=== PATIENT | male | born 1945 | race Caucasian/White ===

== ENCOUNTER → 2022-03-23 | Outpatient (CLI) | payer MEDICARE, BC ==
--- NOTE | 2022-03-23 11:09 | US ---
EXAMINATION TYPE: US abdomen complete DATE OF EXAM: 03/23/2022 COMPARISON: NONE CLINICAL HISTORY: R14.2 BELCHING. TECHNIQUE: Multiple sonographic images of the abdomen are obtained. FINDINGS: EXAM MEASUREMENTS: Liver Length: 15.7 cm Gallbladder Wall: 0.2 cm CBD: 0.4 cm Spleen: 11.2 cm Right Kidney: 11.4 x 6.5 x 5.5 cm Left Kidney: 11.4 x 5.6 x 5.9 cm Pancreas: visualized portions wnl, limited by overlying midline bowel gas Liver: scanned intercostally, attenuating, mildly heterogeneous Gallbladder: cholelithiasis Evidence for sonographic Scanlon's sign: no CBD: visualized portions wnl, limited by overlying bowel gas Spleen: wnl Right Kidney: 2.0cm cystic area superior pole Left Kidney: 0.6cm echogenic focus inferior pole Upper IVC: wnl Abd Aorta: visualized portions wnl, limited by overlying midline bowel gas IMPRESSION: 1. Hepatic steatosis. 2. Right renal cyst. 3. Cholelithiasis. 4. Nonobstructing left renal calculus.
== END | disposition home or self-care (01) ==
LOC: RADUSWWP 10:00
PROVIDERS: ATTEND Internal Medicine Gastroenterology
DX: R14.2 Eructation (principal)
CPT/HCPCS: 76700

== ENCOUNTER → 2022-07-03 | Outpatient (CLI) | payer MEDICARE, BC ==
--- NOTE | 2022-07-03 15:19 | NM ---
EXAMINATION TYPE: NM hepatobiliary w EF DATE OF EXAM: 07/03/2022 COMPARISON: Ultrasound abdomen March 23, 2022 HISTORY: Abdominal pain. TECHNIQUE: After the intravenous administration of 4.3 mCi Tc 99m Mebrofenin hepatobiliary scintigrap hy is performed. Immediate images post injection. FINDINGS: There is satisfactory initial accumulation of tracer by the liver. The gallbladder is visualized wit hin 45 minutes. The small bowel activity is noted within 15 minutes. At one hour 8 ounces of oral e nsure plus is given to mimic CCK and gallbladder ejection fraction is calculated at 3 %, diminished f rom the normal range. Therefore there is no scintigraphic evidence of cystic or common bile duct obs truction to suggest acute cholecystitis . IMPRESSION: Ejection fraction is 3%, findings consistent with underlying gallbladder hypokinesia.
== END | disposition home or self-care (01) ==
LOC: RADNMMAIN 12:43
PROVIDERS: ATTEND Internal Medicine
DX: R10.84 Generalized abdominal pain (principal)
CPT/HCPCS: 78226; A9537

== ENCOUNTER 2022-08-05 06:20 | Day surgery (SDC) | payer MEDICARE, BC ==
[~2022-08-05 06:20] MED LIST: ACETAMINOPHEN TAB 500 MG TAB PO PRN; DEXAMETHASONE SOD PHOSPHATE 4 MG/ML 1 ML VIAL IV ONE; HEPARIN SODIUM,PORCINE/PF 5,000 UNIT/0.5 ML SYRINGE SQ PRN; HYDROmorphone 0.5 MG/0.5 ML SYRINGE IVP PRN; LACTATED RINGERS 1,000 ML IV SCH; LIDOCAINE 1% (10MG/ML) FOR IV START INTRADERMA PRN; ONDANSETRON 4 MG/2 ML VIAL IVP ONE
[2022-08-05] MEDS ORDERED: LIDOCAINE 2% INJ 20 MG/ML (2 ML VIAL) ONE (07:41)
[2022-08-05] MEDS ORDERED: MIDAZOLAM 2 MG/2 ML VIAL ONE (07:41)
[2022-08-05] MEDS ORDERED: PROPOFOL 10 MG/ML 20 ML VIAL IV ONE (07:41)
[2022-08-05] MEDS ORDERED: ESMOLOL 100 MG/10 ML VIAL ONE (07:41)
[2022-08-05] MEDS ORDERED: fentaNYL (PF) 50 MCG/ML 2 ML AMP ONE (07:41)
[2022-08-05] MEDS ORDERED: ePHEDrine 50 MG/ML 1 ML VIAL ONE (07:41)
[2022-08-05] MEDS ORDERED: GLYCOPYRROLATE 0.2 MG/ML 2 ML VIAL ONE (07:41)
[2022-08-05] MEDS ORDERED: NEOSTIGMINE 1 MG/ML 10 ML VIAL ONE (07:41)
[2022-08-05] MEDS ORDERED: ROCURONIUM 10 MG/ML (5 ML VIAL) IV ONE (07:41)
[2022-08-05] MEDS ORDERED: SUCCINYLCHOLINE CHLORIDE 200 MG/10 ML VIAL IV ONE (07:41)
[2022-08-05] MEDS ORDERED: BUPIVACAIN-EPI 0.25%-1:200,000 30 ML VIAL SQ ONE (08:05)
--- NOTE | 2022-08-05 08:34 | P.OP ---
Date of Procedure: 08/05/22 Preoperative Diagnosis: Cholelithiasis Postoperative Diagnosis: cholelithiasis Procedure(s) Performed: Laparoscopic cholecystectomy Anesthesia: KETURAH Surgeon: Jw Mason Estimated Blood Loss (ml): 5 Pathology: other (Gallbladder) Condition: stable Disposition: PACU Description of Procedure: The patient was placed on the operating table. The patient received a general endotracheal tube anesthesia. The patients abdomen was prepped and draped in the usual sterile fashion. Through an infraumbilical stab incision, the fascia of the anterior abdominal wall was grasped with a pair of Kochers and then the Veress needle was placed in the peritoneal cavity. Position of the Veress needle was confirmed with positive drop test. The abdomen was then insufflated. After adequate insufflation, the 10 mm trocar was placed in the peritoneal cavity. Following this the laparoscope was placed in the peritoneal cavity. The patient was placed in the head-up, right side up position and then a 5 mm trocar was placed in the right lateral and right subcostal position under direct visualization. A 8 mm trocar was placed in the epigastric position. The gallbladder was grasped in the fundus and infundibulum. Traction on the gallbladder was placed in the lateral and the cephalad positions. The triangle of Calot was visualized.. The cystic duct was bluntly dissected until the union of the cystic duct and common bile duct was seen. A critical view of safety was achieved. The cystic duct was then divided and sealed with the Harmonic scissors. A PDS Endoloop was then placed throughout the cystic duct stump. The cystic artery divided and sealed with the Harmonic scissors. The gallbladder was then removed from the liver bed using Harmonic scissors. The gallbladder was then extracted through the epigastric port site. Operative field was checked for any bleeding spots and Harmonic scissors was used to coagulate the liver bed. The abdomen was irrigated. The trocars were removed. The skin was closed using interrupted 3-0 Vicryl suture. Dermabond dressing were applied. The patient tolerated the procedure well.
[2022-08-05 08:43] VITALS: TEMP 97
[2022-08-05 10:02] VITALS: BP 146/76; PULSE 70; RESP 16
== END 2022-08-05 12:38 | disposition home or self-care (01) ==
LOC: OR 06:20
PROVIDERS: ATTEND Surgery
DX: K80.10 Calculus of gallbladder with chronic cholecystitis without obstruction (principal); Z98.890 Other specified postprocedural states; Z79.899 Other long term (current) drug therapy
CPT/HCPCS: 47562; 88304; J2250; J0330; J1100; J2710; J0690; J2405; J3010; J2704; J1644; J2001

== ENCOUNTER → 2023-06-22 | Outpatient (CLI) | payer MEDICARE, BC ==
--- NOTE | 2023-06-22 21:37 | FL ---
EXAMINATION TYPE: FL barium swallow DATE OF EXAM: 06/22/2023 COMPARISON: None HISTORY: Diaphragmatic hernia TECHNIQUE: A double air contrast UGI study is performed. FINDINGS: Esophagus stylish normal caliber has a normal contour to the gastroesophageal junction. Gastroesophag eal junction opens to normal caliber. No intraluminal or extramural defects are evident. Some mild pr esbyesophagus with tertiary contractions is evident. Mild reflux in the distal esophagus was evident during the exam. IMPRESSION: 1. Mild presbyesophagus. 2. Mild gastroesophageal reflux
== END | disposition home or self-care (01) ==
LOC: RADFLMAIN 08:46
PROVIDERS: ATTEND Surgery Plastic and Reconstructive Surgery
DX: K44.9 Diaphragmatic hernia without obstruction or gangrene (principal); K22.89 Other specified disease of esophagus; K21.9 Gastro-esophageal reflux disease without esophagitis
CPT/HCPCS: 74220

== ENCOUNTER → 2023-07-07 | Day surgery (SDC) | payer MEDICARE, BC ==
[2023-07-05 17:51] VITALS: BMI 27.1
[~2023-07-07] MED LIST changes: -ACETAMINOPHEN TAB 500 MG TAB PO PRN; -DEXAMETHASONE SOD PHOSPHATE 4 MG/ML 1 ML VIAL IV ONE; -HEPARIN SODIUM,PORCINE/PF 5,000 UNIT/0.5 ML SYRINGE SQ PRN; -HYDROmorphone 0.5 MG/0.5 ML SYRINGE IVP PRN; -LIDOCAINE 1% (10MG/ML) FOR IV START INTRADERMA PRN; +LIDOCAINE 1% INJ 10MG/ML (20 ML MDV) ONE; -ONDANSETRON 4 MG/2 ML VIAL IVP ONE; +PROPOFOL 10 MG/ML 20 ML VIAL IV ONE
--- NOTE | 2023-07-07 07:37 | P.GSHP ---
History of Present Illness H&P Date: 07/07/23 CHIEF COMPLAINT: GERD HISTORY OF PRESENT ILLNESS: The patient is a 78-year-old male who presents reports gastroesophageal reflux disease. Upper endoscopy was offered for further evaluation and management. PAST MEDICAL HISTORY: Please see list. PAST SURGICAL HISTORY: Please see list. MEDICATIONS: Please see list. ALLERGIES: Please see list. SOCIAL HISTORY: No illicit drug use FAMILY HISTORY: No reports of Crohn disease or ulcerative colitis. REVIEW OF ORGAN SYSTEMS: CONSTITUTIONAL: No reports of fevers or chills. GI: Denies any blood in stools or constipation. PHYSICAL EXAM: VITAL SIGNS: Stable GENERAL: Well-developed and pleasant in no acute distress. HEENT: No scleral icterus. Extraocular movements grossly intact. Moist buccal mucosa. NECK: Supple without lymphadenopathy. CHEST: Unlabored respirations. Equal bilateral excursions. CARDIOVASCULAR: Regular rate and rhythm. Distal 2+ pulses. ABDOMEN: Soft, nondistended. MUSCULOSKELETAL: No clubbing, cyanosis, or edema. ASSESSMENT: 1. Gastroesophageal reflux disease PLAN: 1. Recommend proceeding with an upper endoscopy Past Medical History Past Medical History: GERD/Reflux, Hypertension Additional Past Medical History / Comment(s): hiatal hernia found on egd History of Any Multi-Drug Resistant Organisms: None Reported Past Surgical History: Cholecystectomy Additional Past Surgical History / Comment(s): rt foot surgery, egd x2 Past Anesthesia/Blood Transfusion Reactions: No Reported Reaction Smoking Status: Never smoker - Past Family History Mother Family Medical History: No Reported History Medications and Allergies Home Medications Medication Instructions Recorded Confirmed Type Multivitamins, Thera [Multivitamin 1 tab PO DAILY 07/31/22 07/05/23 History (formulary)] allopurinoL 300 mg PO DAILY 07/31/22 07/05/23 History lisinopriL [Prinivil] 20 mg PO BID 07/31/22 07/05/23 History Indomethacin [Indocin] 1 tab PO BID PRN 08/05/22 07/05/23 History Allergies Allergy/AdvReac Type Severity Reaction Status Date / Time No Known Allergies Allergy Verified 07/05/23 17:23
[2023-07-07 08:04] VITALS: TEMP 97
[2023-07-07 09:21] VITALS: BP 112/71; PULSE 54
--- NOTE | 2023-07-07 09:21 | P.PCN ---
Date of Procedure: 07/07/23 Description of Procedure: PREOPERATIVE DIAGNOSIS: Gastroesophageal reflux disease. POSTOPERATIVE DIAGNOSIS: Gastroesophageal reflux disease. Gastritis. Diaphragmatic hiatal hernia Presbyesophagus OPERATION: Esophagogastroduodenoscopy with biopsies along the esophagus, antrum and duodenum SURGEON: Saniya Cho MD ANESTHESIA: MAC. INDICATIONS: The patient is a 78-year-old female who presents with reflux disease. Benefits and risks of the procedure were described. Informed consent was obtained. DESCRIPTION: The patient was brought into the endoscopy suite and laid in the left lateral decubitus position. An Olympus gastroscope was passed along the posterior oropharynx down to the distal esophagus where the squamocolumnar junction was encountered at 40 cm from the incisors. The stomach was entered and no bile reflux was found. Additional findings are listed below. Biopsies with cold for ceps were obtained of the antrum. The first through third portion of the duodenum was examined. Retroflexion of the scope confirmed Hill grade 2 lower esophageal valve. The squamocolumnar junction demonstrated LA grade B erosive esophagitis. The stomach was desufflated. The patient tolerated the procedure well. FINDINGS: Squamocolumnar junction 40 cm from the incisors. Diaphragmatic hiatus at 41 cm. Hiatal hernia, 1 cm, sliding type Hill grade 2 lower esophageal valve. LA grade B erosive esophagitis with biopsies obtained Biopsies obtained of the duodenum. Chronic gastritis with biopsies obtained. Presbyesophagus RECOMMENDATIONS: Upper endoscopy as needed. Plan - Discharge Summary Discharge Rx Participant: No New Discharge Prescriptions: Continue Indomethacin [Indocin] 1 tab PO BID PRN PRN Reason: SWELLING allopurinoL 300 mg PO DAILY lisinopriL [Prinivil] 20 mg PO BID Multivitamins, Thera [Multivitamin (formulary)] 1 tab PO DAILY Discharge Medication List Multivitamins, Thera [Multivitamin (formulary)] 1 tab PO DAILY 07/31/22 [History] allopurinoL 300 mg PO DAILY 07/31/22 [History] lisinopriL [Prinivil] 20 mg PO BID 07/31/22 [History] Indomethacin [Indocin] 1 tab PO BID PRN 08/05/22 [History] Follow up Appointment(s)/Referral(s): Saniya Cho MD [STAFF PHYSICIAN] - 07/20/23 1:30 pm Patient Instructions/Handouts: *Surgery [facility] - (Anesthesia) Discharge Instructions Outpatient Surgery, Hiatal Hernia (DC), GERD (Gastroesophageal Reflux Disease) (ED) Discharge Disposition: HOME SELF-CARE
[2023-07-07 09:22] VITALS: RESP 20
== END | disposition home or self-care (01) ==
LOC: ORWHC2ENDO 07:26
PROVIDERS: ATTEND Surgery Plastic and Reconstructive Surgery
DX: K29.50 Unspecified chronic gastritis without bleeding (principal); K44.9 Diaphragmatic hernia without obstruction or gangrene; K22.89 Other specified disease of esophagus; K21.00 Gastro-esophageal reflux disease with esophagitis, without bleeding; I10 Essential (primary) hypertension; Z90.49 Acquired absence of other specified parts of digestive tract; Z98.890 Other specified postprocedural states; Z79.899 Other long term (current) drug therapy
CPT/HCPCS: 88305; 43239; J2001; J2704

== ENCOUNTER 2023-07-13 07:28 | Inpatient (IN) | payer MEDICARE, BC ==
[~2023-07-13 07:28] MED LIST changes: +ALPRAZolam 0.25 MG TAB PO PRN; +ALPRAZolam 0.5 MG TAB PO PRN; +ASPIRIN 325 MG TAB PO ONE; -LACTATED RINGERS 1,000 ML IV SCH; -LIDOCAINE 1% INJ 10MG/ML (20 ML MDV) ONE; +NITROGLYCERIN SL TABS 0.4 MG TAB SUBLINGUAL PRN; -PROPOFOL 10 MG/ML 20 ML VIAL IV ONE
[2023-07-13] MEDS: SODIUM CHLORIDE 0.9% 1,000 ML in EMPTY BAG 1 BAG IV SCH ×2 (08:00→14:54)
[2023-07-13] MEDS ORDERED: fentaNYL (PF) 50 MCG/ML 2 ML AMP ONE (09:17)
[2023-07-13] MEDS ORDERED: HEPARIN SODIUM 1,000 UN/ML (10ML VL) ONE (09:17)
[2023-07-13] MEDS ORDERED: fentaNYL (PF) 50 MCG/ML 2 ML AMP IVP ONE ×2 (09:45)
[2023-07-13] MEDS ORDERED: LIDOCAINE 1% INJ 10MG/ML (30 ML VIAL-PF) SQ ONE (09:49)
[2023-07-13] MEDS ORDERED: VERAPAMIL SYRINGE (5 MG/10 ML) INTRAARTER ONE (09:50)
[2023-07-13] MEDS ORDERED: MIDAZOLAM 2 MG/2 ML VIAL IVP ONE (09:52)
[2023-07-13] MEDS ORDERED: HEPARIN SODIUM 1,000 UN/ML (10ML VL) IVP ONE (09:54)
[2023-07-13] MEDS ORDERED: IOPAMIDOL-370 100ML BTL INJ ONE (10:04)
[2023-07-13] MEDS ORDERED: RX INFO: IV CONTRAST WAS GIVEN 1 EACH MISC MISCELLANE PRN (10:26)
[2023-07-13] MEDS ORDERED: HEPARIN SODIUM 1,000 UN/ML (10ML VL) IV PRN (10:28)
[2023-07-13] MEDS ORDERED: SODIUM CHLORIDE 0.9% 1,000 ML IV SCH (10:30)
--- NOTE | 2023-07-13 10:36 | P.CARDCATH ---
Date of Procedure: 07/13/23 Description of Procedure: Cardiac Catheterization: The patient is a 78 old male with known history of hypertension who has been complaining of progressive symptoms of chest discomfort consistent with angina pectoris. Recommendations were made regarding cardiac catheterization, the risks and the complications were discussed with the patient who is in full understanding and agreement. Procedure Description: Patient was brought to laborer shaft sinking in fasting semi-sedated state after receiving Fentanyl and Benadryl achieiving moderate conscious sedated state. Using Xylocaine Anesthesia and modified Seldinger technique, a 6-Sudanese sheath was introduced in the right radial artery . Subsequently, selective coronary angiography was performed using a 5-Sudanese 3.5 bend Randal catheter. Multiple views of the coronary artery including hemiaxial views were obtained. The 6-Sudanese pigtail catheter was used to cross the aortic valve and LVEDP was calculated. Following that, catheter and sheath were removed. Hemostasis was obtained with deployment of vascular band . There was no immediate complication. Patient was returned to room in stable condition. Of note, the patient received a total of 5000 units of intravenous heparin as well as intra-arterial verapamil. Findings: Fluoroscopy: There is severe calcifications of all the coronary arteries Left main: This vessel is heavily calcified has severe stenosis in the midsegment of about 95%, bifurcating into LAD and left circumflex LAD: This vessel gives rise to a diagonal branch that has an 80% stenosis the proximal LAD has 30-40% the mid LAD has an 80% stenosis the rest of the vessel has no high-grade stenosis Left circumflex: This is a nondominant vessel giving rise to one obtuse marginal branch has intimal disease and gives rise to 2 obtuse marginal branch with no high-grade stenosis RCA: This is a large dominant vessel bifurcating PDA and PLV. The proximal right coronary artery has an eccentric 80% stenosis, the mid RCA has another area of 70%, the distal vessel is diffusely disease and there is a 90-95% stenosis in the distal RCA prior to the bifurcation. Left Ventriculogram: Not performed Hemodynamics: There was no gradient across the aortic valve , LVEDP was 20-25 mmHg Conclusion: 1. Severely calcified coronary arteries 2. Severe left main disease 3. And severe LAD disease 4. Severe RCA disease Recommendations: I have recommended to proceed with urgent CABG in view of his anatomy and presentation, the findings were discussed with the surgeon. The findings and the recommendations were discussed with the patient and the family and they were in full understanding and agreement. Duration of sedation is 15 minutes.
[2023-07-13 11:12] LABS: Basophils % (A) 1 %; Eosinophils # (A) 0.2 k/uL (0-0.7); Eosinophils % (A) 3 %; HCT 40.8 % (39.0-53.0); HGB 13.4 gm/dL (13.0-17.5); Lymphocytes # (A) 2.6 k/uL (1.0-4.8); Lymphocytes % (A) 35 %; MCH 31.8 pg (25.0-35.0); MCHC 32.9 g/dL (31.0-37.0); MCV 96.8 fL (80.0-100.0); Mean Platelet Volume 8.4; Monocytes # (A) 0.3 k/uL (0-1.0); Monocytes % (A) 4 %; Neutrophils # (A) 4.1 k/uL (1.3-7.7); Neutrophils % (A) 56 %; Platelet Count 213 k/uL (150-450); RBC 4.21 m/uL (4.30-5.90); RDW 13.5 % (11.5-15.5); WBC 7.3 k/uL (3.8-10.6)
[2023-07-13 11:22] LABS: Partial Thromboplastin Time 63.9 sec (22.0-30.0); Prothrombin Time 10.6 sec (10.0-12.5)
[2023-07-13 11:35] LABS: ALT 22 U/L (4-49); AST 25 U/L (17-59); African American GFR (CKD) >90 (>60 ml/min/1.73 sqM); Albumin 3.8 g/dL (3.5-5.0); Alkaline Phosphatase 81 U/L (38-126); Anion Gap 13 mmol/L; Blood Urea Nitrogen 23 mg/dL (9-20); Calcium 9.6 mg/dL (8.4-10.2); Carbon Dioxide 18 mmol/L (22-30); Chloride 110 mmol/L (98-107); Glucose 107 mg/dL (74-99); Magnesium 1.9 mg/dL (1.6-2.3); Non-African American GFR(CKD) 82 (>60 ml/min/1.73 sqM); Potassium 4.3 mmol/L (3.5-5.1); Sodium 141 mmol/L (137-145); Total Bilirubin 0.5 mg/dL (0.2-1.3); Total Protein 6.7 g/dL (6.3-8.2)
--- NOTE | 2023-07-13 11:58 | US ---
EXAMINATION TYPE: US carotid duplex BILAT DATE OF EXAM: 07/13/2023 COMPARISON: NONE CLINICAL INDICATION: Male, 78 years old with history of preop cardiac surgery; pending bypass surgery . no stroke history TECHNIQUE: Carotid duplex ultrasound examination. Indirect Doppler criteria was utilized. FINDINGS: EXAM MEASUREMENTS: RIGHT: Peak Systolic Velocity (PSV) cm/sec ----- Right CCA: 85.1 ----- Right ICA: 99.3 ----- Right ECA: 102 ICA/CCA ratio: 1.2 RIGHT: End Diastole cm/sec ----- Right CCA: 14.9 ----- Right ICA: 22.4 ----- Right ECA: 0.0 LEFT: Peak Systolic Velocity (PSV) cm/sec ----- Left CCA: 125.0 ----- Left ICA: 116.0 ----- Left ECA: 98.1 ICA/CCA ratio: 0.9 LEFT: End Diastole cm/sec ----- Left CCA: 15.6 ----- Left ICA: 23.0 ----- Left ECA: 0.0 VERTEBRALS (direction of flow): Right Vertebral: Antegrade Left Vertebral: Antegrade Rhythm: Normal INSPECTOR HEATING AND REFRIGERATION NOTES: Mild atherosclerotic plaque, left greater than right, with no significant stenosis seen IMPRESSION: No hemodynamically significant internal carotid artery stenosis seen on either side. Criteria for Assigning % of Stenosis / Diameter reduction (Estimation based on the indirect measurements of the internal carotid artery velocities (ICA PSV). 1. Normal (no stenosis)=ICA PSV < 125 cm/s: ratio < 2.0: ICA EDV<40 cm/s. 2. Less than 50% stenosis=ICA PSV < 125 cm/s: ratio < 2.0: ICA EDV<40 cm/s. 3. 50 to 69% stenosis=ICA PSV of 125 to 230 cm/s: ration 2.0 ? 4.0: ICA EDV 40-100 cm/s. 4. Greater than 70% stenosis to near occlusion= ICA PSV > 230 cm/s: ratio > 4.0: ICA EDV > 100 cm/s. 5. Near occlusion= ICA PSV velocities may be low or undetectable: variable ratio and ICA EDV. 6. Total occlusion=unable to detect flow.
--- NOTE | 2023-07-13 12:34 | US ---
EXAMINATION TYPE: Pre-Operative Non-Invasive Evaluation of the hand for Potential Radial Artery Dahiana clark, Measurements only DATE OF EXAM: 07/13/2023 11:39 AM CLINICAL INDICATION: Male, 78 years old with history of measurements only; Right heart cath, bypass s urgery SIDE PERFORMED: Left TECHNIQUE: Radial artery is measured utilizing real time linear array sonography. Dominant hand: Right Duplex Findings: Radial Artery: Color flow seen Measurements in mm, transverse view: Left Radial: Proximal: 3.2 x 2.8mm Mid: 2.5 x 3.1 mm Distal: 2.9 x 3.9 mm IMPRESSION: 1. Left radial artery measurements listed above. 2. Performing surgeon to determine viability as conduit.
[2023-07-13] MEDS: HEPARIN SOD,PORK IN 0.45% NACL 25,000 UNIT in 0.45% NACL 1 250ML.BAG IV SCH (12:35)
--- NOTE | 2023-07-13 12:35 | US ---
EXAMINATION TYPE: US vein mapping BILAT DATE OF EXAM: 07/13/2023 11:39 AM COMPARISON: NONE CLINICAL INDICATION: Male, 78 years old with history of preop cardiac surgery; pending bypass surgery SIDE PERFORMED: Bilateral TECHNIQUE: Lower extremity saphenous vein is examined and measured utilizing real time linear array sonography. DUPLEX FINDINGS: Greater Saphenous: Color flow seen Measurements in mm: Right Greater Saphenous: Groin: 8.3 x 7.5 mm High Thigh: 1.9 x 2.1 mm Mid Thigh: 2.2 x 3.0 mm Above Knee: 2.3 x 3.2 mm Knee: 2.7 x 2.1 mm Below Knee: 1.6 x 1.4 mm Mid Calf: 2.7 x 3.0 mm At Ankle: 2.3 x 2.3 mm Left Greater Saphenous: Groin: 5.6 x 5.7 mm High Thigh: 3.9 x 3.5 mm Mid Thigh: 3.0 x 3.0 mm Above Knee: 2.6 x 2.8 mm Knee: 1.8 x 2.8 mm Below Knee: 2.2 x 2.2 mm Mid Calf: 1.1 x 1.6 mm At Ankle: 2.5 x 3.5 mm IMPRESSION: 1. Bilateral GSV measurements listed above. 2. Performing surgeon to determine viability as conduit.
--- NOTE | 2023-07-13 13:42 | CT ---
EXAMINATION TYPE: CT chest wo con CT DLP: 446.4 mGycm, Automated exposure control for dose reduction was used. DATE OF EXAM: 07/13/2023 10:41 AM COMPARISON: None. . CLINICAL INDICATION:Male, 78 years old with history of cardiac surgery; [facility], post op cardiac sx chest pain TECHNIQUE: Multiple axial images were obtained through the chest. Sagittal and coronal reformats were created for review. Contrast used: mL of (None if empty) Oral contrast used: (None if empty) FINDINGS: Exam is limited without IV contrast. LOWER NECK: No significant findings. HEART: The heart is mildly to moderately enlarged. Moderate to severe coronary artery calcifications and/or stents. Partially calcified aortic valve. Partially calcified mitral valve. No significant per icardial effusion. VASCULATURE: Mild/moderate atherosclerotic calcifications throughout the aorta. No evidence of aneur ysm. Grossly unremarkable appearance of the pulmonary arteries without contrast. Pelvic trunk is not grossly enlarged. MEDIASTINUM: No gross evidence of adenopathy. LUNGS/ PLEURA: Mild scattered scarring and senescent changes. Mild dependent atelectasis in the lung bases. No acute consolidation, pleural effusion, or pneumothorax. AIRWAY: Central airways patent and unremarkable. MUSCULOSKELETAL: No acute osseous abnormalities. Moderate disc degeneration changes are present thro ughout the visualized spine. SOFT TISSUES: Unremarkable. No axillary adenopathy. UPPER ABDOMEN: Grossly unremarkable liver. Gallbladder not seen, likely surgically absent. Mildly thi ckened adrenals without evidence of mass. Atherosclerotic calcifications of the aorta with suspected mild stenoses of the proximal celiac, superior mesenteric, left renal arteries. The kidneys seem to d emonstrate some early contrast excretion, limiting evaluation for calculi. Likely parapelvic cyst on the right measures 2.4 cm. IMPRESSION: 1. No acute abnormality of the chest detected, in the limits of noncontrast technique. 2. Other chronic and likely incidental findings, as described above.
--- NOTE | 2023-07-13 15:15 | US ---
EXAMINATION TYPE: US arterial LE multi level DATE OF EXAM: 07/13/2023 1:39 PM CLINICAL INDICATION: Male, 78 years old with history of Ankle Brachial Index (ANDRY); Pre-OP CABG ANDRY Doppler Waveforms: Right: Multiphasic Left: Multiphasic Right Brachial Pressure: Not obtained due to heart cath site Left Brachial Pressure: 146 Ankle-Brachial Indices: Right: 1.2 Left: 1.2 IMPRESSION: Normal bilateral ANDRY
--- NOTE | 2023-07-13 15:19 | P.GSCN ---
History of Present Illness Consult date: 07/13/23 Reason for Consult: Coronary artery disease with left main disease Requesting physician: Dariana Hernandez History of present illness: This is a 78-year-old gentleman who follows outpatient with Dr. Cabrera for primary care and who recently established with Dr. Hernandez for cardiology. He has a previous medical history of hypertension, lifelong nonsmoker, and cholecystitis status post cholecystectomy. This gentleman had been complaining of chest discomfort and dyspnea on exertion. Initially he thought it was his gallbladder but his symptoms have not improved since he had his gallbladder removed. He states his chest pain and shortness of breath are only with exertion and do resolve with rest. Consequently he has reduced his activity level to avoid having such symptoms. He was seen by Dr. Hernandez who recommended heart catheterization and echocardiogram. Echo was completed and the cardiology office which demonstrated normal left ventricular systolic function with EF 55- 60%, moderate eccentric mitral regurgitation, mild aortic and tricuspid regurgitation. He underwent elective heart catheterization this morning and was found to have severely calcified coronary artery disease with mid left main stenosis 95%, mid LAD stenosis 80% with a diagonal branch which also has 80% stenosis and RCA with 80% proximal disease, 70% mid disease and diffuse 90-95% distal disease. Due to these findings consultation was placed to Dr. Spain for surgical revascularization recommendations. Review of Systems Review of systems was completed and was negative except as noted - Cardiovascular Reports as per HPI, Reports chest pain, Reports dyspnea on exertion Past Medical History Past Medical History: GERD/Reflux, Hypertension Additional Past Medical History / Comment(s): hiatal hernia found on egd History of Any Multi-Drug Resistant Organisms: None Reported Past Surgical History: Cholecystectomy, Orthopedic Surgery Additional Past Surgical History / Comment(s): rt foot surgery, egds Past Anesthesia/Blood Transfusion Reactions: No Reported Reaction Past Psychological History: No Psychological Hx Reported Smoking Status: Never smoker Past Alcohol Use History: Occasional Past Drug Use History: None Reported - Past Family History Mother Family Medical History: No Reported History Additional Family Medical History / Comment(s): from old age Father Additional Family Medical History / Comment(s): from peritonitis Medications and Allergies Home Medications Medication Instructions Recorded Confirmed Type Multivitamins, Thera [Multivitamin 1 tab PO DAILY 07/31/22 07/13/23 History (formulary)] allopurinoL 300 mg PO DAILY 07/31/22 07/13/23 History lisinopriL [Prinivil] 20 mg PO BID 07/31/22 07/13/23 History Indomethacin [Indocin] 1 tab PO BID PRN 08/05/22 07/13/23 History Aspirin 81 mg PO DAILY 07/09/23 07/13/23 History Isosorbide Mononitrate ER [Imdur] 30 mg PO DAILY 07/13/23 07/13/23 History Allergies Allergy/AdvReac Type Severity Reaction Status Date / Time No Known Allergies Allergy Verified 07/15/23 06:04 Surgical - Exam Vital Signs Temp Pulse Resp BP Pulse Ox 97.8 F 55 L 18 154/67 95 07/13/23 07:58 07/13/23 07:58 07/13/23 07:58 07/13/23 07:58 07/13/23 07:58 CONSTITUTIONAL: Awake and alert, appears comfortable, cooperative, well- developed, well-nourished, no pain, no acute distress EYES: Pupils equal, round, reactive to light, normal ocular movement ENT: Moist mucous membranes without oral lesions present NECK: No masses, no bruits, trachea midline RESPIRATORY: Lungs sounds clear to auscultation bilaterally. Respirations even, nonlabored. Currently on room air with oxygen saturation 97%. Strong cough. No chest wall deformities. No clubbing or cyanosis present CARDIOVASCULAR: S1, S2 present. Regular rate and rhythm, sinus rhythm on telemetry. Palpable peripheral pulses bilaterally. No edema present. No calf pain or tenderness noted. No significant lower extremity varicosities noted GASTROINTESTINAL: Abdomen soft, nontender, nondistended without masses or organomegaly noted. There is no rebound or guarding present. Active bowel sounds present 4 quadrants. GENITOURINARY: Deferred INTEGUMENTARY: Skin is warm and dry with evidence of good perfusion. NEUROLOGIC: Cranial nerves II through XII intact, normal coordination, no obvious motor or sensory deficits, speech is normal MUSKULOSKELETAL: Able to move all extremities, strength equal bilaterally, normal posture PSYCHIATRIC: Alert and oriented to person place and time, appropriate affect, intact judgment and insight Results - Labs 07/14/23 01:16 07/13/23 10:47 Abnormal Lab Results - Last 24 Hours (Table) 07/13/23 07/13/23 07/13/23 Range/Units 10:47 10:47 10:47 RBC 4.21 L (4.30-5.90) m/uL APTT 63.9 H (22.0-30.0) sec Chloride 110 H (98-107) mmol/L Carbon Dioxide 18 L (22-30) mmol/L BUN 23 H (9-20) mg/dL Glucose 107 H (74-99) mg/dL Diabetes panel 07/13/23 Range/Units 10:47 Sodium 141 (137-145) mmol/L Potassium 4.3 (3.5-5.1) mmol/L Chloride 110 H (98-107) mmol/L Carbon Dioxide 18 L (22-30) mmol/L BUN 23 H (9-20) mg/dL Creatinine 0.89 (0.66-1.25) mg/dL Glucose 107 H (74-99) mg/dL Calcium 9.6 (8.4-10.2) mg/dL AST 25 (17-59) U/L ALT 22 (4-49) U/L Alkaline Phosphatase 81 (38-126) U/L Total Protein 6.7 (6.3-8.2) g/dL Albumin 3.8 (3.5-5.0) g/dL Thyroid panel 07/13/23 Range/Units 10:47 TSH 1.350 (0.465-4.680) mIU/L Calcium panel 07/13/23 Range/Units 10:47 Calcium 9.6 (8.4-10.2) mg/dL Albumin 3.8 (3.5-5.0) g/dL Pituitary panel 07/13/23 Range/Units 10:47 Sodium 141 (137-145) mmol/L Potassium 4.3 (3.5-5.1) mmol/L Chloride 110 H (98-107) mmol/L Carbon Dioxide 18 L (22-30) mmol/L BUN 23 H (9-20) mg/dL Creatinine 0.89 (0.66-1.25) mg/dL Glucose 107 H (74-99) mg/dL Calcium 9.6 (8.4-10.2) mg/dL TSH 1.350 (0.465-4.680) mIU/L Adrenal panel 07/13/23 Range/Units 10:47 Sodium 141 (137-145) mmol/L Potassium 4.3 (3.5-5.1) mmol/L Chloride 110 H (98-107) mmol/L Carbon Dioxide 18 L (22-30) mmol/L BUN 23 H (9-20) mg/dL Creatinine 0.89 (0.66-1.25) mg/dL Glucose 107 H (74-99) mg/dL Calcium 9.6 (8.4-10.2) mg/dL Total Bilirubin 0.5 (0.2-1.3) mg/dL AST 25 (17-59) U/L ALT 22 (4-49) U/L Alkaline Phosphatase 81 (38-126) U/L Total Protein 6.7 (6.3-8.2) g/dL Albumin 3.8 (3.5-5.0) g/dL - Imaging CT scan - chest: report reviewed, image reviewed EKG: image reviewed Additional studies: Heart catheterization films were reviewed with Dr. Spain Assessment and Plan Assessment: Coronary artery disease, left main disease Chest pain, shortness of breath secondary to above Hypertension Bradycardia with second-degree heart block Plan: The patient was seen and examined by Dr. Spain. Chart/diagnostics were reviewed. The usual perioperative course of open-heart surgery was discussed in detail with the patient, risks and benefits were reviewed, all questions were answered. Preoperative testing was initiated, STS risk score was calculated and discussed with the patient. 5 m walk test was completed, #1 5.8 seconds, #2 5.76 seconds, #3 4.55 seconds. Recommend maximizing medical therapy with aspirin, statin. Would like beta michoacano on board, however due to bradycardia with second-degree heart block we will not initiate at this time. Patient currently denies any chest pain or shortness of breath. The case was discussed in detail between Dr. Hernandez and Dr. Spain. At this time our plan is for myocardial revascularization with left internal mammary artery, left radial artery, endoscopic vein harvest with left atrial appendage ligation on July [address] Spain. This was discussed with the patient and he is in agreement. Thank you Dr. Hernandez for this consult, we will continue to follow along with you. I have personally seen and examined the patient, performed the documentation and the assessment and plan as written. Number of minutes spent on the visit: 30. Hailey Han, [employer] THICKENER OPERATOR-C Attending Addendum: Pt seen and evaluated with RED MUD THICKENER OPERATOR above. Agree with her assessment and plan. This is a 78 year-old male with a hx of GERD and htn who presents for elective cath with a history of several months of anginal symptoms. Coronary cath reveals significant 3v CAD. The patient is certainly a good candidate for CABG. We will proceed with pre-operative testing and plan for surgery this admission. I spent 45 minutes evaluating the patient and data and discussing the plan of care with the team. I spent 45 minutes evaluating the patient and discussing the findings of care with the team. Time with Patient: Greater than 30
[2023-07-13 15:49] LABS: Hepatitis A Antibody IgM Nonreactive; Hepatitis B Core IgM Nonreactive; Hepatitis B Surface Antigen Nonreactive; Hepatitis C IgG Antibody Nonreactive
--- NOTE | 2023-07-13 16:00 | P.CNPUL ---
History of Present Illness Consult date: 07/13/23 Requesting physician: Dariana Hernandez Reason for consult: other Chief complaint: Coronary artery disease. History of present illness: Pulmonary consult dated 07/13/2023. 78-year-old male who recently had a cardiac catheterization that showed severely calcified coronary arteries, severe left main disease, and severe LAD and right coronary artery disease. According to cardiothoracic surgery, the patient is scheduled to have bypass grafting, on July 15, with Dr. Spain. The patient's FEV1 was 69% predicted or 2.15 L. The patient is a lifelong nonsmoker. His primary care physician is Dr. Cabrera. We are asked to see the patient preoperatively. The patient has no known history of any lung disease. He is a lifelong nonsmoker. He denies any asthma, emphysema, COPD, etc. Seen in consultation on July 06, by Dr. Hernandez, for chest pain. The patient has a history of hypertension, and gout. His home medications include lisinopril, Imdur, aspirin, allopurinol, multiple vitamins, and Indocin. The patient is seen in room 368. The patient is resting comfortably. The patient is currently on IV heparin. Currently labs include a white count 7.3, hemoglobin 13.4, madelyn tocrit 40.8, and a normal platelet count. PTT is 63.9. Sodium 141, potassium 4.3, chlorides 110, CO2 18, anion gap 13, BUN 23, and creatinine 0.89. Glucose 107. TSH is normal. Chest CT, showed no acute abnormality in the chest. Review of Systems REVIEW OF SYSTEMS: CONSTITUTIONAL: [Negative.] NEUROLOGIC: [ Negative.] HEENT: [ Negative.] CARDIAC: Chest pain. PULMONARY: [Negative.] GI: [Negative.] : [Negative.] RHEUMATOLOGIC: [ Negative.] IMMUNOLOGIC: [ Negative.] ENDOCRINE: [Negative. ] DERMATOLOGIC: [Negative.] Past Medical History Past Medical History: GERD/Reflux, Hypertension Additional Past Medical History / Comment(s): hiatal hernia found on egd History of Any Multi-Drug Resistant Organisms: None Reported Past Surgical History: Cholecystectomy, Orthopedic Surgery Additional Past Surgical History / Comment(s): rt foot surgery, egds Past Anesthesia/Blood Transfusion Reactions: No Reported Reaction Past Psychological History: No Psychological Hx Reported Smoking Status: Never smoker Past Alcohol Use History: Occasional Past Drug Use History: None Reported - Past Family History Mother Family Medical History: No Reported History Additional Family Medical History / Comment(s): from old age Father Additional Family Medical History / Comment(s): from peritonitis Medications and Allergies Home Medications Medication Instructions Recorded Confirmed Type Multivitamins, Thera [Multivitamin 1 tab PO DAILY 07/31/22 07/13/23 History (formulary)] allopurinoL 300 mg PO DAILY 07/31/22 07/13/23 History lisinopriL [Prinivil] 20 mg PO BID 07/31/22 07/13/23 History Indomethacin [Indocin] 1 tab PO BID PRN 08/05/22 07/13/23 History Aspirin 81 mg PO DAILY 07/09/23 07/13/23 History Isosorbide Mononitrate ER [Imdur] 30 mg PO DAILY 07/13/23 07/13/23 History Allergies Allergy/AdvReac Type Severity Reaction Status Date / Time No Known Allergies Allergy Verified 07/13/23 07:58 Physical Exam Osteopathic Statement: *. No significant issues noted on an osteopathic structural exam other than those noted in the History and Physical/Consult. Vitals: Vital Signs Temp Pulse Pulse Resp BP BP Pulse Ox 07/13/23 15:28 97.9 F 53 L 16 146/72 97 07/13/23 14:00 16 07/13/23 12:16 97.7 F 43 L 16 148/69 97 07/13/23 12:11 54 L 16 146/72 98 07/13/23 11:28 49 L 18 144/66 95 07/13/23 11:12 49 L 18 161/72 95 07/13/23 10:58 51 L 18 162/74 95 07/13/23 10:42 51 L 18 173/74 95 07/13/23 10:28 52 L 18 162/74 95 07/13/23 10:12 52 L 18 159/72 95 07/13/23 07:58 97.8 F 55 L 18 154/67 155/68 95 Intake and Output 07/13/23 07/13/23 07/13/23 06:59 14:59 22:59 Intake Total 550 Balance 550 Intake: IV 550 Other: Voiding Method Toilet Weight 101.7 kg No acute distress, oriented 3. Currently on room air. HEENT examination is grossly unremarkable. Mucous membranes are moist. No oral lesions. Neck supple. Full range of motion. No adenopathy thyromegaly or neck vein distention. Cardiovascular examination reveals regular rhythm rate. S1-S2 normal. No S3 or S4. No discernible murmur noted. Heart rate 53 bpm. Lungs reveal clear breath sounds. Breath sounds are equal bilaterally. No adventitious lung sounds including wheezes rhonchi or crackles. Saturations are 97% on room air. Abdomen soft bowel sounds are heard. No masses or tenderness. Extremities are intact. No cyanosis clubbing or edema. Skin is without rash or lesion. Neurologic examination is brief but nonfocal. Results - Laboratory Findings CBC and BMP: 07/13/23 10:47 07/13/23 10:47 PT/INR, D-dimer PT 10.6 sec (10.0-12.5) 07/13/23 10:47 INR 1.0 (<1.2) 07/13/23 10:47 Abnormal lab findings: Abnormal Labs 07/13/23 07/13/23 07/13/23 10:47 10:47 10:47 RBC 4.21 L APTT 63.9 H Chloride 110 H Carbon Dioxide 18 L BUN 23 H Glucose 107 H - Diagnostic Findings CT scan - chest: image reviewed Assessment and Plan Assessment: Chest pain, secondary to severe coronary artery disease, including left main disease, and severe disease in the LAD, and right coronary artery. History of hypertension. History of gout. Lifelong nonsmoker. No history of any pulmonary disease. Plan: Plan dated 07/13/2023. The patient apparently is going to have open heart surgery, on July 15, with Dr. Spain. The patient is cleared from the pulmonary standpoint. The patient has no history of any pulmonary disease, and he is a lifelong nonsmoker. In addition, his FEV1 is reported to be 69% of predicted, or 2.15 L, which makes him at no increased operative risk, from the pulmonary standpoint. Labs, x-rays, and medications are reviewed. We will continue to follow. Prognosis is guarded. Time with Patient: Greater than 30
--- NOTE | 2023-07-13 16:46 | P.HPIM ---
History of Present Illness H&P Date: 07/13/23 Mario Cherry, is a 78-year-old male who presented to [facility] for cardiac catheterization with Dr. Hernandez, patient was having episodes of chest pain with exertion, he underwent cardiac catheterization on 07/13/2023 which was positive for severe left main disease, severe LAD disease and severe RCA disease. Patient was admitted to telemetry floor, he was started on IV heparin , cardiovascular surgery consultation was requested. Patient has a known history of hypertension, gastroesophageal reflux disease, history of gout , and history of cholecystitis with recent cholecystectomy. On review of systems patient is alert and oriented 3 in no apparent distress, there is no fever or chills no headache or dizziness no chest pain no shortness of breath no cough no nausea or vomiting no abdominal pain no diarrhea no blood in the stools no burning with urination no frequency or urgency and no hematuria. Past Medical History Past Medical History: GERD/Reflux, Hypertension Additional Past Medical History / Comment(s): hiatal hernia found on egd History of Any Multi-Drug Resistant Organisms: None Reported Past Surgical History: Orthopedic Surgery Additional Past Surgical History / Comment(s): rt foot surgery, egds Past Anesthesia/Blood Transfusion Reactions: No Reported Reaction Smoking Status: Never smoker - Past Family History Mother Family Medical History: No Reported History Father Additional Family Medical History / Comment(s): from peritonitis Medications and Allergies Home Medications Medication Instructions Recorded Confirmed Type Multivitamins, Thera [Multivitamin 1 tab PO DAILY 07/31/22 07/13/23 History (formulary)] allopurinoL 300 mg PO DAILY 07/31/22 07/13/23 History lisinopriL [Prinivil] 20 mg PO BID 07/31/22 07/13/23 History Indomethacin [Indocin] 1 tab PO BID PRN 08/05/22 07/13/23 History Aspirin 81 mg PO DAILY 07/09/23 07/13/23 History Isosorbide Mononitrate ER [Imdur] 30 mg PO DAILY 07/13/23 07/13/23 History Allergies Allergy/AdvReac Type Severity Reaction Status Date / Time No Known Allergies Allergy Verified 07/13/23 07:58 Physical Exam Vitals: Vital Signs Temp Pulse Pulse Resp BP BP Pulse Ox 07/13/23 11:28 49 L 18 144/66 95 07/13/23 11:12 49 L 18 161/72 95 07/13/23 10:58 51 L 18 162/74 95 07/13/23 10:42 51 L 18 173/74 95 07/13/23 10:28 52 L 18 162/74 95 07/13/23 10:12 52 L 18 159/72 95 07/13/23 07:58 97.8 F 55 L 18 154/67 155/68 95 Intake and Output 07/12/23 07/13/23 07/13/23 22:59 06:59 14:59 Intake Total 550 Balance 550 Intake: IV 550 Other: Weight 101.7 kg In general patient is alert and oriented x 3 in no distress HEENT head normocephalic and atraumatic Neck is supple no JVD no goiter no lymphadenopathy no carotid bruit Chest examination is clear to auscultation no crackles no wheezing Cardiac exam reveals regular heart sounds S1 and S2 no gallops no murmurs Abdomen is soft nontender no organomegaly with normal bowel sounds Extremity exam reveals no edema no cyanosis or clubbing Neurological examination reveals no gross focal deficits Results CBC & Chem 7: 07/13/23 10:47 07/13/23 10:47 Labs: Abnormal Lab Results - Last 24 Hours (Table) 07/13/23 07/13/23 07/13/23 Range/Units 10:47 10:47 10:47 RBC 4.21 L (4.30-5.90) m/uL APTT 63.9 H (22.0-30.0) sec Chloride 110 H (98-107) mmol/L Carbon Dioxide 18 L (22-30) mmol/L BUN 23 H (9-20) mg/dL Glucose 107 H (74-99) mg/dL Assessment and Plan Plan: Episodes of chest pain with cardiac catheterization positive for severe disease in the left main, LAD, and the right coronary artery Underlying history of hypertension Underlying history of gout Underlying history of gastroesophageal reflux disease At this time patient was seen and examined Home medications reviewed and reordered He was started on IV heparin Cardiology pulmonary and cardiovascular surgery in place Will follow during this admission
[2023-07-13] MEDS: lisinopriL 20 MG TAB PO SCH (20:13)
[2023-07-13] MEDS: ATORVASTATIN 40 MG TAB PO SCH (20:13)
[2023-07-13 20:50] LABS: LDL Cholesterol,Calculated 115.6 mg/dL (0.0-131.0)
[2023-07-13] MEDS ORDERED: METOPROLOL TARTRATE 12.5 MG TAB PO SCH (21:00)
[2023-07-14 01:27] LABS: Basophils % (A) 1 %; Eosinophils # (A) 0.3 k/uL (0-0.7); Eosinophils % (A) 4 %; HCT 35.9 % (39.0-53.0); HGB 12.1 gm/dL (13.0-17.5); Lymphocytes # (A) 2.6 k/uL (1.0-4.8); Lymphocytes % (A) 37 %; MCH 32.3 pg (25.0-35.0); MCHC 33.7 g/dL (31.0-37.0); MCV 95.8 fL (80.0-100.0); Mean Platelet Volume 8.8; Monocytes # (A) 0.4 k/uL (0-1.0); Monocytes % (A) 6 %; Neutrophils # (A) 3.7 k/uL (1.3-7.7); Neutrophils % (A) 52 %; Platelet Count 185 k/uL (150-450); RBC 3.74 m/uL (4.30-5.90); RDW 13.6 % (11.5-15.5); WBC 7.2 k/uL (3.8-10.6)
[2023-07-14 02:06] LABS: INR 0.9 (<1.2); Prothrombin Time 10.4 sec (10.0-12.5)
[2023-07-14] MEDS: SODIUM CHLORIDE 0.9% 1,000 ML in EMPTY BAG 1 BAG IV SCH (05:55)
--- NOTE | 2023-07-14 07:21 | XR ---
EXAMINATION TYPE: XR chest 2V DATE OF EXAM: 07/14/2023 6:17 AM CLINICAL INDICATION:Male, 78 years old with history of preop cabg; [facility] COMPARISON: None TECHNIQUE: XR chest 2V Frontal and lateral views of the chest. FINDINGS: Lungs/Pleura: Prominent interstitial lung markings are seen scattered throughout the lungs with basilio ening of the diaphragm and increased lucency of the lung apices. No evidence of focal consolidation, pneumothorax or pleural effusion. Pulmonary vascularity: Unremarkable. Heart/mediastinum: Cardiomediastinal silhouette is unremarkable. Musculoskeletal: No acute osseous pathology. IMPRESSION: 1. No acute cardiopulmonary disease process. 2. COPD changes.
[2023-07-14] MEDS ORDERED: PANTOPRAZOLE 40 MG TABLET PO SCH (07:30)
[2023-07-14] MEDS: HEPARIN SOD,PORK IN 0.45% NACL 25,000 UNIT in 0.45% NACL 1 250ML.BAG IV SCH (08:27)
[2023-07-14] MEDS: lisinopriL 20 MG TAB PO SCH (08:28)
[2023-07-14] MEDS ORDERED: ASPIRIN 81 MG PO SCH (09:00)
[2023-07-14] MEDS ORDERED: ISOSORBIDE MONONITRATE ER 30 MG TAB.ER.24H PO SCH (09:00)
--- NOTE | 2023-07-14 10:49 | P.PN ---
Subjective Progress Note Date: 07/14/23 Principal diagnosis: Coronary artery disease, left main disease. History of hypertension, bradycardia with second-degree heart block The patient was seen and examined this morning with Dr. Spain sitting up in bed in no acute distress. Denies any chest pain or shortness of breath currently. We did discuss our plan for open heart surgery tomorrow. Upon reviewing the echocardiogram report from the office there appears to be moderate mitral regurgitation. Will repeat transthoracic echocardiogram per Dr. Spain to determine if patient needs mitral repair in addition to coronary bypass. The patient states he does see a dentist on a regular basis. The patient does remained bradycardic in the 40s to 50s, blood pressure stable, currently on room air with oxygen saturation in the mid 90s. No other new concerns. Objective - Vital Signs Vital signs: Vital Signs Temp 97.4 F L 07/14/23 08:00 Pulse 43 L 07/14/23 08:00 Resp 14 07/14/23 08:00 BP 155/71 07/14/23 08:00 Pulse Ox 96 07/14/23 08:00 FiO2 Intake & Output 07/13/23 07/14/23 07/14/23 18:59 06:59 18:59 Intake Total 550 68.667 274.403 Balance 550 68.667 274.403 Weight 101.7 kg 102.2 kg Intake: IV 550 Intake, IV Titration 68.667 156.403 Amount Heparin Sod,Pork in 0.45% 68.667 156.403 NaCl 25,000 unit In 0.45 % NaCl 1 250ml.bag @ 9. 833 UNITS/KG/HR 10 mls/hr IV .Q24H [facility] Rx#: [id number] Oral 118 Other: Voiding Method Toilet Toilet - Exam CONSTITUTIONAL: Appears comfortable, cooperative, no acute distress RESPIRATORY: Lungs sounds clear bilaterally. Respirations even, nonlabored. Currently on room air with oxygen saturation 96%. Able to achieve 3000 mL on incentive spirometry. Strong cough. CARDIOVASCULAR: S1, S2 present. Slow, regular rate and rhythm, sinus bradycardia with Mobitz type I on telemetry. Palpable peripheral pulses bilaterally. No edema present. No calf pain or tenderness noted. GASTROINTESTINAL: Abdomen soft, nontender, nondistended. Active bowel sounds present 4 quadrants. Tolerating diet. GENITOURINARY: Continues to void INTEGUMENTARY: Skin is warm and dry NEUROLOGIC: Cranial nerves II through XII intact MUSKULOSKELETAL: Able to move all extremities, strength equal bilaterally, gait normal PSYCHIATRIC: Alert and oriented to person place and time, appropriate affect, intact judgment and insight - Allied health notes Allied health notes reviewed: nursing - Labs CBC & Chem 7: 07/14/23 01:16 07/13/23 10:47 Labs: Abnormal Lab Results - Last 24 Hours (Table) 07/13/23 07/13/23 07/13/23 Range/Units 10:47 10:47 10:47 RBC 4.21 L (4.30-5.90) m/uL Hgb (13.0-17.5) gm/dL Hct (39.0-53.0) % APTT 63.9 H (22.0-30.0) sec Chloride 110 H (98-107) mmol/L Carbon Dioxide 18 L (22-30) mmol/L BUN 23 H (9-20) mg/dL Glucose 107 H (74-99) mg/dL 07/13/23 07/14/23 07/14/23 Range/Units 18:18 01:16 01:16 RBC 3.74 L (4.30-5.90) m/uL Hgb 12.1 L (13.0-17.5) gm/dL Hct 35.9 L (39.0-53.0) % APTT 37.5 H 55.0 H (22.0-30.0) sec Chloride (98-107) mmol/L Carbon Dioxide (22-30) mmol/L BUN (9-20) mg/dL Glucose (74-99) mg/dL - Imaging and Cardiology Chest x-ray: report reviewed, image reviewed Assessment and Plan Assessment: Coronary artery disease, left main disease Chest pain, shortness of breath secondary to above Hypertension Bradycardia with Mobitz type I heart block Plan: Continue to maximize medical therapy with aspirin and statin. Hold beta michoacano due to heart block Increase activity, ambulate as tolerated Encourage incentive spirometry We'll repeat echo to eval mitral valve Currently the plan is for myocardial revascularization with left internal mammary artery, left radial artery, endoscopic vein harvest with left atrial appendage ligation on July [address] Spain Medical management other comorbidities per internal medicine, cardiology More recommendations to follow
--- NOTE | 2023-07-14 10:55 | P.PN ---
Subjective Progress Note Date: 07/14/23 Mario Cherry, is a 78-year-old male who presented to [facility] for cardiac catheterization with Dr. Hernandez, patient was having episodes of chest pain with exertion, he underwent cardiac catheterization on 07/13/2023 which was positive for severe left main disease, severe LAD disease and severe RCA disease. Patient was admitted to telemetry floor, he was started on IV heparin , cardiovascular surgery consultation was requested. Patient has a known history of hypertension, gastroesophageal reflux disease, history of gout , and history of cholecystitis with recent cholecystectomy. On review of systems patient is alert and oriented 3 in no apparent distress, there is no fever or chills no headache or dizziness no chest pain no shortness of breath no cough no nausea or vomiting no abdominal pain no diarrhea no blood in the stools no burning with urination no frequency or urgency and no hematuria. On 07/14/2023. Patient's history for coronary artery bypass graft surgery patient was evaluated by pulmonary services cleared for surgery. At this time patient denies chest pain or shortness breath. Patient denies nausea vomiting or diarrhea. Patient denies any urinary burning or frequency. Current vital signs temp 90.4, heart rate 52, respiratory rate 16, blood pressure 130/71 with a pulse ox 96% on room air Objective - Vital Signs Vital signs: Vital Signs Temp 97.4 F L 07/14/23 08:00 Pulse 43 L 07/14/23 08:00 Resp 14 07/14/23 08:00 BP 155/71 07/14/23 08:00 Pulse Ox 96 07/14/23 08:00 FiO2 Intake & Output 07/13/23 07/14/23 07/14/23 18:59 06:59 18:59 Intake Total 550 68.667 274.403 Balance 550 68.667 274.403 Weight 101.7 kg 102.2 kg Intake: IV 550 Intake, IV Titration 68.667 156.403 Amount Heparin Sod,Pork in 0.45% 68.667 156.403 NaCl 25,000 unit In 0.45 % NaCl 1 250ml.bag @ 9. 833 UNITS/KG/HR 10 mls/hr IV .Q24H [facility] Rx#: [id number] Oral 118 Other: Voiding Method Toilet Toilet - Exam In general patient is alert and oriented x 3 in no distress HEENT head normocephalic and atraumatic Neck is supple no JVD no goiter no lymphadenopathy no carotid bruit Chest examination is clear to auscultation no crackles no wheezing Cardiac exam reveals regular heart sounds S1 and S2 no gallops no murmurs Abdomen is soft nontender no organomegaly with normal bowel sounds Extremity exam reveals no edema no cyanosis or clubbing Neurological examination reveals no gross focal deficits - Labs CBC & Chem 7: 07/14/23 01:16 07/13/23 10:47 Labs: Abnormal Lab Results - Last 24 Hours (Table) 07/13/23 07/13/23 07/13/23 Range/Units 10:47 10:47 10:47 RBC 4.21 L (4.30-5.90) m/uL Hgb (13.0-17.5) gm/dL Hct (39.0-53.0) % APTT 63.9 H (22.0-30.0) sec Chloride 110 H (98-107) mmol/L Carbon Dioxide 18 L (22-30) mmol/L BUN 23 H (9-20) mg/dL Glucose 107 H (74-99) mg/dL 07/13/23 07/14/23 07/14/23 Range/Units 18:18 01:16 01:16 RBC 3.74 L (4.30-5.90) m/uL Hgb 12.1 L (13.0-17.5) gm/dL Hct 35.9 L (39.0-53.0) % APTT 37.5 H 55.0 H (22.0-30.0) sec Chloride (98-107) mmol/L Carbon Dioxide (22-30) mmol/L BUN (9-20) mg/dL Glucose (74-99) mg/dL Assessment and Plan Plan: Episodes of chest pain with cardiac catheterization positive for severe disease in the left main, LAD, and the right coronary artery Underlying history of hypertension Underlying history of gout Underlying history of gastroesophageal reflux disease At this time patient was seen and examined Home medications reviewed and reordered He was started on IV heparin Plans for coronary artery bypass graft surgery 07/15/2023 Cardiology pulmonary and cardiovascular surgery in place Will follow during this admission
--- NOTE | 2023-07-14 11:06 | P.PN ---
Subjective Progress Note Date: 07/14/23 History of present illness: This is a 88-year-old male patient of Dr. Hernandez with past medical history of hypertension with complaints of progressive symptoms of chest discomfort consistent with angina pectoris. Patient was recommended for cardiac catheterization which was performed yesterday finding severely calcified coronary arteries, severe left main disease, severe LAD and severe RCA disease. Patient has been evaluated by cardiothoracic surgery for urgent CABG and this is scheduled for tomorrow. Patient is also been seen by medicine and pulmonary medicine. CT of the chest in no acute abnormality. Carotid duplex no hemodynamically significant stenosis. Ultrasound arterial lower extremity normal bilateral ANDRY Physical examination: Gen: This is a 78-year-old male resting in bed appears to be comfortable, no acute distress. VS: reviewed HEENT: Head is atraumatic, normocephalic. Pupils equal, round. Sclerae is anicteric. NECK: Supple. No JVD. LUNGS: Clear to auscultation. No wheezes or rhonchi. No intercostal retractions. HEART: Regular rate and rhythm. No murmur. EXTREMITIES: No pedal edema. No calf tenderness. NEUROLOGICAL: Patient is awake, alert and oriented x3. Assessment: Multi-vessel coronary artery disease, CABG scheduled for Hypertension Plan: Continue current cardiac medications Obtain 2-D echocardiogram and Doppler study to assess cardiac structure and function If patient requires JEAN PAUL, Dr. Hernandez would be the one performing this Patient is not on a beta [place] due to bradycardia. Further recommendations to follow based upon clinical course Nurse practitioner note has been reviewed, I agree with documented findings and plan of care. Patient was seen and examined. Objective - Vital Signs Vital signs: Vital Signs Temp 98.4 F 07/14/23 03:09 Pulse 52 L 07/14/23 03:09 Resp 16 07/14/23 03:09 BP 138/71 07/14/23 03:09 Pulse Ox 96 07/14/23 03:09 FiO2 Intake & Output 07/13/23 07/14/23 07/14/23 18:59 06:59 18:59 Intake Total 550 68.667 118 Balance 550 68.667 118 Weight 101.7 kg 102.2 kg Intake: IV 550 Intake, IV Titration 68.667 Amount Heparin Sod,Pork in 0.45% 68.667 NaCl 25,000 unit In 0.45 % NaCl 1 250ml.bag @ 9. 833 UNITS/KG/HR 10 mls/hr IV .Q24H [facility] Rx#: [id number] Oral 118 Other: Voiding Method Toilet Toilet - Labs CBC & Chem 7: 07/14/23 01:16 07/13/23 10:47 Labs: Abnormal Lab Results - Last 24 Hours (Table) 07/13/23 07/13/23 07/13/23 Range/Units 10:47 10:47 10:47 RBC 4.21 L (4.30-5.90) m/uL Hgb (13.0-17.5) gm/dL Hct (39.0-53.0) % APTT 63.9 H (22.0-30.0) sec Chloride 110 H (98-107) mmol/L Carbon Dioxide 18 L (22-30) mmol/L BUN 23 H (9-20) mg/dL Glucose 107 H (74-99) mg/dL 07/13/23 07/14/23 07/14/23 Range/Units 18:18 01:16 01:16 RBC 3.74 L (4.30-5.90) m/uL Hgb 12.1 L (13.0-17.5) gm/dL Hct 35.9 L (39.0-53.0) % APTT 37.5 H 55.0 H (22.0-30.0) sec Chloride (98-107) mmol/L Carbon Dioxide (22-30) mmol/L BUN (9-20) mg/dL Glucose (74-99) mg/dL
--- NOTE | 2023-07-14 11:13 | P.PN ---
Subjective Progress Note Date: 07/14/23 Principal diagnosis: Coronary artery disease. Pulmonary consult dated 07/13/2023. 78-year-old male who recently had a cardiac catheterization that showed severely calcified coronary arteries, severe left main disease, and severe LAD and right coronary artery disease. According to cardiothoracic surgery, the patient is scheduled to have bypass grafting, on July 15, with Dr. Spain. The patient's FEV1 was 69% predicted or 2.15 L. The patient is a lifelong nons moker. His primary care physician is Dr. Cabrera. We are asked to see the patient preoperatively. The patient has no known history of any lung disease. He is a lifelong nonsmoker. He denies any asthma, emphysema, COPD, etc. Seen in consultation on July 06, by Dr. Hernandez, for chest pain. The patient has a history of hypertension, and gout. His home medications include lisinopril, Imdur, aspirin, allopurinol, multiple vitamins, and Indocin. The patient is seen in room 368. The patient is resting comfortably. The patient is currently on IV heparin. Currently labs include a white count 7.3, hemoglobin 13.4, hematocrit 40.8, and a normal platelet count. PTT is 63.9. Sodium 141, p otassium 4.3, chlorides 110, CO2 18, anion gap 13, BUN 23, and creatinine 0.89. Glucose 107. TSH is normal. Chest CT, showed no acute abnormality in the chest. Progress note dated 07/14/2023. 78-year-old male that we saw yesterday in consultation. The patient has significant coronary disease, and is scheduled for bypass surgery tomorrow. He is currently on room air. He is resting comfortably in room 368. Is getting saline at 10 mL an hour, and IV heparin, via weightbase protocol. The patient is not having any difficulty breathing, or chest pain. His FEV1 was 2.15 L. Based on that number alone, the patient's at increased operative risk. Current labs include a white count 7.2, hemoglobin 12.1, hematocrit 35.9, and a platelet count of 185,000. PTT is 55.0. Objective - Vital Signs Vital signs: Vital Signs Temp 97.4 F L 07/14/23 08:00 Pulse 43 L 07/14/23 08:00 Resp 14 12/20/23 08:00 BP 155/71 07/14/23 08:00 Pulse Ox 96 07/14/23 08:00 FiO2 Intake & Output 07/13/23 07/14/23 07/14/23 18:59 06:59 18:59 Intake Total 550 68.667 274.403 Balance 550 68.667 274.403 Weight 101.7 kg 102.2 kg Intake: IV 550 Intake, IV Titration 68.667 156.403 Amount Heparin Sod,Pork in 0.45% 68.667 156.403 NaCl 25,000 unit In 0.45 % NaCl 1 250ml.bag @ 9. 833 UNITS/KG/HR 10 mls/hr IV .Q24H [facility] Rx#: [id number] Oral 118 Other: Voiding Method Toilet Toilet - Exam No acute distress, oriented 3. Currently on room air. HEENT examination is grossly unremarkable. Mucous membranes are moist. No oral lesions. Neck supple. Full range of motion. No adenopathy thyromegaly or neck vein distention. Cardiovascular examination reveals regular rhythm rate. S1-S2 normal. No S3 or S4. No discernible murmur noted. Heart rate 50 bpm. Lungs reveal clear breath sounds. Breath sounds are equal bilaterally. No adventitious lung sounds including wheezes rhonchi or crackles. Saturations are 98 % on room air. Abdomen soft bowel sounds are heard. No masses or tenderness. Extremities are intact. No cyanosis clubbing or edema. Skin is without rash or lesion. Neurologic examination is brief but nonfocal. - Labs CBC & Chem 7: 07/14/23 01:16 07/13/23 10:47 Labs: Abnormal Lab Results - Last 24 Hours (Table) 07/13/23 07/13/23 07/13/23 Range/Units 10:47 10:47 10:47 RBC 4.21 L (4.30-5.90) m/uL Hgb (13.0-17.5) gm/dL Hct (39.0-53.0) % APTT 63.9 H (22.0-30.0) sec Chloride 110 H (98-107) mmol/L Carbon Dioxide 18 L (22-30) mmol/L BUN 23 H (9-20) mg/dL Glucose 107 H (74-99) mg/dL 07/13/23 07/14/23 07/14/23 Range/Units 18:18 01:16 01:16 RBC 3.74 L (4.30-5.90) m/uL Hgb 12.1 L (13.0-17.5) gm/dL Hct 35.9 L (39.0-53.0) % APTT 37.5 H 55.0 H (22.0-30.0) sec Chloride (98-107) mmol/L Carbon Dioxide (22-30) mmol/L BUN (9-20) mg/dL Glucose (74-99) mg/dL Assessment and Plan Assessment: Chest pain, secondary to severe coronary artery disease, including left main disease, and severe disease in the LAD, and right coronary artery. Planned CABG, 07/15/2023. History of hypertension. History of gout. Lifelong nonsmoker. No history of any pulmonary disease. Plan: Plan dated 07/13/2023. The patient apparently is going to have open heart surgery, on July 15, vijay parra, with Dr. Spain. The patient is cleared from the pulmonary standpoint. The patient has no history of any pulmonary disease, and he is a lifelong nonsmoker. In addition, his FEV1 is reported to be 69% of predicted, or 2.15 L, which makes him at no increased operative risk, from the pulmonary standpoint. Labs, x-rays, and medications are reviewed. We will continue to follow. Prognosis is guarded. Plan dated 07/14/2023. The patient is seen today in room 368. We saw him yesterday in consultation. The patient is a lifelong nonsmoker. His FEV1 was adequate. We explained our role in the process. He understands. We recommended, continued use of the incentive spirometer, after surgery. Labs, x-rays, medications are reviewed. We will continue to follow. Time with Patient: Less than 30
[2023-07-14] MEDS ORDERED: MD COMMUNICATION TO PHARMACY 1 EACH MISC PO ONE ×2 (13:17)
--- NOTE | 2023-07-14 13:19 | CA ---
Transthoracic Echo Report Name: Mario Cherry Age: 78 Gender: M : 1945 Exam Date: 07/14/2023 09:54 Exam Location: [facility] Ht (in): 72 Wt (lb): 225 Ordering Physician: Hailey Short Attending/Referring Phys: [id number], Han Farm Equipment Engineer Sully Mar RDCS Procedure CPT: Indications: preop cardiac surgery Cardiac Hx: Technical Quality: Technically difficult study Contrast 1: Definity Total Dose (mL): 2 Contrast 2: Total Dose (mL): MEASUREMENTS (Male / Female) Normal Values 2D ECHO LV Diastolic Diameter PLAX 4.1 cm 4.2 - 5.9 / 3.9 - 5.3 cm LV Systolic Diameter PLAX 1.7 cm IVS Diastolic Thickness 1.8 cm 0.6 - 1.0 / 0.6 - 0.9 cm LVPW Diastolic Thickness 1.5 cm 0.6 - 1.0 / 0.6 - 0.9 cm LV Relative Wall Thickness 0.8 RV Internal Dim ED PLAX 4.0 cm LA Volume 57.4 cm??? 18 - 58 / 22 - 52 cm??? LA Volume Index 24.9 cm???/m??? 16 - 28 cm???/m??? M-MODE Aortic Root Diameter MM 3.4 cm LA Systolic Diameter MM 4.6 cm LA Ao Ratio MM 1.4 AV Cusp Separation MM 1.9 cm DOPPLER AV Peak Velocity 223.8 cm/s AV Peak Gradient 20.0 mmHg AV Mean Velocity 152.7 cm/s AV Mean Gradient 10.5 mmHg AV Velocity Time Integral 58.7 cm LVOT Peak Velocity 102.5 cm/s LVOT Peak Gradient 4.2 mmHg LVOT Velocity Time Integral 24.6 cm MV Area PHT 2.8 cm??? Mitral E Point Velocity 103.0 cm/s Mitral A Point Velocity 113.8 cm/s Mitral E to A Ratio 0.9 MV Deceleration Time 267.0 ms TR Peak Velocity 280.8 cm/s TR Peak Gradient 31.5 mmHg Right Ventricular Systolic Press 36.5 mmHg FINDINGS Left Ventricle Moderately increased left ventricular wall thickness. Left ventricular cavity size normal. Left ventricular ejection fraction is estimated at 50 to 55 %. Right Ventricle Moderate right ventricular dilatation. Mild pulmonary hypertension. Right Atrium Normal right atrial size. Left Atrium Normal left atrial size. Mitral Valve Structurally normal mitral valve. Mitral valve thickened. Mild mitral annular calcification. Mild mitral regurgitation. Aortic Valve Mild aortic stenosis with a peak gradient of 20 mmHg and a mean gradient of 11 mmHg. mild aortic regurgitation. Tricuspid Valve Structurally normal tricuspid valve. Mild tricuspid regurgitation. Pulmonic Valve Structurally normal pulmonic valve. Pericardium No pericardial effusion. Aorta Normal size aortic root and proximal ascending aorta. CONCLUSIONS 1. Left ventricular systolic function borderline normal 2. Mild mitral, aortic and tricuspid regurgitation 3. Mild aortic stenosis Previewed by: Dr. Dariana Hernandez MD (Electronically Signed) Final Date: 14 July 2023 13:17
[2023-07-14 18:27] LABS: Appearance,Urine Clear (Clear); Bilirubin,Urine Negative (Negative); Blood,Urine Negative (Negative); Color,Urine Light Yellow; Glucose,Urine (UA) Negative (Negative); Ketones,Urine Negative (Negative); Leukocyte Esterase,Urine Negative (Negative); Nitrite,Urine Negative (Negative); Protein,Urine Negative (Negative); Specific Gravity,Urine 1.017 (1.001-1.035); Urobilinogen,Urine <2.0 mg/dL (<2.0)
[2023-07-14] MEDS: ATORVASTATIN 40 MG TAB PO SCH (21:32)
[2023-07-15] MEDS: HEPARIN SOD,PORK IN 0.45% NACL 25,000 UNIT in 0.45% NACL 1 250ML.BAG IV SCH (04:26)
[2023-07-15] MEDS: SODIUM CHLORIDE 0.9% 1,000 ML in EMPTY BAG 1 BAG IV SCH ×2 (04:42→04:44)
[2023-07-15] MEDS ORDERED: PHENYLEPHRINE 10 MG/ML VIAL IV ONE (05:00)
[2023-07-15] MEDS ORDERED: TRANEXAMIC ACID 2,000 MG in SODIUM CHLORIDE 0.9% 80 ML IV ONE ×4 (05:00)
[2023-07-15] MEDS ORDERED: ELECTROLYTE-A SOLUTION 1,000 ML with POTASSIUM CHLORIDE 40 MEQ, MAGNESIUM SULFATE 16 ME... IV ONE ×5 (05:00)
[2023-07-15] MEDS ORDERED: PHENYLEPHRINE 40 MG in SODIUM CHLORIDE 0.9% 250 ML IV ONE (05:00)
[2023-07-15] MEDS ORDERED: PROTAMINE SULFATE 250 MG in EMPTY BAG 1 BAG IV ONE (05:00)
[2023-07-15] MEDS ORDERED: HEPARIN SODIUM,PORCINE (1 ML) 5,000 UNIT in SODIUM CHLORIDE 0.9% 500 ML 500 ML IV ONE (05:00)
[2023-07-15] MEDS ORDERED: LACTATED RINGERS 1,000 ML IV SCH ×2 (05:00→13:17)
[2023-07-15] MEDS ORDERED: CHLORHEXIDINE GLUCONATE 15 ML CUP MUCOUS MEM ONE (05:00)
[2023-07-15] MEDS ORDERED: NITROGLYCERIN-D5W PMX 50 MG in DEXTROSE/WATER 1 250ML.BAG IV SCH ×2 (05:00→14:09)
[2023-07-15] MEDS ORDERED: ATORVASTATIN 10 MG TAB PO ONE (05:00)
[2023-07-15] MEDS ORDERED: ALBUMIN HUMAN 5% 500 ML in EMPTY BAG 1 BAG IVPB ONE ×6 (05:00)
[2023-07-15] MEDS ORDERED: MANNITOL 25% 12.5 GM/50 ML VIAL IV ONE ×2 (05:00)
[2023-07-15] MEDS ORDERED: CALCIUM CHLORIDE 100 MG/ML 10 ML SYRINGE IVP ONE (05:00)
[2023-07-15] MEDS ORDERED: HEPARIN SODIUM 1,000 UN/ML (10ML VL) IV ONE (05:00)
[2023-07-15] MEDS ORDERED: PROTAMINE SULFATE 10 MG/ML 25 ML VIAL IV ONE ×2 (05:00→07:30)
[2023-07-15] MEDS ORDERED: ELECTROLYTE-A SOLUTION 1,000 ML with POTASSIUM CHLORIDE 100 MEQ, MAGNESIUM SULFATE 16 M... IV ONE ×5 (05:00)
[2023-07-15] MEDS ORDERED: ASPIRIN 325 MG TAB PO ONE (05:00)
[2023-07-15] MEDS ORDERED: INSULIN REGULAR 100 UNIT in SODIUM CHLORIDE 0.9% 100 ML IV SCH (05:00)
[2023-07-15] MEDS ORDERED: NITROGLYCERIN-D5W PMX 25 MG/250 ML BTL IV ONE (05:00)
[2023-07-15] MEDS ORDERED: CLEVIDIPINE BUTYRATE 25 MG in EMPTY BAG 1 BAG IV SCH ×2 (05:00→14:09)
[2023-07-15] MEDS ORDERED: ALBUMIN HUMAN 25% 50 ML in EMPTY BAG 1 BAG IVPB ONE (05:00)
[2023-07-15] MEDS ORDERED: ceFAZolin 1,000 MG in SODIUM CHLORIDE 0.9% IRRIGATIO 1,000 ML IRRIGATION ONE (05:00)
[2023-07-15] MEDS ORDERED: PAPAVERINE 360 MG in SODIUM CHLORIDE 0.9% 90 ML IV ONE ×2 (05:00→09:48)
[2023-07-15] MEDS ORDERED: NOREPINEPHRINE 4 MG in SODIUM CHLORIDE 0.9% 250 ML IV SCH (05:00)
[2023-07-15] MEDS ORDERED: MAGNESIUM SULFATE 16.24 MEQ in EMPTY SYRINGE 1 SYR IV ONE (05:00)
[2023-07-15] MEDS ORDERED: SODIUM BICARB 8.4% 50 ML SYR (1 MEQ/ML) IV ONE (05:00)
[2023-07-15] MEDS ORDERED: DILTIAZEM 125 MG in SODIUM CHLORIDE 0.9% 100 ML IV SCH (05:00)
[2023-07-15 06:29] LABS: Glucose,Whole Blood 108 mg/dL (70-110)
[2023-07-15] MEDS ORDERED: LIDOCAINE 1% (10MG/ML) FOR IV START INTRADERMA ONE (06:30)
[2023-07-15] MEDS ORDERED: TRANEXAMIC 1,000 MG/100ML-NACL PREMIX BAG ONE (07:30)
[2023-07-15] MEDS ORDERED: GLYCOPYRROLATE 0.2 MG/ML 2 ML VIAL ONE (07:30)
[2023-07-15] MEDS ORDERED: fentaNYL (PF) 50 MCG/ML 50 ML VIAL ONE (07:30)
[2023-07-15] MEDS ORDERED: PROPOFOL 10 MG/ML 20 ML VIAL IV ONE (07:30)
[2023-07-15] MEDS ORDERED: WATER FOR INJECTION, STERILE 10 ML VIAL IV ONE (07:30)
[2023-07-15] MEDS ORDERED: LIDOCAINE 2% SYG (PF) 100 MG/5 ML ONE (07:30)
[2023-07-15] MEDS ORDERED: MIDAZOLAM HCL 10 MG/10 ML VIAL ONE (07:30)
[2023-07-15] MEDS ORDERED: HEPARIN SODIUM,PORCINE 5,000 UNIT/ML 1 ML VIAL ONE (07:30)
[2023-07-15] MEDS ORDERED: VECURONIUM 10 MG VIAL IV ONE (07:30)
[2023-07-15] MEDS ORDERED: CALCIUM CHLORIDE 100 MG/ML 10 ML SYRINGE ONE (07:30)
[2023-07-15] MEDS ORDERED: ePHEDrine 50 MG/ML 1 ML VIAL ONE (07:30)
[2023-07-15] MEDS ORDERED: ALBUMIN HUMAN 5% (25gm) 500 ML VIAL IVPB ONE (07:30)
[2023-07-15 07:58] LABS: ALT 21 U/L (4-49); AST 25 U/L (17-59); African American GFR (CKD) >90 (>60 ml/min/1.73 sqM); Albumin 3.6 g/dL (3.5-5.0); Alkaline Phosphatase 75 U/L (38-126); Anion Gap 10 mmol/L; Blood Urea Nitrogen 18 mg/dL (9-20); Calcium 9.4 mg/dL (8.4-10.2); Carbon Dioxide 21 mmol/L (22-30); Chloride 109 mmol/L (98-107); Glucose 109 mg/dL (74-99); Non-African American GFR(CKD) 80 (>60 ml/min/1.73 sqM); Potassium 4.2 mmol/L (3.5-5.1); Sodium 140 mmol/L (137-145); Total Bilirubin 0.4 mg/dL (0.2-1.3); Total Protein 6.5 g/dL (6.3-8.2)
[2023-07-15 08:37] LABS: ABG Base Excess -1.9 mmol/L; ABG Glucose Whole Blood 99 mg/dL (75-99); ABG HCO3 24 mmol/L (21-25); ABG Hematocrit 35 % (34.0-46.0); ABG Ionized Calcium 5.1 mg/dL (4.5-5.3); ABG Lactic Acid Whole Blood 1.6 mmol/L (0.5-1.6); ABG PCO2 43 mmHg (35-45); ABG PH 7.35 (7.35-7.45); ABG PO2 309 mmHg (83-108); ABG Potassium Whole Blood 4.1 mmol/L (3.4-4.5); ABG Sodium Whole Blood 142 mmol/L (135-146); ABG TCO2 25 mmol/L (19-24); Allen Test Performed? Yes
[2023-07-15] MEDS ORDERED: SODIUM CHLORIDE 0.9% 500 ML 500 ML with HEPARIN SODIUM,PORCINE (1 ML) 5,000 UNIT IV ONE ×2 (09:48)
[2023-07-15] MEDS ORDERED: ceFAZolin 1,000 MG in SODIUM CHLORIDE 0.9% 1,000 ML IRRIGATION ONE (09:49)
[2023-07-15 10:08] LABS: ABG Base Excess -2.1 mmol/L; ABG Glucose Whole Blood 110 mg/dL (75-99); ABG HCO3 23 mmol/L (21-25); ABG Hematocrit 35 % (34.0-46.0); ABG Lactic Acid Whole Blood 1.7 mmol/L (0.5-1.6); ABG Oxygen Saturation 98.8 % (94-97); ABG PCO2 40 mmHg (35-45); ABG PH 7.37 (7.35-7.45); ABG PO2 113 mmHg (83-108); ABG Potassium Whole Blood 4.4 mmol/L (3.4-4.5); ABG Sodium Whole Blood 141 mmol/L (135-146); ABG TCO2 24 mmol/L (19-24); Allen Test Performed? Yes
[2023-07-15 10:59] LABS: ABG Base Excess -3.7 mmol/L; ABG Glucose Whole Blood 107 mg/dL (75-99); ABG HCO3 21 mmol/L (21-25); ABG Hematocrit 28 % (34.0-46.0); ABG Ionized Calcium 4.2 mg/dL (4.5-5.3); ABG Lactic Acid Whole Blood 1.4 mmol/L (0.5-1.6); ABG PCO2 34 mmHg (35-45); ABG Potassium Whole Blood 4.2 mmol/L (3.4-4.5); ABG Sodium Whole Blood 136 mmol/L (135-146); ABG TCO2 22 mmol/L (19-24); Allen Test Performed? Yes
[2023-07-15 11:19] LABS: ABG Base Excess 1.1 mmol/L; ABG Glucose Whole Blood 110 mg/dL (75-99); ABG HCO3 25 mmol/L (21-25); ABG Hematocrit 25 % (34.0-46.0); ABG Ionized Calcium 4.3 mg/dL (4.5-5.3); ABG Lactic Acid Whole Blood 1.5 mmol/L (0.5-1.6); ABG PCO2 36 mmHg (35-45); ABG PH 7.45 (7.35-7.45); ABG Potassium Whole Blood 5.4 mmol/L (3.4-4.5); ABG Sodium Whole Blood 139 mmol/L (135-146); ABG TCO2 26 mmol/L (19-24); Allen Test Performed? Yes
[2023-07-15 11:32] LABS: ABG Base Excess 0.7 mmol/L; ABG Glucose Whole Blood 115 mg/dL (75-99); ABG HCO3 25 mmol/L (21-25); ABG Hematocrit 26 % (34.0-46.0); ABG Ionized Calcium 4.4 mg/dL (4.5-5.3); ABG Lactic Acid Whole Blood 1.5 mmol/L (0.5-1.6); ABG PCO2 38 mmHg (35-45); ABG PH 7.43 (7.35-7.45); ABG Potassium Whole Blood 5.2 mmol/L (3.4-4.5); ABG Sodium Whole Blood 140 mmol/L (135-146); ABG TCO2 26 mmol/L (19-24); Allen Test Performed? Yes
[2023-07-15 11:58] LABS: ABG PO2 >420 mmHg (83-108)
[2023-07-15 11:59] LABS: ABG PO2 >420 mmHg (83-108)
[2023-07-15 12:00] LABS: ABG PO2 >420 mmHg (83-108)
[2023-07-15 12:05] LABS: ABG Base Excess 0.5 mmol/L; ABG Glucose Whole Blood 125 mg/dL (75-99); ABG HCO3 25 mmol/L (21-25); ABG Hematocrit 27 % (34.0-46.0); ABG Ionized Calcium 4.5 mg/dL (4.5-5.3); ABG Lactic Acid Whole Blood 1.5 mmol/L (0.5-1.6); ABG PCO2 39 mmHg (35-45); ABG PH 7.41 (7.35-7.45); ABG Potassium Whole Blood 5.2 mmol/L (3.4-4.5); ABG Sodium Whole Blood 140 mmol/L (135-146); ABG TCO2 26 mmol/L (19-24); Allen Test Performed? Yes
[2023-07-15 12:29] LABS: ABG Base Excess 0.3 mmol/L; ABG Glucose Whole Blood 126 mg/dL (75-99); ABG HCO3 25 mmol/L (21-25); ABG Hematocrit 26 % (34.0-46.0); ABG Ionized Calcium 4.5 mg/dL (4.5-5.3); ABG Lactic Acid Whole Blood 1.7 mmol/L (0.5-1.6); ABG PCO2 41 mmHg (35-45); ABG Potassium Whole Blood 5.2 mmol/L (3.4-4.5); ABG Sodium Whole Blood 140 mmol/L (135-146); ABG TCO2 27 mmol/L (19-24); Allen Test Performed? Yes
[2023-07-15 12:42] LABS: ABG PO2 >420 mmHg (83-108)
[2023-07-15 12:42] LABS: ABG PO2 >420 mmHg (83-108)
[2023-07-15] MEDS ORDERED: MIDAZOLAM 2 MG/2 ML VIAL IV PRN (13:17)
[2023-07-15] MEDS ORDERED: LIDOCAINE 1% (10MG/ML) FOR IV START INTRADERMA PRN (13:17)
[2023-07-15 13:32] LABS: ABG Base Excess 0.1 mmol/L; ABG Glucose Whole Blood 108 mg/dL (75-99); ABG HCO3 24 mmol/L (21-25); ABG Hematocrit 27 % (34.0-46.0); ABG Ionized Calcium 4.6 mg/dL (4.5-5.3); ABG PCO2 37 mmHg (35-45); ABG PH 7.43 (7.35-7.45); ABG PO2 290 mmHg (83-108); ABG Potassium Whole Blood 4.4 mmol/L (3.4-4.5); ABG Sodium Whole Blood 141 mmol/L (135-146); ABG TCO2 26 mmol/L (19-24)
[2023-07-15] MEDS ORDERED: DEXMEDETOMIDINE/0.9% NACL(PMX) 400 MCG in EMPTY BAG 1 BAG IV SCH (14:09)
[2023-07-15] MEDS ORDERED: hydrALAZINE HCL 20 MG/ML 1 ML VIAL IVP PRN (14:09)
[2023-07-15] MEDS ORDERED: Magnesium Replacement Protocol 1 EACH MISC MISCELLANE PRN (14:09)
[2023-07-15] MEDS ORDERED: DEXTROSE 5% IN WATER 100 ML with AMIODARONE 150 MG IV PRN (14:09)
[2023-07-15] MEDS ORDERED: DEXTROSE 50% SYRINGE 50 ML IVP PRN ×2 (14:09)
[2023-07-15] MEDS ORDERED: IPRATROPIUM-ALBUTEROL 3 ML NEB INHALATION PRN (14:09)
[2023-07-15] MEDS ORDERED: AMIODARONE 450 MG in DEXTROSE 5% IN WATER 250 ML IV PRN ×2 (14:09)
[2023-07-15] MEDS ORDERED: Potassium Replacement Protocol 1 EACH MISC MISCELLANE PRN (14:09)
[2023-07-15] MEDS ORDERED: ONDANSETRON 4 MG/2 ML VIAL IVP PRN (14:09)
[2023-07-15] MEDS ORDERED: AMIODARONE 360 MG in DEXTROSE 5% IN WATER 200 ML IV PRN ×2 (14:09)
[2023-07-15 14:13] LABS: ABG Lactic Acid Whole Blood 2.5 mmol/L (0.5-1.6)
[2023-07-15] MEDS: LACTATED RINGERS 1,000 ML IV SCH (14:30)
[2023-07-15 14:40] LABS: Glucose,Whole Blood 111 mg/dL (70-110)
[2023-07-15 14:45] LABS: Basophils % (A) 0 %; Eosinophils # (A) 0.1 k/uL (0-0.7); Eosinophils % (A) 1 %; HCT 24.8 % (39.0-53.0); Lymphocytes # (A) 1.9 k/uL (1.0-4.8); Lymphocytes % (A) 25 %; MCH 33.4 pg (25.0-35.0); MCHC 34.9 g/dL (31.0-37.0); MCV 95.7 fL (80.0-100.0); Mean Platelet Volume 8.4; Monocytes # (A) 0.3 k/uL (0-1.0); Monocytes % (A) 4 %; Neutrophils # (A) 5.4 k/uL (1.3-7.7); Neutrophils % (A) 70 %; Platelet Count 100 k/uL (150-450); RDW 13.7 % (11.5-15.5); WBC 7.7 k/uL (3.8-10.6)
[2023-07-15] MEDS: IPRATROPIUM-ALBUTEROL 3 ML NEB INHALATION SCH ×3 (14:49→21:03)
--- NOTE | 2023-07-15 14:52 | P.OP ---
Date of Procedure: 07/15/23 Preoperative Diagnosis: 3v CAD, NSTEMI HTN GERD Postoperative Diagnosis: Same Procedure(s) Performed: 1. Coronary artery bypass grafting x 3. Left internal thoracic artery (in-situ) to left anterior descending coronary artery. Left radial artery from aorta to obtuse marginal artery #1. Saphenous vein from aorta to posterior descending coronary artery. 2. Left atrial appendage ligation using #35 AtriClip 3. Endoscopic left radial and left greater saphenous vein harvest 4. Graft flow measurements using the medi-stim flow meter 5. Trans-esophageal echo Implants: #35 AtriClip Anesthesia: GETA Surgeon: Isacc Spain Silviculturist #1: Cristi Gil Silviculturist #2: Trevor Mccloud Estimated Blood Loss (ml): 500 IV fluids (ml): 3,000 Pathology: none sent Condition: critical Disposition: ICU Indications for Procedure: This patient is a 78 year-old male who presents with a several month history of anginal symptoms that progressed. He underwent elective coronary cath which revealed significant distal left main disease as well as tandem lesions in the LAD and diffuse disease of the RCA. His STS risk of morbidity and mortality (1.2%) was discussed with the patient and CABG was recommended because it was acceptable. He was in agreement to proceed. Operative Findings: AMPARO 1.75mm good conduit. LAD grafted distally 1.5 good target. JARVIS-LAD flow 36ml/min, P.I. 2.5 Left radial 2.2mm good conduit. Obtuse marginal 1.5mm heavily calcified posteriorly. RA-OM Flow 57 ml/min, P.I. 1.9 Saphenous nelda 2.5mm good conduit. Posterior descending artery 1.6mm good target. SVG-PDA 59 ml/min, P.I. 3.1 Description of Procedure: The patient underwent central line, arterial line, and [place] Ron catheter placement in the pre-operative suite by the anesthesia team. The patient was then brought to the operating room and placed in the supine position. General anesthesia was induced and the patient was prepped from the chin to the ankles i n the usual sterile fashion. A time-out was performed and antibiotics were given. A midline incision was made on the chest and carried down to bone. A median sternotomy was performed. Hemostasis on the bone was achieved using electrocautery. The left pleura was entered and the left internal thoracic artery was harvested in a skeletonized fashion. Simultaneously a physician speech language pathologist assistant harvested the left greater saphenous vein as well as the left radial artery in an endoscopic fashion. The patient was systemically heparinized and the AMPARO was transected and placed in a papaverine jacuzzi. A left sided chest tube was placed. The pericardium was incised in a reverse T-fashion and a pericardial cradle was created. The patients aortic arch and right atrial appendage were cannulated for arterial and venous cannulation. Pledgets were used on the arch cannulation site. Antegrade and retrograde cannulas were placed. The conduit was examined and the, radial artery and GSV was of good quality. Cardiopulmonary bypass was instituted once ACT >480. The targets were examined and the heart was arrested using antegrade and retrograde cardioplegia. Retrograde cardioplegia was re- dosed every 15 minutes. The posterior descending coronary artery was exposed and an arteriotomy was created in the vessel which was a a good target. An end to side anastomosis was performed with the GSV to the PDA was performed using a running 7-0 Prolene. Then, a 35mm AtriClip was placed on the left atrial appendage effectively ligating it. The first obtuse marginal branch was dissected out and an arteriotomy was made. It was a thin vessel with posterior calcification. An end to side anastomosis was performed with radial artery to OM1 using a running 7-0 Prolene. The pericardium was then incised to create a pathway for the JARVIS. Care was taken to avoid injury to phrenic nerve. Next the AMPARO was anastomosed to the distal LAD in an end to side fashion using a running 7-0 Prolene. Next, both proximals were fastened to the ascending aorta in an end to side fashion using a running 6-0 Prolene. The patient was placed in the Trendelenburg position and the clamp was removed. Graft flow measurements were taken using the Medi-Stim device and they were excellent. Atrial and Ventricular wires were placed and all of the distals were checked for hemostasis. The patient was weaned off cardiopulmonary bypass and decannulated. The pericardium was partially closed. A 32F chest tube and 19F [place] were left in the mediastinum and the sternum was re-approximated using cables. The fascia was closed with Ethibond and the subcutaneous tissues and skin, the sternum, arm and leg were closed in Vicryl layers. The patient was transported to the ICU without any major complications. JEAN PAUL showed that EF was about 55% at the conclusion of the case with trace-mild MR.
[2023-07-15 14:53] LABS: HGB 8.7 gm/dL (13.0-17.5)
[2023-07-15 14:57] LABS: INR 1.2 (<1.2); Partial Thromboplastin Time 29.5 sec (22.0-30.0); Prothrombin Time 12.6 sec (10.0-12.5)
--- NOTE | 2023-07-15 15:26 | XR ---
EXAMINATION TYPE: XR chest 1V portable DATE OF EXAM: 07/15/2023 Comparison: 07/14/2023 Clinical History: 78-year-old male Post Operative Cardiac Surgery Findings: ET tube tip at the level of the medial clavicular heads. NG tube courses below the diaphragm. Right I J [place]-Ron catheter tip appears to show a short distal loop probably projecting into the left main p ulmonary outflow tract. Left-sided chest tube is present. No appreciable pneumothorax. Heart is mildl y enlarged. Prominent retrocardiac and left basilar opacity. Retained epicardial pacer leads. Mediast inal drains. Median sternotomy wires and post-CABG clips. Impression: 1. Post-CABG changes with left-sided chest tube. No appreciable pneumothorax. 2. Small left pleural effusion with prominent retrocardiac atelectasis. 3. There may be mild pulmonary vascular congestion. 4. Note the short loop of the [place]-Ron catheter tip probably entering into the left main pulmonary a rtery.
[2023-07-15 15:34] LABS: ABG Base Excess -0.5 mmol/L; ABG HCO3 24 mmol/L (21-25); ABG Oxygen Saturation 99.5 % (94-97); ABG PCO2 38 mmHg (35-45); ABG PH 7.41 (7.35-7.45); ABG PO2 163 mmHg (83-108); ABG TCO2 25 mmol/L (19-24); Allen Test Performed? Yes
[2023-07-15 15:35] LABS: Glucose,Whole Blood 112 mg/dL (70-110)
--- NOTE | 2023-07-15 16:03 | P.PN ---
Subjective Progress Note Date: 07/15/23 Principal diagnosis: Coronary artery disease. Pulmonary consult dated 07/13/2023. 78-year-old male who recently had a cardiac catheterization that showed severely calcified coronary arteries, severe left main disease, and severe LAD and right coronary artery disease. According to cardiothoracic surgery, the patient is scheduled to have bypass grafting, on July 15, with Dr. Spain. The patient's FEV1 was 69% predicted or 2.15 L. The patient is a lifelong nons moker. His primary care physician is Dr. Cabrera. We are asked to see the patient preoperatively. The patient has no known history of any lung disease. He is a lifelong nonsmoker. He denies any asthma, emphysema, COPD, etc. Seen in consultation on July 06, by Dr. Hernandez, for chest pain. The patient has a history of hypertension, and gout. His home medications include lisinopril, Imdur, aspirin, allopurinol, multiple vitamins, and Indocin. The patient is seen in room 368. The patient is resting comfortably. The patient is currently on IV heparin. Currently labs include a white count 7.3, hemoglobin 13.4, hematocrit 40.8, and a normal platelet count. PTT is 63.9. Sodium 141, p otassium 4.3, chlorides 110, CO2 18, anion gap 13, BUN 23, and creatinine 0.89. Glucose 107. TSH is normal. Chest CT, showed no acute abnormality in the chest. Progress note dated 07/14/2023. 78-year-old male that we saw yesterday in consultation. The patient has significant coronary disease, and is scheduled for bypass surgery tomorrow. He is currently on room air. He is resting comfortably in room 368. Is getting saline at 10 mL an hour, and IV heparin, via weightbase protocol. The patient is not having any difficulty breathing, or chest pain. His FEV1 was 2.15 L. Based on that number alone, the patient's at increased operative risk. Current labs include a white count 7.2, hemoglobin 12.1, hematocrit 35.9, and a platelet count of 185,000. PTT is 55.0. Progress note dated 07/15/2023. 78-year-old male, postop day 0, status post three-vessel bypass grafting. Surgery was done by Dr. Spain. Currently, the patient is in the intensive care unit, on the mechanical ventilator. Ventilator settings include the volume assist control, rate 14, tidal volume 550, FiO2 80%, and PEEP of 8. Initial blood gases show pO2 of 163, pCO2 of 38, and a pH is 7.41. I told the nurse, to other respiratory, to start weaning the FiO2. The patient's currently on nitroglycerin at 5 mcg/m, propofol at 20 mcg/kg/m, and lactated Ringer's at 50 mL an hour. The patient's cardiac output is 5.7 with an index of 2.5. CVP is 10, and pulmonary artery pressures 28/14. Labs include a white count 7.7, hemoglobin 8.7, hematocrit 24.8, and a platelet count of 100,000. Additional labs include a sodium 140, potassium 4.2, chlorides 109, CO2 21, BUN 18, creatinine 0.92. Chest x-ray shows post-CABG changes, with left-sided chest tube, a small left-sided pleural effusion, and some basilar atelectasis. In addition, there may be some mild pulmonary vascular congestion. A Peel-Ron catheter is noted. Objective - Vital Signs Vital signs: Vital Signs Temp 97.4 F L 07/15/23 06:46 Pulse 49 L 07/15/23 15:15 Resp 14 07/15/23 15:10 BP 117/52 07/15/23 15:10 Pulse Ox 100 07/15/23 15:10 FiO2 100 07/15/23 14:46 Intake & Output 07/14/23 07/15/23 07/15/23 18:59 06:59 18:59 Intake Total 1508.403 340.419 73 Output Total 3265 Balance 1508.403 340.419 -3192 Weight 102.9 kg Intake: IV 100 73 .9NS Cardiac Output 10 .9NS Pressure Bags 9 Lactated Ringers 1,000 ml 50 @ 50 mls/hr IV .Q20H [facility] Rx#:[id number] Intake, IV Titration 156.403 240.419 Amount Heparin Sod,Pork in 0.45% 156.403 240.419 NaCl 25,000 unit In 0.45 % NaCl 1 250ml.bag @ 9. 833 UNITS/KG/HR 10 mls/hr IV .Q24H [facility] Rx#: [id number] Oral 1352 Output: Chest Tube Drainage 140 Left Pleural 80 Mediastinal and Right 60 Pleural Urine 1625 Estimated Blood Loss 1500 Other: Voiding Method Toilet Toilet # Voids 1 ABP, PAP, CO, CI - Last Documented Arterial Blood Pressure 169/66 Pulmonary Artery Pressure 35/18 Cardiac Output 4.8 Cardiac Index 2.1 - Exam No acute distress, sedated, with an orally placed endotracheal tube. HEENT examination is grossly unremarkable. Neck supple. Full range of motion. No adenopathy thyromegaly or neck vein distention. Cardiovascular examination reveals regular rhythm rate. S1-S2 normal. No S3 or S4. No discernible murmur noted. Heart rate 73 bpm. Lungs reveal clear breath sounds. Breath sounds are equal bilaterally. No adventitious lung sounds including wheezes rhonchi or crackles. Saturations are 100%. Abdomen soft without bowel sounds. Extremities are intact. No cyanosis clubbing or edema. Skin is without rash or lesion. Neurologic examination cannot be assessed at this time. - Labs CBC & Chem 7: 07/15/23 14:41 07/15/23 06:34 Labs: Abnormal Lab Results - Last 24 Hours (Table) 07/14/23 07/15/23 07/15/23 Range/Units 13:35 06:34 13:32 RBC (4.30-5.90) m/uL Hgb (13.0-17.5) gm/dL Hct (39.0-53.0) % Plt Count (150-450) k/uL PT (10.0-12.5) sec INR (<1.2) ABG pO2 290 H (83-108) mmHg ABG Total CO2 26 H (19-24) mmol/L ABG O2 Saturation 100.0 H (94-97) % ABG Hematocrit 27 L (34.0-46.0) % ABG Glucose 108 H (75-99) mg/dL ABG Lactic Acid 2.5 H* (0.5-1.6) mmol/L Hemoglobin 8.9 L (13.0-17.5) gm/dL Chloride 109 H (98-107) mmol/L Carbon Dioxide 21 L (22-30) mmol/L Glucose 109 H (74-99) mg/dL POC Glucose (mg/dL) (70-110) mg/dL Arterial Blood Glucose 108 H (75-99) mg/dL Crossmatch See Detail 07/15/23 07/15/23 07/15/23 Range/Units 14:39 14:41 14:41 RBC 2.60 L (4.30-5.90) m/uL Hgb 8.7 L D (13.0-17.5) gm/dL Hct 24.8 L (39.0-53.0) % Plt Count 100 L (150-450) k/uL PT 12.6 H (10.0-12.5) sec INR 1.2 H (<1.2) ABG pO2 (83-108) mmHg ABG Total CO2 (19-24) mmol/L ABG O2 Saturation (94-97) % ABG Hematocrit (34.0-46.0) % ABG Glucose (75-99) mg/dL ABG Lactic Acid (0.5-1.6) mmol/L Hemoglobin (13.0-17.5) gm/dL Chloride (98-107) mmol/L Carbon Dioxide (22-30) mmol/L Glucose (74-99) mg/dL POC Glucose (mg/dL) 111 H (70-110) mg/dL Arterial Blood Glucose (75-99) mg/dL Crossmatch 07/15/23 07/15/23 Range/Units 15:25 15:27 RBC (4.30-5.90) m/uL Hgb (13.0-17.5) gm/dL Hct (39.0-53.0) % Plt Count (150-450) k/uL PT (10.0-12.5) sec INR (<1.2) ABG pO2 163 H (83-108) mmHg ABG Total CO2 25 H (19-24) mmol/L ABG O2 Saturation 99.5 H (94-97) % ABG Hematocrit (34.0-46.0) % ABG Glucose (75-99) mg/dL ABG Lactic Acid (0.5-1.6) mmol/L Hemoglobin (13.0-17.5) gm/dL Chloride (98-107) mmol/L Carbon Dioxide (22-30) mmol/L Glucose (74-99) mg/dL POC Glucose (mg/dL) 112 H (70-110) mg/dL Arterial Blood Glucose (75-99) mg/dL Crossmatch Microbiology - Last 24 Hours (Table) 07/13/23 22:11 Nasal Screen MRSA/MSSA - Final Nasal Swab Assessment and Plan Assessment: Chest pain, secondary to severe coronary artery disease, including left main disease, and severe disease in the LAD, and right coronary artery. Status post three-vessel bypass grafting, 07/15/2023. Routine postoperative ventilator management. History of hypertension. History of gout. Lifelong nonsmoker. No history of any pulmonary disease. Plan: Plan dated 07/13/2023. The patient apparently is going to have open heart surgery, on July 15, with Dr. Spain. The patient is cleared from the pulmonary standpoint. The patient has no history of any pulmonary disease, and he is a lifelong nonsmoker. In addition, his FEV1 is reported to be 69% of predicted, or 2.15 L, which makes him at no increased operative risk, from the pulmonary standpoint. Labs, x-rays, and medications are reviewed. We will continue to follow. Prognosis is guarded. Plan dated 07/14/2023. The patient is seen today in room 368. We saw him yesterday in consultation. The patient is a lifelong nonsmoker. His FEV1 was adequate. We explained our role in the process. He understands. We recommended, continued use of the incentive spirometer, after surgery. Labs, x-rays, medications are reviewed. We will continue to follow. Plan dated 07/15/2023. The patient is seen in the intensive care unit, room 266. Currently, the patient remains on the ventilator, as he's just gotten back from the operating room. Once he wakes up, we'll attempt to wean him as soon as possible. He's only on nitroglycerin at 5 mcg/m, and propofol at 20 mcg/kg/m. He is also getting lactated Ringer's at 50 mL an hour. The patient had a three-vessel bypass surgery. His cardiac output is 5.7, and his index is 2.5. Additional recommendations and suggestions are forthcoming. Labs, x-rays, and medications are reviewed. Prognosis is guarded. Time with Patient: Greater than 30
[2023-07-15 16:13] LABS: Ionized Calcium 4.6 mg/dL (4.5-5.3)
[2023-07-15 16:13] LABS: Glucose,Whole Blood 122 mg/dL (70-110)
[2023-07-15] MEDS: HEPARIN SODIUM,PORCINE 5,000 UNIT/ML 1 ML VIAL SQ SCH ×2 (16:18→23:28)
[2023-07-15 16:21] LABS: ALT 17 U/L (4-49); AST 38 U/L (17-59); African American GFR (CKD) >90 (>60 ml/min/1.73 sqM); Albumin 2.7 g/dL (3.5-5.0); Alkaline Phosphatase 33 U/L (38-126); Anion Gap 8 mmol/L; Blood Urea Nitrogen 13 mg/dL (9-20); Calcium 7.8 mg/dL (8.4-10.2); Carbon Dioxide 22 mmol/L (22-30); Chloride 109 mmol/L (98-107); Glucose 96 mg/dL (74-99); Magnesium 2.2 mg/dL (1.6-2.3); Non-African American GFR(CKD) >90 (>60 ml/min/1.73 sqM); Potassium 4.1 mmol/L (3.5-5.1); Sodium 139 mmol/L (137-145); Total Bilirubin 0.5 mg/dL (0.2-1.3); Total Protein 4.4 g/dL (6.3-8.2)
[2023-07-15 16:58] LABS: Glucose,Whole Blood 144 mg/dL (70-110)
[2023-07-15] MEDS: INSULIN REGULAR 100 UNIT in SODIUM CHLORIDE 0.9% 100 ML IV SCH (16:59)
[2023-07-15 17:42] LABS: Basophils % (A) 0 %; Eosinophils % (A) 0 %; HCT 27.8 % (39.0-53.0); HGB 9.6 gm/dL (13.0-17.5); Lymphocytes % (A) 13 %; MCHC 34.6 g/dL (31.0-37.0); MCV 95.3 fL (80.0-100.0); Mean Platelet Volume 9.8; Monocytes # (A) 0.4 k/uL (0-1.0); Monocytes % (A) 5 %; Neutrophils # (A) 6.3 k/uL (1.3-7.7); Neutrophils % (A) 81 %; Platelet Count 117 k/uL (150-450); RBC 2.92 m/uL (4.30-5.90); RDW 13.7 % (11.5-15.5); WBC 7.8 k/uL (3.8-10.6)
[2023-07-15] MEDS: ACETAMINOPHEN IV (For NPO) 1,000 MG in EMPTY BAG 1 BAG IVPB SCH ×2 (17:52→23:27)
[2023-07-15 18:12] LABS: Glucose,Whole Blood 150 mg/dL (70-110)
[2023-07-15] MEDS: HYDROcodone/APAP 10-325MG 1 EACH TAB PO PRN ×2 (18:16→21:27)
[2023-07-15 18:51] LABS: ABG Base Excess -1.3 mmol/L; ABG HCO3 24 mmol/L (21-25); ABG Oxygen Saturation 98.1 % (94-97); ABG PCO2 40 mmHg (35-45); ABG PH 7.39 (7.35-7.45); ABG PO2 90 mmHg (83-108); ABG TCO2 25 mmol/L (19-24); Allen Test Performed? Yes
--- NOTE | 2023-07-15 19:44 | P.ANPRN ---
Procedure Note - Anesthesia - Invasive Line Right [place] Time Out Performed: Yes Date of Procedure: 07/15/23 Time of Procedure: 07:51 Location of Patient: PreOp Preparation: Sterile Prep, Sterile Dressing Central Line Location: Internal Jugular Ultrasound Used: No Narrative: Central line placement per sterile protocol utilized.
[2023-07-15 20:10] LABS: Glucose,Whole Blood 154 mg/dL (70-110)
[2023-07-15 20:43] LABS: Basophils % (A) 0 %; Eosinophils % (A) 0 %; HCT 26.9 % (39.0-53.0); HGB 9.4 gm/dL (13.0-17.5); Lymphocytes # (A) 0.6 k/uL (1.0-4.8); Lymphocytes % (A) 7 %; MCH 33.3 pg (25.0-35.0); MCHC 34.9 g/dL (31.0-37.0); MCV 95.6 fL (80.0-100.0); Mean Platelet Volume 9.6; Monocytes # (A) 0.3 k/uL (0-1.0); Monocytes % (A) 4 %; Neutrophils % (A) 88 %; Platelet Count 121 k/uL (150-450); RBC 2.82 m/uL (4.30-5.90); RDW 13.8 % (11.5-15.5)
[2023-07-15 21:00] LABS: Glucose,Whole Blood 150 mg/dL (70-110)
[2023-07-15] MEDS ORDERED: ALBUMIN HUMAN 5% 250 ML in EMPTY BAG 1 BAG IVPB ONE (21:16)
[2023-07-15] MEDS: SENNOSIDES-DOCUSATE SODIUM 1 EACH TAB PO SCH (21:30)
[2023-07-15 22:05] LABS: Glucose,Whole Blood 129 mg/dL (70-110)
[2023-07-15 23:01] LABS: Glucose,Whole Blood 131 mg/dL (70-110)
[2023-07-16 00:06] LABS: Glucose,Whole Blood 133 mg/dL (70-110)
[2023-07-16 01:10] LABS: Glucose,Whole Blood 135 mg/dL (70-110)
[2023-07-16] MEDS: HYDROcodone/APAP 10-325MG 1 EACH TAB PO PRN ×4 (01:25→21:09)
[2023-07-16 03:13] LABS: Glucose,Whole Blood 117 mg/dL (70-110)
[2023-07-16 04:07] LABS: Glucose,Whole Blood 119 mg/dL (70-110)
[2023-07-16 04:21] LABS: Basophils % (A) 0 %; Eosinophils % (A) 0 %; HCT 24.5 % (39.0-53.0); HGB 8.2 gm/dL (13.0-17.5); Lymphocytes # (A) 0.9 k/uL (1.0-4.8); Lymphocytes % (A) 13 %; MCHC 33.5 g/dL (31.0-37.0); MCV 95.6 fL (80.0-100.0); Mean Platelet Volume 10.5; Monocytes # (A) 0.4 k/uL (0-1.0); Monocytes % (A) 6 %; Neutrophils # (A) 5.7 k/uL (1.3-7.7); Neutrophils % (A) 80 %; Platelet Count 111 k/uL (150-450); RBC 2.57 m/uL (4.30-5.90); RDW 13.9 % (11.5-15.5); WBC 7.2 k/uL (3.8-10.6)
[2023-07-16 04:31] LABS: Ionized Calcium 4.8 mg/dL (4.5-5.3)
[2023-07-16 04:41] LABS: ALT 18 U/L (4-49); AST 45 U/L (17-59); African American GFR (CKD) >90 (>60 ml/min/1.73 sqM); Albumin 2.8 g/dL (3.5-5.0); Alkaline Phosphatase 40 U/L (38-126); Anion Gap 8 mmol/L; Blood Urea Nitrogen 16 mg/dL (9-20); Calcium 8.3 mg/dL (8.4-10.2); Carbon Dioxide 23 mmol/L (22-30); Chloride 108 mmol/L (98-107); Glucose 108 mg/dL (74-99); Magnesium 2.2 mg/dL (1.6-2.3); Non-African American GFR(CKD) 86 (>60 ml/min/1.73 sqM); Potassium 4.2 mmol/L (3.5-5.1); Sodium 139 mmol/L (137-145); Total Bilirubin 0.5 mg/dL (0.2-1.3); Total Protein 4.7 g/dL (6.3-8.2)
[2023-07-16 05:25] LABS: Glucose,Whole Blood 126 mg/dL (70-110)
[2023-07-16] MEDS: ALBUMIN HUMAN 5% 250 ML in EMPTY BAG 1 BAG IVPB PRN ×3 (05:58→13:37)
[2023-07-16 06:07] LABS: Glucose,Whole Blood 126 mg/dL (70-110)
[2023-07-16 06:54] LABS: Glucose,Whole Blood 126 mg/dL (70-110)
[2023-07-16] MEDS: KETOROLAC 15 MG/ML 1 ML VIAL IVP SCH ×4 (07:59→23:09)
[2023-07-16] MEDS: HEPARIN SODIUM,PORCINE 5,000 UNIT/ML 1 ML VIAL SQ SCH ×3 (08:00→23:09)
[2023-07-16] MEDS: METOCLOPRAMIDE 5 MG/ML 2 ML VIAL IVP PRN (08:01)
[2023-07-16] MEDS: ASPIRIN 325 MG TAB PO SCH (08:04)
[2023-07-16] MEDS: ATORVASTATIN 40 MG TAB PO SCH (08:04)
[2023-07-16] MEDS: CLOPIDOGREL 75 MG TAB PO SCH (08:04)
[2023-07-16 08:16] LABS: Glucose,Whole Blood 171 mg/dL (70-110)
[2023-07-16] MEDS ORDERED: MAGNESIUM HYDROXIDE 2,400 MG/30 ML CUP PO PRN (09:00)
[2023-07-16] MEDS ORDERED: PANTOPRAZOLE 40 MG/10 ML VIAL IVP SCH (09:00)
[2023-07-16] MEDS ORDERED: bisacodyL 10 MG SUPP RECTAL PRN (09:00)
[2023-07-16 09:07] LABS: Glucose,Whole Blood 168 mg/dL (70-110)
[2023-07-16] MEDS: IPRATROPIUM-ALBUTEROL 3 ML NEB INHALATION SCH ×4 (09:09→20:33)
--- NOTE | 2023-07-16 09:51 | P.PN ---
Subjective Progress Note Date: 07/16/23 Mario Cherry, is a 78-year-old male who presented to [facility] for cardiac catheterization with Dr. Hernandez, patient was having episodes of chest pain with exertion, he underwent cardiac catheterization on 07/13/2023 which was positive for severe left main disease, severe LAD disease and severe RCA disease. Patient was admitted to telemetry floor, he was started on IV heparin , cardiovascular surgery consultation was requested. Patient has a known history of hypertension, gastroesophageal reflux disease, history of gout , and history of cholecystitis with recent cholecystectomy. On review of systems patient is alert and oriented 3 in no apparent distress, there is no fever or chills no headache or dizziness no chest pain no shortness of breath no cough no nausea or vomiting no abdominal pain no diarrhea no blood in the stools no burning with urination no frequency or urgency and no hematuria. On 07/14/2023. Patient's history for coronary artery bypass graft surgery patient was evaluated by pulmonary services cleared for surgery. At this time patient denies chest pain or shortness breath. Patient denies nausea vomiting or diarrhea. Patient denies any urinary burning or frequency. Current vital signs temp 90.4, heart rate 52, respiratory rate 16, blood pressure 130/71 with a pulse ox 96% on room air. On 07/15/2023 patient was seen and examined in the ICU, patient underwent coronary artery bypass graft surgery 3 vessels, he is admitted to intensive care unit he is intubated sedated maintained on mechanical ventilation, pulmonary critical care are following, left sided chest tube in place, will follow closely On 07/16/2023 patient is alert and oriented 3 currently sitting up in chair. Patient was extubated per protocol. Chest tubes remain in place. Patient reports generalized weakness. Patient remains in the intensive care unit Objective - Vital Signs Vital signs: Vital Signs Temp 98.2 F 07/16/23 08:00 Pulse 60 07/16/23 09:21 Resp 10 L 07/16/23 09:00 BP 104/51 07/16/23 09:00 Pulse Ox 93 L 07/16/23 09:00 FiO2 40 07/15/23 18:30 Intake & Output 07/15/23 07/16/23 07/16/23 18:59 06:59 18:59 Intake Total 391.372 1039.760 254.28 Output Total 4725 1250 200 Balance -4372.287 66.760 54.28 Weight 104.8 kg Intake: IV 290 1288 247 .9NS Cardiac Output 50 180 70 .9NS Pressure Bags 36 108 27 ACETAMINOPHEN IV (For NPO 100 ) 1,000 mg In Empty Bag 1 bag @ 400 mls/hr IVPB Q6HR [facility] Rx#:[id number] Albumin Human 5% 250 ml 250 In Empty Bag 1 bag @ 250 mls/hr IVPB ONCE ONE Rx#: [id number] Lactated Ringers 1,000 ml 200 600 150 @ 50 mls/hr IV .Q20H [facility] Rx#:[id number] ceFAZolin 2 gm In Sodium 50 Chloride 0.9% 50 ml @ 100 mls/hr IVPB ONCE ONE Rx# :[id number] Intake, IV Titration 62.713 28.760 7.28 Amount Clevidipine Butyrate 25 6.800 mg In Empty Bag 1 bag @ 1 MG/HR 2 mls/hr IV .Q24H [facility] Rx#:[id number] Insulin Regular 100 unit 2.045 28.760 7.28 In Sodium Chloride 0.9% 100 ml @ Per Protocol IV .Q0M [facility] Rx#:[id number] propofoL 1,000 mg In 53.868 Empty Bag 1 bag @ Titrate IV .Q0M [facility] Rx#: [id number] Output: Chest Tube Drainage 450 760 140 Left Pleural 290 440 40 Mediastinal and Right 160 320 100 Pleural Urine 2775 490 60 Estimated Blood Loss 1500 Other: Voiding Method Indwelling Catheter Indwelling Catheter Indwelling Catheter ABP, PAP, CO, CI - Last Documented Arterial Blood Pressure 91/31 Pulmonary Artery Pressure 24/5 Cardiac Output 5.7 Cardiac Index 2.5 - Exam HEENT head normocephalic and atraumatic Neck is supple no JVD no goiter no lymphadenopathy no carotid bruit Chest examination is clear to auscultation no crackles no wheezing Cardiac exam reveals regular heart sounds S1 and S2 no gallops no murmurs Abdomen is soft nontender no organomegaly with normal bowel sounds Extremity exam reveals no edema no cyanosis or clubbing Neurological examination reveals no gross focal deficits - Labs CBC & Chem 7: 07/16/23 04:05 07/16/23 04:05 Labs: Abnormal Lab Results - Last 24 Hours (Table) 07/14/23 07/15/23 07/15/23 Range/Units 13:35 08:37 10:08 RBC (4.30-5.90) m/uL Hgb (13.0-17.5) gm/dL Hct (39.0-53.0) % Plt Count (150-450) k/uL Lymphocytes # (1.0-4.8) k/uL PT (10.0-12.5) sec INR (<1.2) ABG pCO2 (35-45) mmHg ABG pO2 309 H 113 H (83-108) mmHg ABG Total CO2 25 H (19-24) mmol/L ABG O2 Saturation 100.0 H 98.8 H (94-97) % ABG Hematocrit (34.0-46.0) % ABG Potassium (3.4-4.5) mmol/L ABG Ionized Calcium (4.5-5.3) mg/dL ABG Glucose 110 H (75-99) mg/dL ABG Lactic Acid 1.7 H (0.5-1.6) mmol/L Hemoglobin 11.4 L 11.5 L (13.0-17.5) gm/dL Chloride (98-107) mmol/L Glucose (74-99) mg/dL POC Glucose (mg/dL) (70-110) mg/dL Calcium (8.4-10.2) mg/dL Alkaline Phosphatase (38-126) U/L Total Protein (6.3-8.2) g/dL Albumin (3.5-5.0) g/dL Arterial Blood Potassium (3.4-4.5) mmol/L Arterial Blood Glucose 110 H (75-99) mg/dL Crossmatch See Detail 07/15/23 07/15/23 07/15/23 Range/Units 10:50 11:19 11:32 RBC (4.30-5.90) m/uL Hgb (13.0-17.5) gm/dL Hct (39.0-53.0) % Plt Count (150-450) k/uL Lymphocytes # (1.0-4.8) k/uL PT (10.0-12.5) sec INR (<1.2) ABG pCO2 34 L (35-45) mmHg ABG pO2 >420 H >420 H >420 H (83-108) mmHg ABG Total CO2 26 H 26 H (19-24) mmol/L ABG O2 Saturation 100.0 H 100.0 H 100.0 H (94-97) % ABG Hematocrit 28 L 25 L 26 L (34.0-46.0) % ABG Potassium 5.4 H 5.2 H (3.4-4.5) mmol/L ABG Ionized Calcium 4.2 L 4.3 L 4.4 L (4.5-5.3) mg/dL ABG Glucose 107 H 110 H 115 H (75-99) mg/dL ABG Lactic Acid (0.5-1.6) mmol/L Hemoglobin 9.0 L 8.2 L 8.5 L (13.0-17.5) gm/dL Chloride (98-107) mmol/L Glucose (74-99) mg/dL POC Glucose (mg/dL) (70-110) mg/dL Calcium (8.4-10.2) mg/dL Alkaline Phosphatase (38-126) U/L Total Protein (6.3-8.2) g/dL Albumin (3.5-5.0) g/dL Arterial Blood Potassium 5.4 H 5.2 H (3.4-4.5) mmol/L Arterial Blood Glucose 107 H 110 H 115 H (75-99) mg/dL Crossmatch 07/15/23 07/15/23 07/15/23 Range/Units 12:05 12:29 13:32 RBC (4.30-5.90) m/uL Hgb (13.0-17.5) gm/dL Hct (39.0-53.0) % Plt Count (150-450) k/uL Lymphocytes # (1.0-4.8) k/uL PT (10.0-12.5) sec INR (<1.2) ABG pCO2 (35-45) mmHg ABG pO2 >420 H >420 H 290 H (83-108) mmHg ABG Total CO2 26 H 27 H 26 H (19-24) mmol/L ABG O2 Saturation 100.0 H 100.0 H 100.0 H (94-97) % ABG Hematocrit 27 L 26 L 27 L (34.0-46.0) % ABG Potassium 5.2 H 5.2 H (3.4-4.5) mmol/L ABG Ionized Calcium (4.5-5.3) mg/dL ABG Glucose 125 H 126 H 108 H (75-99) mg/dL ABG Lactic Acid 1.7 H 2.5 H* (0.5-1.6) mmol/L Hemoglobin 8.8 L 8.6 L 8.9 L (13.0-17.5) gm/dL Chloride (98-107) mmol/L Glucose (74-99) mg/dL POC Glucose (mg/dL) (70-110) mg/dL Calcium (8.4-10.2) mg/dL Alkaline Phosphatase (38-126) U/L Total Protein (6.3-8.2) g/dL Albumin (3.5-5.0) g/dL Arterial Blood Potassium 5.2 H 5.2 H (3.4-4.5) mmol/L Arterial Blood Glucose 125 H 126 H 108 H (75-99) mg/dL Crossmatch 07/15/23 07/15/23 07/15/23 Range/Units 14:39 14:41 14:41 RBC 2.60 L (4.30-5.90) m/uL Hgb 8.7 L D (13.0-17.5) gm/dL Hct 24.8 L (39.0-53.0) % Plt Count 100 L (150-450) k/uL Lymphocytes # (1.0-4.8) k/uL PT 12.6 H (10.0-12.5) sec INR 1.2 H (<1.2) ABG pCO2 (35-45) mmHg ABG pO2 (83-108) mmHg ABG Total CO2 (19-24) mmol/L ABG O2 Saturation (94-97) % ABG Hematocrit (34.0-46.0) % ABG Potassium (3.4-4.5) mmol/L ABG Ionized Calcium (4.5-5.3) mg/dL ABG Glucose (75-99) mg/dL ABG Lactic Acid (0.5-1.6) mmol/L Hemoglobin (13.0-17.5) gm/dL Chloride (98-107) mmol/L Glucose (74-99) mg/dL POC Glucose (mg/dL) 111 H (70-110) mg/dL Calcium (8.4-10.2) mg/dL Alkaline Phosphatase (38-126) U/L Total Protein (6.3-8.2) g/dL Albumin (3.5-5.0) g/dL Arterial Blood Potassium (3.4-4.5) mmol/L Arterial Blood Glucose (75-99) mg/dL Crossmatch 07/15/23 07/15/23 07/15/23 Range/Units 14:41 15:25 15:27 RBC (4.30-5.90) m/uL Hgb (13.0-17.5) gm/dL Hct (39.0-53.0) % Plt Count (150-450) k/uL Lymphocytes # (1.0-4.8) k/uL PT (10.0-12.5) sec INR (<1.2) ABG pCO2 (35-45) mmHg ABG pO2 163 H (83-108) mmHg ABG Total CO2 25 H (19-24) mmol/L ABG O2 Saturation 99.5 H (94-97) % ABG Hematocrit (34.0-46.0) % ABG Potassium (3.4-4.5) mmol/L ABG Ionized Calcium (4.5-5.3) mg/dL ABG Glucose (75-99) mg/dL ABG Lactic Acid (0.5-1.6) mmol/L Hemoglobin (13.0-17.5) gm/dL Chloride 109 H (98-107) mmol/L Glucose (74-99) mg/dL POC Glucose (mg/dL) 112 H (70-110) mg/dL Calcium 7.8 L (8.4-10.2) mg/dL Alkaline Phosphatase 33 L (38-126) U/L Total Protein 4.4 L (6.3-8.2) g/dL Albumin 2.7 L (3.5-5.0) g/dL Arterial Blood Potassium (3.4-4.5) mmol/L Arterial Blood Glucose (75-99) mg/dL Crossmatch 07/15/23 07/15/23 07/15/23 Range/Units 16:11 16:57 17:35 RBC 2.92 L (4.30-5.90) m/uL Hgb 9.6 L (13.0-17.5) gm/dL Hct 27.8 L (39.0-53.0) % Plt Count 117 L (150-450) k/uL Lymphocytes # (1.0-4.8) k/uL PT (10.0-12.5) sec INR (<1.2) ABG pCO2 (35-45) mmHg ABG pO2 (83-108) mmHg ABG Total CO2 (19-24) mmol/L ABG O2 Saturation (94-97) % ABG Hematocrit (34.0-46.0) % ABG Potassium (3.4-4.5) mmol/L ABG Ionized Calcium (4.5-5.3) mg/dL ABG Glucose (75-99) mg/dL ABG Lactic Acid (0.5-1.6) mmol/L Hemoglobin (13.0-17.5) gm/dL Chloride (98-107) mmol/L Glucose (74-99) mg/dL POC Glucose (mg/dL) 122 H 144 H (70-110) mg/dL Calcium (8.4-10.2) mg/dL Alkaline Phosphatase (38-126) U/L Total Protein (6.3-8.2) g/dL Albumin (3.5-5.0) g/dL Arterial Blood Potassium (3.4-4.5) mmol/L Arterial Blood Glucose (75-99) mg/dL Crossmatch 07/15/23 07/15/23 07/15/23 Range/Units 18:09 18:46 20:08 RBC (4.30-5.90) m/uL Hgb (13.0-17.5) gm/dL Hct (39.0-53.0) % Plt Count (150-450) k/uL Lymphocytes # (1.0-4.8) k/uL PT (10.0-12.5) sec INR (<1.2) ABG pCO2 (35-45) mmHg ABG pO2 (83-108) mmHg ABG Total CO2 25 H (19-24) mmol/L ABG O2 Saturation 98.1 H (94-97) % ABG Hematocrit (34.0-46.0) % ABG Potassium (3.4-4.5) mmol/L ABG Ionized Calcium (4.5-5.3) mg/dL ABG Glucose (75-99) mg/dL ABG Lactic Acid (0.5-1.6) mmol/L Hemoglobin (13.0-17.5) gm/dL Chloride (98-107) mmol/L Glucose (74-99) mg/dL POC Glucose (mg/dL) 150 H 154 H (70-110) mg/dL Calcium (8.4-10.2) mg/dL Alkaline Phosphatase (38-126) U/L Total Protein (6.3-8.2) g/dL Albumin (3.5-5.0) g/dL Arterial Blood Potassium (3.4-4.5) mmol/L Arterial Blood Glucose (75-99) mg/dL Crossmatch 07/15/23 07/15/23 07/15/23 Range/Units 20:27 20:58 22:03 RBC 2.82 L (4.30-5.90) m/uL Hgb 9.4 L (13.0-17.5) gm/dL Hct 26.9 L (39.0-53.0) % Plt Count 121 L (150-450) k/uL Lymphocytes # 0.6 L (1.0-4.8) k/uL PT (10.0-12.5) sec INR (<1.2) ABG pCO2 (35-45) mmHg ABG pO2 (83-108) mmHg ABG Total CO2 (19-24) mmol/L ABG O2 Saturation (94-97) % ABG Hematocrit (34.0-46.0) % ABG Potassium (3.4-4.5) mmol/L ABG Ionized Calcium (4.5-5.3) mg/dL ABG Glucose (75-99) mg/dL ABG Lactic Acid (0.5-1.6) mmol/L Hemoglobin (13.0-17.5) gm/dL Chloride (98-107) mmol/L Glucose (74-99) mg/dL POC Glucose (mg/dL) 150 H 129 H (70-110) mg/dL Calcium (8.4-10.2) mg/dL Alkaline Phosphatase (38-126) U/L Total Protein (6.3-8.2) g/dL Albumin (3.5-5.0) g/dL Arterial Blood Potassium (3.4-4.5) mmol/L Arterial Blood Glucose (75-99) mg/dL Crossmatch 07/15/23 07/16/23 07/16/23 Range/Units 22:59 00:02 01:09 RBC (4.30-5.90) m/uL Hgb (13.0-17.5) gm/dL Hct (39.0-53.0) % Plt Count (150-450) k/uL Lymphocytes # (1.0-4.8) k/uL PT (10.0-12.5) sec INR (<1.2) ABG pCO2 (35-45) mmHg ABG pO2 (83-108) mmHg ABG Total CO2 (19-24) mmol/L ABG O2 Saturation (94-97) % ABG Hematocrit (34.0-46.0) % ABG Potassium (3.4-4.5) mmol/L ABG Ionized Calcium (4.5-5.3) mg/dL ABG Glucose (75-99) mg/dL ABG Lactic Acid (0.5-1.6) mmol/L Hemoglobin (13.0-17.5) gm/dL Chloride (98-107) mmol/L Glucose (74-99) mg/dL POC Glucose (mg/dL) 131 H 133 H 135 H (70-110) mg/dL Calcium (8.4-10.2) mg/dL Alkaline Phosphatase (38-126) U/L Total Protein (6.3-8.2) g/dL Albumin (3.5-5.0) g/dL Arterial Blood Potassium (3.4-4.5) mmol/L Arterial Blood Glucose (75-99) mg/dL Crossmatch 07/16/23 07/16/23 07/16/23 Range/Units 03:11 04:05 04:05 RBC 2.57 L (4.30-5.90) m/uL Hgb 8.2 L (13.0-17.5) gm/dL Hct 24.5 L (39.0-53.0) % Plt Count 111 L (150-450) k/uL Lymphocytes # 0.9 L (1.0-4.8) k/uL PT (10.0-12.5) sec INR (<1.2) ABG pCO2 (35-45) mmHg ABG pO2 (83-108) mmHg ABG Total CO2 (19-24) mmol/L ABG O2 Saturation (94-97) % ABG Hematocrit (34.0-46.0) % ABG Potassium (3.4-4.5) mmol/L ABG Ionized Calcium (4.5-5.3) mg/dL ABG Glucose (75-99) mg/dL ABG Lactic Acid (0.5-1.6) mmol/L Hemoglobin (13.0-17.5) gm/dL Chloride 108 H (98-107) mmol/L Glucose 108 H (74-99) mg/dL POC Glucose (mg/dL) 117 H (70-110) mg/dL Calcium 8.3 L (8.4-10.2) mg/dL Alkaline Phosphatase (38-126) U/L Total Protein 4.7 L (6.3-8.2) g/dL Albumin 2.8 L (3.5-5.0) g/dL Arterial Blood Potassium (3.4-4.5) mmol/L Arterial Blood Glucose (75-99) mg/dL Crossmatch 07/16/23 07/16/23 07/16/23 Range/Units 04:06 05:24 06:05 RBC (4.30-5.90) m/uL Hgb (13.0-17.5) gm/dL Hct (39.0-53.0) % Plt Count (150-450) k/uL Lymphocytes # (1.0-4.8) k/uL PT (10.0-12.5) sec INR (<1.2) ABG pCO2 (35-45) mmHg ABG pO2 (83-108) mmHg ABG Total CO2 (19-24) mmol/L ABG O2 Saturation (94-97) % ABG Hematocrit (34.0-46.0) % ABG Potassium (3.4-4.5) mmol/L ABG Ionized Calcium (4.5-5.3) mg/dL ABG Glucose (75-99) mg/dL ABG Lactic Acid (0.5-1.6) mmol/L Hemoglobin (13.0-17.5) gm/dL Chloride (98-107) mmol/L Glucose (74-99) mg/dL POC Glucose (mg/dL) 119 H 126 H 126 H (70-110) mg/dL Calcium (8.4-10.2) mg/dL Alkaline Phosphatase (38-126) U/L Total Protein (6.3-8.2) g/dL Albumin (3.5-5.0) g/dL Arterial Blood Potassium (3.4-4.5) mmol/L Arterial Blood Glucose (75-99) mg/dL Crossmatch 07/16/23 07/16/23 07/16/23 Range/Units 06:53 08:15 09:06 RBC (4.30-5.90) m/uL Hgb (13.0-17.5) gm/dL Hct (39.0-53.0) % Plt Count (150-450) k/uL Lymphocytes # (1.0-4.8) k/uL PT (10.0-12.5) sec INR (<1.2) ABG pCO2 (35-45) mmHg ABG pO2 (83-108) mmHg ABG Total CO2 (19-24) mmol/L ABG O2 Saturation (94-97) % ABG Hematocrit (34.0-46.0) % ABG Potassium (3.4-4.5) mmol/L ABG Ionized Calcium (4.5-5.3) mg/dL ABG Glucose (75-99) mg/dL ABG Lactic Acid (0.5-1.6) mmol/L Hemoglobin (13.0-17.5) gm/dL Chloride (98-107) mmol/L Glucose (74-99) mg/dL POC Glucose (mg/dL) 126 H 171 H 168 H (70-110) mg/dL Calcium (8.4-10.2) mg/dL Alkaline Phosphatase (38-126) U/L Total Protein (6.3-8.2) g/dL Albumin (3.5-5.0) g/dL Arterial Blood Potassium (3.4-4.5) mmol/L Arterial Blood Glucose (75-99) mg/dL Crossmatch Microbiology - Last 24 Hours (Table) 07/13/23 22:11 Nasal Screen MRSA/MSSA - Final Nasal Swab Assessment and Plan Plan: Episodes of chest pain with cardiac catheterization positive for severe disease in the left main, LAD, and the right coronary artery, patient underwent coronary artery bypass graft surgery 3 vessels on 07/15/2023 Underlying history of hypertension Underlying history of gout Underlying history of gastroesophageal reflux disease At this time patient was seen and examined Home medications reviewed and reordered Patient currently in the intensive care unit status post coronary artery bypass graft surgery Patient extubated 07/15/2023 Will follow during this admission
[2023-07-16 10:15] LABS: Glucose,Whole Blood 156 mg/dL (70-110)
[2023-07-16 11:16] LABS: Glucose,Whole Blood 135 mg/dL (70-110)
[2023-07-16] MEDS: METOPROLOL TARTRATE 12.5 MG TAB PO SCH ×2 (11:50→21:10)
[2023-07-16 12:02] LABS: Glucose,Whole Blood 124 mg/dL (70-110)
--- NOTE | 2023-07-16 12:15 | XR ---
EXAMINATION TYPE: XR chest 1V portable DATE OF EXAM: 07/16/2023 Comparison: 07/15/2023 Clinical History: 78-year-old male Post Operative Cardiac Surgery Findings: Interval extubation and removal of NG tube. Mediastinal drain and left-sided chest tube remain in shahrzad ce. No appreciable pneumothorax. Right IJ [place]-Ron catheter tip again curled towards the left now mo re clearly within the left main pulmonary artery. Median sternotomy wires and post-CABG clips. Heart mildly enlarged. Increasing diffuse interstitial opacity. Increasing retrocardiac and left basilar op acity. Impression: 1. Interval worsening aeration now with developing mild interstitial pulmonary edema. 2. Worsening postoperative atelectasis and small effusion at the left base. 3. Note the patient's right IJ [place]Ron catheter tip curled into the left main pulmonary artery.
--- NOTE | 2023-07-16 12:19 | P.PN ---
Subjective Progress Note Date: 07/16/23 Principal diagnosis: Coronary artery disease. Pulmonary consult dated 07/13/2023. 78-year-old male who recently had a cardiac catheterization that showed severely calcified coronary arteries, severe left main disease, and severe LAD and right coronary artery disease. According to cardiothoracic surgery, the patient is scheduled to have bypass grafting, on July 15, with Dr. Spain. The patient's FEV1 was 69% predicted or 2.15 L. The patient is a lifelong nons moker. His primary care physician is Dr. Cabrera. We are asked to see the patient preoperatively. The patient has no known history of any lung disease. He is a lifelong nonsmoker. He denies any asthma, emphysema, COPD, etc. Seen in consultation on July 06, by Dr. Hernandez, for chest pain. The patient has a history of hypertension, and gout. His home medications include lisinopril, Imdur, aspirin, allopurinol, multiple vitamins, and Indocin. The patient is seen in room 368. The patient is resting comfortably. The patient is currently on IV heparin. Currently labs include a white count 7.3, hemoglobin 13.4, hematocrit 40.8, and a normal platelet count. PTT is 63.9. Sodium 141, p otassium 4.3, chlorides 110, CO2 18, anion gap 13, BUN 23, and creatinine 0.89. Glucose 107. TSH is normal. Chest CT, showed no acute abnormality in the chest. Progress note dated 07/14/2023. 78-year-old male that we saw yesterday in consultation. The patient has significant coronary disease, and is scheduled for bypass surgery tomorrow. He is currently on room air. He is resting comfortably in room 368. Is getting saline at 10 mL an hour, and IV heparin, via weightbase protocol. The patient is not having any difficulty breathing, or chest pain. His FEV1 was 2.15 L. Based on that number alone, the patient's at increased operative risk. Current labs include a white count 7.2, hemoglobin 12.1, hematocrit 35.9, and a platelet count of 185,000. PTT is 55.0. Progress note dated 07/15/2023. 78-year-old male, postop day 0, status post three-vessel bypass grafting. Surgery was done by Dr. Spain. Currently, the patient is in the intensive care unit, on the mechanical ventilator. Ventilator settings include the volume assist control, rate 14, tidal volume 550, FiO2 80%, and PEEP of 8. Initial blood gases show pO2 of 163, pCO2 of 38, and a pH is 7.41. I told the nurse, to other respiratory, to start weaning the FiO2. The patient's currently on nitroglycerin at 5 mcg/m, propofol at 20 mcg/kg/m, and lactated Ringer's at 50 mL an hour. The patient's cardiac output is 5.7 with an index of 2.5. CVP is 10, and pulmonary artery pressures 28/14. Labs include a white count 7.7, hemoglobin 8.7, hematocrit 24.8, and a platelet count of 100,000. Additional labs include a sodium 140, potassium 4.2, chlorides 109, CO2 21, BUN 18, creatinine 0.92. Chest x-ray shows post-CABG changes, with left-sided chest tube, a small left-sided pleural effusion, and some basilar atelectasis. In addition, there may be some mild pulmonary vascular congestion. A [place]-Ron catheter is noted. Progress note dated 07/16/2023. 78-year-old male, postop day #1, status post three-vessel bypass surgery. Surgery was done by Dr. Spain. The patient was seen yesterday after surgery, on the ventilator. He is now on 2 L by nasal cannula. He was extubated yesterday. He continues on lactated Ringer's at 50 mL an hour, and insulin drip of 4.5 units an hour, nitroglycerin at 5 mcg/m. He is resting comfortably in a chair next to his hospital bed. White count 7.2, hemoglobin 8.2, hematocrit 24.5, and platelet count 111,000. Sodium 139, potassium 4.2, chlorides 108, CO2 23, BUN 16, and creatinine 0.8. Chest x-ray shows some postoperative atelectasis, diffuse infiltrates. Objective - Vital Signs Vital signs: Vital Signs Temp 98.2 F 07/16/23 08:00 Pulse 82 07/16/23 11:00 Resp 14 07/16/23 11:00 BP 105/55 07/16/23 11:00 Pulse Ox 95 07/16/23 11:00 FiO2 40 07/15/23 18:30 Intake & Output 07/15/23 07/16/23 07/16/23 18:59 06:59 18:59 Intake Total 936.278 5205.760 338.294 Output Total 4725 1250 315 Balance -4372.287 66.760 23.294 Weight 104.8 kg Intake: IV 290 1288 322 .9NS Cardiac Output 50 180 50 .9NS Pressure Bags 36 108 42 ACETAMINOPHEN IV (For NPO 100 ) 1,000 mg In Empty Bag 1 bag @ 400 mls/hr IVPB Q6HR [facility] Rx#:[id number] Albumin Human 5% 250 ml 250 In Empty Bag 1 bag @ 250 mls/hr IVPB ONCE ONE Rx#: [id number] Lactated Ringers 1,000 ml 200 600 230 @ 20 mls/hr IV .Q24H [facility] Rx#:[id number] ceFAZolin 2 gm In Sodium 50 Chloride 0.9% 50 ml @ 100 mls/hr IVPB ONCE ONE Rx# :[id number] Intake, IV Titration 62.713 28.760 16.294 Amount Clevidipine Butyrate 25 6.800 mg In Empty Bag 1 bag @ 1 MG/HR 2 mls/hr IV .Q24H [facility] Rx#:[id number] Insulin Regular 100 unit 2.045 28.760 16.294 In Sodium Chloride 0.9% 100 ml @ Per Protocol IV .Q0M [facility] Rx#:[id number] propofoL 1,000 mg In 53.868 Empty Bag 1 bag @ Titrate IV .Q0M [facility] Rx#: [id number] Output: Chest Tube Drainage 450 760 200 Left Pleural 290 440 50 Mediastinal and Right 160 320 150 Pleural Urine 2775 490 115 Estimated Blood Loss 1500 Other: Voiding Method Indwelling Catheter Indwelling Catheter Indwelling Catheter ABP, PAP, CO, CI - Last Documented Arterial Blood Pressure 86/36 Pulmonary Artery Pressure 23/7 Cardiac Output 5.7 Cardiac Index 2.5 - Exam No acute distress, awake and alert, currently on 2 L nasal cannula. HEENT examination is grossly unremarkable. Neck supple. Full range of motion. No adenopathy thyromegaly or neck vein di stention. Cardiovascular examination reveals regular rhythm rate. S1-S2 normal. No S3 or S4. No discernible murmur noted. Heart rate 82 bpm. Lungs reveal clear breath sounds. Breath sounds are equal bilaterally. No adventitious lung sounds including wheezes rhonchi or crackles. Saturations are 85 %. Abdomen soft without bowel sounds. Extremities are intact. No cyanosis clubbing or edema. Skin is without rash or lesion. Neurologic examination is brief but nonfocal. - Labs CBC & Chem 7: 07/16/23 04:05 07/16/23 04:05 Labs: Abnormal Lab Results - Last 24 Hours (Table) 07/14/23 07/15/23 07/15/23 Range/Units 13:35 08:37 10:08 RBC (4.30-5.90) m/uL Hgb (13.0-17.5) gm/dL Hct (39.0-53.0) % Plt Count (150-450) k/uL Lymphocytes # (1.0-4.8) k/uL PT (10.0-12.5) sec INR (<1.2) ABG pCO2 (35-45) mmHg ABG pO2 309 H 113 H (83-108) mmHg ABG Total CO2 25 H (19-24) mmol/L ABG O2 Saturation 100.0 H 98.8 H (94-97) % ABG Hematocrit (34.0-46.0) % ABG Potassium (3.4-4.5) mmol/L ABG Ionized Calcium (4.5-5.3) mg/dL ABG Glucose 110 H (75-99) mg/dL ABG Lactic Acid 1.7 H (0.5-1.6) mmol/L Hemoglobin 11.4 L 11.5 L (13.0-17.5) gm/dL Chloride (98-107) mmol/L Glucose (74-99) mg/dL POC Glucose (mg/dL) (70-110) mg/dL Calcium (8.4-10.2) mg/dL Alkaline Phosphatase (38-126) U/L Total Protein (6.3-8.2) g/dL Albumin (3.5-5.0) g/dL Arterial Blood Potassium (3.4-4.5) mmol/L Arterial Blood Glucose 110 H (75-99) mg/dL Crossmatch See Detail 07/15/23 07/15/23 07/15/23 Range/Units 10:50 11:19 11:32 RBC (4.30-5.90) m/uL Hgb (13.0-17.5) gm/dL Hct (39.0-53.0) % Plt Count (150-450) k/uL Lymphocytes # (1.0-4.8) k/uL PT (10.0-12.5) sec INR (<1.2) ABG pCO2 34 L (35-45) mmHg ABG pO2 >420 H >420 H >420 H (83-108) mmHg ABG Total CO2 26 H 26 H (19-24) mmol/L ABG O2 Saturation 100.0 H 100.0 H 100.0 H (94-97) % ABG Hematocrit 28 L 25 L 26 L (34.0-46.0) % ABG Potassium 5.4 H 5.2 H (3.4-4.5) mmol/L ABG Ionized Calcium 4.2 L 4.3 L 4.4 L (4.5-5.3) mg/dL ABG Glucose 107 H 110 H 115 H (75-99) mg/dL ABG Lactic Acid (0.5-1.6) mmol/L Hemoglobin 9.0 L 8.2 L 8.5 L (13.0-17.5) gm/dL Chloride (98-107) mmol/L Glucose (74-99) mg/dL POC Glucose (mg/dL) (70-110) mg/dL Calcium (8.4-10.2) mg/dL Alkaline Phosphatase (38-126) U/L Total Protein (6.3-8.2) g/dL Albumin (3.5-5.0) g/dL Arterial Blood Potassium 5.4 H 5.2 H (3.4-4.5) mmol/L Arterial Blood Glucose 107 H 110 H 115 H (75-99) mg/dL Crossmatch 07/15/23 07/15/23 07/15/23 Range/Units 12:05 12:29 13:32 RBC (4.30-5.90) m/uL Hgb (13.0-17.5) gm/dL Hct (39.0-53.0) % Plt Count (150-450) k/uL Lymphocytes # (1.0-4.8) k/uL PT (10.0-12.5) sec INR (<1.2) ABG pCO2 (35-45) mmHg ABG pO2 >420 H >420 H 290 H (83-108) mmHg ABG Total CO2 26 H 27 H 26 H (19-24) mmol/L ABG O2 Saturation 100.0 H 100.0 H 100.0 H (94-97) % ABG Hematocrit 27 L 26 L 27 L (34.0-46.0) % ABG Potassium 5.2 H 5.2 H (3.4-4.5) mmol/L ABG Ionized Calcium (4.5-5.3) mg/dL ABG Glucose 125 H 126 H 108 H (75-99) mg/dL ABG Lactic Acid 1.7 H 2.5 H* (0.5-1.6) mmol/L Hemoglobin 8.8 L 8.6 L 8.9 L (13.0-17.5) gm/dL Chloride (98-107) mmol/L Glucose (74-99) mg/dL POC Glucose (mg/dL) (70-110) mg/dL Calcium (8.4-10.2) mg/dL Alkaline Phosphatase (38-126) U/L Total Protein (6.3-8.2) g/dL Albumin (3.5-5.0) g/dL Arterial Blood Potassium 5.2 H 5.2 H (3.4-4.5) mmol/L Arterial Blood Glucose 125 H 126 H 108 H (75-99) mg/dL Crossmatch 07/15/23 07/15/23 07/15/23 Range/Units 14:39 14:41 14:41 RBC 2.60 L (4.30-5.90) m/uL Hgb 8.7 L D (13.0-17.5) gm/dL Hct 24.8 L (39.0-53.0) % Plt Count 100 L (150-450) k/uL Lymphocytes # (1.0-4.8) k/uL PT 12.6 H (10.0-12.5) sec INR 1.2 H (<1.2) ABG pCO2 (35-45) mmHg ABG pO2 (83-108) mmHg ABG Total CO2 (19-24) mmol/L ABG O2 Saturation (94-97) % ABG Hematocrit (34.0-46.0) % ABG Potassium (3.4-4.5) mmol/L ABG Ionized Calcium (4.5-5.3) mg/dL ABG Glucose (75-99) mg/dL ABG Lactic Acid (0.5-1.6) mmol/L Hemoglobin (13.0-17.5) gm/dL Chloride (98-107) mmol/L Glucose (74-99) mg/dL POC Glucose (mg/dL) 111 H (70-110) mg/dL Calcium (8.4-10.2) mg/dL Alkaline Phosphatase (38-126) U/L Total Protein (6.3-8.2) g/dL Albumin (3.5-5.0) g/dL Arterial Blood Potassium (3.4-4.5) mmol/L Arterial Blood Glucose (75-99) mg/dL Crossmatch 07/15/23 07/15/23 07/15/23 Range/Units 14:41 15:25 15:27 RBC (4.30-5.90) m/uL Hgb (13.0-17.5) gm/dL Hct (39.0-53.0) % Plt Count (150-450) k/uL Lymphocytes # (1.0-4.8) k/uL PT (10.0-12.5) sec INR (<1.2) ABG pCO2 (35-45) mmHg ABG pO2 163 H (83-108) mmHg ABG Total CO2 25 H (19-24) mmol/L ABG O2 Saturation 99.5 H (94-97) % ABG Hematocrit (34.0-46.0) % ABG Potassium (3.4-4.5) mmol/L ABG Ionized Calcium (4.5-5.3) mg/dL ABG Glucose (75-99) mg/dL ABG Lactic Acid (0.5-1.6) mmol/L Hemoglobin (13.0-17.5) gm/dL Chloride 109 H (98-107) mmol/L Glucose (74-99) mg/dL POC Glucose (mg/dL) 112 H (70-110) mg/dL Calcium 7.8 L (8.4-10.2) mg/dL Alkaline Phosphatase 33 L (38-126) U/L Total Protein 4.4 L (6.3-8.2) g/dL Albumin 2.7 L (3.5-5.0) g/dL Arterial Blood Potassium (3.4-4.5) mmol/L Arterial Blood Glucose (75-99) mg/dL Crossmatch 07/15/23 07/15/23 07/15/23 Range/Units 16:11 16:57 17:35 RBC 2.92 L (4.30-5.90) m/uL Hgb 9.6 L (13.0-17.5) gm/dL Hct 27.8 L (39.0-53.0) % Plt Count 117 L (150-450) k/uL Lymphocytes # (1.0-4.8) k/uL PT (10.0-12.5) sec INR (<1.2) ABG pCO2 (35-45) mmHg ABG pO2 (83-108) mmHg ABG Total CO2 (19-24) mmol/L ABG O2 Saturation (94-97) % ABG Hematocrit (34.0-46.0) % ABG Potassium (3.4-4.5) mmol/L ABG Ionized Calcium (4.5-5.3) mg/dL ABG Glucose (75-99) mg/dL ABG Lactic Acid (0.5-1.6) mmol/L Hemoglobin (13.0-17.5) gm/dL Chloride (98-107) mmol/L Glucose (74-99) mg/dL POC Glucose (mg/dL) 122 H 144 H (70-110) mg/dL Calcium (8.4-10.2) mg/dL Alkaline Phosphatase (38-126) U/L Total Protein (6.3-8.2) g/dL Albumin (3.5-5.0) g/dL Arterial Blood Potassium (3.4-4.5) mmol/L Arterial Blood Glucose (75-99) mg/dL Crossmatch 07/15/23 07/15/23 07/15/23 Range/Units 18:09 18:46 20:08 RBC (4.30-5.90) m/uL Hgb (13.0-17.5) gm/dL Hct (39.0-53.0) % Plt Count (150-450) k/uL Lymphocytes # (1.0-4.8) k/uL PT (10.0-12.5) sec INR (<1.2) ABG pCO2 (35-45) mmHg ABG pO2 (83-108) mmHg ABG Total CO2 25 H (19-24) mmol/L ABG O2 Saturation 98.1 H (94-97) % ABG Hematocrit (34.0-46.0) % ABG Potassium (3.4-4.5) mmol/L ABG Ionized Calcium (4.5-5.3) mg/dL ABG Glucose (75-99) mg/dL ABG Lactic Acid (0.5-1.6) mmol/L Hemoglobin (13.0-17.5) gm/dL Chloride (98-107) mmol/L Glucose (74-99) mg/dL POC Glucose (mg/dL) 150 H 154 H (70-110) mg/dL Calcium (8.4-10.2) mg/dL Alkaline Phosphatase (38-126) U/L Total Protein (6.3-8.2) g/dL Albumin (3.5-5.0) g/dL Arterial Blood Potassium (3.4-4.5) mmol/L Arterial Blood Glucose (75-99) mg/dL Crossmatch 07/15/23 07/15/23 07/15/23 Range/Units 20:27 20:58 22:03 RBC 2.82 L (4.30-5.90) m/uL Hgb 9.4 L (13.0-17.5) gm/dL Hct 26.9 L (39.0-53.0) % Plt Count 121 L (150-450) k/uL Lymphocytes # 0.6 L (1.0-4.8) k/uL PT (10.0-12.5) sec INR (<1.2) ABG pCO2 (35-45) mmHg ABG pO2 (83-108) mmHg ABG Total CO2 (19-24) mmol/L ABG O2 Saturation (94-97) % ABG Hematocrit (34.0-46.0) % ABG Potassium (3.4-4.5) mmol/L ABG Ionized Calcium (4.5-5.3) mg/dL ABG Glucose (75-99) mg/dL ABG Lactic Acid (0.5-1.6) mmol/L Hemoglobin (13.0-17.5) gm/dL Chloride (98-107) mmol/L Glucose (74-99) mg/dL POC Glucose (mg/dL) 150 H 129 H (70-110) mg/dL Calcium (8.4-10.2) mg/dL Alkaline Phosphatase (38-126) U/L Total Protein (6.3-8.2) g/dL Albumin (3.5-5.0) g/dL Arterial Blood Potassium (3.4-4.5) mmol/L Arterial Blood Glucose (75-99) mg/dL Crossmatch 07/15/23 07/16/23 07/16/23 Range/Units 22:59 00:02 01:09 RBC (4.30-5.90) m/uL Hgb (13.0-17.5) gm/dL Hct (39.0-53.0) % Plt Count (150-450) k/uL Lymphocytes # (1.0-4.8) k/uL PT (10.0-12.5) sec INR (<1.2) ABG pCO2 (35-45) mmHg ABG pO2 (83-108) mmHg ABG Total CO2 (19-24) mmol/L ABG O2 Saturation (94-97) % ABG Hematocrit (34.0-46.0) % ABG Potassium (3.4-4.5) mmol/L ABG Ionized Calcium (4.5-5.3) mg/dL ABG Glucose (75-99) mg/dL ABG Lactic Acid (0.5-1.6) mmol/L Hemoglobin (13.0-17.5) gm/dL Chloride (98-107) mmol/L Glucose (74-99) mg/dL POC Glucose (mg/dL) 131 H 133 H 135 H (70-110) mg/dL Calcium (8.4-10.2) mg/dL Alkaline Phosphatase (38-126) U/L Total Protein (6.3-8.2) g/dL Albumin (3.5-5.0) g/dL Arterial Blood Potassium (3.4-4.5) mmol/L Arterial Blood Glucose (75-99) mg/dL Crossmatch 07/16/23 07/16/23 07/16/23 Range/Units 03:11 04:05 04:05 RBC 2.57 L (4.30-5.90) m/uL Hgb 8.2 L (13.0-17.5) gm/dL Hct 24.5 L (39.0-53.0) % Plt Count 111 L (150-450) k/uL Lymphocytes # 0.9 L (1.0-4.8) k/uL PT (10.0-12.5) sec INR (<1.2) ABG pCO2 (35-45) mmHg ABG pO2 (83-108) mmHg ABG Total CO2 (19-24) mmol/L ABG O2 Saturation (94-97) % ABG Hematocrit (34.0-46.0) % ABG Potassium (3.4-4.5) mmol/L ABG Ionized Calcium (4.5-5.3) mg/dL ABG Glucose (75-99) mg/dL ABG Lactic Acid (0.5-1.6) mmol/L Hemoglobin (13.0-17.5) gm/dL Chloride 108 H (98-107) mmol/L Glucose 108 H (74-99) mg/dL POC Glucose (mg/dL) 117 H (70-110) mg/dL Calcium 8.3 L (8.4-10.2) mg/dL Alkaline Phosphatase (38-126) U/L Total Protein 4.7 L (6.3-8.2) g/dL Albumin 2.8 L (3.5-5.0) g/dL Arterial Blood Potassium (3.4-4.5) mmol/L Arterial Blood Glucose (75-99) mg/dL Crossmatch 07/16/23 07/16/23 07/16/23 Range/Units 04:06 05:24 06:05 RBC (4.30-5.90) m/uL Hgb (13.0-17.5) gm/dL Hct (39.0-53.0) % Plt Count (150-450) k/uL Lymphocytes # (1.0-4.8) k/uL PT (10.0-12.5) sec INR (<1.2) ABG pCO2 (35-45) mmHg ABG pO2 (83-108) mmHg ABG Total CO2 (19-24) mmol/L ABG O2 Saturation (94-97) % ABG Hematocrit (34.0-46.0) % ABG Potassium (3.4-4.5) mmol/L ABG Ionized Calcium (4.5-5.3) mg/dL ABG Glucose (75-99) mg/dL ABG Lactic Acid (0.5-1.6) mmol/L Hemoglobin (13.0-17.5) gm/dL Chloride (98-107) mmol/L Glucose (74-99) mg/dL POC Glucose (mg/dL) 119 H 126 H 126 H (70-110) mg/dL Calcium (8.4-10.2) mg/dL Alkaline Phosphatase (38-126) U/L Total Protein (6.3-8.2) g/dL Albumin (3.5-5.0) g/dL Arterial Blood Potassium (3.4-4.5) mmol/L Arterial Blood Glucose (75-99) mg/dL Crossmatch 07/16/23 07/16/23 07/16/23 Range/Units 06:53 08:15 09:06 RBC (4.30-5.90) m/uL Hgb (13.0-17.5) gm/dL Hct (39.0-53.0) % Plt Count (150-450) k/uL Lymphocytes # (1.0-4.8) k/uL PT (10.0-12.5) sec INR (<1.2) ABG pCO2 (35-45) mmHg ABG pO2 (83-108) mmHg ABG Total CO2 (19-24) mmol/L ABG O2 Saturation (94-97) % ABG Hematocrit (34.0-46.0) % ABG Potassium (3.4-4.5) mmol/L ABG Ionized Calcium (4.5-5.3) mg/dL ABG Glucose (75-99) mg/dL ABG Lactic Acid (0.5-1.6) mmol/L Hemoglobin (13.0-17.5) gm/dL Chloride (98-107) mmol/L Glucose (74-99) mg/dL POC Glucose (mg/dL) 126 H 171 H 168 H (70-110) mg/dL Calcium (8.4-10.2) mg/dL Alkaline Phosphatase (38-126) U/L Total Protein (6.3-8.2) g/dL Albumin (3.5-5.0) g/dL Arterial Blood Potassium (3.4-4.5) mmol/L Arterial Blood Glucose (75-99) mg/dL Crossmatch 07/16/23 07/16/23 07/16/23 Range/Units 10:13 11:14 12:01 RBC (4.30-5.90) m/uL Hgb (13.0-17.5) gm/dL Hct (39.0-53.0) % Plt Count (150-450) k/uL Lymphocytes # (1.0-4.8) k/uL PT (10.0-12.5) sec INR (<1.2) ABG pCO2 (35-45) mmHg ABG pO2 (83-108) mmHg ABG Total CO2 (19-24) mmol/L ABG O2 Saturation (94-97) % ABG Hematocrit (34.0-46.0) % ABG Potassium (3.4-4.5) mmol/L ABG Ionized Calcium (4.5-5.3) mg/dL ABG Glucose (75-99) mg/dL ABG Lactic Acid (0.5-1.6) mmol/L Hemoglobin (13.0-17.5) gm/dL Chloride (98-107) mmol/L Glucose (74-99) mg/dL POC Glucose (mg/dL) 156 H 135 H 124 H (70-110) mg/dL Calcium (8.4-10.2) mg/dL Alkaline Phosphatase (38-126) U/L Total Protein (6.3-8.2) g/dL Albumin (3.5-5.0) g/dL Arterial Blood Potassium (3.4-4.5) mmol/L Arterial Blood Glucose (75-99) mg/dL Crossmatch Microbiology - Last 24 Hours (Table) 07/13/23 22:11 Nasal Screen MRSA/MSSA - Final Nasal Swab Assessment and Plan Assessment: Chest pain, secondary to severe coronary artery disease, including left main disease, and severe disease in the LAD, and right coronary artery. Status post three-vessel bypass grafting, 07/15/2023. Routine postoperative ventilator management. History of hypertension. History of gout. Lifelong nonsmoker. No history of any pulmonary disease. Plan: Plan dated 07/13/2023. The patient apparently is going to have open heart surgery, on July 15, with Dr. Spain. The patient is cleared from the pulmonary standpoint. The patient has no history of any pulmonary disease, and he is a lifelong nonsmoker. In addition, his FEV1 is reported to be 69% of predicted, or 2.15 L, which makes him at no increased operative risk, from the pulmonary standpoint. Labs, x-rays, and medications are reviewed. We will continue to follow. Prognosis is guarded. Plan dated 07/14/2023. The patient is seen today in room 368. We saw him yesterday in consultation. The patient is a lifelong nonsmoker. His FEV1 was adequate. We explained our role in the process. He understands. We recommended, continued use of the incentive spirometer, after surgery. Labs, x-rays, medications are reviewed. We will continue to follow. Plan dated 07/15/2023. The patient is seen in the intensive care unit, room 266. Currently, the patient remains on the ventilator, as he's just gotten back from the operating room. Once he wakes up, we'll attempt to wean him as soon as possible. He's only on nitroglycerin at 5 mcg/m, and propofol at 20 mcg/kg/m. He is also getting lactated Ringer's at 50 mL an hour. The patient had a three-vessel bypass surgery. His cardiac output is 5.7, and his index is 2.5. Additional recommendations and suggestions are forthcoming. Labs, x-rays, and medications are reviewed. Prognosis is guarded. Plan dated 07/16/2023. The patient is seen today in room 266. He was extubated yesterday, on July 15. The patient is doing very well. The patient's currently on 2 L of oxygen. The patient is receiving lactated Ringer's at 50 mL an hour, insulin drip at 4.5 units an hour, and nitroglycerin at 5 mcg/m. Labs, x-rays, and medications are reviewed. We will encourage him to use the incentive spirometer every hour. We'll also encourage deep breathing, coughing, and clearing of secretions. Prognosis is guarded. Time with Patient: Greater than 30
[2023-07-16 13:07] LABS: Glucose,Whole Blood 136 mg/dL (70-110)
[2023-07-16] MEDS: LACTATED RINGERS 1,000 ML IV SCH (13:36)
[2023-07-16 13:51] VITALS: BMI 31.3
--- NOTE | 2023-07-16 14:13 | P.PN ---
Subjective Progress Note Date: 07/16/23 Principal diagnosis: Multivessel coronary artery disease, with left main disease. Past medical history significant for hypertension, bradycardia with second-degree heart block Mobitz type I, gout and is a lifetime nonsmoker with a preoperative FEV1 69% of predicted value and a base volume of 2.15 L. POD #1 Coronary artery bypass grafting x 3. Left internal thoracic artery (in- situ) to left anterior descending coronary artery. Left radial artery from aorta to obtuse marginal artery #1. Saphenous vein from aorta to posterior descending coronary artery. Left atrial appendage ligation using #35 AtriClip, endoscopic left radial and left greater saphenous vein harvest, graft flow measurements using the medi-stim flow meter, and intraoperative transesophageal echocardiogram performed by anesthesia. Postoperative acute blood loss anemia, expected given hemodilution and car diopulmonary bypass. The patient was seen and examined in follow-up today 07/16/2023 at his bedside in the intensive care unit. He was successfully extubated at 7 PM last evening, is currently sitting up to the bedside chair, is awake, alert, oriented 3 and is in no acute apparent distress. Oxygen saturation are 93% on 2 L nasal cannula and he is achieving 750 mL on his incentive spirometry with encouragement. He denies any complaints of shortness of breath at this time, although is complaining of some surgical type pain to his chest tube insertion site, currently rating his pain 8 out of 10 on the pain scale. He has recently been given something for pain and states that it is starting to kick in. He remains hemodynamically stable and is currently on no inotropic or pressor support. Current hemodynamic showing a cardiac output 5.1, cardiac index 2.3, PA pressures 29/10 and a CVP 6 mmHg. Bedside telemetry showing normal sinus rhythm heart rate 77 BPM. Mediastinal and left pleural chest tubes remain in place to low continuous wall suction -20 cm H2O. No air leak is present. Draining thin serosanguineous drainage with his mediastinal chest tubes draining 180 mL output in the last 8 hours and 500 mL since surgery. The left pleural chest tube has drained 260 mL of thin serosanguineous drainage in the last 8 hours and 750 mL output since surgery. Atrial and ventricular epicardial pacemaker wires remain in place and connected to backup bedside pacemaker generator on a VVI mode of 50 BPM. No further second-degree heart block reported at this time. Laboratory and chest x-ray results reviewed. Objective - Vital Signs Vital signs: Vital Signs Temp 98.2 F 07/16/23 08:00 Pulse 82 07/16/23 11:00 Resp 14 07/16/23 11:00 BP 105/55 07/16/23 11:00 Pulse Ox 95 07/16/23 11:00 FiO2 40 07/15/23 18:30 Intake & Output 07/15/23 07/16/23 07/16/23 18:59 06:59 18:59 Intake Total 342.247 7280.760 338.294 Output Total 4725 1250 315 Balance -4372.287 66.760 23.294 Weight 104.8 kg Intake: IV 290 1288 322 .9NS Cardiac Output 50 180 50 .9NS Pressure Bags 36 108 42 ACETAMINOPHEN IV (For NPO 100 ) 1,000 mg In Empty Bag 1 bag @ 400 mls/hr IVPB Q6HR [facility] Rx#:[id number] Albumin Human 5% 250 ml 250 In Empty Bag 1 bag @ 250 mls/hr IVPB ONCE ONE Rx#: [id number] Lactated Ringers 1,000 ml 200 600 230 @ 20 mls/hr IV .Q24H [facility] Rx#:[id number] ceFAZolin 2 gm In Sodium 50 Chloride 0.9% 50 ml @ 100 mls/hr IVPB ONCE ONE Rx# :[id number] Intake, IV Titration 62.713 28.760 16.294 Amount Clevidipine Butyrate 25 6.800 mg In Empty Bag 1 bag @ 1 MG/HR 2 mls/hr IV .Q24H [facility] Rx#:[id number] Insulin Regular 100 unit 2.045 28.760 16.294 In Sodium Chloride 0.9% 100 ml @ Per Protocol IV .Q0M [facility] Rx#:[id number] propofoL 1,000 mg In 53.868 Empty Bag 1 bag @ Titrate IV .Q0M [facility] Rx#: [id number] Output: Chest Tube Drainage 450 760 200 Left Pleural 290 440 50 Mediastinal and Right 160 320 150 Pleural Urine 2775 490 115 Estimated Blood Loss 1500 Other: Voiding Method Indwelling Catheter Indwelling Catheter Indwelling Catheter ABP, PAP, CO, CI - Last Documented Arterial Blood Pressure 86/36 Pulmonary Artery Pressure 23/7 Cardiac Output 5.7 Cardiac Index 2.5 - Exam CONSTITUTIONAL: Sitting up to the bedside chair in the intensive care unit, appears comfortable, cooperative, no apparent acute distress. HEENT: Neck is supple, no JVD, no lymphadenopathy. Right IJ Cordis and Addison- Ron catheter in place and functioning. RESPIRATORY: Lungs sounds essentially clear throughout, diminished to his bilateral bases. Respirations are symmetrical and nonlabored. Currently on 2 L nasal cannula with oxygen saturations 93%. Able to achieve 750 mL on their incentive spirometry. Strong cough. CARDIOVASCULAR: Regular rhythm and rate. S1 and S2 present, negative for S3, gallop or murmur. Sternum is stable. Palpable peripheral pulses bilaterally, +1 edema to his bilateral lower extremities. No calf pain or tenderness noted. Heart hugger in place with patient demonstrating appropriate use. Knee-high PAVITHRA hose and sequential compression devices in place to his bilateral lower extremities. GASTROINTESTINAL: Abdomen soft, nontender, nondistended. Hypoactive bowel sounds present 4 quadrants. Tolerating diet. Passing flatus. No guarding or rigidity. GENITOURINARY: [place] present draining clear, yellow urine. Urine output 310 mL in the last 8 hours. INTEGUMENTARY: Skin is warm and dry with no evidence of clubbing or cyanosis. Midline sternal incision clean dry and well approximated, covered with dry intact dressing. Left lower extremity EVH sites well approximated without redness or drainage. Left arm radial artery harvest sites clean, dry and approximated. No drainage or redness is present. NEUROLOGIC: Cranial nerves II through XII intact. No focal deficits. MUSKULOSKELETAL: Able to move all extremities, strength equal bilaterally, generalized weakness. PSYCHIATRIC: Alert and oriented to person place and time, appropriate affect, intact judgment and insight. INVASIVE LINES AND TUBES: Mediastinal/left pleural chest tubes present and connected to low continuous wall suction, no air leaks present. Mediastinal tube with 180 mL of thin serosanguineous drainage overnight, 500 mL output in the last 24 hours. Left pleural chest tube with 260 mL of thin serosanguineous drainage overnight, 750 mL output in the last 24 hours. Atrial and ventricular epicardial pacemaker wires present, connected to generator, VVI backup rate 50 bpm. Right internal jugular Addison/Cordis, right radial arterial line present. Last CO 5.1, CI 2.3, PA 29/10 and CVP 6 mmHg. - Allied health notes Allied health notes reviewed: nursing - Labs CBC & Chem 7: 07/16/23 04:05 07/16/23 04:05 Labs: Abnormal Lab Results - Last 24 Hours (Table) 07/14/23 07/15/23 07/15/23 Range/Units 13:35 08:37 10:08 RBC (4.30-5.90) m/uL Hgb (13.0-17.5) gm/dL Hct (39.0-53.0) % Plt Count (150-450) k/uL Lymphocytes # (1.0-4.8) k/uL PT (10.0-12.5) sec INR (<1.2) ABG pCO2 (35-45) mmHg ABG pO2 309 H 113 H (83-108) mmHg ABG Total CO2 25 H (19-24) mmol/L ABG O2 Saturation 100.0 H 98.8 H (94-97) % ABG Hematocrit (34.0-46.0) % ABG Potassium (3.4-4.5) mmol/L ABG Ionized Calcium (4.5-5.3) mg/dL ABG Glucose 110 H (75-99) mg/dL ABG Lactic Acid 1.7 H (0.5-1.6) mmol/L Hemoglobin 11.4 L 11.5 L (13.0-17.5) gm/dL Chloride (98-107) mmol/L Glucose (74-99) mg/dL POC Glucose (mg/dL) (70-110) mg/dL Calcium (8.4-10.2) mg/dL Alkaline Phosphatase (38-126) U/L Total Protein (6.3-8.2) g/dL Albumin (3.5-5.0) g/dL Arterial Blood Potassium (3.4-4.5) mmol/L Arterial Blood Glucose 110 H (75-99) mg/dL Crossmatch See Detail 07/15/23 07/15/23 07/15/23 Range/Units 10:50 11:19 11:32 RBC (4.30-5.90) m/uL Hgb (13.0-17.5) gm/dL Hct (39.0-53.0) % Plt Count (150-450) k/uL Lymphocytes # (1.0-4.8) k/uL PT (10.0-12.5) sec INR (<1.2) ABG pCO2 34 L (35-45) mmHg ABG pO2 >420 H >420 H >420 H (83-108) mmHg ABG Total CO2 26 H 26 H (19-24) mmol/L ABG O2 Saturation 100.0 H 100.0 H 100.0 H (94-97) % ABG Hematocrit 28 L 25 L 26 L (34.0-46.0) % ABG Potassium 5.4 H 5.2 H (3.4-4.5) mmol/L ABG Ionized Calcium 4.2 L 4.3 L 4.4 L (4.5-5.3) mg/dL ABG Glucose 107 H 110 H 115 H (75-99) mg/dL ABG Lactic Acid (0.5-1.6) mmol/L Hemoglobin 9.0 L 8.2 L 8.5 L (13.0-17.5) gm/dL Chloride (98-107) mmol/L Glucose (74-99) mg/dL POC Glucose (mg/dL) (70-110) mg/dL Calcium (8.4-10.2) mg/dL Alkaline Phosphatase (38-126) U/L Total Protein (6.3-8.2) g/dL Albumin (3.5-5.0) g/dL Arterial Blood Potassium 5.4 H 5.2 H (3.4-4.5) mmol/L Arterial Blood Glucose 107 H 110 H 115 H (75-99) mg/dL Crossmatch 07/15/23 07/15/23 07/15/23 Range/Units 12:05 12:29 13:32 RBC (4.30-5.90) m/uL Hgb (13.0-17.5) gm/dL Hct (39.0-53.0) % Plt Count (150-450) k/uL Lymphocytes # (1.0-4.8) k/uL PT (10.0-12.5) sec INR (<1.2) ABG pCO2 (35-45) mmHg ABG pO2 >420 H >420 H 290 H (83-108) mmHg ABG Total CO2 26 H 27 H 26 H (19-24) mmol/L ABG O2 Saturation 100.0 H 100.0 H 100.0 H (94-97) % ABG Hematocrit 27 L 26 L 27 L (34.0-46.0) % ABG Potassium 5.2 H 5.2 H (3.4-4.5) mmol/L ABG Ionized Calcium (4.5-5.3) mg/dL ABG Glucose 125 H 126 H 108 H (75-99) mg/dL ABG Lactic Acid 1.7 H 2.5 H* (0.5-1.6) mmol/L Hemoglobin 8.8 L 8.6 L 8.9 L (13.0-17.5) gm/dL Chloride (98-107) mmol/L Glucose (74-99) mg/dL POC Glucose (mg/dL) (70-110) mg/dL Calcium (8.4-10.2) mg/dL Alkaline Phosphatase (38-126) U/L Total Protein (6.3-8.2) g/dL Albumin (3.5-5.0) g/dL Arterial Blood Potassium 5.2 H 5.2 H (3.4-4.5) mmol/L Arterial Blood Glucose 125 H 126 H 108 H (75-99) mg/dL Crossmatch 07/15/23 07/15/23 07/15/23 Range/Units 14:39 14:41 14:41 RBC 2.60 L (4.30-5.90) m/uL Hgb 8.7 L D (13.0-17.5) gm/dL Hct 24.8 L (39.0-53.0) % Plt Count 100 L (150-450) k/uL Lymphocytes # (1.0-4.8) k/uL PT 12.6 H (10.0-12.5) sec INR 1.2 H (<1.2) ABG pCO2 (35-45) mmHg ABG pO2 (83-108) mmHg ABG Total CO2 (19-24) mmol/L ABG O2 Saturation (94-97) % ABG Hematocrit (34.0-46.0) % ABG Potassium (3.4-4.5) mmol/L ABG Ionized Calcium (4.5-5.3) mg/dL ABG Glucose (75-99) mg/dL ABG Lactic Acid (0.5-1.6) mmol/L Hemoglobin (13.0-17.5) gm/dL Chloride (98-107) mmol/L Glucose (74-99) mg/dL POC Glucose (mg/dL) 111 H (70-110) mg/dL Calcium (8.4-10.2) mg/dL Alkaline Phosphatase (38-126) U/L Total Protein (6.3-8.2) g/dL Albumin (3.5-5.0) g/dL Arterial Blood Potassium (3.4-4.5) mmol/L Arterial Blood Glucose (75-99) mg/dL Crossmatch 07/15/23 07/15/23 07/15/23 Range/Units 14:41 15:25 15:27 RBC (4.30-5.90) m/uL Hgb (13.0-17.5) gm/dL Hct (39.0-53.0) % Plt Count (150-450) k/uL Lymphocytes # (1.0-4.8) k/uL PT (10.0-12.5) sec INR (<1.2) ABG pCO2 (35-45) mmHg ABG pO2 163 H (83-108) mmHg ABG Total CO2 25 H (19-24) mmol/L ABG O2 Saturation 99.5 H (94-97) % ABG Hematocrit (34.0-46.0) % ABG Potassium (3.4-4.5) mmol/L ABG Ionized Calcium (4.5-5.3) mg/dL ABG Glucose (75-99) mg/dL ABG Lactic Acid (0.5-1.6) mmol/L Hemoglobin (13.0-17.5) gm/dL Chloride 109 H (98-107) mmol/L Glucose (74-99) mg/dL POC Glucose (mg/dL) 112 H (70-110) mg/dL Calcium 7.8 L (8.4-10.2) mg/dL Alkaline Phosphatase 33 L (38-126) U/L Total Protein 4.4 L (6.3-8.2) g/dL Albumin 2.7 L (3.5-5.0) g/dL Arterial Blood Potassium (3.4-4.5) mmol/L Arterial Blood Glucose (75-99) mg/dL Crossmatch 07/15/23 07/15/23 07/15/23 Range/Units 16:11 16:57 17:35 RBC 2.92 L (4.30-5.90) m/uL Hgb 9.6 L (13.0-17.5) gm/dL Hct 27.8 L (39.0-53.0) % Plt Count 117 L (150-450) k/uL Lymphocytes # (1.0-4.8) k/uL PT (10.0-12.5) sec INR (<1.2) ABG pCO2 (35-45) mmHg ABG pO2 (83-108) mmHg ABG Total CO2 (19-24) mmol/L ABG O2 Saturation (94-97) % ABG Hematocrit (34.0-46.0) % ABG Potassium (3.4-4.5) mmol/L ABG Ionized Calcium (4.5-5.3) mg/dL ABG Glucose (75-99) mg/dL ABG Lactic Acid (0.5-1.6) mmol/L Hemoglobin (13.0-17.5) gm/dL Chloride (98-107) mmol/L Glucose (74-99) mg/dL POC Glucose (mg/dL) 122 H 144 H (70-110) mg/dL Calcium (8.4-10.2) mg/dL Alkaline Phosphatase (38-126) U/L Total Protein (6.3-8.2) g/dL Albumin (3.5-5.0) g/dL Arterial Blood Potassium (3.4-4.5) mmol/L Arterial Blood Glucose (75-99) mg/dL Crossmatch 07/15/23 07/15/23 07/15/23 Range/Units 18:09 18:46 20:08 RBC (4.30-5.90) m/uL Hgb (13.0-17.5) gm/dL Hct (39.0-53.0) % Plt Count (150-450) k/uL Lymphocytes # (1.0-4.8) k/uL PT (10.0-12.5) sec INR (<1.2) ABG pCO2 (35-45) mmHg ABG pO2 (83-108) mmHg ABG Total CO2 25 H (19-24) mmol/L ABG O2 Saturation 98.1 H (94-97) % ABG Hematocrit (34.0-46.0) % ABG Potassium (3.4-4.5) mmol/L ABG Ionized Calcium (4.5-5.3) mg/dL ABG Glucose (75-99) mg/dL ABG Lactic Acid (0.5-1.6) mmol/L Hemoglobin (13.0-17.5) gm/dL Chloride (98-107) mmol/L Glucose (74-99) mg/dL POC Glucose (mg/dL) 150 H 154 H (70-110) mg/dL Calcium (8.4-10.2) mg/dL Alkaline Phosphatase (38-126) U/L Total Protein (6.3-8.2) g/dL Albumin (3.5-5.0) g/dL Arterial Blood Potassium (3.4-4.5) mmol/L Arterial Blood Glucose (75-99) mg/dL Crossmatch 07/15/23 07/15/23 07/15/23 Range/Units 20:27 20:58 22:03 RBC 2.82 L (4.30-5.90) m/uL Hgb 9.4 L (13.0-17.5) gm/dL Hct 26.9 L (39.0-53.0) % Plt Count 121 L (150-450) k/uL Lymphocytes # 0.6 L (1.0-4.8) k/uL PT (10.0-12.5) sec INR (<1.2) ABG pCO2 (35-45) mmHg ABG pO2 (83-108) mmHg ABG Total CO2 (19-24) mmol/L ABG O2 Saturation (94-97) % ABG Hematocrit (34.0-46.0) % ABG Potassium (3.4-4.5) mmol/L ABG Ionized Calcium (4.5-5.3) mg/dL ABG Glucose (75-99) mg/dL ABG Lactic Acid (0.5-1.6) mmol/L Hemoglobin (13.0-17.5) gm/dL Chloride (98-107) mmol/L Glucose (74-99) mg/dL POC Glucose (mg/dL) 150 H 129 H (70-110) mg/dL Calcium (8.4-10.2) mg/dL Alkaline Phosphatase (38-126) U/L Total Protein (6.3-8.2) g/dL Albumin (3.5-5.0) g/dL Arterial Blood Potassium (3.4-4.5) mmol/L Arterial Blood Glucose (75-99) mg/dL Crossmatch 07/15/23 07/16/23 07/16/23 Range/Units 22:59 00:02 01:09 RBC (4.30-5.90) m/uL Hgb (13.0-17.5) gm/dL Hct (39.0-53.0) % Plt Count (150-450) k/uL Lymphocytes # (1.0-4.8) k/uL PT (10.0-12.5) sec INR (<1.2) ABG pCO2 (35-45) mmHg ABG pO2 (83-108) mmHg ABG Total CO2 (19-24) mmol/L ABG O2 Saturation (94-97) % ABG Hematocrit (34.0-46.0) % ABG Potassium (3.4-4.5) mmol/L ABG Ionized Calcium (4.5-5.3) mg/dL ABG Glucose (75-99) mg/dL ABG Lactic Acid (0.5-1.6) mmol/L Hemoglobin (13.0-17.5) gm/dL Chloride (98-107) mmol/L Glucose (74-99) mg/dL POC Glucose (mg/dL) 131 H 133 H 135 H (70-110) mg/dL Calcium (8.4-10.2) mg/dL Alkaline Phosphatase (38-126) U/L Total Protein (6.3-8.2) g/dL Albumin (3.5-5.0) g/dL Arterial Blood Potassium (3.4-4.5) mmol/L Arterial Blood Glucose (75-99) mg/dL Crossmatch 07/16/23 07/16/23 07/16/23 Range/Units 03:11 04:05 04:05 RBC 2.57 L (4.30-5.90) m/uL Hgb 8.2 L (13.0-17.5) gm/dL Hct 24.5 L (39.0-53.0) % Plt Count 111 L (150-450) k/uL Lymphocytes # 0.9 L (1.0-4.8) k/uL PT (10.0-12.5) sec INR (<1.2) ABG pCO2 (35-45) mmHg ABG pO2 (83-108) mmHg ABG Total CO2 (19-24) mmol/L ABG O2 Saturation (94-97) % ABG Hematocrit (34.0-46.0) % ABG Potassium (3.4-4.5) mmol/L ABG Ionized Calcium (4.5-5.3) mg/dL ABG Glucose (75-99) mg/dL ABG Lactic Acid (0.5-1.6) mmol/L Hemoglobin (13.0-17.5) gm/dL Chloride 108 H (98-107) mmol/L Glucose 108 H (74-99) mg/dL POC Glucose (mg/dL) 117 H (70-110) mg/dL Calcium 8.3 L (8.4-10.2) mg/dL Alkaline Phosphatase (38-126) U/L Total Protein 4.7 L (6.3-8.2) g/dL Albumin 2.8 L (3.5-5.0) g/dL Arterial Blood Potassium (3.4-4.5) mmol/L Arterial Blood Glucose (75-99) mg/dL Crossmatch 07/16/23 07/16/23 07/16/23 Range/Units 04:06 05:24 06:05 RBC (4.30-5.90) m/uL Hgb (13.0-17.5) gm/dL Hct (39.0-53.0) % Plt Count (150-450) k/uL Lymphocytes # (1.0-4.8) k/uL PT (10.0-12.5) sec INR (<1.2) ABG pCO2 (35-45) mmHg ABG pO2 (83-108) mmHg ABG Total CO2 (19-24) mmol/L ABG O2 Saturation (94-97) % ABG Hematocrit (34.0-46.0) % ABG Potassium (3.4-4.5) mmol/L ABG Ionized Calcium (4.5-5.3) mg/dL ABG Glucose (75-99) mg/dL ABG Lactic Acid (0.5-1.6) mmol/L Hemoglobin (13.0-17.5) gm/dL Chloride (98-107) mmol/L Glucose (74-99) mg/dL POC Glucose (mg/dL) 119 H 126 H 126 H (70-110) mg/dL Calcium (8.4-10.2) mg/dL Alkaline Phosphatase (38-126) U/L Total Protein (6.3-8.2) g/dL Albumin (3.5-5.0) g/dL Arterial Blood Potassium (3.4-4.5) mmol/L Arterial Blood Glucose (75-99) mg/dL Crossmatch 07/16/23 07/16/23 07/16/23 Range/Units 06:53 08:15 09:06 RBC (4.30-5.90) m/uL Hgb (13.0-17.5) gm/dL Hct (39.0-53.0) % Plt Count (150-450) k/uL Lymphocytes # (1.0-4.8) k/uL PT (10.0-12.5) sec INR (<1.2) ABG pCO2 (35-45) mmHg ABG pO2 (83-108) mmHg ABG Total CO2 (19-24) mmol/L ABG O2 Saturation (94-97) % ABG Hematocrit (34.0-46.0) % ABG Potassium (3.4-4.5) mmol/L ABG Ionized Calcium (4.5-5.3) mg/dL ABG Glucose (75-99) mg/dL ABG Lactic Acid (0.5-1.6) mmol/L Hemoglobin (13.0-17.5) gm/dL Chloride (98-107) mmol/L Glucose (74-99) mg/dL POC Glucose (mg/dL) 126 H 171 H 168 H (70-110) mg/dL Calcium (8.4-10.2) mg/dL Alkaline Phosphatase (38-126) U/L Total Protein (6.3-8.2) g/dL Albumin (3.5-5.0) g/dL Arterial Blood Potassium (3.4-4.5) mmol/L Arterial Blood Glucose (75-99) mg/dL Crossmatch 07/16/23 07/16/23 Range/Units 10:13 11:14 RBC (4.30-5.90) m/uL Hgb (13.0-17.5) gm/dL Hct (39.0-53.0) % Plt Count (150-450) k/uL Lymphocytes # (1.0-4.8) k/uL PT (10.0-12.5) sec INR (<1.2) ABG pCO2 (35-45) mmHg ABG pO2 (83-108) mmHg ABG Total CO2 (19-24) mmol/L ABG O2 Saturation (94-97) % ABG Hematocrit (34.0-46.0) % ABG Potassium (3.4-4.5) mmol/L ABG Ionized Calcium (4.5-5.3) mg/dL ABG Glucose (75-99) mg/dL ABG Lactic Acid (0.5-1.6) mmol/L Hemoglobin (13.0-17.5) gm/dL Chloride (98-107) mmol/L Glucose (74-99) mg/dL POC Glucose (mg/dL) 156 H 135 H (70-110) mg/dL Calcium (8.4-10.2) mg/dL Alkaline Phosphatase (38-126) U/L Total Protein (6.3-8.2) g/dL Albumin (3.5-5.0) g/dL Arterial Blood Potassium (3.4-4.5) mmol/L Arterial Blood Glucose (75-99) mg/dL Crossmatch Microbiology - Last 24 Hours (Table) 07/13/23 22:11 Nasal Screen MRSA/MSSA - Final Nasal Swab - Imaging and Cardiology Chest x-ray: report reviewed, image reviewed Assessment and Plan Assessment: Multivesselc artery disease, left main disease, status post three-vessel coronary artery bypass grafting Chest pain, shortness of breath secondary to above Hypertension Bradycardia with Mobitz type I heart block, currently in normal sinus rhythm with a first-degree heart block History of gout Lifetime nonsmoker, with a preoperative FEV1 69% of predicted value with a baseball [place] 2.15 L Postoperative acute blood loss anemia, expected given hemodilution and cardiopulmonary bypass Plan: Continue to maximize medical therapy with aspirin, statin, and beta [place] with hold parameters. Will increase beta [place] therapy as tolerated. Keep atrial and ventricular epicardial pacemaker wires in place and connected to backup bedside pacemaker generator on a VVI 50 as the patient has a history of second- degree Mobitz type I. Will start low-dose calcium channel [place] for radial artery spasm prophylaxis when blood pressure is able to tolerate. Wean O2 as tolerated. Encourage incentive spirometry use 10 times every hour while awake. Bronchodilators per pulmonology Will monitor daily labs and chest x-rays, electrolyte replacement per protocol. Increase activity, ambulate as tolerated. PT/OT/cardiac rehab consulted. GI/DVT prophylaxis. Insulin management per internal medicine. Patient should remain on insulin drip for 48 hours, then may transition to subcutaneous insulin. Pain control with current medication regimen. Toradol added for better pain control. Discontinue Addison. Connect Cordis to continuous CVP monitoring. Continue chest tubes for another 24 hours, monitor output. Continue [place] catheter for another 24 hours, continue to record strict accurate intake and output. Daily weights. We will repeat his hemoglobin at 3 PM today. Discontinue nitroglycerin drip. More recommendations to follow based on patient's clinical course. Time with Patient: Greater than 30
[2023-07-16 14:26] LABS: Glucose,Whole Blood 156 mg/dL (70-110)
[2023-07-16 15:18] LABS: Glucose,Whole Blood 153 mg/dL (70-110)
[2023-07-16 15:24] LABS: HGB 7.5 gm/dL (13.0-17.5); MCH 33.1 pg (25.0-35.0); MCHC 34.2 g/dL (31.0-37.0); MCV 96.8 fL (80.0-100.0); Mean Platelet Volume 9.6; Platelet Count 111 k/uL (150-450); RBC 2.28 m/uL (4.30-5.90); RDW 14.3 % (11.5-15.5)
[2023-07-16 16:18] LABS: Glucose,Whole Blood 146 mg/dL (70-110)
[2023-07-16 17:34] LABS: Glucose,Whole Blood 158 mg/dL (70-110)
[2023-07-16 18:58] LABS: Glucose,Whole Blood 171 mg/dL (70-110)
[2023-07-16] MEDS: INSULIN REGULAR 100 UNIT in SODIUM CHLORIDE 0.9% 100 ML IV SCH (19:09)
[2023-07-16 20:56] LABS: Glucose,Whole Blood 144 mg/dL (70-110)
[2023-07-16] MEDS: SENNOSIDES-DOCUSATE SODIUM 1 EACH TAB PO SCH (21:09)
[2023-07-16 23:14] LABS: Glucose,Whole Blood 140 mg/dL (70-110)
[2023-07-17 01:16] LABS: Glucose,Whole Blood 133 mg/dL (70-110)
[2023-07-17 03:04] LABS: Glucose,Whole Blood 124 mg/dL (70-110)
[2023-07-17 05:03] LABS: Glucose,Whole Blood 132 mg/dL (70-110)
[2023-07-17 05:41] LABS: Basophils % (A) 0 %; Eosinophils # (A) 0.2 k/uL (0-0.7); Eosinophils % (A) 3 %; HCT 21.9 % (39.0-53.0); HGB 7.5 gm/dL (13.0-17.5); Lymphocytes # (A) 1.4 k/uL (1.0-4.8); Lymphocytes % (A) 16 %; MCH 33.2 pg (25.0-35.0); MCHC 34.1 g/dL (31.0-37.0); MCV 97.3 fL (80.0-100.0); Monocytes # (A) 0.7 k/uL (0-1.0); Monocytes % (A) 7 %; Neutrophils # (A) 6.5 k/uL (1.3-7.7); Neutrophils % (A) 72 %; Platelet Count 110 k/uL (150-450); RBC 2.25 m/uL (4.30-5.90); RDW 14.3 % (11.5-15.5)
[2023-07-17] MEDS: PANTOPRAZOLE 40 MG TABLET PO SCH (06:20)
[2023-07-17] MEDS: KETOROLAC 15 MG/ML 1 ML VIAL IVP SCH ×4 (06:20→23:44)
[2023-07-17 06:56] LABS: Glucose,Whole Blood 134 mg/dL (70-110)
[2023-07-17 07:10] LABS: Ionized Calcium 4.9 mg/dL (4.5-5.3)
[2023-07-17 07:34] LABS: ALT 17 U/L (4-49); AST 57 U/L (17-59); African American GFR (CKD) 76 (>60 ml/min/1.73 sqM); Albumin 3.2 g/dL (3.5-5.0); Alkaline Phosphatase 51 U/L (38-126); Anion Gap 8 mmol/L; Blood Urea Nitrogen 23 mg/dL (9-20); Calcium 8.4 mg/dL (8.4-10.2); Carbon Dioxide 24 mmol/L (22-30); Chloride 103 mmol/L (98-107); Glucose 111 mg/dL (74-99); Non-African American GFR(CKD) 65 (>60 ml/min/1.73 sqM); Potassium 4.1 mmol/L (3.5-5.1); Sodium 135 mmol/L (137-145); Total Bilirubin 0.6 mg/dL (0.2-1.3); Total Protein 5.2 g/dL (6.3-8.2)
--- NOTE | 2023-07-17 07:40 | XR ---
EXAMINATION TYPE: XR chest 1V portable DATE OF EXAM: 07/17/2023 5:24 AM CLINICAL INDICATION:Male, 78 years old with history of Post Operative Cardiac Surgery; [facility] COMPARISON: Chest radiograph from one day prior. TECHNIQUE: XR chest 1V portable Frontal view of the chest. FINDINGS: Lungs/Pleura: There is no evidence of pleural effusion, focal consolidation, or pneumothorax. Pulmonary vascularity: Pulmonary vascular congestion. Heart/mediastinum: Cardiomediastinal silhouette is enlarged and stable. Left atrial appendage occlusi on device is present. Musculoskeletal: No acute osseous pathology. Midline sternotomy wires are noted. Other findings: None Lines/Tubes: There is a [place]-Ron catheter sheath remains in place. Drainage tubes with tips projecting over the mediastinum. IMPRESSION: 1. Cardiomegaly with mild pulmonary vascular congestion. 2. Support tubes are stable without evidence of pneumothorax.
--- NOTE | 2023-07-17 08:02 | PN ---
PROGRESS NOTE SUBJECTIVE: Mr. Cherry is doing well. He is in sinus rhythm and had bypass surgery yesterday, extubated. OBJECTIVE: VITALS: Stable, hemodynamically stable, no drips. HEART: S1 and S2 are heard normally. LUNGS: Reveal fair air entry. ABDOMEN: Unchanged. EXTREMITIES: Lower extremity exam unchanged. PLAN: To continue current medical regimen and incentive spirometry and pulmonary toilet. MMODL / IJN: [id number] /
[2023-07-17] MEDS: IPRATROPIUM-ALBUTEROL 3 ML NEB INHALATION SCH ×4 (08:10→20:27)
[2023-07-17] MEDS: HEPARIN SODIUM,PORCINE 5,000 UNIT/ML 1 ML VIAL SQ SCH ×3 (08:16→23:44)
[2023-07-17] MEDS: CLOPIDOGREL 75 MG TAB PO SCH (08:17)
[2023-07-17] MEDS: amLODIPine 2.5 MG TAB PO SCH ×2 (08:17→13:09)
[2023-07-17] MEDS: ATORVASTATIN 40 MG TAB PO SCH (08:17)
[2023-07-17] MEDS: ASPIRIN 325 MG TAB PO SCH (08:17)
[2023-07-17 08:30] LABS: Glucose,Whole Blood 153 mg/dL (70-110)
[2023-07-17] MEDS ORDERED: POTASSIUM CHLORIDE ER 20 MEQ TAB.ER PO STA (09:01)
[2023-07-17] MEDS ORDERED: FUROSEMIDE 10 MG/ML 4 ML VIAL IV STA (09:01)
[2023-07-17 10:36] LABS: Glucose,Whole Blood 154 mg/dL (70-110)
--- NOTE | 2023-07-17 10:48 | P.PN ---
Subjective Progress Note Date: 07/17/23 Principal diagnosis: Multivessel coronary artery disease, with left main disease. Past medical history significant for hypertension, bradycardia with second-degree heart block Mobitz type I, gout and is a lifetime nonsmoker with a preoperative FEV1 69% of predicted value and a base volume of 2.15 L. POD #2 Coronary artery bypass grafting x 3. Left internal thoracic artery (in- situ) to left anterior descending coronary artery. Left radial artery from aorta to obtuse marginal artery #1. Saphenous vein from aorta to posterior descending coronary artery. Left atrial appendage ligation using #35 AtriClip, endoscopic left radial and left greater saphenous vein harvest, graft flow measurements using the medi-stim flow meter, and intraoperative transesophageal echocardiogram performed by anesthesia. Postoperative acute blood loss anemia, expected given hemodilution and car diopulmonary bypass. The patient was seen and examined in follow-up today 07/17/2023 at his bedside in the intensive care unit. He is currently sitting up to the bedside chair, is awake, alert, oriented 3 and is in no acute distress. He denies any complaints of shortness of breath or pain at this time, although he reports he feels a little weaker today than yesterday. The patient has been up ambulating in the intensive care unit hallway with standby assistance of nursing and therapy staff and tolerating well. Oxygen saturations are 96% on 2 L nasal cannula and he is achieving 1000 mL on his incentive spirometry with encouragement. Bedside telemetry showing Mobitz type I second-degree heart block with a heart rate of 81 BPM. He remains hemodynamically stable and is currently on no inotropic pressor support. Right IJ cordis remains in place with current CVP pressure 7 mmHg. Mediastinal and left pleural chest tubes remain in place to low continuous wall suction -20 cm H2O. No air leak is present. Left pleural chest tube draining thin serosanguineous drainage with 60 mL output in the last 8 hours and 200 mL output in the last 24 hours. Mediastinal chest tubes draining 130 mL of thin serosanguineous drainage in the last 8 hours and 500 mL output in the last 24 hours. Laboratory and chest x-ray results reviewed. Objective - Vital Signs Vital signs: Vital Signs Temp 97.9 F 07/17/23 08:00 Pulse 96 07/17/23 10:00 Resp 19 07/17/23 10:00 BP 113/68 07/17/23 07:00 Pulse Ox 95 07/17/23 10:00 FiO2 40 07/15/23 18:30 Intake & Output 07/16/23 07/17/23 07/17/23 18:59 06:59 18:59 Intake Total 6100.104 5362.907 136.992 Output Total 720 720 365 Balance 400.990 822.907 -228.008 Weight 104.8 kg 109.8 kg Intake: IV 574 432 121 .9NS Cardiac Output 50 .9NS Pressure Bags 84 72 21 Lactated Ringers 1,000 ml 440 360 100 @ 20 mls/hr IV .Q24H [facility] Rx#:[id number] Intake, IV Titration 546.990 30.907 15.992 Amount Albumin Human 5% 250 ml 500 In Empty Bag 1 bag @ 250 mls/hr IVPB Q1HR PRN Rx#: [id number] Insulin Regular 100 unit 46.990 30.907 15.992 In Sodium Chloride 0.9% 100 ml @ Per Protocol IV .Q0M [facility] Rx#:[id number] Oral 1080 Output: Chest Tube Drainage 410 330 130 Left Pleural 120 110 50 Mediastinal and Right 290 220 80 Pleural Urine 310 390 235 Other: Voiding Method Indwelling Catheter Indwelling Catheter Indwelling Catheter ABP, PAP, CO, CI - Last Documented Arterial Blood Pressure 107/41 Pulmonary Artery Pressure 23/7 Cardiac Output 5.7 Cardiac Index 2.5 - Exam CONSTITUTIONAL: Sitting up to the bedside chair in the intensive care unit, appears comfortable, cooperative, no apparent acute distress. HEENT: Neck is supple, no JVD, no lymphadenopathy. Right IJ Cordis in place and functioning. RESPIRATORY: Lungs sounds essentially clear throughout, diminished to his bilateral bases. Respirations are symmetrical and nonlabored. Currently on 2 L nasal cannula with oxygen saturations 96%. Able to achieve 1000 mL on his i ncentive spirometry. Strong cough. CARDIOVASCULAR: Regular rhythm and rate. S1 and S2 present, negative for S3, gallop or murmur. Sternum is stable. Palpable peripheral pulses bilaterally, trace edema to his bilateral lower extremities. No calf pain or tenderness noted. Heart hugger in place with patient demonstrating appropriate use. Knee- high PAVITHRA hose and sequential compression devices in place to his bilateral lower extremities. GASTROINTESTINAL: Abdomen soft, nontender, nondistended. Active bowel sounds present 4 quadrants. Tolerating diet. Passing flatus. No guarding or ri gidity. GENITOURINARY: [place] present draining clear, yellow urine. Urine output 295 mL in the last 8 hours. INTEGUMENTARY: Skin is warm and dry with no evidence of clubbing or cyanosis. Midline sternal incision clean dry and well approximated, covered with dry intact dressing. Left lower extremity EVH sites well approximated without redness or drainage. Left arm radial artery harvest sites clean, dry and approximated. No drainage or redness is present. NEUROLOGIC: Cranial nerves II through XII intact. No focal deficits. MUSKULOSKELETAL: Able to move all extremities, strength equal bilaterally, generalized weakness. PSYCHIATRIC: Alert and oriented to person place and time, appropriate affect, intact judgment and insight. INVASIVE LINES AND TUBES: Mediastinal/left pleural chest tubes present and connected to low continuous wall suction, no air leaks present. Mediastinal tube with 130 mL of thin serosanguineous drainage overnight, 500 mL output in the last 24 hours. Left pleural chest tube with 60 mL of thin serosanguineous drainage overnight, 200 mL output in the last 24 hours. Atrial and ventricular epicardial pacemaker wires present, connected to generator, VVI backup rate 50 bpm. Right internal jugular Cordis, right radial arterial line present. Last CVP 7 mmHg. - Allied health notes Allied health notes reviewed: nursing - Labs CBC & Chem 7: 07/17/23 05:20 07/17/23 05:20 Labs: Abnormal Lab Results - Last 24 Hours (Table) 07/16/23 07/16/23 07/16/23 Range/Units 11:14 12:01 13:05 RBC (4.30-5.90) m/uL Hgb (13.0-17.5) gm/dL Hct (39.0-53.0) % Plt Count (150-450) k/uL Sodium (137-145) mmol/L BUN (9-20) mg/dL Glucose (74-99) mg/dL POC Glucose (mg/dL) 135 H 124 H 136 H (70-110) mg/dL Total Protein (6.3-8.2) g/dL Albumin (3.5-5.0) g/dL 07/16/23 07/16/23 07/16/23 Range/Units 14:25 15:17 15:17 RBC 2.28 L (4.30-5.90) m/uL Hgb 7.5 L (13.0-17.5) gm/dL Hct 22.0 L (39.0-53.0) % Plt Count 111 L (150-450) k/uL Sodium (137-145) mmol/L BUN (9-20) mg/dL Glucose (74-99) mg/dL POC Glucose (mg/dL) 156 H 153 H (70-110) mg/dL Total Protein (6.3-8.2) g/dL Albumin (3.5-5.0) g/dL 07/16/23 07/16/23 07/16/23 Range/Units 16:17 17:33 18:56 RBC (4.30-5.90) m/uL Hgb (13.0-17.5) gm/dL Hct (39.0-53.0) % Plt Count (150-450) k/uL Sodium (137-145) mmol/L BUN (9-20) mg/dL Glucose (74-99) mg/dL POC Glucose (mg/dL) 146 H 158 H 171 H (70-110) mg/dL Total Protein (6.3-8.2) g/dL Albumin (3.5-5.0) g/dL 07/16/23 07/16/23 07/17/23 Range/Units 20:55 23:12 01:15 RBC (4.30-5.90) m/uL Hgb (13.0-17.5) gm/dL Hct (39.0-53.0) % Plt Count (150-450) k/uL Sodium (137-145) mmol/L BUN (9-20) mg/dL Glucose (74-99) mg/dL POC Glucose (mg/dL) 144 H 140 H 133 H (70-110) mg/dL Total Protein (6.3-8.2) g/dL Albumin (3.5-5.0) g/dL 07/17/23 07/17/23 07/17/23 Range/Units 03:02 05:02 05:20 RBC 2.25 L (4.30-5.90) m/uL Hgb 7.5 L (13.0-17.5) gm/dL Hct 21.9 L (39.0-53.0) % Plt Count 110 L (150-450) k/uL Sodium (137-145) mmol/L BUN (9-20) mg/dL Glucose (74-99) mg/dL POC Glucose (mg/dL) 124 H 132 H (70-110) mg/dL Total Protein (6.3-8.2) g/dL Albumin (3.5-5.0) g/dL 07/17/23 07/17/23 07/17/23 Range/Units 05:20 06:55 08:29 RBC (4.30-5.90) m/uL Hgb (13.0-17.5) gm/dL Hct (39.0-53.0) % Plt Count (150-450) k/uL Sodium 135 L (137-145) mmol/L BUN 23 H (9-20) mg/dL Glucose 111 H (74-99) mg/dL POC Glucose (mg/dL) 134 H 153 H (70-110) mg/dL Total Protein 5.2 L (6.3-8.2) g/dL Albumin 3.2 L (3.5-5.0) g/dL 07/17/23 Range/Units 10:34 RBC (4.30-5.90) m/uL Hgb (13.0-17.5) gm/dL Hct (39.0-53.0) % Plt Count (150-450) k/uL Sodium (137-145) mmol/L BUN (9-20) mg/dL Glucose (74-99) mg/dL POC Glucose (mg/dL) 154 H (70-110) mg/dL Total Protein (6.3-8.2) g/dL Albumin (3.5-5.0) g/dL - Imaging and Cardiology Chest x-ray: report reviewed, image reviewed Assessment and Plan Assessment: Multivesselc artery disease, left main disease, status post three-vessel coronary artery bypass grafting Chest pain, shortness of breath secondary to above Hypertension Bradycardia with Mobitz type I heart block History of gout Lifetime nonsmoker, with a preoperative FEV1 69% of predicted value with a baseball Fords 2.15 L Postoperative acute blood loss anemia, expected given hemodilution and cardiopulmonary bypass Plan: Continue to maximize medical therapy with aspirin, and statin. Will discontinue metoprolol tartrate until evaluated by Dr. Sr from cardiology. Keep atrial and ventricular epicardial pacemaker wires in place and connected to backup bedside pacemaker generator on a VVI 50 as the patient is currently showing a second-degree Mobitz type I on his bedside telemetry. Will start amlodipine 2.5 mg by mouth daily for radial artery spasm prophylaxis with hold parameters. Wean O2 as tolerated. Encourage incentive spirometry use 10 times every hour while awake. Bronchodilators per pulmonology Will monitor daily labs and chest x-rays, electrolyte replacement per protocol. Increase activity, ambulate as tolerated. PT/OT/cardiac rehab following. GI/DVT prophylaxis. Insulin management per internal medicine. Patient should remain on insulin drip for 48 hours, then may transition to subcutaneous insulin. Pain control with current medication regimen. Discontinue right IJ Cordis. Remove right radial arterial line. Continue mediastinal 32-Polish chest tubes for another 24 hours, monitor output. We will remove his left pleural chest tube and his mediastinal [place] chest tube. Remove [place] catheter, continue to record strict inaccurate I's and O's. Bladder scan every 6 hours and when necessary postvoid residual. If greater th an 300 mL of urine may straight cath. Start Flomax 0.4 mg by mouth PC breakfast. Daily weights. Keep in the intensive care unit. More recommendations to follow based on patient's clinical course. Time with Patient: Greater than 30
--- NOTE | 2023-07-17 11:28 | P.PN ---
Subjective Progress Note Date: 07/17/23 Principal diagnosis: Coronary artery disease. Pulmonary consult dated 07/13/2023. 78-year-old male who recently had a cardiac catheterization that showed severely calcified coronary arteries, severe left main disease, and severe LAD and right coronary artery disease. According to cardiothoracic surgery, the patient is scheduled to have bypass grafting, on July 15, with Dr. Spain. The patient's FEV1 was 69% predicted or 2.15 L. The patient is a lifelong nons moker. His primary care physician is Dr. Cabrera. We are asked to see the patient preoperatively. The patient has no known history of any lung disease. He is a lifelong nonsmoker. He denies any asthma, emphysema, COPD, etc. Seen in consultation on July 06, by Dr. Hernandez, for chest pain. The patient has a history of hypertension, and gout. His home medications include lisinopril, Imdur, aspirin, allopurinol, multiple vitamins, and Indocin. The patient is seen in room 368. The patient is resting comfortably. The patient is currently on IV heparin. Currently labs include a white count 7.3, hemoglobin 13.4, hematocrit 40.8, and a normal platelet count. PTT is 63.9. Sodium 141, p otassium 4.3, chlorides 110, CO2 18, anion gap 13, BUN 23, and creatinine 0.89. Glucose 107. TSH is normal. Chest CT, showed no acute abnormality in the chest. Progress note dated 07/14/2023. 78-year-old male that we saw yesterday in consultation. The patient has significant coronary disease, and is scheduled for bypass surgery tomorrow. He is currently on room air. He is resting comfortably in room 368. Is getting saline at 10 mL an hour, and IV heparin, via weightbase protocol. The patient is not having any difficulty breathing, or chest pain. His FEV1 was 2.15 L. Based on that number alone, the patient's at increased operative risk. Current labs include a white count 7.2, hemoglobin 12.1, hematocrit 35.9, and a platelet count of 185,000. PTT is 55.0. Progress note dated 07/15/2023. 78-year-old male, postop day 0, status post three-vessel bypass grafting. Surgery was done by Dr. Spain. Currently, the patient is in the intensive care unit, on the mechanical ventilator. Ventilator settings include the volume assist control, rate 14, tidal volume 550, FiO2 80%, and PEEP of 8. Initial blood gases show pO2 of 163, pCO2 of 38, and a pH is 7.41. I told the nurse, to other respiratory, to start weaning the FiO2. The patient's currently on nitroglycerin at 5 mcg/m, propofol at 20 mcg/kg/m, and lactated Ringer's at 50 mL an hour. The patient's cardiac output is 5.7 with an index of 2.5. CVP is 10, and pulmonary artery pressures 28/14. Labs include a white count 7.7, hemoglobin 8.7, hematocrit 24.8, and a platelet count of 100,000. Additional labs include a sodium 140, potassium 4.2, chlorides 109, CO2 21, BUN 18, creatinine 0.92. Chest x-ray shows post-CABG changes, with left-sided chest tube, a small left-sided pleural effusion, and some basilar atelectasis. In addition, there may be some mild pulmonary vascular congestion. A Louisa-Ron catheter is noted. Progress note dated 07/16/2023. 78-year-old male, postop day #1, status post three-vessel bypass surgery. Surgery was done by Dr. Spain. The patient was seen yesterday after surgery, on the ventilator. He is now on 2 L by nasal cannula. He was extubated yesterday. He continues on lactated Ringer's at 50 mL an hour, and insulin drip of 4.5 units an hour, nitroglycerin at 5 mcg/m. He is resting comfortably in a chair next to his hospital bed. White count 7.2, hemoglobin 8.2, hematocrit 24.5, and platelet count 111,000. Sodium 139, potassium 4.2, chlorides 108, CO2 23, BUN 16, and creatinine 0.8. Chest x-ray shows some postoperative atelectasis, diffuse infiltrates. Progress note dated 07/17/2023. 78-year-old male seen in room 266. He is postop day #2, status post three- vessel bypass surgery. His surgery was done by Dr. Spain. He is currently on room air. He's got an insulin drip at 2.5 units an hour, and saline at 10 mL an hour. The patient sitting in a chair, next to his hospital bed. He looks very stable, without any respiratory issues. White count 9, he will him some 0.5, hematocrit 21.9, with a platelet count of 110,000. Sodium 135, potassium 4.1, chlorides 103, CO2 24, BUN 23, and creatinine 1.08. Albumin is 3.2. Chest x- ray shows cardiomegaly, with mild pulmonary vascular congestion. There is no pneumothorax. Objective - Vital Signs Vital signs: Vital Signs Temp 97.9 F 07/17/23 08:00 Pulse 96 07/17/23 10:00 Resp 19 07/17/23 10:00 BP 113/68 07/17/23 07:00 Pulse Ox 95 07/17/23 10:00 FiO2 40 07/15/23 18:30 Intake & Output 07/16/23 07/17/23 07/17/23 18:59 06:59 18:59 Intake Total 4786.232 0557.907 149.992 Output Total 720 720 565 Balance 400.990 822.907 -415.008 Weight 104.8 kg 109.8 kg Intake: IV 574 432 134 .9NS Cardiac Output 50 .9NS Pressure Bags 84 72 24 Lactated Ringers 1,000 ml 440 360 110 @ 20 mls/hr IV .Q24H [facility] Rx#:[id number] Intake, IV Titration 546.990 30.907 15.992 Amount Albumin Human 5% 250 ml 500 In Empty Bag 1 bag @ 250 mls/hr IVPB Q1HR PRN Rx#: [id number] Insulin Regular 100 unit 46.990 30.907 15.992 In Sodium Chloride 0.9% 100 ml @ Per Protocol IV .Q0M [facility] Rx#:[id number] Oral 1080 Output: Chest Tube Drainage 410 330 130 Left Pleural 120 110 50 Mediastinal and Right 290 220 80 Pleural Urine 310 390 435 Other: Voiding Method Indwelling Catheter Indwelling Catheter Indwelling Catheter ABP, PAP, CO, CI - Last Documented Arterial Blood Pressure 107/41 Pulmonary Artery Pressure 23/7 Cardiac Output 5.7 Cardiac Index 2.5 - Exam No acute distress, awake and alert, currently on room air. HEENT examination is grossly unremarkable. Neck supple. Full range of motion. No adenopathy thyromegaly or neck vein distention. Cardiovascular examination reveals regular rhythm rate. S1-S2 normal. No S3 or S4. No discernible murmur noted. Heart rate 82 bpm. Lungs reveal clear breath sounds. Breath sounds are equal bilaterally. No adventitious lung sounds including wheezes rhonchi or crackles. Saturations are 95 %. Abdomen soft without bowel sounds. Extremities are intact. No cyanosis clubbing or edema. Skin is without rash or lesion. Neurologic examination is brief but nonfocal. - Labs CBC & Chem 7: 07/17/23 05:20 07/17/23 05:20 Labs: Abnormal Lab Results - Last 24 Hours (Table) 07/16/23 07/16/23 07/16/23 Range/Units 12:01 13:05 14:25 RBC (4.30-5.90) m/uL Hgb (13.0-17.5) gm/dL Hct (39.0-53.0) % Plt Count (150-450) k/uL Sodium (137-145) mmol/L BUN (9-20) mg/dL Glucose (74-99) mg/dL POC Glucose (mg/dL) 124 H 136 H 156 H (70-110) mg/dL Total Protein (6.3-8.2) g/dL Albumin (3.5-5.0) g/dL 07/16/23 07/16/23 07/16/23 Range/Units 15:17 15:17 16:17 RBC 2.28 L (4.30-5.90) m/uL Hgb 7.5 L (13.0-17.5) gm/dL Hct 22.0 L (39.0-53.0) % Plt Count 111 L (150-450) k/uL Sodium (137-145) mmol/L BUN (9-20) mg/dL Glucose (74-99) mg/dL POC Glucose (mg/dL) 153 H 146 H (70-110) mg/dL Total Protein (6.3-8.2) g/dL Albumin (3.5-5.0) g/dL 07/16/23 07/16/23 07/16/23 Range/Units 17:33 18:56 20:55 RBC (4.30-5.90) m/uL Hgb (13.0-17.5) gm/dL Hct (39.0-53.0) % Plt Count (150-450) k/uL Sodium (137-145) mmol/L BUN (9-20) mg/dL Glucose (74-99) mg/dL POC Glucose (mg/dL) 158 H 171 H 144 H (70-110) mg/dL Total Protein (6.3-8.2) g/dL Albumin (3.5-5.0) g/dL 07/16/23 07/17/23 07/17/23 Range/Units 23:12 01:15 03:02 RBC (4.30-5.90) m/uL Hgb (13.0-17.5) gm/dL Hct (39.0-53.0) % Plt Count (150-450) k/uL Sodium (137-145) mmol/L BUN (9-20) mg/dL Glucose (74-99) mg/dL POC Glucose (mg/dL) 140 H 133 H 124 H (70-110) mg/dL Total Protein (6.3-8.2) g/dL Albumin (3.5-5.0) g/dL 07/17/23 07/17/23 07/17/23 Range/Units 05:02 05:20 05:20 RBC 2.25 L (4.30-5.90) m/uL Hgb 7.5 L (13.0-17.5) gm/dL Hct 21.9 L (39.0-53.0) % Plt Count 110 L (150-450) k/uL Sodium 135 L (137-145) mmol/L BUN 23 H (9-20) mg/dL Glucose 111 H (74-99) mg/dL POC Glucose (mg/dL) 132 H (70-110) mg/dL Total Protein 5.2 L (6.3-8.2) g/dL Albumin 3.2 L (3.5-5.0) g/dL 07/17/23 07/17/23 07/17/23 Range/Units 06:55 08:29 10:34 RBC (4.30-5.90) m/uL Hgb (13.0-17.5) gm/dL Hct (39.0-53.0) % Plt Count (150-450) k/uL Sodium (137-145) mmol/L BUN (9-20) mg/dL Glucose (74-99) mg/dL POC Glucose (mg/dL) 134 H 153 H 154 H (70-110) mg/dL Total Protein (6.3-8.2) g/dL Albumin (3.5-5.0) g/dL Assessment and Plan Assessment: Chest pain, secondary to severe coronary artery disease, including left main dis ease, and severe disease in the LAD, and right coronary artery. Status post three-vessel bypass grafting, 07/15/2023, postop day #2. Routine postoperative ventilator management. History of hypertension. History of gout. Lifelong nonsmoker. No history of any pulmonary disease. Plan: Plan dated 07/13/2023. The patient apparently is going to have open heart surgery, on July 15, with Dr. Spain. The patient is cleared from the pulmonary standpoint. The patient has no history of any pulmonary disease, and he is a lifelong nonsmoker. In addition, his FEV1 is reported to be 69% of predicted, or 2.15 L, which makes him at no increased operative risk, from the pulmonary standpoint. Labs, x-rays, and medications are reviewed. We will continue to follow. Progno sis is guarded. Plan dated 07/14/2023. The patient is seen today in room 368. We saw him yesterday in consultation. The patient is a lifelong nonsmoker. His FEV1 was adequate. We explained our r ole in the process. He understands. We recommended, continued use of the incentive spirometer, after surgery. Labs, x-rays, medications are reviewed. We will continue to follow. Plan dated 07/15/2023. The patient is seen in the intensive care unit, room 266. Currently, the patient remains on the ventilator, as he's just gotten back from the operating room. Once he wakes up, we'll attempt to wean him as soon as possible. He's only on nitroglycerin at 5 mcg/m, and propofol at 20 mcg/kg/m. He is also getting lactated Ringer's at 50 mL an hour. The patient had a three-vessel bypass surgery. His cardiac output is 5.7, and his index is 2.5. Additional recommendations and suggestions are forthcoming. Labs, x-rays, and medications are reviewed. Prognosis is guarded. Plan dated 07/16/2023. The patient is seen today in room 266. He was extubated yesterday, on July 15. The patient is doing very well. The patient's currently on 2 L of oxygen. The patient is receiving lactated Ringer's at 50 mL an hour, insulin drip at 4.5 units an hour, and nitroglycerin at 5 mcg/m. Labs, x-rays, and medications are reviewed. We will encourage him to use the incentive spirometer every hour. We'll also encourage deep breathing, coughing, and clearing of secretions. Prognosis is guarded. Plan dated 07/17/2023. The patient is seen in room 266. He's postop day #2. Is currently on room air. He is getting an insulin drip at 2.5 units an hour. The patient's getting saline at 10 mL an hour. Labs, x-rays, and medications are reviewed. His chest x-ray shows cardiomegaly, with mild pulmonary vascular congestion. There is no pneumothorax. We will continue to follow the patient, and make recommendations along the way. Prognosis is guarded. Time with Patient: Less than 30
[2023-07-17] MEDS ORDERED: INSULIN ASPART (NovoLOG) 100 UNIT/ML VIAL SQ SCH (12:30)
--- NOTE | 2023-07-17 12:34 | P.PN ---
Subjective Progress Note Date: 07/15/23 Mario Cherry, is a 78-year-old male who presented to [facility] for cardiac catheterization with Dr. Hernandez, patient was having episodes of chest pain with exertion, he underwent cardiac catheterization on 07/13/2023 which was positive for severe left main disease, severe LAD disease and severe RCA disease. Patient was admitted to telemetry floor, he was started on IV heparin , cardiovascular surgery consultation was requested. Patient has a known history of hypertension, gastroesophageal reflux disease, history of gout , and history of cholecystitis with recent cholecystectomy. On review of systems patient is alert and oriented 3 in no apparent distress, there is no fever or chills no headache or dizziness no chest pain no shortness of breath no cough no nausea or vomiting no abdominal pain no diarrhea no blood in the stools no burning with urination no frequency or urgency and no hematuria. On 07/14/2023. Patient's history for coronary artery bypass graft surgery patient was evaluated by pulmonary services cleared for surgery. At this time patient denies chest pain or shortness breath. Patient denies nausea vomiting or diarrhea. Patient denies any urinary burning or frequency. Current vital signs temp 90.4, heart rate 52, respiratory rate 16, blood pressure 130/71 with a pulse ox 96% on room air. On 07/15/2023 patient was seen and examined in the ICU, patient underwent coronary artery bypass graft surgery 3 vessels, he is admitted to intensive care unit he is intubated sedated maintained on mechanical ventilation, pulmonary critical care are following, left sided chest tube in place, will follow closely Objective - Vital Signs Vital signs: Vital Signs Temp 97.4 F L 07/15/23 06:46 Pulse 61 07/15/23 16:00 Resp 19 07/15/23 16:00 BP 140/79 07/15/23 15:20 Pulse Ox 100 07/15/23 16:00 FiO2 60 07/15/23 16:46 Intake & Output 07/14/23 07/15/23 07/15/23 18:59 06:59 18:59 Intake Total 1508.403 340.419 188.920 Output Total 3945 Balance 1508.403 340.419 -3756.080 Weight 102.9 kg Intake: IV 100 152 .9NS Cardiac Output 30 .9NS Pressure Bags 18 Lactated Ringers 1,000 ml 100 @ 50 mls/hr IV .Q20H [facility] Rx#:[id number] Intake, IV Titration 156.403 240.419 36.920 Amount Clevidipine Butyrate 25 0.133 mg In Empty Bag 1 bag @ 1 MG/HR 2 mls/hr IV .Q24H [facility] Rx#:[id number] Heparin Sod,Pork in 0.45% 156.403 240.419 NaCl 25,000 unit In 0.45 % NaCl 1 250ml.bag @ 9. 833 UNITS/KG/HR 10 mls/hr IV .Q24H [facility] Rx#: [id number] propofoL 1,000 mg In 36.787 Empty Bag 1 bag @ Titrate IV .Q0M [facility] Rx#: [id number] Oral 1352 Output: Chest Tube Drainage 270 Left Pleural 190 Mediastinal and Right 80 Pleural Urine 2175 Estimated Blood Loss 1500 Other: Voiding Method Toilet Toilet # Voids 1 ABP, PAP, CO, CI - Last Documented Arterial Blood Pressure 136/53 Pulmonary Artery Pressure 29/16 Cardiac Output 5.9 Cardiac Index 2.6 - Exam In general patient is intubated sedated maintained on mechanical ventilation HEENT head normocephalic and atraumatic Neck is supple no JVD no goiter no lymphadenopathy no carotid bruit Chest examination is clear to auscultation no crackles no wheezing Cardiac exam reveals regular heart sounds S1 and S2 no gallops no murmurs Abdomen is soft nontender no organomegaly with normal bowel sounds Extremity exam reveals no edema no cyanosis or clubbing Neurological examination reveals no gross focal deficits - Labs CBC & Chem 7: 07/15/23 14:41 07/15/23 14:41 Labs: Abnormal Lab Results - Last 24 Hours (Table) 07/14/23 07/15/23 07/15/23 Range/Units 13:35 06:34 13:32 RBC (4.30-5.90) m/uL Hgb (13.0-17.5) gm/dL Hct (39.0-53.0) % Plt Count (150-450) k/uL PT (10.0-12.5) sec INR (<1.2) ABG pO2 290 H (83-108) mmHg ABG Total CO2 26 H (19-24) mmol/L ABG O2 Saturation 100.0 H (94-97) % ABG Hematocrit 27 L (34.0-46.0) % ABG Glucose 108 H (75-99) mg/dL ABG Lactic Acid 2.5 H* (0.5-1.6) mmol/L Hemoglobin 8.9 L (13.0-17.5) gm/dL Chloride 109 H (98-107) mmol/L Carbon Dioxide 21 L (22-30) mmol/L Glucose 109 H (74-99) mg/dL POC Glucose (mg/dL) (70-110) mg/dL Calcium (8.4-10.2) mg/dL Alkaline Phosphatase (38-126) U/L Total Protein (6.3-8.2) g/dL Albumin (3.5-5.0) g/dL Arterial Blood Glucose 108 H (75-99) mg/dL Crossmatch See Detail 07/15/23 07/15/23 07/15/23 Range/Units 14:39 14:41 14:41 RBC 2.60 L (4.30-5.90) m/uL Hgb 8.7 L D (13.0-17.5) gm/dL Hct 24.8 L (39.0-53.0) % Plt Count 100 L (150-450) k/uL PT 12.6 H (10.0-12.5) sec INR 1.2 H (<1.2) ABG pO2 (83-108) mmHg ABG Total CO2 (19-24) mmol/L ABG O2 Saturation (94-97) % ABG Hematocrit (34.0-46.0) % ABG Glucose (75-99) mg/dL ABG Lactic Acid (0.5-1.6) mmol/L Hemoglobin (13.0-17.5) gm/dL Chloride (98-107) mmol/L Carbon Dioxide (22-30) mmol/L Glucose (74-99) mg/dL POC Glucose (mg/dL) 111 H (70-110) mg/dL Calcium (8.4-10.2) mg/dL Alkaline Phosphatase (38-126) U/L Total Protein (6.3-8.2) g/dL Albumin (3.5-5.0) g/dL Arterial Blood Glucose (75-99) mg/dL Crossmatch 07/15/23 07/15/23 07/15/23 Range/Units 14:41 15:25 15:27 RBC (4.30-5.90) m/uL Hgb (13.0-17.5) gm/dL Hct (39.0-53.0) % Plt Count (150-450) k/uL PT (10.0-12.5) sec INR (<1.2) ABG pO2 163 H (83-108) mmHg ABG Total CO2 25 H (19-24) mmol/L ABG O2 Saturation 99.5 H (94-97) % ABG Hematocrit (34.0-46.0) % ABG Glucose (75-99) mg/dL ABG Lactic Acid (0.5-1.6) mmol/L Hemoglobin (13.0-17.5) gm/dL Chloride 109 H (98-107) mmol/L Carbon Dioxide (22-30) mmol/L Glucose (74-99) mg/dL POC Glucose (mg/dL) 112 H (70-110) mg/dL Calcium 7.8 L (8.4-10.2) mg/dL Alkaline Phosphatase 33 L (38-126) U/L Total Protein 4.4 L (6.3-8.2) g/dL Albumin 2.7 L (3.5-5.0) g/dL Arterial Blood Glucose (75-99) mg/dL Crossmatch 07/15/23 07/15/23 Range/Units 16:11 16:57 RBC (4.30-5.90) m/uL Hgb (13.0-17.5) gm/dL Hct (39.0-53.0) % Plt Count (150-450) k/uL PT (10.0-12.5) sec INR (<1.2) ABG pO2 (83-108) mmHg ABG Total CO2 (19-24) mmol/L ABG O2 Saturation (94-97) % ABG Hematocrit (34.0-46.0) % ABG Glucose (75-99) mg/dL ABG Lactic Acid (0.5-1.6) mmol/L Hemoglobin (13.0-17.5) gm/dL Chloride (98-107) mmol/L Carbon Dioxide (22-30) mmol/L Glucose (74-99) mg/dL POC Glucose (mg/dL) 122 H 144 H (70-110) mg/dL Calcium (8.4-10.2) mg/dL Alkaline Phosphatase (38-126) U/L Total Protein (6.3-8.2) g/dL Albumin (3.5-5.0) g/dL Arterial Blood Glucose (75-99) mg/dL Crossmatch Microbiology - Last 24 Hours (Table) 07/13/23 22:11 Nasal Screen MRSA/MSSA - Final Nasal Swab Assessment and Plan Plan: Episodes of chest pain with cardiac catheterization positive for severe disease in the left main, LAD, and the right coronary artery, patient underwent coronary artery bypass graft surgery 3 vessels on 07/15/2023 Underlying history of hypertension Underlying history of gout Underlying history of gastroesophageal reflux disease At this time patient was seen and examined Home medications reviewed and reordered He was started on IV heparin Plans for coronary artery bypass graft surgery 07/15/2023 Cardiology pulmonary and cardiovascular surgery in place Will follow during this admission
--- NOTE | 2023-07-17 12:39 | P.PN ---
Subjective Progress Note Date: 07/17/23 Mario Cherry, is a 78-year-old male who presented to [facility] for cardiac catheterization with Dr. Hernandez, patient was having episodes of chest pain with exertion, he underwent cardiac catheterization on 07/13/2023 which was positive for severe left main disease, severe LAD disease and severe RCA disease. Patient was admitted to telemetry floor, he was started on IV heparin , cardiovascular surgery consultation was requested. Patient has a known history of hypertension, gastroesophageal reflux disease, history of gout , and history of cholecystitis with recent cholecystectomy. On review of systems patient is alert and oriented 3 in no apparent distress, there is no fever or chills no headache or dizziness no chest pain no shortness of breath no cough no nausea or vomiting no abdominal pain no diarrhea no blood in the stools no burning with urination no frequency or urgency and no hematuria. On 07/14/2023. Patient's history for coronary artery bypass graft surgery patient was evaluated by pulmonary services cleared for surgery. At this time patient denies chest pain or shortness breath. Patient denies nausea vomiting or diarrhea. Patient denies any urinary burning or frequency. Current vital signs temp 90.4, heart rate 52, respiratory rate 16, blood pressure 130/71 with a pulse ox 96% on room air. On 07/15/2023 patient was seen and examined in the ICU, patient underwent coronary artery bypass graft surgery 3 vessels, he is admitted to intensive care unit he is intubated sedated maintained on mechanical ventilation, pulmonary critical care are following, left sided chest tube in place, will follow closely. On 07/16/2023 patient is alert and oriented 3 currently sitting up in chair. Patient was extubated per protocol. Chest tubes remain in place. Patient reports generalized weakness. Patient remains in the intensive care unit 07/17/2023 patient was seen and examined in the ICU, he is alert and oriented 3 in no apparent distress, he is sitting up in a chair, chest tubes remain in place temperature is 97.9 pulse 78 respiration 16 blood pressure 100/37 pulse ox 92% on room air white blood count 9.0 hemoglobin 7.5 platelet count of 110 sodium 135 potassium 4.1 chloride 103 CO2 24 BUN 23 creatinine 1.08. At this time will discontinue insulin drip and place patient on insulin sliding scale. Objective - Vital Signs Vital signs: Vital Signs Temp 97.9 F 07/17/23 08:00 Pulse 96 07/17/23 10:00 Resp 19 07/17/23 10:00 BP 113/68 07/17/23 07:00 Pulse Ox 95 07/17/23 10:00 FiO2 40 07/15/23 18:30 Intake & Output 07/16/23 07/17/23 07/17/23 18:59 06:59 18:59 Intake Total 7759.794 2901.907 162.992 Output Total 720 720 850 Balance 400.990 822.907 -687.008 Weight 104.8 kg 109.8 kg Intake: IV 574 432 147 .9NS Cardiac Output 50 .9NS Pressure Bags 84 72 27 Lactated Ringers 1,000 ml 440 360 120 @ 20 mls/hr IV .Q24H ON LICENSE OF [facility] Rx#:[id number] Intake, IV Titration 546.990 30.907 15.992 Amount Albumin Human 5% 250 ml 500 In Empty Bag 1 bag @ 250 mls/hr IVPB Q1HR PRN Rx#: [id number] Insulin Regular 100 unit 46.990 30.907 15.992 In Sodium Chloride 0.9% 100 ml @ Per Protocol IV .Q0M ON LICENSE OF [facility] Rx#:[id number] Oral 1080 Output: Chest Tube Drainage 410 330 190 Left Pleural 120 110 70 Mediastinal and Right 290 220 120 Pleural Urine 310 390 660 Other: Voiding Method Indwelling Catheter Indwelling Catheter Indwelling Catheter ABP, PAP, CO, CI - Last Documented Arterial Blood Pressure 107/41 Pulmonary Artery Pressure 23/7 Cardiac Output 5.7 Cardiac Index 2.5 - Exam In general patient is alert and oriented 3 in no apparent distress HEENT head normocephalic and atraumatic Neck is supple no JVD no goiter no lymphadenopathy no carotid bruit Chest examination is clear to auscultation no crackles no wheezing, chest tube in place Cardiac exam reveals regular heart sounds S1 and S2 no gallops no murmurs Abdomen is soft nontender no organomegaly with normal bowel sounds Extremity exam reveals no edema no cyanosis or clubbing Neurological examination reveals no gross focal deficits - Labs CBC & Chem 7: 07/17/23 05:20 07/17/23 05:20 Labs: Abnormal Lab Results - Last 24 Hours (Table) 07/16/23 07/16/23 07/16/23 Range/Units 13:05 14:25 15:17 RBC 2.28 L (4.30-5.90) m/uL Hgb 7.5 L (13.0-17.5) gm/dL Hct 22.0 L (39.0-53.0) % Plt Count 111 L (150-450) k/uL Sodium (137-145) mmol/L BUN (9-20) mg/dL Glucose (74-99) mg/dL POC Glucose (mg/dL) 136 H 156 H (70-110) mg/dL Total Protein (6.3-8.2) g/dL Albumin (3.5-5.0) g/dL 07/16/23 07/16/23 07/16/23 Range/Units 15:17 16:17 17:33 RBC (4.30-5.90) m/uL Hgb (13.0-17.5) gm/dL Hct (39.0-53.0) % Plt Count (150-450) k/uL Sodium (137-145) mmol/L BUN (9-20) mg/dL Glucose (74-99) mg/dL POC Glucose (mg/dL) 153 H 146 H 158 H (70-110) mg/dL Total Protein (6.3-8.2) g/dL Albumin (3.5-5.0) g/dL 07/16/23 07/16/23 07/16/23 Range/Units 18:56 20:55 23:12 RBC (4.30-5.90) m/uL Hgb (13.0-17.5) gm/dL Hct (39.0-53.0) % Plt Count (150-450) k/uL Sodium (137-145) mmol/L BUN (9-20) mg/dL Glucose (74-99) mg/dL POC Glucose (mg/dL) 171 H 144 H 140 H (70-110) mg/dL Total Protein (6.3-8.2) g/dL Albumin (3.5-5.0) g/dL 07/17/23 07/17/23 07/17/23 Range/Units 01:15 03:02 05:02 RBC (4.30-5.90) m/uL Hgb (13.0-17.5) gm/dL Hct (39.0-53.0) % Plt Count (150-450) k/uL Sodium (137-145) mmol/L BUN (9-20) mg/dL Glucose (74-99) mg/dL POC Glucose (mg/dL) 133 H 124 H 132 H (70-110) mg/dL Total Protein (6.3-8.2) g/dL Albumin (3.5-5.0) g/dL 07/17/23 07/17/23 07/17/23 Range/Units 05:20 05:20 06:55 RBC 2.25 L (4.30-5.90) m/uL Hgb 7.5 L (13.0-17.5) gm/dL Hct 21.9 L (39.0-53.0) % Plt Count 110 L (150-450) k/uL Sodium 135 L (137-145) mmol/L BUN 23 H (9-20) mg/dL Glucose 111 H (74-99) mg/dL POC Glucose (mg/dL) 134 H (70-110) mg/dL Total Protein 5.2 L (6.3-8.2) g/dL Albumin 3.2 L (3.5-5.0) g/dL 07/17/23 07/17/23 Range/Units 08:29 10:34 RBC (4.30-5.90) m/uL Hgb (13.0-17.5) gm/dL Hct (39.0-53.0) % Plt Count (150-450) k/uL Sodium (137-145) mmol/L BUN (9-20) mg/dL Glucose (74-99) mg/dL POC Glucose (mg/dL) 153 H 154 H (70-110) mg/dL Total Protein (6.3-8.2) g/dL Albumin (3.5-5.0) g/dL Assessment and Plan Plan: Episodes of chest pain with cardiac catheterization positive for severe disease in the left main, LAD, and the right coronary artery, patient underwent coronary artery bypass graft surgery 3 vessels on 07/15/2023 Underlying history of hypertension Underlying history of gout Underlying history of gastroesophageal reflux disease At this time patient was seen and examined Home medications reviewed and reordered He was started on IV heparin Plans for coronary artery bypass graft surgery 07/15/2023 Cardiology pulmonary and cardiovascular surgery in place Will follow during this admission
[2023-07-17] MEDS ORDERED: amLODIPine 2.5 MG TAB PO STA (12:42)
[2023-07-17] MEDS: INSULIN ASPART (NovoLOG) 100 UNIT/ML VIAL SQ SCH ×3 (13:06→20:20)
[2023-07-17] MEDS: TAMSULOSIN 0.4 MG CAP.ER.24H PO SCH (13:09)
--- NOTE | 2023-07-17 14:19 | P.PN ---
Subjective Progress Note Date: 07/17/23 This is Ruben Jose NP, I'm dictating on behalf of Dr. Sr's H&P and A&P. Patient was interviewed and examined. Patient is a pleasant 78-year-old male who underwent triple vessel bypass surgery. Patient is doing well today. He reports sternal chest pain secondary to incision. Patient is noted to be somewhat tachycardic on telemetry, and appears to be alternating between first-degree AV block, atrial tachycardia, and second-degree block type I. It is felt this is likely secondary to the jovan ent's cardiac surgery, and should continue to improve over time. GENERAL: Well-appearing, well-nourished and in no acute distress. NECK: Supple without JVD or thyromegaly. LUNGS: Breath sounds clear to auscultation bilaterally. Respiration equal and unlabored. No wheezes, rales or rhonchi. HEART: Irregular rate and rhythm without murmurs, rubs or gallops. S1 and S2 heard. EXTREMITIES: Normal range of motion, no edema. No clubbing or cyanosis. Peripheral pulses intact and strong. VITALS: Temp 98.0, pulse 81, respirations 21, blood pressure 114/42, O2 saturation 96% on room air TELEMETRY: Atrial tachycardia with first-degree AV block LABS: White count 9.0, hemoglobin 7.5, platelets 110, sodium 135, potassium 4.1, chloride 103, BUN 23, creatinine 1.08, calcium 8.4 IMPRESSION: 1. Multivessel coronary artery disease 2. Status post triple vessel coronary artery bypass grafting 3. Hypertension 4. Atrial tachycardia with first-degree AV block, with subsequent second-degree block type I PLAN: Patient is having a first-degree AV block, with underlying atrial tachycardia that is occasionally moving into second-degree type I. This is likely postoperative in nature secondary to cardiac irritation. Continue current medications as ordered. Watch blood pressure closely. Do not give patient amiodarone or beta blockers at this time. Further recommendations based on patient's clinical course. Objective - Vital Signs Vital signs: Vital Signs Temp 98.0 F 07/17/23 12:00 Pulse 88 07/17/23 13:00 Resp 17 07/17/23 13:00 BP 168/75 07/17/23 13:00 Pulse Ox 90 L 07/17/23 13:00 FiO2 40 07/15/23 18:30 Intake & Output 07/16/23 07/17/23 07/17/23 18:59 06:59 18:59 Intake Total 6762.995 0374.907 165.992 Output Total 720 720 975 Balance 400.990 822.907 -809.008 Weight 104.8 kg 109.8 kg Intake: IV 574 432 150 .9NS Cardiac Output 50 .9NS Pressure Bags 84 72 30 Lactated Ringers 1,000 ml 440 360 120 @ 20 mls/hr IV .Q24H [facility] Rx#:[id number] Intake, IV Titration 546.990 30.907 15.992 Amount Albumin Human 5% 250 ml 500 In Empty Bag 1 bag @ 250 mls/hr IVPB Q1HR PRN Rx#: [id number] Insulin Regular 100 unit 46.990 30.907 15.992 In Sodium Chloride 0.9% 100 ml @ Per Protocol IV .Q0M [facility] Rx#:[id number] Oral 1080 Output: Chest Tube Drainage 410 330 190 Left Pleural 120 110 70 Mediastinal and Right 290 220 120 Pleural Urine 310 390 785 Other: Voiding Method Indwelling Catheter Indwelling Catheter Indwelling Catheter ABP, PAP, CO, CI - Last Documented Arterial Blood Pressure 154/39 Pulmonary Artery Pressure 23/7 Cardiac Output 5.7 Cardiac Index 2.5 - Labs CBC & Chem 7: 07/17/23 05:20 07/17/23 05:20 Labs: Abnormal Lab Results - Last 24 Hours (Table) 07/16/23 07/16/23 07/16/23 Range/Units 14:25 15:17 15:17 RBC 2.28 L (4.30-5.90) m/uL Hgb 7.5 L (13.0-17.5) gm/dL Hct 22.0 L (39.0-53.0) % Plt Count 111 L (150-450) k/uL Sodium (137-145) mmol/L BUN (9-20) mg/dL Glucose (74-99) mg/dL POC Glucose (mg/dL) 156 H 153 H (70-110) mg/dL Total Protein (6.3-8.2) g/dL Albumin (3.5-5.0) g/dL 07/16/23 07/16/23 07/16/23 Range/Units 16:17 17:33 18:56 RBC (4.30-5.90) m/uL Hgb (13.0-17.5) gm/dL Hct (39.0-53.0) % Plt Count (150-450) k/uL Sodium (137-145) mmol/L BUN (9-20) mg/dL Glucose (74-99) mg/dL POC Glucose (mg/dL) 146 H 158 H 171 H (70-110) mg/dL Total Protein (6.3-8.2) g/dL Albumin (3.5-5.0) g/dL 07/16/23 07/16/23 07/17/23 Range/Units 20:55 23:12 01:15 RBC (4.30-5.90) m/uL Hgb (13.0-17.5) gm/dL Hct (39.0-53.0) % Plt Count (150-450) k/uL Sodium (137-145) mmol/L BUN (9-20) mg/dL Glucose (74-99) mg/dL POC Glucose (mg/dL) 144 H 140 H 133 H (70-110) mg/dL Total Protein (6.3-8.2) g/dL Albumin (3.5-5.0) g/dL 07/17/23 07/17/23 07/17/23 Range/Units 03:02 05:02 05:20 RBC 2.25 L (4.30-5.90) m/uL Hgb 7.5 L (13.0-17.5) gm/dL Hct 21.9 L (39.0-53.0) % Plt Count 110 L (150-450) k/uL Sodium (137-145) mmol/L BUN (9-20) mg/dL Glucose (74-99) mg/dL POC Glucose (mg/dL) 124 H 132 H (70-110) mg/dL Total Protein (6.3-8.2) g/dL Albumin (3.5-5.0) g/dL 07/17/23 07/17/23 07/17/23 Range/Units 05:20 06:55 08:29 RBC (4.30-5.90) m/uL Hgb (13.0-17.5) gm/dL Hct (39.0-53.0) % Plt Count (150-450) k/uL Sodium 135 L (137-145) mmol/L BUN 23 H (9-20) mg/dL Glucose 111 H (74-99) mg/dL POC Glucose (mg/dL) 134 H 153 H (70-110) mg/dL Total Protein 5.2 L (6.3-8.2) g/dL Albumin 3.2 L (3.5-5.0) g/dL 07/17/ Range/Units 10:34 RBC (4.30-5.90) m/uL Hgb (13.0-17.5) gm/dL Hct (39.0-53.0) % Plt Count (150-450) k/uL Sodium (137-145) mmol/L BUN (9-20) mg/dL Glucose (74-99) mg/dL POC Glucose (mg/dL) 154 H (70-110) mg/dL Total Protein (6.3-8.2) g/dL Albumin (3.5-5.0) g/dL
[2023-07-17 16:16] LABS: Glucose,Whole Blood 123 mg/dL (70-110)
[2023-07-17] MEDS: LACTATED RINGERS 1,000 ML IV SCH (16:38)
[2023-07-17 20:19] LABS: Glucose,Whole Blood 140 mg/dL (70-110)
[2023-07-17] MEDS: SENNOSIDES-DOCUSATE SODIUM 1 EACH TAB PO SCH (20:25)
[2023-07-18] MEDS: KETOROLAC 15 MG/ML 1 ML VIAL IVP SCH (05:45)
[2023-07-18 06:15] LABS: Basophils % (A) 0 %; Eosinophils # (A) 0.3 k/uL (0-0.7); Eosinophils % (A) 4 %; HGB 7.3 gm/dL (13.0-17.5); Lymphocytes # (A) 1.4 k/uL (1.0-4.8); Lymphocytes % (A) 18 %; MCH 32.8 pg (25.0-35.0); MCHC 33.3 g/dL (31.0-37.0); MCV 98.5 fL (80.0-100.0); Mean Platelet Volume 9.3; Monocytes # (A) 0.5 k/uL (0-1.0); Monocytes % (A) 7 %; Neutrophils # (A) 5.5 k/uL (1.3-7.7); Neutrophils % (A) 70 %; Platelet Count 124 k/uL (150-450); RBC 2.23 m/uL (4.30-5.90); RDW 14.4 % (11.5-15.5); WBC 7.9 k/uL (3.8-10.6)
[2023-07-18 06:18] LABS: Glucose,Whole Blood 158 mg/dL (70-110)
[2023-07-18 06:28] LABS: ALT 24 U/L (4-49); AST 53 U/L (17-59); African American GFR (CKD) 77 (>60 ml/min/1.73 sqM); Albumin 3.1 g/dL (3.5-5.0); Alkaline Phosphatase 41 U/L (38-126); Anion Gap 10 mmol/L; Blood Urea Nitrogen 38 mg/dL (9-20); Calcium 8.6 mg/dL (8.4-10.2); Carbon Dioxide 21 mmol/L (22-30); Chloride 101 mmol/L (98-107); Glucose 126 mg/dL (74-99); Non-African American GFR(CKD) 67 (>60 ml/min/1.73 sqM); Sodium 132 mmol/L (137-145); Total Bilirubin 0.7 mg/dL (0.2-1.3); Total Protein 5.3 g/dL (6.3-8.2)
[2023-07-18] MEDS: PANTOPRAZOLE 40 MG TABLET PO SCH (06:40)
[2023-07-18] MEDS: INSULIN ASPART (NovoLOG) 100 UNIT/ML VIAL SQ SCH ×4 (06:40→20:10)
[2023-07-18 06:58] LABS: Potassium 4.6 mmol/L (3.5-5.1)
--- NOTE | 2023-07-18 07:51 | XR ---
EXAMINATION TYPE: XR chest 1V portable DATE OF EXAM: 07/18/2023 5:17 AM CLINICAL INDICATION:Male, 78 years old with history of Postop CABG; [facility] COMPARISON: Chest radiograph from one day prior. TECHNIQUE: XR chest 1V portable Frontal view of the chest. FINDINGS: Lungs/Pleura: There is no evidence of pleural effusion, focal consolidation, or pneumothorax. Pulmonary vascularity: Pulmonary vascular congestion. Heart/mediastinum: Cardiomediastinal silhouette is enlarged and stable. Left atrial appendage occlusi on device is present. Musculoskeletal: No acute osseous pathology. Midline sternotomy wires are noted. Other findings: None Lines/Tubes: There is a Ryan-Ron catheter sheath remains in place. Drainage tubes with tips projecting over the mediastinum. IMPRESSION: Improved pulmonary vascular congestion with cardiomegaly
[2023-07-18] MEDS: IPRATROPIUM-ALBUTEROL 3 ML NEB INHALATION SCH ×4 (08:31→20:16)
[2023-07-18] MEDS: TAMSULOSIN 0.4 MG CAP.ER.24H PO SCH (09:05)
[2023-07-18] MEDS: HEPARIN SODIUM,PORCINE 5,000 UNIT/ML 1 ML VIAL SQ SCH ×3 (09:05→23:43)
[2023-07-18] MEDS: CLOPIDOGREL 75 MG TAB PO SCH (09:05)
[2023-07-18] MEDS: ATORVASTATIN 40 MG TAB PO SCH (09:05)
[2023-07-18] MEDS: ASPIRIN 325 MG TAB PO SCH (09:06)
[2023-07-18] MEDS: amLODIPine 2.5 MG TAB PO SCH (09:07)
--- NOTE | 2023-07-18 09:37 | P.PN ---
Subjective Progress Note Date: 07/18/23 Mario Cherry, is a 78-year-old male who presented to [facility] for cardiac catheterization with Dr. Hernandez, patient was having episodes of chest pain with exertion, he underwent cardiac catheterization on 07/13/2023 which was positive for severe left main disease, severe LAD disease and severe RCA disease. Patient was admitted to telemetry floor, he was started on IV heparin , cardiovascular surgery consultation was requested. Patient has a known history of hypertension, gastroesophageal reflux disease, history of gout , and history of cholecystitis with recent cholecystectomy. On review of systems patient is alert and oriented 3 in no apparent distress, there is no fever or chills no headache or dizziness no chest pain no shortness of breath no cough no nausea or vomiting no abdominal pain no diarrhea no blood in the stools no burning with urination no frequency or urgency and no hematuria. On 07/14/2023. Patient's history for coronary artery bypass graft surgery patient was evaluated by pulmonary services cleared for surgery. At this time patient denies chest pain or shortness breath. Patient denies nausea vomiting or diarrhea. Patient denies any urinary burning or frequency. Current vital signs temp 90.4, heart rate 52, respiratory rate 16, blood pressure 130/71 with a pulse ox 96% on room air. On 07/15/2023 patient was seen and examined in the ICU, patient underwent coronary artery bypass graft surgery 3 vessels, he is admitted to intensive care unit he is intubated sedated maintained on mechanical ventilation, pulmonary critical care are following, left sided chest tube in place, will follow closely. On 07/16/2023 patient is alert and oriented 3 currently sitting up in chair. Patient was extubated per protocol. Chest tubes remain in place. Patient reports generalized weakness. Patient remains in the intensive care unit 07/17/2023 patient was seen and examined in the ICU, he is alert and oriented 3 in no apparent distress, he is sitting up in a chair, chest tubes remain in place temperature is 97.9 pulse 78 respiration 16 blood pressure 100/37 pulse ox 92% on room air white blood count 9.0 hemoglobin 7.5 platelet count of 110 sodium 135 potassium 4.1 chloride 103 CO2 24 BUN 23 creatinine 1.08. At this time will discontinue insulin drip and place patient on insulin sliding scale. On 07/18/2023 patient remains in the intensive care unit. Patient alert and oriented 3 chest tubes have been removed. Patient denies chest pain some incisional pain. Patient denies shortness of breath. Patient denies nausea vomiting or diarrhea. Current vital signs heart rate 63, respiratory rate 19, blood pressure 113/55 with a pulse ox of 95% on 2 L per nursing staff patient will remain in ICU for monitoring for the next 24 hours Objective - Vital Signs Vital signs: Vital Signs Temp 98.4 F 07/18/23 04:00 Pulse 76 07/18/23 09:00 Resp 25 H 07/18/23 09:00 BP 132/72 07/18/23 09:00 Pulse Ox 95 07/18/23 09:00 FiO2 40 07/15/23 18:30 Intake & Output 07/17/23 07/18/23 07/18/23 18:59 06:59 18:59 Intake Total 988.868 3920 250 Output Total 975 465 12 Balance -409.008 615 238 Weight 108.8 kg Intake: IV 150 .9NS Pressure Bags 30 Lactated Ringers 1,000 ml 120 @ 20 mls/hr IV .Q24H ARTURO Rx#:[id number] Intake, IV Titration 15.992 Amount Insulin Regular 100 unit 15.992 In Sodium Chloride 0.9% 100 ml @ Per Protocol IV .Q0M ARTURO Rx#:[id number] Oral 400 1080 250 Output: Chest Tube Drainage 190 65 12 Chest Tube Mediastinal 65 12 Left Pleural 70 Mediastinal and Right 120 Pleural Urine 785 400 0 Other: Voiding Method Indwelling Catheter Urinal Urinal ABP, PAP, CO, CI - Last Documented Arterial Blood Pressure 154/39 Pulmonary Artery Pressure 23/7 Cardiac Output 5.7 Cardiac Index 2.5 - Exam In general patient is alert and oriented 3 in no apparent distress HEENT head normocephalic and atraumatic Neck is supple no JVD no goiter no lymphadenopathy no carotid bruit Chest examination is clear to auscultation no crackles no wheezing, chest tube in place Cardiac exam reveals regular heart sounds S1 and S2 no gallops no murmurs Abdomen is soft nontender no organomegaly with normal bowel sounds Extremity exam reveals no edema no cyanosis or clubbing Neurological examination reveals no gross focal deficits - Labs CBC & Chem 7: 07/18/23 06:02 07/18/23 06:02 Labs: Abnormal Lab Results - Last 24 Hours (Table) 07/17/23 07/17/23 07/17/23 Range/Units 10:34 16:14 20:17 RBC (4.30-5.90) m/uL Hgb (13.0-17.5) gm/dL Hct (39.0-53.0) % Plt Count (150-450) k/uL Sodium (137-145) mmol/L Carbon Dioxide (22-30) mmol/L BUN (9-20) mg/dL Glucose (74-99) mg/dL POC Glucose (mg/dL) 154 H 123 H 140 H (70-110) mg/dL Total Protein (6.3-8.2) g/dL Albumin (3.5-5.0) g/dL 07/18/23 07/18/23 07/18/23 Range/Units 06:02 06:02 06:16 RBC 2.23 L (4.30-5.90) m/uL Hgb 7.3 L (13.0-17.5) gm/dL Hct 22.0 L (39.0-53.0) % Plt Count 124 L (150-450) k/uL Sodium 132 L (137-145) mmol/L Carbon Dioxide 21 L (22-30) mmol/L BUN 38 H (9-20) mg/dL Glucose 126 H (74-99) mg/dL POC Glucose (mg/dL) 158 H (70-110) mg/dL Total Protein 5.3 L (6.3-8.2) g/dL Albumin 3.1 L (3.5-5.0) g/dL Assessment and Plan Plan: Episodes of chest pain with cardiac catheterization positive for severe disease in the left main, LAD, and the right coronary artery, patient underwent coronary artery bypass graft surgery 3 vessels on 07/15/2023 Underlying history of hypertension Underlying history of gout Underlying history of gastroesophageal reflux disease At this time patient was seen and examined Home medications reviewed and reordered He was started on IV heparin Plans for coronary artery bypass graft surgery 07/15/2023 Cardiology pulmonary and cardiovascular surgery in place Will follow during this admission
--- NOTE | 2023-07-18 10:10 | P.PN ---
Subjective Progress Note Date: 07/18/23 Principal diagnosis: Multivessel coronary artery disease, with left main disease. Past medical history significant for hypertension, bradycardia with second-degree heart block Mobitz type I, gout and is a lifetime nonsmoker with a preoperative FEV1 69% of predicted value and a base volume of 2.15 L. POD #3 Coronary artery bypass grafting x 3. Left internal thoracic artery (in- situ) to left anterior descending coronary artery. Left radial artery from aorta to obtuse marginal artery #1. Saphenous vein from aorta to posterior descending coronary artery. Left atrial appendage ligation using #35 AtriClip, endoscopic left radial and left greater saphenous vein harvest, graft flow measurements using the medi-stim flow meter, and intraoperative transesophageal echocardiogram performed by anesthesia. Postoperative acute blood loss anemia, expected given hemodilution and car diopulmonary bypass. The patient was seen and examined in follow-up today 07/18/2023 at his bedside in the intensive care unit. He is currently sitting up to the bedside chair, is awake, alert, oriented 3 and is in no acute distress. He denies any complaints of shortness of breath or pain at this time. He is complaining of some generalized postoperative weakness. The patient has been up ambulating in the intensive care unit hallway with standby assistance of nursing and therapy staff and tolerating well. Oxygen saturations are 95% on 2 L nasal cannula and he is achieving 1500 mL on his incentive spirometry with encouragement. Bedside telemetry showing Mobitz type I second-degree heart block with a heart rate of 71 BPM. He remains hemodynamically stable and is currently on no inotropic pressor support. Mediastinal chest tube remains in place to low continuous wall suction -20 cm H2O. No air leak is present. Mediastinal chest tubes draining thin serosanguineous drainage with 50 mL output in the last 24 hours. Laboratory and chest x-ray results reviewed. Atrial and ventricular epicardial pacemaker wires remain in place and connected to backup bedside pacemaker generator on a VVI mode of 50 BPM. Objective - Vital Signs Vital signs: Vital Signs Temp 98.4 F 07/18/23 04:00 Pulse 76 07/18/23 09:00 Resp 25 H 07/18/23 09:00 BP 132/72 07/18/23 09:00 Pulse Ox 95 07/18/23 09:00 FiO2 40 07/15/23 18:30 Intake & Output 07/17/23 07/18/23 07/18/23 18:59 06:59 18:59 Intake Total 725.487 2784 250 Output Total 975 465 12 Balance -409.008 615 238 Weight 108.8 kg Intake: IV 150 .9NS Pressure Bags 30 Lactated Ringers 1,000 ml 120 @ 20 mls/hr IV .Q24H [facility]O Rx#:[id number] Intake, IV Titration 15.992 Amount Insulin Regular 100 unit 15.992 In Sodium Chloride 0.9% 100 ml @ Per Protocol IV .Q0M [facility]URO Rx#:[id number] Oral 400 1080 250 Output: Chest Tube Drainage 190 65 12 Chest Tube Mediastinal 65 12 Left Pleural 70 Mediastinal and Right 120 Pleural Urine 785 400 0 Other: Voiding Method Indwelling Catheter Urinal Urinal ABP, PAP, CO, CI - Last Documented Arterial Blood Pressure 154/39 Pulmonary Artery Pressure 23/7 Cardiac Output 5.7 Cardiac Index 2.5 - Exam CONSTITUTIONAL: Sitting up to the bedside chair in the intensive care unit, appears comfortable, cooperative, no apparent acute distress. HEENT: Neck is supple, no JVD, no lymphadenopathy. RESPIRATORY: Lungs sounds essentially clear throughout, diminished to his bilateral bases. Respirations are symmetrical and nonlabored. Currently on 2 L nasal cannula with oxygen saturations 95%. Able to achieve 1500 mL on his incentive spirometry. Strong cough. CARDIOVASCULAR: Regular rhythm and rate. S1 and S2 present, negative for S3, gallop or murmur. Sternum is stable. Palpable peripheral pulses bilaterally, trace edema to his bilateral lower extremities. No calf pain or tenderness note d. Heart hugger in place with patient demonstrating appropriate use. Knee-high PAVITHRA hose and sequential compression devices in place to his bilateral lower extremities. GASTROINTESTINAL: Abdomen soft, nontender, nondistended. Active bowel sounds present 4 quadrants. Tolerating diet. Passing flatus. No guarding or rigidity. GENITOURINARY: Continues to void. Urine output 400 mL in the last 8 hours. INTEGUMENTARY: Skin is warm and dry with no evidence of clubbing or cyanosis. Midline sternal incision clean dry and well approximated, covered with dry intact dressing. Left lower extremity EVH sites well approximated without redness or drainage. Left arm radial artery harvest sites clean, dry and approximated. No drainage or redness is present. NEUROLOGIC: Cranial nerves II through XII intact. No focal deficits. MUSKULOSKELETAL: Able to move all extremities, strength equal bilaterally, generalized weakness. PSYCHIATRIC: Alert and oriented to person place and time, appropriate affect, intact judgment and insight. INVASIVE LINES AND TUBES: Mediastinal chest tube present and connected to low continuous wall suction, no air leaks present. Mediastinal tube with 50 mL output in the last 24 hours. Atrial and ventricular epicardial pacemaker wires present, connected to generator, VVI backup rate 50 bpm. - Allied health notes Allied health notes reviewed: nursing - Labs CBC & Chem 7: 07/18/23 06:02 07/18/23 06:02 Labs: Abnormal Lab Results - Last 24 Hours (Table) 07/17/23 07/17/23 07/17/23 Range/Units 10:34 16:14 20:17 RBC (4.30-5.90) m/uL Hgb (13.0-17.5) gm/dL Hct (39.0-53.0) % Plt Count (150-450) k/uL Sodium (137-145) mmol/L Carbon Dioxide (22-30) mmol/L BUN (9-20) mg/dL Glucose (74-99) mg/dL POC Glucose (mg/dL) 154 H 123 H 140 H (70-110) mg/dL Total Protein (6.3-8.2) g/dL Albumin (3.5-5.0) g/dL 07/18/23 07/18/23 07/18/23 Range/Units 06:02 06:02 06:16 RBC 2.23 L (4.30-5.90) m/uL Hgb 7.3 L (13.0-17.5) gm/dL Hct 22.0 L (39.0-53.0) % Plt Count 124 L (150-450) k/uL Sodium 132 L (137-145) mmol/L Carbon Dioxide 21 L (22-30) mmol/L BUN 38 H (9-20) mg/dL Glucose 126 H (74-99) mg/dL POC Glucose (mg/dL) 158 H (70-110) mg/dL Total Protein 5.3 L (6.3-8.2) g/dL Albumin 3.1 L (3.5-5.0) g/dL - Imaging and Cardiology Chest x-ray: report reviewed, image reviewed Assessment and Plan Assessment: Multivesselc artery disease, left main disease, status post three-vessel coronary artery bypass grafting Chest pain, shortness of breath secondary to above Hypertension Bradycardia with Mobitz type I heart block History of gout Lifetime nonsmoker, with a preoperative FEV1 69% of predicted value with a baseball Merrick 2.15 L Postoperative acute blood loss anemia, expected given hemodilution and ca rdiopulmonary bypass Plan: Continue to maximize medical therapy with aspirin, and statin. Continue to hold beta [place] per Dr. Sr from cardiology. Keep atrial and ventricular epicardial pacemaker wires in place and connected to backup bedside pacemaker generator on a VVI 50 as the patient is currently showing a second-degree Mobitz type I on his bedside telemetry. Continue amlodipine 2.5 mg by mouth daily for radial artery spasm prophylaxis with hold parameters. Wean O2 as tolerated. Encourage incentive spirometry use 10 times every hour while awake. Bronchodilators per pulmonology Will monitor daily labs and chest x-rays, electrolyte replacement per protocol. Increase activity, ambulate as tolerated. PT/OT/cardiac rehab following. GI/DVT prophylaxis. Insulin management per internal medicine. Patient should remain on insulin drip for 48 hours, then may transition to subcutaneous insulin. Pain control with current medication regimen. Remove mediastinal chest tube. Continue to record strict inaccurate I's and O's. Bladder scan every 6 hours a nd when necessary postvoid residual. If greater than 300 mL of urine may straight cath. Continue Flomax 0.4 mg by mouth PC breakfast. Daily weights. Keep in the intensive care unit. More recommendations to follow based on patient's clinical course. Time with Patient: Greater than 30
--- NOTE | 2023-07-18 10:10 | P.PN ---
Subjective Progress Note Date: 07/18/23 Principal diagnosis: Coronary artery disease. Pulmonary consult dated 07/13/2023. 78-year-old male who recently had a cardiac catheterization that showed severely calcified coronary arteries, severe left main disease, and severe LAD and right coronary artery disease. According to cardiothoracic surgery, the patient is scheduled to have bypass grafting, on July 15, with Dr. Spain. The patient's FEV1 was 69% predicted or 2.15 L. The patient is a lifelong nons moker. His primary care physician is Dr. Cabrera. We are asked to see the patient preoperatively. The patient has no known history of any lung disease. He is a lifelong nonsmoker. He denies any asthma, emphysema, COPD, etc. Seen in consultation on July 06, by Dr. Hernandez, for chest pain. The patient has a history of hypertension, and gout. His home medications include lisinopril, Imdur, aspirin, allopurinol, multiple vitamins, and Indocin. The patient is seen in room 368. The patient is resting comfortably. The patient is currently on IV heparin. Currently labs include a white count 7.3, hemoglobin 13.4, hematocrit 40.8, and a normal platelet count. PTT is 63.9. Sodium 141, p otassium 4.3, chlorides 110, CO2 18, anion gap 13, BUN 23, and creatinine 0.89. Glucose 107. TSH is normal. Chest CT, showed no acute abnormality in the chest. Progress note dated 07/14/2023. 78-year-old male that we saw yesterday in consultation. The patient has significant coronary disease, and is scheduled for bypass surgery tomorrow. He is currently on room air. He is resting comfortably in room 368. Is getting saline at 10 mL an hour, and IV heparin, via weightbase protocol. The patient is not having any difficulty breathing, or chest pain. His FEV1 was 2.15 L. Based on that number alone, the patient's at increased operative risk. Current labs include a white count 7.2, hemoglobin 12.1, hematocrit 35.9, and a platelet count of 185,000. PTT is 55.0. Progress note dated 07/15/2023. 78-year-old male, postop day 0, status post three-vessel bypass grafting. Surgery was done by Dr. Spain. Currently, the patient is in the intensive care unit, on the mechanical ventilator. Ventilator settings include the volume assist control, rate 14, tidal volume 550, FiO2 80%, and PEEP of 8. Initial blood gases show pO2 of 163, pCO2 of 38, and a pH is 7.41. I told the nurse, to other respiratory, to start weaning the FiO2. The patient's currently on nitroglycerin at 5 mcg/m, propofol at 20 mcg/kg/m, and lactated Ringer's at 50 mL an hour. The patient's cardiac output is 5.7 with an index of 2.5. CVP is 10, and pulmonary artery pressures 28/14. Labs include a white count 7.7, hemoglobin 8.7, hematocrit 24.8, and a platelet count of 100,000. Additional labs include a sodium 140, potassium 4.2, chlorides 109, CO2 21, BUN 18, creatinine 0.92. Chest x-ray shows post-CABG changes, with left-sided chest tube, a small left-sided pleural effusion, and some basilar atelectasis. In addition, there may be some mild pulmonary vascular congestion. A Pinckney-Ron catheter is noted. Progress note dated 07/16/2023. 78-year-old male, postop day #1, status post three-vessel bypass surgery. Surgery was done by Dr. Spain. The patient was seen yesterday after surgery, on the ventilator. He is now on 2 L by nasal cannula. He was extubated yesterday. He continues on lactated Ringer's at 50 mL an hour, and insulin drip of 4.5 units an hour, nitroglycerin at 5 mcg/m. He is resting comfortably in a chair next to his hospital bed. White count 7.2, hemoglobin 8.2, hematocrit 24.5, and platelet count 111,000. Sodium 139, potassium 4.2, chlorides 108, CO2 23, BUN 16, and creatinine 0.8. Chest x-ray shows some postoperative atelectasis, diffuse infiltrates. Progress note dated 07/17/2023. 78-year-old male seen in room 266. He is postop day #2, status post three- vessel bypass surgery. His surgery was done by Dr. Spain. He is currently on room air. He's got an insulin drip at 2.5 units an hour, and saline at 10 mL an hour. The patient sitting in a chair, next to his hospital bed. He looks very stable, without any respiratory issues. White count 9, he will him some 0.5, hematocrit 21.9, with a platelet count of 110,000. Sodium 135, potassium 4.1, chlorides 103, CO2 24, BUN 23, and creatinine 1.08. Albumin is 3.2. Chest x- ray shows cardiomegaly, with mild pulmonary vascular congestion. There is no pneumothorax. Progress note dated 07/18/2023. 78-year-old male, postop day #3, status post three-vessel bypass surgery. The patient is currently on 2 L of oxygen. No IV fluids are currently running. Pacer wires remain in place. The patient is doing relatively well. White count 7.9, hemoglobin 7.3, hematocrit 22, platelet count 124,000. Sodium 132, potassium 4.6, chlorides 101, CO2 21, BUN 38, and creatinine 1.07. Albumin is 3.1. Chest x-ray shows improving volume status. Objective - Vital Signs Vital signs: Vital Signs Temp 98.4 F 07/18/23 04:00 Pulse 76 07/18/23 09:00 Resp 25 H 07/18/23 09:00 BP 132/72 07/18/23 09:00 Pulse Ox 95 07/18/23 09:00 FiO2 40 07/15/23 18:30 Intake & Output 07/17/23 07/18/23 07/18/23 18:59 06:59 18:59 Intake Total 826.851 5877 250 Output Total 975 465 12 Balance -409.008 615 238 Weight 108.8 kg Intake: IV 150 .9NS Pressure Bags 30 Lactated Ringers 1,000 ml 120 @ 20 mls/hr IV .Q24H ARTURO Rx#:[id number] Intake, IV Titration 15.992 Amount Insulin Regular 100 unit 15.992 In Sodium Chloride 0.9% 100 ml @ Per Protocol IV .Q0M ARTURO Rx#:[id number] Oral 400 1080 250 Output: Chest Tube Drainage 190 65 12 Chest Tube Mediastinal 65 12 Left Pleural 70 Mediastinal and Right 120 Pleural Urine 785 400 0 Other: Voiding Method Indwelling Catheter Urinal Urinal ABP, PAP, CO, CI - Last Documented Arterial Blood Pressure 154/39 Pulmonary Artery Pressure 23/7 Cardiac Output 5.7 Cardiac Index 2.5 - Exam No acute distress, awake and alert, currently on 2 L nasal cannula. HEENT examination is grossly unremarkable. Neck supple. Full range of motion. No adenopathy thyromegaly or neck vein distention. Cardiovascular examination reveals regular rhythm rate. S1-S2 normal. No S3 or S4. No discernible murmur noted. Heart rate 76 bpm. Lungs reveal clear breath sounds. Breath sounds are equal bilaterally. No adventitious lung sounds including wheezes rhonchi or crackles. Saturations are 95 %. Abdomen soft without bowel sounds. Extremities are intact. No cyanosis clubbing or edema. Skin is without rash or lesion. Neurologic examination is brief but nonfocal. - Labs CBC & Chem 7: 07/18/23 06:02 07/18/23 06:02 Labs: Abnormal Lab Results - Last 24 Hours (Table) 07/17/23 07/17/23 07/17/23 Range/Units 10:34 16:14 20:17 RBC (4.30-5.90) m/uL Hgb (13.0-17.5) gm/dL Hct (39.0-53.0) % Plt Count (150-450) k/uL Sodium (137-145) mmol/L Carbon Dioxide (22-30) mmol/L BUN (9-20) mg/dL Glucose (74-99) mg/dL POC Glucose (mg/dL) 154 H 123 H 140 H (70-110) mg/dL Total Protein (6.3-8.2) g/dL Albumin (3.5-5.0) g/dL 07/18/23 07/18/23 07/18/23 Range/Units 06:02 06:02 06:16 RBC 2.23 L (4.30-5.90) m/uL Hgb 7.3 L (13.0-17.5) gm/dL Hct 22.0 L (39.0-53.0) % Plt Count 124 L (150-450) k/uL Sodium 132 L (137-145) mmol/L Carbon Dioxide 21 L (22-30) mmol/L BUN 38 H (9-20) mg/dL Glucose 126 H (74-99) mg/dL POC Glucose (mg/dL) 158 H (70-110) mg/dL Total Protein 5.3 L (6.3-8.2) g/dL Albumin 3.1 L (3.5-5.0) g/dL Assessment and Plan Assessment: Chest pain, secondary to severe coronary artery disease, including left main disease, and severe disease in the LAD, and right coronary artery. Status post three-vessel bypass grafting, 07/15/2023, postop day #3. Routine postoperative ventilator management. History of hypertension. History of gout. Lifelong nonsmoker. No history of any pulmonary disease. Plan: Plan dated 07/13/2023. The patient apparently is going to have open heart surgery, on July 15, with Dr. Spain. The patient is cleared from the pulmonary standpoint. The patient has no history of any pulmonary disease, and he is a lifelong nonsmoker. In addition, his FEV1 is reported to be 69% of predicted, or 2.15 L, which makes him at no increased operative risk, from the pulmonary standpoint. Labs, x-rays, and medications are reviewed. We will continue to follow. Prognosis is guarded. Plan dated 07/14/2023. The patient is seen today in room 368. We saw him yesterday in consultation. The patient is a lifelong nonsmoker. His FEV1 was adequate. We explained our role in the process. He understands. We recommended, continued use of the incentive spirometer, after surgery. Labs, x-rays, medications are reviewed. We will continue to follow. Plan dated 07/15/2023. The patient is seen in the intensive care unit, room 266. Currently, the patient remains on the ventilator, as he's just gotten back from the operating room. Once he wakes up, we'll attempt to wean him as soon as possible. He's o nly on nitroglycerin at 5 mcg/m, and propofol at 20 mcg/kg/m. He is also getting lactated Ringer's at 50 mL an hour. The patient had a three-vessel bypass surgery. His cardiac output is 5.7, and his index is 2.5. Additional recommendations and suggestions are forthcoming. Labs, x-rays, and medications are reviewed. Prognosis is guarded. Plan dated 07/16/2023. The patient is seen today in room 266. He was extubated yesterday, on July 15. The patient is doing very well. The patient's currently on 2 L of oxygen. The patient is receiving lactated Ringer's at 50 mL an hour, insulin drip at 4.5 units an hour, and nitroglycerin at 5 mcg/m. Labs, x-rays, and medications are reviewed. We will encourage him to use the incentive spirometer every hour. We'll also encourage deep breathing, coughing, and clearing of secretions. Prognosis is guarded. Plan dated 07/17/2023. The patient is seen in room 266. He's postop day #2. Is currently on room air. He is getting an insulin drip at 2.5 units an hour. The patient's getting saline at 10 mL an hour. Labs, x-rays, and medications are reviewed. His chest x-ray shows cardiomegaly, with mild pulmonary vascular congestion. There is no pneumothorax. We will continue to follow the patient, and make recommendations along the way. Prognosis is guarded. Plan dated 07/18/2023. The patient appears to be doing relatively well. Seen again in room 266. He is either on room air, or 2 L. No IV fluids are running. Clinically, the patient has been very stable. Labs, x-rays, and medications are reviewed. Pacer wires remain. Mediastinal chest tube was removed. Labs, x-rays, and medications are reviewed. We will continue to follow the patient, and make recommendations along the way. Prognosis is guarded. Time with Patient: Less than 30
[2023-07-18 11:16] LABS: Glucose,Whole Blood 162 mg/dL (70-110)
--- NOTE | 2023-07-18 12:04 | P.PN ---
Subjective Progress Note Date: 07/18/23 This is Ruben Jose NP, I'm dictating on behalf of Dr. Sr's H&P and A&P. Patient was interviewed and examined. Patient is a pleasant 78-year-old male who underwent triple vessel coronary artery bypass grafting 3 days ago. This morning the patient is examined sitting in a chair. He reports that he feels okay today. He is reporting some postoperative weakness. He states that his pain is controlled. Patient's heart rate appears to be much better than yesterday. Patient was having episodes of slow atrial tachycardia with first-degree AV block and second-degree block type I. The patient now appears to be steady and a second-degree heart block Mobitz type I. he's currently denying cough and shortness of breath. He reports that he is working with his incentive spirometer. GENERAL: Well-appearing, well-nourished and in no acute distress. NECK: Supple without JVD or thyromegaly. LUNGS: Breath sounds clear to auscultation bilaterally. Respiration equal and unlabored. No wheezes, rales or rhonchi. HEART: Regular rate and rhythm without murmurs, rubs or gallops. S1 and S2 heard. EXTREMITIES: Normal range of motion, no edema. No clubbing or cyanosis. Peripheral pulses intact and strong. VITALS: Temp 98.4, pulse 66, respirations 16, blood pressure 115/67, O2 saturation 91% on room air TELEMETRY: Second-degree heart block Mobitz type I LABS: White count 7.9, hemoglobin 7.3, platelets 124, sodium 132, potassium 4.6, BUN 38, creatinine 1.07 IMPRESSION: 1. Multivessel coronary artery disease 2. Status post triple vessel coronary artery bypass grafting 3. Hypertension 4. Atrial tachycardia with first-degree AV block, with subsequent second-degree block type I PLAN: Continue current medications as ordered. Do not give beta blockers. Continue to monitor telemetry. Continue to watch blood pressure. Further recommendations based on patient's clinical course. Objective - Vital Signs Vital signs: Vital Signs Temp 98.4 F 07/18/23 04:00 Pulse 64 07/18/23 11:00 Resp 25 H 07/18/23 11:00 BP 131/61 07/18/23 11:00 Pulse Ox 94 L 07/18/23 11:00 FiO2 40 07/15/23 18:30 Intake & Output 07/17/23 07/18/23 07/18/23 18:59 06:59 18:59 Intake Total 790.700 6738 250 Output Total 975 465 12 Balance -409.008 615 238 Weight 108.8 kg Intake: IV 150 .9NS Pressure Bags 30 Lactated Ringers 1,000 ml 120 @ 20 mls/hr IV .Q24H [facility]O Rx#:[id number] Intake, IV Titration 15.992 Amount Insulin Regular 100 unit 15.992 In Sodium Chloride 0.9% 100 ml @ Per Protocol IV .Q0M [facility]O Rx#:[id number] Oral 400 1080 250 Output: Chest Tube Drainage 190 65 12 Chest Tube Mediastinal 65 12 Left Pleural 70 Mediastinal and Right 120 Pleural Urine 785 400 0 Other: Voiding Method Indwelling Catheter Urinal Urinal ABP, PAP, CO, CI - Last Documented Arterial Blood Pressure 154/39 Pulmonary Artery Pressure 23/7 Cardiac Output 5.7 Cardiac Index 2.5 - Labs CBC & Chem 7: 07/18/23 06:02 07/18/23 06:02 Labs: Abnormal Lab Results - Last 24 Hours (Table) 07/17/23 07/17/23 07/18/23 Range/Units 16:14 20:17 06:02 RBC 2.23 L (4.30-5.90) m/uL Hgb 7.3 L (13.0-17.5) gm/dL Hct 22.0 L (39.0-53.0) % Plt Count 124 L (150-450) k/uL Sodium (137-145) mmol/L Carbon Dioxide (22-30) mmol/L BUN (9-20) mg/dL Glucose (74-99) mg/dL POC Glucose (mg/dL) 123 H 140 H (70-110) mg/dL Total Protein (6.3-8.2) g/dL Albumin (3.5-5.0) g/dL 07/18/23 07/18/23 07/18/23 Range/Units 06:02 06:16 11:14 RBC (4.30-5.90) m/uL Hgb (13.0-17.5) gm/dL Hct (39.0-53.0) % Plt Count (150-450) k/uL Sodium 132 L (137-145) mmol/L Carbon Dioxide 21 L (22-30) mmol/L BUN 38 H (9-20) mg/dL Glucose 126 H (74-99) mg/dL POC Glucose (mg/dL) 158 H 162 H (70-110) mg/dL Total Protein 5.3 L (6.3-8.2) g/dL Albumin 3.1 L (3.5-5.0) g/dL
[2023-07-18] MEDS: METOCLOPRAMIDE 5 MG/ML 2 ML VIAL IVP PRN (13:01)
[2023-07-18 16:37] LABS: Glucose,Whole Blood 145 mg/dL (70-110)
[2023-07-18] MEDS: ACETAMINOPHEN TAB 500 MG TAB PO PRN (19:46)
[2023-07-18] MEDS: SENNOSIDES-DOCUSATE SODIUM 1 EACH TAB PO SCH (19:48)
[2023-07-18 20:07] LABS: Glucose,Whole Blood 144 mg/dL (70-110)
[2023-07-19 04:06] LABS: Basophils % (A) 0 %; Eosinophils # (A) 0.2 k/uL (0-0.7); Eosinophils % (A) 3 %; HCT 20.4 % (39.0-53.0); Lymphocytes # (A) 1.6 k/uL (1.0-4.8); Lymphocytes % (A) 19 %; MCH 32.7 pg (25.0-35.0); MCHC 33.2 g/dL (31.0-37.0); MCV 98.5 fL (80.0-100.0); Mean Platelet Volume 9.3; Monocytes # (A) 0.6 k/uL (0-1.0); Monocytes % (A) 7 %; Neutrophils # (A) 5.7 k/uL (1.3-7.7); Neutrophils % (A) 69 %; Platelet Count 158 k/uL (150-450); RBC 2.07 m/uL (4.30-5.90); RDW 14.4 % (11.5-15.5); WBC 8.4 k/uL (3.8-10.6)
[2023-07-19 04:27] LABS: ALT 29 U/L (4-49); AST 40 U/L (17-59); African American GFR (CKD) 73 (>60 ml/min/1.73 sqM); Albumin 2.8 g/dL (3.5-5.0); Alkaline Phosphatase 49 U/L (38-126); Anion Gap 11 mmol/L; Blood Urea Nitrogen 41 mg/dL (9-20); Calcium 8.4 mg/dL (8.4-10.2); Carbon Dioxide 21 mmol/L (22-30); Chloride 100 mmol/L (98-107); Glucose 117 mg/dL (74-99); Non-African American GFR(CKD) 63 (>60 ml/min/1.73 sqM); Potassium 4.4 mmol/L (3.5-5.1); Sodium 132 mmol/L (137-145); Total Bilirubin 0.7 mg/dL (0.2-1.3); Total Protein 4.9 g/dL (6.3-8.2)
[2023-07-19 04:35] LABS: HGB 6.8 gm/dL (13.0-17.5)
[2023-07-19 06:33] LABS: Glucose,Whole Blood 151 mg/dL (70-110)
[2023-07-19] MEDS: INSULIN ASPART (NovoLOG) 100 UNIT/ML VIAL SQ SCH ×4 (06:41→20:00)
[2023-07-19] MEDS: PANTOPRAZOLE 40 MG TABLET PO SCH (06:41)
--- NOTE | 2023-07-19 08:26 | P.PN ---
Subjective Progress Note Date: 07/19/23 Principal diagnosis: Multivessel coronary artery disease, with left main disease. Past medical history significant for hypertension, bradycardia with second-degree heart block Mobitz type I, gout and is a lifetime nonsmoker with a preoperative FEV1 69% of predicted value and a base volume of 2.15 L. POD #4 Coronary artery bypass grafting x 3. Left internal thoracic artery (in- situ) to left anterior descending coronary artery. Left radial artery from aorta to obtuse marginal artery #1. Saphenous vein from aorta to posterior descending coronary artery. Left atrial appendage ligation using #35 AtriClip, endoscopic left radial and left greater saphenous vein harvest, graft flow measurements using the medi-stim flow meter, and intraoperative transesophageal echocardiogram performed by anesthesia. Postoperative acute blood loss anemia, expected given hemodilution and car diopulmonary bypass. Patient was seen and examined in follow-up today 07/19/2023 at his bedside in the intensive care unit. He is currently sitting up to the bedside chair, is awake, alert, oriented 3 and is in no acute apparent distress. He denies any complaints of pain or shortness of breath at this time, although he is complaining of feeling of generalized weakness. Oxygen saturations are 92% on room air and he is achieving 1500 mL on his incentive spirometry. Bedside telemetry is showing normal sinus rhythm with first-degree heart block and occasional PACs heart rate 89 BPM. He remains hemodynamically stable and is currently on no inotropic pressor support. Atrial and ventricular epicardial pacemaker wires remain in place and connected to backup bedside pacemaker generator on a VVI of 50 BPM. The patient has been up ambulating in the intensive care unit hallway with standby assistance of nursing and therapy staff and tolerating well. Laboratory and chest x-ray results reviewed. Objective - Vital Signs Vital signs: Vital Signs Temp 99 F 07/19/23 04:00 Pulse 81 07/19/23 07:00 Resp 22 07/19/23 07:00 BP 146/68 07/19/23 07:00 Pulse Ox 93 L 07/19/23 07:00 FiO2 40 07/15/23 18:30 Intake & Output 07/18/23 07/19/23 07/19/23 18:59 06:59 18:59 Intake Total 1150 600 Output Total 312 549 Balance 838 51 Weight 107.6 kg Intake: Oral 1150 600 Output: Chest Tube Drainage 12 Chest Tube Mediastinal 12 Urine 300 450 Post Void Residual 99 Other: Voiding Method Urinal Urinal # Voids 1 # Bowel Movements 2 ABP, PAP, CO, CI - Last Documented Arterial Blood Pressure 154/39 Pulmonary Artery Pressure 23/7 Cardiac Output 5.7 Cardiac Index 2.5 - Exam CONSTITUTIONAL: Sitting up to the bedside chair in the intensive care unit, appears comfortable, cooperative, no apparent acute distress. HEENT: Neck is supple, no JVD, no lymphadenopathy. RESPIRATORY: Lungs sounds essentially clear throughout, diminished to his bilateral bases. Respirations are symmetrical and nonlabored. Currently on room air with oxygen saturations 92%. Able to achieve 1500 mL on his incentive spirometry. Strong cough. CARDIOVASCULAR: Regular rhythm and rate. S1 and S2 present, negative for S3, gallop or murmur. Sternum is stable. Palpable peripheral pulses bilaterally, trace edema to his bilateral lower extremities. No calf pain or tenderness not ed. Heart hugger in place with patient demonstrating appropriate use. Knee- high PAVITHRA hose and sequential compression devices in place to his bilateral lower extremities. GASTROINTESTINAL: Abdomen soft, nontender, nondistended. Active bowel sounds present 4 quadrants. Tolerating diet. Passing flatus. No guarding or rigidity. Bowel movement yesterday 07/18/2023. GENITOURINARY: Continues to void. Urine output 450 mL in the last 8 hours. INTEGUMENTARY: Skin is warm and dry with no evidence of clubbing or cyanosis. Midline sternal incision clean dry and well approximated, covered with dry intact dressing. Left lower extremity EVH sites well approximated without redness or drainage. Left arm radial artery harvest sites clean, dry and approximated. No drainage or redness is present. NEUROLOGIC: Cranial nerves II through XII intact. No focal deficits. MUSKULOSKELETAL: Able to move all extremities, strength equal bilaterally, generalized weakness. PSYCHIATRIC: Alert and oriented to person place and time, appropriate affect, intact judgment and insight. INVASIVE LINES AND TUBES: Atrial and ventricular epicardial pacemaker wires present, connected to generator, VVI backup rate 50 bpm. - Allied health notes Allied health notes reviewed: nursing - Labs CBC & Chem 7: 07/19/23 03:48 07/19/23 03:48 Labs: Abnormal Lab Results - Last 24 Hours (Table) 07/18/23 07/18/23 07/18/23 Range/Units 11:14 16:36 20:06 RBC (4.30-5.90) m/uL Hgb (13.0-17.5) gm/dL Hct (39.0-53.0) % Sodium (137-145) mmol/L Carbon Dioxide (22-30) mmol/L BUN (9-20) mg/dL Glucose (74-99) mg/dL POC Glucose (mg/dL) 162 H 145 H 144 H (70-110) mg/dL Total Protein (6.3-8.2) g/dL Albumin (3.5-5.0) g/dL 07/19/23 07/19/23 07/19/23 Range/Units 03:48 03:48 06:31 RBC 2.07 L (4.30-5.90) m/uL Hgb 6.8 L* (13.0-17.5) gm/dL Hct 20.4 L (39.0-53.0) % Sodium 132 L (137-145) mmol/L Carbon Dioxide 21 L (22-30) mmol/L BUN 41 H (9-20) mg/dL Glucose 117 H (74-99) mg/dL POC Glucose (mg/dL) 151 H (70-110) mg/dL Total Protein 4.9 L (6.3-8.2) g/dL Albumin 2.8 L (3.5-5.0) g/dL - Imaging and Cardiology Chest x-ray: report reviewed, image reviewed Assessment and Plan Assessment: Multivesselc artery disease, left main disease, status post three-vessel coronary artery bypass grafting Chest pain, shortness of breath secondary to above Hypertension Bradycardia with Mobitz type I heart block History of gout Lifetime nonsmoker, with a preoperative FEV1 69% of predicted value with a baseball Forrest 2.15 L Postoperative acute blood loss anemia, expected given hemodilution and cardiopulmonary bypass Plan: Continue to maximize medical therapy with aspirin, and statin. Continue to hold beta [place] per Dr. Sr from cardiology. Keep atrial and ventricular epicardial pacemaker wires in place and connected to backup bedside pacemaker generator on a VVI 50 as the patient is currently showing normal sinus rhythm with a first-degree heart block and occasional PACs heart rate 89 BPM. Continue amlodipine 2.5 mg by mouth daily for radial artery spasm prophylaxis with hold parameters. Encourage incentive spirometry use 10 times every hour while awake. Bronchodilators per pulmonology Will monitor daily labs and chest x-rays, electrolyte replacement per protocol. We will repeat a CBC at noon today to recheck a hemoglobin with results called to Dr. Spain. Increase activity, ambulate as tolerated. PT/OT/cardiac rehab following. GI/DVT prophylaxis. Insulin management per internal medicine. Patient should remain on insulin drip for 48 hours, then may transition to subcutaneous insulin. Pain control with current medication regimen. Continue to record strict inaccurate I's and O's. Bladder scan every 6 hours and when necessary postvoid residual. If greater than 300 mL of urine may straight cath. Continue Flomax 0.4 mg by mouth PC breakfast. Daily weights. Keep in the intensive care unit. More recommendations to follow based on patient's clinical course. Time with Patient: Greater than 30
[2023-07-19] MEDS: ASCORBIC ACID 500 MG TAB PO SCH ×2 (08:30→20:00)
[2023-07-19] MEDS: HEPARIN SODIUM,PORCINE 5,000 UNIT/ML 1 ML VIAL SQ SCH ×2 (08:30→18:21)
[2023-07-19] MEDS: TAMSULOSIN 0.4 MG CAP.ER.24H PO SCH (08:30)
[2023-07-19] MEDS: FERROUS SULFATE 325 MG TAB PO SCH ×2 (08:30→18:21)
[2023-07-19] MEDS: amLODIPine 2.5 MG TAB PO SCH (08:31)
[2023-07-19] MEDS: CLOPIDOGREL 75 MG TAB PO SCH (08:31)
[2023-07-19] MEDS: ATORVASTATIN 40 MG TAB PO SCH (08:31)
[2023-07-19] MEDS: ASPIRIN 325 MG TAB PO SCH (08:31)
[2023-07-19] MEDS: IPRATROPIUM-ALBUTEROL 3 ML NEB INHALATION SCH ×4 (08:56→20:34)
--- NOTE | 2023-07-19 09:53 | XR ---
EXAMINATION TYPE: XR chest 2V DATE OF EXAM: 07/19/2023 COMPARISON: 07/18/2023 HISTORY: 78-year-old male postop CABG TECHNIQUE: PA and lateral views FINDINGS: Median sternotomy wires are present. Post CABG clips. Heart borderline enlarged. Mild hyperinflation. Diffuse interstitial densities persist. Ongoing small left and trace right pleural effusions and pat marianela left basilar opacity. Old right-sided rib fracture deformities. IMPRESSION: Ongoing mild pulmonary vascular congestion. Ongoing small left and trace right pleural effusions with adjacent atelectasis and/or consolidation.
--- NOTE | 2023-07-19 10:44 | P.PN ---
Subjective Progress Note Date: 07/19/23 Principal diagnosis: Coronary artery disease. Pulmonary consult dated 07/13/2023. 78-year-old male who recently had a cardiac catheterization that showed severely calcified coronary arteries, severe left main disease, and severe LAD and right coronary artery disease. According to cardiothoracic surgery, the patient is scheduled to have bypass grafting, on July 15, with Dr. Spain. The patient's FEV1 was 69% predicted or 2.15 L. The patient is a lifelong nons moker. His primary care physician is Dr. Cabrera. We are asked to see the patient preoperatively. The patient has no known history of any lung disease. He is a lifelong nonsmoker. He denies any asthma, emphysema, COPD, etc. Seen in consultation on July 06, by Dr. Hernandez, for chest pain. The patient has a history of hypertension, and gout. His home medications include lisinopril, Imdur, aspirin, allopurinol, multiple vitamins, and Indocin. The patient is seen in room 368. The patient is resting comfortably. The patient is currently on IV heparin. Currently labs include a white count 7.3, hemoglobin 13.4, hematocrit 40.8, and a normal platelet count. PTT is 63.9. Sodium 141, p otassium 4.3, chlorides 110, CO2 18, anion gap 13, BUN 23, and creatinine 0.89. Glucose 107. TSH is normal. Chest CT, showed no acute abnormality in the chest. Progress note dated 07/14/2023. 78-year-old male that we saw yesterday in consultation. The patient has significant coronary disease, and is scheduled for bypass surgery tomorrow. He is currently on room air. He is resting comfortably in room 368. Is getting saline at 10 mL an hour, and IV heparin, via weightbase protocol. The patient is not having any difficulty breathing, or chest pain. His FEV1 was 2.15 L. Based on that number alone, the patient's at increased operative risk. Current labs include a white count 7.2, hemoglobin 12.1, hematocrit 35.9, and a platelet count of 185,000. PTT is 55.0. Progress note dated 07/15/2023. 78-year-old male, postop day 0, status post three-vessel bypass grafting. Surgery was done by Dr. Spain. Currently, the patient is in the intensive care unit, on the mechanical ventilator. Ventilator settings include the volume assist control, rate 14, tidal volume 550, FiO2 80%, and PEEP of 8. Initial blood gases show pO2 of 163, pCO2 of 38, and a pH is 7.41. I told the nurse, to other respiratory, to start weaning the FiO2. The patient's currently on nitroglycerin at 5 mcg/m, propofol at 20 mcg/kg/m, and lactated Ringer's at 50 mL an hour. The patient's cardiac output is 5.7 with an index of 2.5. CVP is 10, and pulmonary artery pressures 28/14. Labs include a white count 7.7, hemoglobin 8.7, hematocrit 24.8, and a platelet count of 100,000. Additional labs include a sodium 140, potassium 4.2, chlorides 109, CO2 21, BUN 18, creatinine 0.92. Chest x-ray shows post-CABG changes, with left-sided chest tube, a small left-sided pleural effusion, and some basilar atelectasis. In addition, there may be some mild pulmonary vascular congestion. A [place]-Ron catheter is noted. Progress note dated 07/16/2023. 78-year-old male, postop day #1, status post three-vessel bypass surgery. Surgery was done by Dr. Spain. The patient was seen yesterday after surgery, on the ventilator. He is now on 2 L by nasal cannula. He was extubated yesterday. He continues on lactated Ringer's at 50 mL an hour, and insulin drip of 4.5 units an hour, nitroglycerin at 5 mcg/m. He is resting comfortably in a chair next to his hospital bed. White count 7.2, hemoglobin 8.2, hematocrit 24.5, and platelet count 111,000. Sodium 139, potassium 4.2, chlorides 108, CO2 23, BUN 16, and creatinine 0.8. Chest x-ray shows some postoperative atelectasis, diffuse infiltrates. Progress note dated 07/17/2023. 78-year-old male seen in room 266. He is postop day #2, status post three- vessel bypass surgery. His surgery was done by Dr. Spain. He is currently on room air. He's got an insulin drip at 2.5 units an hour, and saline at 10 mL an hour. The patient sitting in a chair, next to his hospital bed. He looks very stable, without any respiratory issues. White count 9, he will him some 0.5, hematocrit 21.9, with a platelet count of 110,000. Sodium 135, potassium 4.1, chlorides 103, CO2 24, BUN 23, and creatinine 1.08. Albumin is 3.2. Chest x- ray shows cardiomegaly, with mild pulmonary vascular congestion. There is no pneumothorax. Progress note dated 07/18/2023. 78-year-old male, postop day #3, status post three-vessel bypass surgery. The patient is currently on 2 L of oxygen. No IV fluids are currently running. Pacer wires remain in place. The patient is doing relatively well. White count 7.9, hemoglobin 7.3, hematocrit 22, platelet count 124,000. Sodium 132, potassium 4.6, chlorides 101, CO2 21, BUN 38, and creatinine 1.07. Albumin is 3.1. Chest x-ray shows improving volume status. Progress note dated 07/19/2023. The patient is again seen today in room 266. He's on room air. No IV fluids. His hemoglobin is 6.8. There are some consideration by the primary staff, and placing a pacemaker in this patient. The patient is postop day #4, status post three-vessel bypass surgery. White count 8.4, hemoglobin 6.8, hematocrit 20.4, and platelet count was normal. Sodium 132, potassium 4.4, chlorides 100, CO2 21, BUN 41, and creatinine 1.12. Albumin is 2.8. Chest x-ray shows some mild fluid overload. Objective - Vital Signs Vital signs: Vital Signs Temp 99 F 07/19/23 04:00 Pulse 68 07/19/23 09:12 Resp 22 07/19/23 07:00 BP 146/68 07/19/23 07:00 Pulse Ox 95 07/19/23 08:57 FiO2 40 07/15/23 18:30 Intake & Output 07/18/23 07/19/23 07/19/23 18:59 06:59 18:59 Intake Total 1150 600 486 Output Total 312 549 0 Balance 838 51 486 Weight 107.6 kg Intake: Oral 1150 600 486 Output: Chest Tube Drainage 12 Chest Tube Mediastinal 12 Urine 300 450 0 Post Void Residual 99 Other: Voiding Method Urinal Urinal # Voids 1 # Bowel Movements 2 ABP, PAP, CO, CI - Last Documented Arterial Blood Pressure 154/39 Pulmonary Artery Pressure 23/7 Cardiac Output 5.7 Cardiac Index 2.5 - Exam No acute distress, awake and alert, currently on room air. Saturations are 95%. HEENT examination is grossly unremarkable. Neck supple. Full range of motion. No adenopathy thyromegaly or neck vein distention. Cardiovascular examination reveals regular rhythm rate. S1-S2 normal. No S3 or S4. No discernible murmur noted. Heart rate 68 bpm. Lungs reveal clear breath sounds. Breath sounds are equal bilaterally. No adventitious lung sounds including wheezes rhonchi or crackles. Saturations are 95 %. Abdomen soft without bowel sounds. Extremities are intact. No cyanosis clubbing or edema. Skin is without rash or lesion. Neurologic examination is brief but nonfocal. - Labs CBC & Chem 7: 07/19/23 03:48 07/19/23 03:48 Labs: Abnormal Lab Results - Last 24 Hours (Table) 07/18/23 07/18/23 07/18/23 Range/Units 11:14 16:36 20:06 RBC (4.30-5.90) m/uL Hgb (13.0-17.5) gm/dL Hct (39.0-53.0) % Sodium (137-145) mmol/L Carbon Dioxide (22-30) mmol/L BUN (9-20) mg/dL Glucose (74-99) mg/dL POC Glucose (mg/dL) 162 H 145 H 144 H (70-110) mg/dL Total Protein (6.3-8.2) g/dL Albumin (3.5-5.0) g/dL 07/19/23 07/19/23 07/19/23 Range/Units 03:48 03:48 06:31 RBC 2.07 L (4.30-5.90) m/uL Hgb 6.8 L* (13.0-17.5) gm/dL Hct 20.4 L (39.0-53.0) % Sodium 132 L (137-145) mmol/L Carbon Dioxide 21 L (22-30) mmol/L BUN 41 H (9-20) mg/dL Glucose 117 H (74-99) mg/dL POC Glucose (mg/dL) 151 H (70-110) mg/dL Total Protein 4.9 L (6.3-8.2) g/dL Albumin 2.8 L (3.5-5.0) g/dL Assessment and Plan Assessment: Chest pain, secondary to severe coronary artery disease, including left main disease, and severe disease in the LAD, and right coronary artery. Status post three-vessel bypass grafting, 07/15/2023, postop day #4. Routine postoperative ventilator management. History of hypertension. History of gout. Lifelong nonsmoker. No history of any pulmonary disease. Plan: Plan dated 07/13/2023. The patient apparently is going to have open heart surgery, on July 15, with Dr. Spain. The patient is cleared from the pulmonary standpoint. The patient has no history of any pulmonary disease, and he is a lifelong nonsmoker. In addition, his FEV1 is reported to be 69% of predicted, or 2.15 L, which makes him at no increased operative risk, from the pulmonary standpoint. Labs, x-rays, and medications are reviewed. We will continue to follow. Prognosis is guarded. Plan dated 07/14/2023. The patient is seen today in room 368. We saw him yesterday in consultation. The patient is a lifelong nonsmoker. His FEV1 was adequate. We explained our role in the process. He understands. We recommended, continued use of the incentive spirometer, after surgery. Labs, x-rays, medications are reviewed. We will continue to follow. Plan dated 07/15/2023. The patient is seen in the intensive care unit, room 266. Currently, the patient remains on the ventilator, as he's just gotten back from the operating room. Once he wakes up, we'll attempt to wean him as soon as possible. He's only on nitroglycerin at 5 mcg/m, and propofol at 20 mcg/kg/m. He is also getting lactated Ringer's at 50 mL an hour. The patient had a three-vessel bypass surgery. His cardiac output is 5.7, and his index is 2.5. Additional recommendations and suggestions are forthcoming. Labs, x-rays, and medications are reviewed. Prognosis is guarded. Plan dated 07/16/2023. The patient is seen today in room 266. He was extubated yesterday, on July 15. The patient is doing very well. The patient's currently on 2 L of oxygen. The patient is receiving lactated Ringer's at 50 mL an hour, insulin drip at 4.5 units an hour, and nitroglycerin at 5 mcg/m. Labs, x-rays, and medications are reviewed. We will encourage him to use the incentive spirometer every hour. We'll also encourage deep breathing, coughing, and clearing of secretions. Prognosis is guarded. Plan dated 07/17/2023. The patient is seen in room 266. He's postop day #2. Is currently on room air. He is getting an insulin drip at 2.5 units an hour. The patient's getting saline at 10 mL an hour. Labs, x-rays, and medications are reviewed. His chest x-ray shows cardiomegaly, with mild pulmonary vascular congestion. There is no pneumothorax. We will continue to follow the patient, and make recommendations along the way. Prognosis is guarded. Plan dated 07/18/2023. The patient appears to be doing relatively well. Seen again in room 266. He is either on room air, or 2 L. No IV fluids are running. Clinically, the patient has been very stable. Labs, x-rays, and medications are reviewed. Pacer wires remain. Mediastinal chest tube was removed. Labs, x-rays, and medications are reviewed. We will continue to follow the patient, and make recommendations along the way. Prognosis is guarded. Plan dated 07/19/2023. The patient is seen today in room 266. The patient's on room air. No IV fluid s. The patient's hemoglobin is 6.8. The patient has been having abnormal rhythm, and may require a pacemaker. That decision has not been firmly made as yet. Labs, x-rays, medications are reviewed. Clinically, the patient appears to be stable. He continues on the hourly use of his incentive spirometer. Time with Patient: Less than 30
[2023-07-19 12:02] LABS: Glucose,Whole Blood 149 mg/dL (70-110)
--- NOTE | 2023-07-19 12:07 | P.PN ---
Subjective Progress Note Date: 07/19/23 The patient is a 78-year-old male who underwent triple vessel coronary bypass grafting. Postoperatively the patient has developed secondary heart block type 1. Vital signs remained stable. Patient was interviewed and examined resting comfortably in the chair. He denies any chest pain or chest pressure. No difficulty breathing. He denies any dizziness when getting up to ambulate to the chair. His only complaint is sacral discomfort. GENERAL: Well-appearing, well-nourished and in no acute distress. NECK: Supple without JVD or thyromegaly. LUNGS: Breath sounds diminished to auscultation bilaterally. Respiration equal and unlabored. No wheezes, rales or rhonchi. HEART: Regular rate and rhythm without murmurs, rubs or gallops. S1 and S2 heard. Sternotomy dressing in place EXTREMITIES: Normal range of motion, mild edema. No clubbing or cyanosis. Peripheral pulses intact and strong. TELEMETRY: Second-degree heart block IMPRESSION: Multivessel coronary artery disease Status post CABG Second-degree heart block, Mobitz type I Hypertension PLAN: Continue observation only Avoid AV zena blocking agents Continue backup epicardial pacing This is further recommendations to be based upon clinical course I am dictating on behalf of Dr Bautista Sr's history/physical and assessment/plan. Objective - Vital Signs Vital signs: Vital Signs Temp 98.0 F 07/19/23 08:00 Pulse 75 07/19/23 11:00 Resp 28 H 07/19/23 11:00 BP 111/46 07/19/23 11:00 Pulse Ox 96 07/19/23 11:00 FiO2 40 07/15/23 18:30 Intake & Output 07/18/23 07/19/23 07/19/23 18:59 06:59 18:59 Intake Total 1150 600 486 Output Total 312 549 0 Balance 838 51 486 Weight 107.6 kg Intake: Oral 1150 600 486 Output: Chest Tube Drainage 12 Chest Tube Mediastinal 12 Urine 300 450 0 Post Void Residual 99 Other: Voiding Method Urinal Urinal Urinal # Voids 1 # Bowel Movements 2 ABP, PAP, CO, CI - Last Documented Arterial Blood Pressure 154/39 Pulmonary Artery Pressure 23/7 Cardiac Output 5.7 Cardiac Index 2.5 - Labs CBC & Chem 7: 07/19/23 03:48 07/19/23 03:48 Labs: Abnormal Lab Results - Last 24 Hours (Table) 07/18/23 07/18/23 07/19/23 Range/Units 16:36 20:06 03:48 RBC 2.07 L (4.30-5.90) m/uL Hgb 6.8 L* (13.0-17.5) gm/dL Hct 20.4 L (39.0-53.0) % Sodium (137-145) mmol/L Carbon Dioxide (22-30) mmol/L BUN (9-20) mg/dL Glucose (74-99) mg/dL POC Glucose (mg/dL) 145 H 144 H (70-110) mg/dL Total Protein (6.3-8.2) g/dL Albumin (3.5-5.0) g/dL 07/19/23 07/19/23 Range/Units 03:48 06:31 RBC (4.30-5.90) m/uL Hgb (13.0-17.5) gm/dL Hct (39.0-53.0) % Sodium 132 L (137-145) mmol/L Carbon Dioxide 21 L (22-30) mmol/L BUN 41 H (9-20) mg/dL Glucose 117 H (74-99) mg/dL POC Glucose (mg/dL) 151 H (70-110) mg/dL Total Protein 4.9 L (6.3-8.2) g/dL Albumin 2.8 L (3.5-5.0) g/dL
--- NOTE | 2023-07-19 12:16 | P.PN ---
Subjective Progress Note Date: 07/19/23 Mario Cherry, is a 78-year-old male who presented to [facility] for cardiac catheterization with Dr. Hernandez, patient was having episodes of chest pain with exertion, he underwent cardiac catheterization on 07/13/2023 which was positive for severe left main disease, severe LAD disease and severe RCA disease. Patient was admitted to telemetry floor, he was started on IV heparin , cardiovascular surgery consultation was requested. Patient has a known history of hypertension, gastroesophageal reflux disease, history of gout , and history of cholecystitis with recent cholecystectomy. On review of systems patient is alert and oriented 3 in no apparent distress, there is no fever or chills no headache or dizziness no chest pain no shortness of breath no cough no nausea or vomiting no abdominal pain no diarrhea no blood in the stools no burning with urination no frequency or urgency and no hematuria. On 07/14/2023. Patient's history for coronary artery bypass graft surgery patient was evaluated by pulmonary services cleared for surgery. At this time patient denies chest pain or shortness breath. Patient denies nausea vomiting or diarrhea. Patient denies any urinary burning or frequency. Current vital signs temp 90.4, heart rate 52, respiratory rate 16, blood pressure 130/71 with a pulse ox 96% on room air. On 07/15/2023 patient was seen and examined in the ICU, patient underwent coronary artery bypass graft surgery 3 vessels, he is admitted to intensive care unit he is intubated sedated maintained on mechanical ventilation, pulmonary critical care are following, left sided chest tube in place, will follow closely. On 07/16/2023 patient is alert and oriented 3 currently sitting up in chair. Patient was extubated per protocol. Chest tubes remain in place. Patient reports generalized weakness. Patient remains in the intensive care unit 07/17/2023 patient was seen and examined in the ICU, he is alert and oriented 3 in no apparent distress, he is sitting up in a chair, chest tubes remain in place temperature is 97.9 pulse 78 respiration 16 blood pressure 100/37 pulse ox 92% on room air white blood count 9.0 hemoglobin 7.5 platelet count of 110 sodium 135 potassium 4.1 chloride 103 CO2 24 BUN 23 creatinine 1.08. At this time will discontinue insulin drip and place patient on insulin sliding scale. On 07/18/2023 patient remains in the intensive care unit. Patient alert and oriented 3 chest tubes have been removed. Patient denies chest pain some incisional pain. Patient denies shortness of breath. Patient denies nausea vomiting or diarrhea. Current vital signs heart rate 63, respiratory rate 19, blood pressure 113/55 with a pulse ox of 95% on 2 L per nursing staff patient will remain in ICU for monitoring for the next 24 hours On 07/19/2023 patient was seen and examined in the intensive care unit is alert and oriented 3 in no apparent distress he is sitting up in a chair, vital exam reveals a temperature of 98.0 pulse 74 respiration 24 blood pressure 131/55 pulse ox 92% white blood count 8.4 hemoglobin 6.8 platelet count 158 sodium 132 potassium 4.4 chloride 100 CO2 21 BUN 41 creatinine 1.12 Objective - Vital Signs Vital signs: Vital Signs Temp 98.0 F 07/19/23 08:00 Pulse 75 07/19/23 11:00 Resp 28 H 07/19/23 11:00 BP 111/46 07/19/23 11:00 Pulse Ox 96 07/19/23 11:00 FiO2 40 07/15/23 18:30 Intake & Output 07/18/23 07/19/23 07/19/23 18:59 06:59 18:59 Intake Total 1150 600 486 Output Total 312 549 0 Balance 838 51 486 Weight 107.6 kg Intake: Oral 1150 600 486 Output: Chest Tube Drainage 12 Chest Tube Mediastinal 12 Urine 300 450 0 Post Void Residual 99 Other: Voiding Method Urinal Urinal Urinal # Voids 1 # Bowel Movements 2 ABP, PAP, CO, CI - Last Documented Arterial Blood Pressure 154/39 Pulmonary Artery Pressure 23/7 Cardiac Output 5.7 Cardiac Index 2.5 - Exam In general patient is alert and oriented 3 in no apparent distress HEENT head normocephalic and atraumatic Neck is supple no JVD no goiter no lymphadenopathy no carotid bruit Chest examination is clear to auscultation no crackles no wheezing, chest tube in place Cardiac exam reveals regular heart sounds S1 and S2 no gallops no murmurs Abdomen is soft nontender no organomegaly with normal bowel sounds Extremity exam reveals no edema no cyanosis or clubbing Neurological examination reveals no gross focal deficits - Labs CBC & Chem 7: 07/19/23 03:48 07/19/23 03:48 Labs: Abnormal Lab Results - Last 24 Hours (Table) 07/18/23 07/18/23 07/19/23 Range/Units 16:36 20:06 03:48 RBC 2.07 L (4.30-5.90) m/uL Hgb 6.8 L* (13.0-17.5) gm/dL Hct 20.4 L (39.0-53.0) % Sodium (137-145) mmol/L Carbon Dioxide (22-30) mmol/L BUN (9-20) mg/dL Glucose (74-99) mg/dL POC Glucose (mg/dL) 145 H 144 H (70-110) mg/dL Total Protein (6.3-8.2) g/dL Albumin (3.5-5.0) g/dL 07/19/23 07/19/23 07/19/23 Range/Units 03:48 06:31 12:00 RBC (4.30-5.90) m/uL Hgb (13.0-17.5) gm/dL Hct (39.0-53.0) % Sodium 132 L (137-145) mmol/L Carbon Dioxide 21 L (22-30) mmol/L BUN 41 H (9-20) mg/dL Glucose 117 H (74-99) mg/dL POC Glucose (mg/dL) 151 H 149 H (70-110) mg/dL Total Protein 4.9 L (6.3-8.2) g/dL Albumin 2.8 L (3.5-5.0) g/dL Assessment and Plan Plan: Episodes of chest pain with cardiac catheterization positive for severe disease in the left main, LAD, and the right coronary artery, patient underwent coronary artery bypass graft surgery 3 vessels on 07/15/2023 Underlying history of hypertension Underlying history of gout Underlying history of gastroesophageal reflux disease At this time patient was seen and examined Home medications reviewed and reordered He was started on IV heparin Plans for coronary artery bypass graft surgery 07/15/2023 Cardiology pulmonary and cardiovascular surgery in place Will follow during this admission
[2023-07-19 13:17] LABS: HCT 23.7 % (39.0-53.0); HGB 7.9 gm/dL (13.0-17.5); MCHC 33.2 g/dL (31.0-37.0); MCV 99.3 fL (80.0-100.0); Macrocytosis Slight; Platelet Count 204 k/uL (150-450); RBC 2.38 m/uL (4.30-5.90); RDW 14.2 % (11.5-15.5); WBC 9.9 k/uL (3.8-10.6)
[2023-07-19 16:58] LABS: Glucose,Whole Blood 142 mg/dL (70-110)
[2023-07-19 19:45] LABS: Glucose,Whole Blood 188 mg/dL (70-110)
[2023-07-19] MEDS: ACETAMINOPHEN TAB 500 MG TAB PO PRN (20:00)
[2023-07-19] MEDS: SENNOSIDES-DOCUSATE SODIUM 1 EACH TAB PO SCH (20:00)
[2023-07-20] MEDS: HEPARIN SODIUM,PORCINE 5,000 UNIT/ML 1 ML VIAL SQ SCH ×3 (00:03→16:41)
[2023-07-20 05:10] LABS: Basophils % (A) 0 %; Eosinophils # (A) 0.3 k/uL (0-0.7); Eosinophils % (A) 4 %; HCT 21.2 % (39.0-53.0); Hypochromasia Slight; Lymphocytes # (A) 1.5 k/uL (1.0-4.8); Lymphocytes % (A) 18 %; MCH 33.1 pg (25.0-35.0); MCHC 33.2 g/dL (31.0-37.0); MCV 99.7 fL (80.0-100.0); Macrocytosis Slight; Mean Platelet Volume 8.7; Monocytes # (A) 0.7 k/uL (0-1.0); Monocytes % (A) 8 %; Neutrophils # (A) 5.6 k/uL (1.3-7.7); Neutrophils % (A) 67 %; Platelet Count 211 k/uL (150-450); RBC 2.12 m/uL (4.30-5.90); RDW 14.6 % (11.5-15.5); WBC 8.3 k/uL (3.8-10.6)
[2023-07-20 05:26] LABS: ALT 46 U/L (4-49); AST 52 U/L (17-59); African American GFR (CKD) 86 (>60 ml/min/1.73 sqM); Albumin 2.9 g/dL (3.5-5.0); Alkaline Phosphatase 55 U/L (38-126); Anion Gap 12 mmol/L; Blood Urea Nitrogen 40 mg/dL (9-20); Calcium 8.3 mg/dL (8.4-10.2); Carbon Dioxide 21 mmol/L (22-30); Chloride 99 mmol/L (98-107); Glucose 122 mg/dL (74-99); Non-African American GFR(CKD) 74 (>60 ml/min/1.73 sqM); Potassium 4.2 mmol/L (3.5-5.1); Sodium 132 mmol/L (137-145); Total Bilirubin 0.8 mg/dL (0.2-1.3); Total Protein 5.2 g/dL (6.3-8.2)
[2023-07-20 06:50] LABS: Glucose,Whole Blood 142 mg/dL (70-110)
[2023-07-20] MEDS: INSULIN ASPART (NovoLOG) 100 UNIT/ML VIAL SQ SCH ×4 (06:53→19:57)
[2023-07-20] MEDS: FERROUS SULFATE 325 MG TAB PO SCH ×2 (06:53→16:41)
[2023-07-20] MEDS: PANTOPRAZOLE 40 MG TABLET PO SCH (06:53)
--- NOTE | 2023-07-20 07:28 | XR ---
EXAMINATION TYPE: XR chest 2V DATE OF EXAM: 07/20/2023 6:03 AM CLINICAL INDICATION:Male, 78 years old with history of Post op CABG; [facility] COMPARISON: Chest radiograph from one day prior. TECHNIQUE: XR chest 2V Frontal and lateral views of the chest. FINDINGS: Overall exams not significantly changed from prior. Median sternotomy wires are present. Post CABG clips. Heart borderline enlarged. Mild hyperinflation. Diffuse interstitial densities persist. Ongoing small left and trace right pleural effusions and pat marianela left basilar opacity. Old right-sided rib fracture deformities. IMPRESSION: 1. Similar mild pulmonary vascular congestion. 2. Similar small left and trace right pleural effusions with adjacent atelectasis and/or consolidati on.
--- NOTE | 2023-07-20 07:50 | P.PN ---
Subjective Progress Note Date: 07/20/23 PROGRESS NOTE The patient is a 78-year-old male who presented with symptoms of angina, his cardiac catheterization revealed severe coronary artery disease and underwent CABG. He had evidence of second-degree AV block Mobitz 1 preoperatively. He feels tired this morning. He denies any chest discomfort or dyspnea. He has no dizziness or palpitations. There is no evidence of significant pauses. He am bulated yesterday. He continues to have episodes of Mobitz type I. Medications: Aspirin, Lipitor 40 mg daily, Plavix 75 mg daily, amlodipine 2.5 mg daily, Flomax 0.4 mg daily PHYSICAL EXAMINATION: Blood pressure 128/60 heart rate 60 LUNGS: . Crackles at the base HEART: Regular rate and rhythm, S1, S2. No S3. Systolic ejection murmur ABDOMEN: Soft, nontender, no organomegaly EXTREMETIES: No edema LAB: Hemoglobin 7, BUN 40, creatinine 0.98 IMPRESSION: 1. Status post CABG 2. Second-degree AV block Mobitz type I 3. History of hypertension 4. History of hyperlipidemia PLAN: 1. Increase physical activity 2. If there is evidence of high-grade AV block the patient may require permanent pacemaker 3. Continue incentive spirometry 4. Depending on his progress further recommendations will be made Objective - Vital Signs Vital signs: Vital Signs Temp 98.2 F 07/20/23 04:00 Pulse 68 07/20/23 07:00 Resp 13 07/20/23 07:00 BP 128/60 07/20/23 07:00 Pulse Ox 91 L 07/20/23 07:00 FiO2 40 07/15/23 18:30 Intake & Output 07/19/23 07/20/23 07/20/23 18:59 06:59 18:59 Intake Total 1186 Output Total 250 0 Balance 936 0 Weight 110.7 kg Intake: Oral 1186 Output: Urine 250 0 Other: Voiding Method Urinal Toilet # Voids 1 1 # Bowel Movements 1 1 ABP, PAP, CO, CI - Last Documented Arterial Blood Pressure 154/39 Pulmonary Artery Pressure 23/7 Cardiac Output 5.7 Cardiac Index 2.5 - Labs CBC & Chem 7: 07/20/23 04:47 07/20/23 04:47 Labs: Abnormal Lab Results - Last 24 Hours (Table) 07/19/23 07/19/23 07/19/23 Range/Units 12:00 12:50 16:57 RBC 2.38 L (4.30-5.90) m/uL Hgb 7.9 L (13.0-17.5) gm/dL Hct 23.7 L (39.0-53.0) % Sodium (137-145) mmol/L Carbon Dioxide (22-30) mmol/L BUN (9-20) mg/dL Glucose (74-99) mg/dL POC Glucose (mg/dL) 149 H 142 H (70-110) mg/dL Calcium (8.4-10.2) mg/dL Total Protein (6.3-8.2) g/dL Albumin (3.5-5.0) g/dL 07/19/23 07/20/23 07/20/23 Range/Units 19:43 04:47 04:47 RBC 2.12 L (4.30-5.90) m/uL Hgb 7.0 L (13.0-17.5) gm/dL Hct 21.2 L (39.0-53.0) % Sodium 132 L (137-145) mmol/L Carbon Dioxide 21 L (22-30) mmol/L BUN 40 H (9-20) mg/dL Glucose 122 H (74-99) mg/dL POC Glucose (mg/dL) 188 H (70-110) mg/dL Calcium 8.3 L (8.4-10.2) mg/dL Total Protein 5.2 L (6.3-8.2) g/dL Albumin 2.9 L (3.5-5.0) g/dL 07/20/23 Range/Units 06:49 RBC (4.30-5.90) m/uL Hgb (13.0-17.5) gm/dL Hct (39.0-53.0) % Sodium (137-145) mmol/L Carbon Dioxide (22-30) mmol/L BUN (9-20) mg/dL Glucose (74-99) mg/dL POC Glucose (mg/dL) 142 H (70-110) mg/dL Calcium (8.4-10.2) mg/dL Total Protein (6.3-8.2) g/dL Albumin (3.5-5.0) g/dL
[2023-07-20] MEDS: IPRATROPIUM-ALBUTEROL 3 ML NEB INHALATION SCH ×4 (08:41→20:41)
[2023-07-20] MEDS: TAMSULOSIN 0.4 MG CAP.ER.24H PO SCH (08:57)
[2023-07-20] MEDS: amLODIPine 2.5 MG TAB PO SCH (08:57)
[2023-07-20] MEDS: ASCORBIC ACID 500 MG TAB PO SCH ×2 (08:57→19:57)
[2023-07-20] MEDS: ASPIRIN 325 MG TAB PO SCH (08:57)
[2023-07-20] MEDS: CLOPIDOGREL 75 MG TAB PO SCH (08:57)
[2023-07-20] MEDS: ATORVASTATIN 40 MG TAB PO SCH (08:57)
--- NOTE | 2023-07-20 09:08 | P.PN ---
Subjective Progress Note Date: 07/20/23 On today's evaluation of 07/20/2023, patient is being seen for a follow-up. The patient is undergone an on pump 3 vessel bypass surgery. The patient is currently postop day #5. Doing well. Extubated without any major difficulties and the patient is currently on room air oxygen. Activations for now is his generalized weakness, and at the same time the patient is having AV block in the form of a Mobitz type I. He is not bradycardic at this point in time. He is off beta blockers. He is not taking amiodarone. He is hemodynamically stable. Urine output is adequate for now. Using the [employer] spirometer and pulling approximately 1500 mL. No issues with pain. Sternum is 17 and intact. Chest tubes are removed. Chest x-ray shows some atelectatic changes in the lung bases especially on the left and the patient does have some cardiomegaly. Otherwise, no fever. He is off the insulin drip and the patient is currently on sliding scale insulin coverage. His blood work from today shows a hemoglobin of 7, white cell count of 8.3, platelet count of 211, BUN is at 40 with a creatinine of 0.9 and a sodium level is at 132 with a potassium level of 4.2. He is emanating with assistance. Epicardial leads are still in place. He remains on aspirin and Plavix. He is on high-dose Lipitor. Is also on oral iron. Objective - Vital Signs Vital signs: Vital Signs Temp 98.2 F 07/20/23 04:00 Pulse 76 07/20/23 08:41 Resp 13 07/20/23 07:00 BP 128/60 07/20/23 07:00 Pulse Ox 91 L 07/20/23 07:00 FiO2 40 07/15/23 18:30 Intake & Output 07/19/23 07/20/23 07/20/23 18:59 06:59 18:59 Intake Total 1186 Output Total 250 0 Balance 936 0 Weight 110.7 kg Intake: Oral 1186 Output: Urine 250 0 Other: Voiding Method Urinal Toilet # Voids 1 1 # Bowel Movements 1 1 ABP, PAP, CO, CI - Last Documented Arterial Blood Pressure 154/39 Pulmonary Artery Pressure 23/7 Cardiac Output 5.7 Cardiac Index 2.5 - Exam No acute distress, awake and alert, currently on room air. HEENT examination is grossly unremarkable. Neck supple. Full range of motion. No adenopathy thyromegaly or neck vein distention. Cardiovascular examination reveals regular rhythm rate. S1-S2 normal. No S3 or S4. No discernible murmur noted. Lungs reveal clear breath sounds. Breath sounds are equal bilaterally. No adventitious lung sounds including wheezes rhonchi or crackles. Abdomen soft without bowel sounds. Extremities are intact. No cyanosis clubbing or edema. Skin is without rash or lesion. Neurologic examination is brief but nonfocal. - Labs CBC & Chem 7: 07/20/23 04:47 07/20/23 04:47 Labs: Abnormal Lab Results - Last 24 Hours (Table) 07/19/23 07/19/23 07/19/23 Range/Units 12:00 12:50 16:57 RBC 2.38 L (4.30-5.90) m/uL Hgb 7.9 L (13.0-17.5) gm/dL Hct 23.7 L (39.0-53.0) % Sodium (137-145) mmol/L Carbon Dioxide (22-30) mmol/L BUN (9-20) mg/dL Glucose (74-99) mg/dL POC Glucose (mg/dL) 149 H 142 H (70-110) mg/dL Calcium (8.4-10.2) mg/dL Total Protein (6.3-8.2) g/dL Albumin (3.5-5.0) g/dL 07/19/23 07/20/23 07/20/23 Range/Units 19:43 04:47 04:47 RBC 2.12 L (4.30-5.90) m/uL Hgb 7.0 L (13.0-17.5) gm/dL Hct 21.2 L (39.0-53.0) % Sodium 132 L (137-145) mmol/L Carbon Dioxide 21 L (22-30) mmol/L BUN 40 H (9-20) mg/dL Glucose 122 H (74-99) mg/dL POC Glucose (mg/dL) 188 H (70-110) mg/dL Calcium 8.3 L (8.4-10.2) mg/dL Total Protein 5.2 L (6.3-8.2) g/dL Albumin 2.9 L (3.5-5.0) g/dL 07/20/23 Range/Units 06:49 RBC (4.30-5.90) m/uL Hgb (13.0-17.5) gm/dL Hct (39.0-53.0) % Sodium (137-145) mmol/L Carbon Dioxide (22-30) mmol/L BUN (9-20) mg/dL Glucose (74-99) mg/dL POC Glucose (mg/dL) 142 H (70-110) mg/dL Calcium (8.4-10.2) mg/dL Total Protein (6.3-8.2) g/dL Albumin (3.5-5.0) g/dL Assessment and Plan Plan: Chest pain, secondary to severe coronary artery disease, including left main disease, and severe disease in the LAD, and right coronary artery. Status post three-vessel bypass grafting, 07/15/2023, postop day #5 Routine postoperative ventilator management. The patient is extubated and the patient is currently on room air oxygen Second-degree AV block and this morning the patient is in a Mobitz type I, the patient still has his epicardial leads in place History of hypertension. History of gout. Lifelong nonsmoker. Postop anemia, expected outcome of surgery, hemoglobin is currently at 7.0 Generalized weakness Plan Continue monitoring the second-degree AV block Mobitz type I. No need for pacing at this point in time. The patient is hemodynamically stable. Avoid beta blockers Avoid amiodarone Continue using incentive spirometer Monitor hemoglobin No need for blood transfusion at this point in time Chest x-ray was reviewed Blood work was reviewed We'll continue recovery. ICU for another 24 hours. Keep the epicardial leads in place
--- NOTE | 2023-07-20 10:25 | P.PN ---
Subjective Progress Note Date: 07/20/23 Principal diagnosis: Multivessel coronary artery disease, with left main disease. Past medical history significant for hypertension, bradycardia with second-degree heart block Mobitz type I, gout and is a lifetime nonsmoker with a preoperative FEV1 69% of predicted value and a base volume of 2.15 L. POD #5 Coronary artery bypass grafting x 3. Left internal thoracic artery (in- situ) to left anterior descending coronary artery. Left radial artery from aorta to obtuse marginal artery #1. Saphenous vein from aorta to posterior descending coronary artery. Left atrial appendage ligation using #35 AtriClip, endoscopic left radial and left greater saphenous vein harvest, graft flow measurements using the medi-stim flow meter, and intraoperative transesophageal echocardiogram performed by anesthesia. Postoperative acute blood loss anemia, expected given hemodilution and car diopulmonary bypass. The patient was seen and examined in follow-up today 07/20/2023 at his bedside in the intensive care unit. He is currently sitting up to the bedside chair, is awake, alert, oriented 3 and is in no acute distress. Denies any complaints of pain or shortness of breath at this time, although is complaining of some episodes of dizziness this morning and generalized weakness. He remains hemodynamically stable and is currently on no inotropic or pressor support. Oxygen saturations are 94% on room air and he is achieving 1500 mL on his incentive spirometry with encouragement. Bedside telemetry is currently showing normal sinus rhythm with first-degree heart block and occasional PACs. He has been having some episodes of his bedside monitor showing second-degree Mobitz 1. Atrial and ventricular epicardial pacemaker wires remain in place and connected to backup bedside pacemaker generator on a VVI of 50 BPM. He has been ambulating in the hallway with standby assistance from nursing and therapy staff, although is still complaining of some generalized feeling of weakness. Laboratory and chest x-ray results reviewed. Objective - Vital Signs Vital signs: Vital Signs Temp 98.1 F 07/20/23 08:00 Pulse 70 07/20/23 10:00 Resp 23 07/20/23 10:00 BP 148/74 07/20/23 10:00 Pulse Ox 96 07/20/23 10:00 FiO2 40 07/15/23 18:30 Intake & Output 07/19/23 07/20/23 07/20/23 18:59 06:59 18:59 Intake Total 1186 120 Output Total 250 0 200 Balance 936 0 -80 Weight 110.7 kg Intake: Oral 1186 120 Output: Urine 250 0 200 Other: Voiding Method Urinal Toilet # Voids 1 1 # Bowel Movements 1 1 ABP, PAP, CO, CI - Last Documented Arterial Blood Pressure 154/39 Pulmonary Artery Pressure 23/7 Cardiac Output 5.7 Cardiac Index 2.5 - Exam CONSTITUTIONAL: Sitting up to the bedside chair in the intensive care unit, appears comfortable, cooperative, no apparent acute distress. HEENT: Neck is supple, no JVD, no lymphadenopathy. RESPIRATORY: Lungs sounds essentially clear throughout, diminished to his bilateral bases. Respirations are symmetrical and nonlabored. Currently on room air with oxygen saturations 94%. Able to achieve 1500 mL on his incentive spir ometry. Strong cough. CARDIOVASCULAR: Regular rhythm and rate. S1 and S2 present, negative for S3, gallop or murmur. Sternum is stable. Palpable peripheral pulses bilaterally, trace edema to his bilateral lower extremities. No calf pain or tenderness noted. Heart hugger in place with patient demonstrating appropriate use. Knee- high PAVITHRA hose and sequential compression devices in place to his bilateral lower extremities. GASTROINTESTINAL: Abdomen soft, nontender, nondistended. Active bowel sounds present 4 quadrants. Tolerating diet. Passing flatus. No guarding or rigidity. Bowel movement 07/20/2023. GENITOURINARY: Continues to void. INTEGUMENTARY: Skin is warm and dry with no evidence of clubbing or cyanosis. Midline sternal incision clean dry and well approximated, covered with dry intact dressing. Left lower extremity EVH sites well approximated without redness or drainage. Left arm radial artery harvest sites clean, dry and approximated. No drainage or redness is present. NEUROLOGIC: Cranial nerves II through XII intact. No focal deficits. MUSKULOSKELETAL: Able to move all extremities, strength equal bilaterally, generalized weakness. PSYCHIATRIC: Alert and oriented to person place and time, appropriate affect, intact judgment and insight. INVASIVE LINES AND TUBES: Atrial and ventricular epicardial pacemaker wires present, connected to generator, VVI backup rate 50 bpm. - Allied health notes Allied health notes reviewed: nursing - Labs CBC & Chem 7: 07/20/23 04:47 07/20/23 04:47 Labs: Abnormal Lab Results - Last 24 Hours (Table) 07/19/23 07/19/2323 Range/Units 12:00 12:50 16:57 RBC 2.38 L (4.30-5.90) m/uL Hgb 7.9 L (13.0-17.5) gm/dL Hct 23.7 L (39.0-53.0) % Sodium (137-145) mmol/L Carbon Dioxide (22-30) mmol/L BUN (9-20) mg/dL Glucose (74-99) mg/dL POC Glucose (mg/dL) 149 H 142 H (70-110) mg/dL Calcium (8.4-10.2) mg/dL Total Protein (6.3-8.2) g/dL Albumin (3.5-5.0) g/dL 07/19/23 07/20/23 07/20/23 Range/Units 19:43 04:47 04:47 RBC 2.12 L (4.30-5.90) m/uL Hgb 7.0 L (13.0-17.5) gm/dL Hct 21.2 L (39.0-53.0) % Sodium 132 L (137-145) mmol/L Carbon Dioxide 21 L (22-30) mmol/L BUN 40 H (9-20) mg/dL Glucose 122 H (74-99) mg/dL POC Glucose (mg/dL) 188 H (70-110) mg/dL Calcium 8.3 L (8.4-10.2) mg/dL Total Protein 5.2 L (6.3-8.2) g/dL Albumin 2.9 L (3.5-5.0) g/dL 07/20/23 Range/Units 06:49 RBC (4.30-5.90) m/uL Hgb (13.0-17.5) gm/dL Hct (39.0-53.0) % Sodium (137-145) mmol/L Carbon Dioxide (22-30) mmol/L BUN (9-20) mg/dL Glucose (74-99) mg/dL POC Glucose (mg/dL) 142 H (70-110) mg/dL Calcium (8.4-10.2) mg/dL Total Protein (6.3-8.2) g/dL Albumin (3.5-5.0) g/dL - Imaging and Cardiology Chest x-ray: report reviewed, image reviewed Assessment and Plan Assessment: Multivesselc artery disease, left main disease, status post three-vessel coronary artery bypass grafting Chest pain, shortness of breath secondary to above Hypertension Bradycardia with Mobitz type I heart block History of gout Lifetime nonsmoker, with a preoperative FEV1 69% of predicted value with a baseball [facility] 2.15 L Postoperative acute blood loss anemia, expected given hemodilution and cardiopulmonary bypass Generalized weakness, medical debility Plan: Continue to maximize medical therapy with aspirin, and statin. Continue to hold beta [place] per cardiology recommendations. Keep atrial and ventricular epicardial pacemaker wires in place and connected to backup bedside pacemaker generator on a VVI 50 as the patient is currently showing normal sinus rhythm with a first-degree heart block and occasional PACs heart rate 73 BPM. Decision on permanent pacemaker will be decided by cardiology. Continue amlodipine 2.5 mg by mouth daily for radial artery spasm prophylaxis with hold parameters. Encourage incentive spirometry use 10 times every hour while awake. Bronchodilators per pulmonology Will monitor daily labs and chest x-rays, electrolyte replacement per protocol. Increase activity, ambulate as tolerated. PT/OT/cardiac rehab following. GI/DVT prophylaxis. Insulin management per internal medicine. Preoperative hemoglobin A1c 5.8%. Pain control with current medication regimen. Continue to record strict inaccurate I's and O's. Bladder scan every 6 hours and when necessary postvoid residual. If greater than 300 mL of urine may straight cath. Continue Flomax 0.4 mg by mouth PC breakfast. Daily weights. Keep in the intensive care unit. Consult Dr. Ramos for evaluation for inpatient rehab, generalized weakness and medical debility. Zoloft 25 mg by mouth daily initiated. More recommendations to follow based on patient's clinical course. Time with Patient: Greater than 30
--- NOTE | 2023-07-20 10:39 | P.PN ---
Subjective Progress Note Date: 07/20/23 Mario Cherry, is a 78-year-old male who presented to [facility] for cardiac catheterization with Dr. Hernandez, patient was having episodes of chest pain with exertion, he underwent cardiac catheterization on 07/13/2023 which was positive for severe left main disease, severe LAD disease and severe RCA disease. Patient was admitted to telemetry floor, he was started on IV heparin , cardiovascular surgery consultation was requested. Patient has a known history of hypertension, gastroesophageal reflux disease, history of gout , and history of cholecystitis with recent cholecystectomy. On review of systems patient is alert and oriented 3 in no apparent distress, there is no fever or chills no headache or dizziness no chest pain no shortness of breath no cough no nausea or vomiting no abdominal pain no diarrhea no blood in the stools no burning with urination no frequency or urgency and no hematuria. On 07/14/2023. Patient's history for coronary artery bypass graft surgery patient was evaluated by pulmonary services cleared for surgery. At this time patient denies chest pain or shortness breath. Patient denies nausea vomiting or diarrhea. Patient denies any urinary burning or frequency. Current vital signs temp 90.4, heart rate 52, respiratory rate 16, blood pressure 130/71 with a pulse ox 96% on room air. On 07/15/2023 patient was seen and examined in the ICU, patient underwent coronary artery bypass graft surgery 3 vessels, he is admitted to intensive care unit he is intubated sedated maintained on mechanical ventilation, pulmonary critical care are following, left sided chest tube in place, will follow closely. On 07/16/2023 patient is alert and oriented 3 currently sitting up in chair. Patient was extubated per protocol. Chest tubes remain in place. Patient reports generalized weakness. Patient remains in the intensive care unit 07/17/2023 patient was seen and examined in the ICU, he is alert and oriented 3 in no apparent distress, he is sitting up in a chair, chest tubes remain in place temperature is 97.9 pulse 78 respiration 16 blood pressure 100/37 pulse ox 92% on room air white blood count 9.0 hemoglobin 7.5 platelet count of 110 sodium 135 potassium 4.1 chloride 103 CO2 24 BUN 23 creatinine 1.08. At this time will discontinue insulin drip and place patient on insulin sliding scale. On 07/18/2023 patient remains in the intensive care unit. Patient alert and oriented 3 chest tubes have been removed. Patient denies chest pain some incisional pain. Patient denies shortness of breath. Patient denies nausea vomiting or diarrhea. Current vital signs heart rate 63, respiratory rate 19, blood pressure 113/55 with a pulse ox of 95% on 2 L per nursing staff patient will remain in ICU for monitoring for the next 24 hours On 07/19/2023 patient was seen and examined in the intensive care unit is alert and oriented 3 in no apparent distress he is sitting up in a chair, vital exam reveals a temperature of 98.0 pulse 74 respiration 24 blood pressure 131/55 pulse ox 92% white blood count 8.4 hemoglobin 6.8 platelet count 158 sodium 132 potassium 4.4 chloride 100 CO2 21 BUN 41 creatinine 1.12 On 07/20/2023 patient's alert and oriented 3. Patient remains in the intensive care unit. Atrial and ventricular epicardial pacemaker wires remain in place decision on permanent pacemaker will be decided per cardiology. At this time patient denies chest pain or shortness of breath. Patient denies nausea vo miting diarrhea. Patient denies any urinary burning or frequency. Objective - Vital Signs Vital signs: Vital Signs Temp 98.1 F 07/20/23 08:00 Pulse 70 07/20/23 10:00 Resp 23 07/20/23 10:00 BP 148/74 07/20/23 10:00 Pulse Ox 96 07/20/23 10:00 FiO2 40 07/15/23 18:30 Intake & Output 07/19/23 07/20/23 07/20/23 18:59 06:59 18:59 Intake Total 1186 120 Output Total 250 0 200 Balance 936 0 -80 Weight 110.7 kg Intake: Oral 1186 120 Output: Urine 250 0 200 Other: Voiding Method Urinal Toilet # Voids 1 1 # Bowel Movements 1 1 ABP, PAP, CO, CI - Last Documented Arterial Blood Pressure 154/39 Pulmonary Artery Pressure 23/7 Cardiac Output 5.7 Cardiac Index 2.5 - Exam In general patient is alert and oriented 3 in no apparent distress HEENT head normocephalic and atraumatic Neck is supple no JVD no goiter no lymphadenopathy no carotid bruit Chest examination is clear to auscultation no crackles no wheezing, chest tube in place Cardiac exam reveals regular heart sounds S1 and S2 no gallops no murmurs Abdomen is soft nontender no organomegaly with normal bowel sounds Extremity exam reveals no edema no cyanosis or clubbing Neurological examination reveals no gross focal deficits - Labs CBC & Chem 7: 07/20/23 04:47 07/20/23 04:47 Labs: Abnormal Lab Results - Last 24 Hours (Table) 07/19/23 07/19/23 07/19/23 Range/Units 12:00 12:50 16:57 RBC 2.38 L (4.30-5.90) m/uL Hgb 7.9 L (13.0-17.5) gm/dL Hct 23.7 L (39.0-53.0) % Sodium (137-145) mmol/L Carbon Dioxide (22-30) mmol/L BUN (9-20) mg/dL Glucose (74-99) mg/dL POC Glucose (mg/dL) 149 H 142 H (70-110) mg/dL Calcium (8.4-10.2) mg/dL Total Protein (6.3-8.2) g/dL Albumin (3.5-5.0) g/dL 07/19/23 07/20/23 07/20/23 Range/Units 19:43 04:47 04:47 RBC 2.12 L (4.30-5.90) m/uL Hgb 7.0 L (13.0-17.5) gm/dL Hct 21.2 L (39.0-53.0) % Sodium 132 L (137-145) mmol/L Carbon Dioxide 21 L (22-30) mmol/L BUN 40 H (9-20) mg/dL Glucose 122 H (74-99) mg/dL POC Glucose (mg/dL) 188 H (70-110) mg/dL Calcium 8.3 L (8.4-10.2) mg/dL Total Protein 5.2 L (6.3-8.2) g/dL Albumin 2.9 L (3.5-5.0) g/dL 07/20/23 Range/Units 06:49 RBC (4.30-5.90) m/uL Hgb (13.0-17.5) gm/dL Hct (39.0-53.0) % Sodium (137-145) mmol/L Carbon Dioxide (22-30) mmol/L BUN (9-20) mg/dL Glucose (74-99) mg/dL POC Glucose (mg/dL) 142 H (70-110) mg/dL Calcium (8.4-10.2) mg/dL Total Protein (6.3-8.2) g/dL Albumin (3.5-5.0) g/dL Assessment and Plan Assessment: Episodes of chest pain with cardiac catheterization positive for severe disease in the left main, LAD, and the right coronary artery, patient underwent coronary artery bypass graft surgery 3 vessels on 07/15/2023 Underlying history of hypertension Underlying history of gout Underlying history of gastroesophageal reflux disease Second-degree AV block and Mobitz type I. Epicardial leads remain in place. Cardiology to decide a possible pacemaker At this time patient was seen and examined Home medications reviewed and reordered He was started on IV heparin Plans for coronary artery bypass graft surgery 07/15/2023 Cardiology pulmonary and cardiovascular surgery in place Will follow during this admission
[2023-07-20 11:24] LABS: Glucose,Whole Blood 129 mg/dL (70-110)
[2023-07-20] MEDS: SERTRALINE 25 MG TAB PO SCH (12:50)
[2023-07-20 16:40] LABS: Glucose,Whole Blood 138 mg/dL (70-110)
--- NOTE | 2023-07-20 17:46 | P.CONS ---
History of Present Illness - Reason for Consult Consult date: 07/20/23 rehab recommendations - Chief Complaint debility - History of Present Illness Mr. Cherry right handed, , who lives alone in a single story home, with 4- 5 TANIA. Prior to admission, he was ambulating without an assistive device. He was independent for basic/advanced ADLs. Current driving: yes. Retired: yes. Support system: sister and friends He was admitted to [facility] 07/13. He presented to the hospital for cardiac catheterization due to progressive symptoms of chest discomfort. Patient was noted to have severely calcified coronary arteries, severe left main disease, severe disease of the LAD and the RCA. It was recommended that the patient proceed with CABG. Patient had the surgery completed 07/15. Patient was extubated on the evening of 07/15. Patient did have second-degree Mobitz type I heart block for which medications were adjusted. Atrial and ventricular epicardial pacemaker wires remain in place with decision for PPM per cardiology. 07/20/23: patient was found sitting in recliner with visitor at bedside. Patient denies CP, SOB and abdominal pain. He reports that his pain is controlled. Denies numbness, tingling, CP and abdominal pain. Patient denies issues with urination, LBM 07/19. He has been working with therapy and ambulating in the to. Patient is interested in IPR at discharge. patient denies concerns at this time. Per GOLF BALL WINDER Don Mccloud wires to be removed 07/21. PM&R consulted for rehab recommendations. Therapy evaluations reviewed; patient needing mod assist bathing, max assist UB dressing, max assist LB dressing, supervision grooming, mod independent eating, max assist toileting, min assist toilet transfer, ambulated 100 feet with supervision handhold assist, supervision sit to stand Review of Systems negative unless noted in HPI Past Medical History Past Medical History: GERD/Reflux, Hypertension Additional Past Medical History / Comment(s): hiatal hernia found on egd History of Any Multi-Drug Resistant Organisms: None Reported Past Surgical History: Cholecystectomy, Orthopedic Surgery Additional Past Surgical History / Comment(s): rt foot surgery, egds Past Anesthesia/Blood Transfusion Reactions: No Reported Reaction Past Psychological History: No Psychological Hx Reported Smoking Status: Never smoker Past Alcohol Use History: Occasional Past Drug Use History: None Reported - Past Family History Mother Family Medical History: No Reported History Additional Family Medical History / Comment(s): from old age Father Additional Family Medical History / Comment(s): from peritonitis Medications and Allergies Home Medications Medication Instructions Recorded Confirmed Type Multivitamins, Thera [Multivitamin 1 tab PO DAILY 07/31/22 07/13/23 History (formulary)] allopurinoL 300 mg PO DAILY 07/31/22 07/13/23 History lisinopriL [Prinivil] 20 mg PO BID 07/31/22 07/13/23 History Indomethacin [Indocin] 1 tab PO BID PRN 08/05/22 07/13/23 History Aspirin 81 mg PO DAILY 07/09/23 07/13/23 History Isosorbide Mononitrate ER [Imdur] 30 mg PO DAILY 07/13/23 07/13/23 History Allergies Allergy/AdvReac Type Severity Reaction Status Date / Time No Known Allergies Allergy Verified 07/15/23 06:04 Physical Exam Vitals: Vital Signs Temp Pulse Resp BP Pulse Ox 07/20/23 13:00 73 20 96 07/20/23 12:46 68 07/20/23 12:32 66 07/20/23 12:00 97.8 F 78 18 120/86 96 07/20/23 11:00 79 24 94 L 07/20/23 10:00 70 23 148/74 96 07/20/23 09:00 76 20 116/67 94 L 07/20/23 08:50 74 07/20/23 08:41 76 07/20/23 08:00 98.1 F 69 22 120/61 94 L 07/20/23 07:00 68 13 128/60 91 L 07/20/23 06:00 86 16 155/80 93 L 07/20/23 05:00 71 16 115/62 95 07/20/23 04:00 98.2 F 73 18 104/71 97 07/20/23 03:00 78 21 115/62 95 07/20/23 02:00 73 20 104/51 95 07/20/23 01:00 81 15 132/66 95 07/20/23 00:00 98.1 F 95 20 113/59 94 L 07/19/23 23:00 77 17 103/57 93 L 07/19/23 22:00 78 18 113/59 91 L 07/19/23 21:00 90 18 111/44 92 L 07/19/23 20:46 78 07/19/23 20:34 87 07/19/23 20:00 97.8 F 90 20 128/49 92 L 07/19/23 19:00 81 24 109/77 92 L 07/19/23 18:00 80 24 135/69 91 L 07/19/23 17:00 87 22 130/67 94 L 07/19/23 16:02 82 07/19/23 16:00 98.3 F 79 22 128/68 96 07/19/23 15:47 72 07/19/23 15:20 91 15 94 L 07/19/23 14:00 73 22 121/63 95 Intake and Output 07/19/23 07/20/23 07/20/23 22:59 06:59 14:59 Intake Total 500 240 Output Total 250 0 200 Balance 250 0 40 Intake: Oral 500 240 Output: Urine 250 0 200 Other: Voiding Method Urinal Toilet Urinal # Voids 1 # Bowel Movements 1 Weight 110.7 kg EXAM; General: WDWN, male, sitting in recliner, visitor at bedside NAD Head: Normocephalic, atraumatic. Eyes: Symmetric, glasses on Ears: Symmetric. Hearing within normal limits. Mouth: Clear. Neck: Supple. Cardiac: No signs of cardiac distress noted. aircraft electrical systems specialist in place. Calves supple, non tender, no edema. Heart hugger in place. Lungs: Breathing comfortably on RA. Chest symmetric. Abdomen: Soft, nontender. Extremities: Arthritic changes consistent with age. Bilat knee high patrick hose, SCD's in place Neurological: Alert and oriented x 4. Speech is clear and fluent without paraphasic errors Cranial nerves: CN II-XII: intact. Sensation: Intact and symmetrical limbs. Musculoskeletal: ROM WFL MMT UE Sh Abd EE EF FABD WE HG Right 5 5 5 5 5 Left 5 5 5 5 5 MMT LE HF KE DF EHL Right Left Reflexes Biceps Triceps Brachioradialis Patella Achilles Babinski Hoffmans Right 1 0 - Left 1 0 - Skin: Skin intact where visible to head, neck, and bilateral upper and lower extremities EXCEPT: pacer wires in place-not visualized, sternal incision, left LE incision to calf, left wrist punture noted Psych: Calm, cooperative Results CBC & Chem 7: 07/20/23 04:47 07/20/23 04:47 Labs: Abnormal Lab Results - Last 24 Hours (Table) 07/19/23 07/19/23 07/20/23 Range/Units 16:57 19:43 04:47 RBC 2.12 L (4.30-5.90) m/uL Hgb 7.0 L (13.0-17.5) gm/dL Hct 21.2 L (39.0-53.0) % Sodium (137-145) mmol/L Carbon Dioxide (22-30) mmol/L BUN (9-20) mg/dL Glucose (74-99) mg/dL POC Glucose (mg/dL) 142 H 188 H (70-110) mg/dL Calcium (8.4-10.2) mg/dL Total Protein (6.3-8.2) g/dL Albumin (3.5-5.0) g/dL 07/20/23 07/20/23 07/20/23 Range/Units 04:47 06:49 11:22 RBC (4.30-5.90) m/uL Hgb (13.0-17.5) gm/dL Hct (39.0-53.0) % Sodium 132 L (137-145) mmol/L Carbon Dioxide 21 L (22-30) mmol/L BUN 40 H (9-20) mg/dL Glucose 122 H (74-99) mg/dL POC Glucose (mg/dL) 142 H 129 H (70-110) mg/dL Calcium 8.3 L (8.4-10.2) mg/dL Total Protein 5.2 L (6.3-8.2) g/dL Albumin 2.9 L (3.5-5.0) g/dL Assessment and Plan Assessment: #Gait impairment/impaired ADLs 2/2 severe CAD status post coronary artery bypass grafting x 3 07/15 -Aspirin, Lipitor, Plavix #Debility 2/2 above #Suspect underlying polyneuropathy # Bowel/ Bladder: Nursing to monitor and report concerns if any. -07/20: denies issues # Diet -Healthy heart diet # Skin/wound: Skin/Wound care to follow as needed # Pain Management -Tylenol 1000 mg every 6 hours as needed # DVT Prophylaxis: -Subcu heparin # Comorbidities: -GERD, gout, hypertension # Your medical dx and mgt Goals: Modified Independent mobility and ADLS both basic and advanced; increased functional mobility/strength; increased balance, safety, endurance. Improvement in medical issues through your care. Barriers: Cardiac status, postop activity restrictions, pain, endurance, lives alone Discharge recommendation: IPR when medically cleared. Patient motivated to work with therapy. He was independent prior to hospitalization and has rehab needs. Per BREANNA Mccloud patient should be ready for discharge 07/22. Patient seen and examined in coordination with Dr. Ramos Author: Beata Negron NP
[2023-07-20 19:52] LABS: Glucose,Whole Blood 170 mg/dL (70-110)
[2023-07-20] MEDS: ACETAMINOPHEN TAB 500 MG TAB PO PRN (19:56)
[2023-07-20] MEDS: SENNOSIDES-DOCUSATE SODIUM 1 EACH TAB PO SCH (19:56)
[2023-07-21] MEDS: HEPARIN SODIUM,PORCINE 5,000 UNIT/ML 1 ML VIAL SQ SCH ×3 (00:49→15:56)
[2023-07-21 04:24] LABS: HCT 21.1 % (39.0-53.0); Hypochromasia Slight; MCH 32.3 pg (25.0-35.0); MCHC 32.9 g/dL (31.0-37.0); MCV 98.2 fL (80.0-100.0); Macrocytosis Slight; Mean Platelet Volume 8.6; Platelet Count 284 k/uL (150-450); RBC 2.15 m/uL (4.30-5.90); RDW 14.9 % (11.5-15.5)
[2023-07-21 04:28] LABS: HGB 6.9 gm/dL (13.0-17.5)
[2023-07-21 04:40] LABS: ALT 56 U/L (4-49); AST 49 U/L (17-59); African American GFR (CKD) 82 (>60 ml/min/1.73 sqM); Albumin 2.8 g/dL (3.5-5.0); Alkaline Phosphatase 56 U/L (38-126); Anion Gap 9 mmol/L; Blood Urea Nitrogen 37 mg/dL (9-20); Calcium 8.2 mg/dL (8.4-10.2); Carbon Dioxide 22 mmol/L (22-30); Chloride 101 mmol/L (98-107); Glucose 101 mg/dL (74-99); Magnesium 2.3 mg/dL (1.6-2.3); Non-African American GFR(CKD) 71 (>60 ml/min/1.73 sqM); Potassium 4.3 mmol/L (3.5-5.1); Sodium 132 mmol/L (137-145); Total Bilirubin 0.7 mg/dL (0.2-1.3); Total Protein 5.2 g/dL (6.3-8.2)
[2023-07-21] MEDS: FERROUS SULFATE 325 MG TAB PO SCH ×2 (06:42→17:02)
[2023-07-21] MEDS: PANTOPRAZOLE 40 MG TABLET PO SCH (06:42)
[2023-07-21 06:47] LABS: Glucose,Whole Blood 135 mg/dL (70-110)
[2023-07-21] MEDS: INSULIN ASPART (NovoLOG) 100 UNIT/ML VIAL SQ SCH ×4 (06:47→19:51)
[2023-07-21] MEDS ORDERED: SENNOSIDES-DOCUSATE SODIUM 1 EACH TAB PO PRN (07:30)
--- NOTE | 2023-07-21 08:21 | XR ---
EXAMINATION TYPE: XR chest 2V DATE OF EXAM: 07/21/2023 5:57 AM CLINICAL INDICATION:Male, 78 years old with history of Post op CABG; [facility] COMPARISON: Chest radiograph from one day prior. CT 07/13/2023. TECHNIQUE: XR chest 2V Frontal and lateral views of the chest. FINDINGS: Lungs/Pleura: No evidence of focal consolidation or pneumothorax. Blunting of the costophrenic angles is present. Similar nodular opacities in the right lung base. No correlate on prior CTs. Pulmonary vascularity: Pulmonary vascular congestion. Heart/mediastinum: Cardiomediastinal silhouette is enlarged and stable. Atherosclerotic calcificatio ns are seen in the aorta. Left atrial appendage occlusion device is present. Musculoskeletal: No acute osseous pathology. Midline sternotomy wires are noted. IMPRESSION: Similar Cardiomegaly, pulmonary vascular congestion and bilateral pleural effusions. Correlate with B TERMITE CONTROL SERVICE REPRESENTATIVE for congestive heart failure.
[2023-07-21] MEDS: IPRATROPIUM-ALBUTEROL 3 ML NEB INHALATION SCH ×4 (08:22→21:20)
[2023-07-21] MEDS: ATORVASTATIN 40 MG TAB PO SCH (08:30)
[2023-07-21] MEDS: ASCORBIC ACID 500 MG TAB PO SCH ×2 (08:30→19:51)
[2023-07-21] MEDS: amLODIPine 2.5 MG TAB PO SCH (08:30)
[2023-07-21] MEDS: ASPIRIN 325 MG TAB PO SCH (08:30)
[2023-07-21] MEDS: TAMSULOSIN 0.4 MG CAP.ER.24H PO SCH (08:30)
[2023-07-21] MEDS: SERTRALINE 25 MG TAB PO SCH (08:30)
[2023-07-21] MEDS: CLOPIDOGREL 75 MG TAB PO SCH (08:30)
--- NOTE | 2023-07-21 09:44 | P.PN ---
Subjective Progress Note Date: 07/21/23 Principal diagnosis: Coronary artery disease, left main disease. History of hypertension, bradycardia with second-degree heart block Multivessel coronary artery disease, with left main disease. Past medical history significant for hypertension, bradycardia with second-degree heart block Mobitz type I, gout and is a lifetime nonsmoker with a preoperative FEV1 69% of predicted value and a base volume of 2.15 L. POD #6 Coronary artery bypass grafting x 3. Left internal thoracic artery (in- situ) to left anterior descending coronary artery. Left radial artery from aorta to obtuse marginal artery #1. Saphenous vein from aorta to posterior descending coronary artery. Left atrial appendage ligation using #35 AtriClip, endoscopic left radial and left greater saphenous vein harvest, graft flow measurements using the [employer]-stim flow meter, and intraoperative transesophageal e chocardiogram performed by anesthesia. Postoperative acute blood loss anemia, expected given hemodilution and cardiopulmonary bypass. Postoperative atrial fibrillation/aflutter, known common occurrence after open heart surgery The patient was seen and examined this morning sitting up in a recliner in the ICU in no acute distress. Denies any chest pain or shortness of breath currently. Currently in controlled atrial flutter with heart rate in the mid 60s, hemodynamically stable. Patient has ambulated in the hallway, showered daily. Was evaluated for IPR at discharge and was accepted. Currently on room air and able to achieve 1500 on incentive spirometry. CXR, labs reviewed. No other new concerns. Objective - Vital Signs Vital signs: Vital Signs Temp 98.3 F 07/21/23 04:00 Pulse 65 07/21/23 07:00 Resp 19 07/21/23 07:00 BP 162/81 07/21/23 07:00 Pulse Ox 92 L 07/21/23 07:00 FiO2 40 07/15/23 18:30 Intake & Output 07/20/23 07/21/23 07/21/23 18:59 06:59 18:59 Intake Total 360 0 Output Total 475 300 Balance -115 -300 Weight 107.3 kg Intake: Oral 360 0 Output: Urine 475 300 Other: Voiding Method Urinal Toilet # Voids 1 # Bowel Movements 1 ABP, PAP, CO, CI - Last Documented Arterial Blood Pressure 154/39 Pulmonary Artery Pressure 23/7 Cardiac Output 5.7 Cardiac Index 2.5 - Exam CONSTITUTIONAL: Appears comfortable, cooperative, no acute distress RESPIRATORY: Lungs sounds diminished bilaterally. Respirations even, nonlabored. Currently on room air with oxygen saturation 92%. Able to achieve 1500 mL on incentive spirometry. Strong cough. CARDIOVASCULAR: S1, S2 present. Regular rate and rhythm, controlled atrial flutter on telemetry. Palpable peripheral pulses bilaterally. Trace bilateral lower extremity edema present. No calf pain or tenderness noted. GASTROINTESTINAL: Abdomen soft, nontender, nondistended. Active bowel sounds p resent 4 quadrants. Tolerating diet. Positive bowel movement 07/20 GENITOURINARY: Continues to void INTEGUMENTARY: Skin is warm and dry. Anterior chest incision/left radial artery/left lower extremity EVH site well approximated without redness or drainage NEUROLOGIC: Cranial nerves II through XII intact MUSKULOSKELETAL: Able to move all extremities, strength equal bilaterally, gait normal PSYCHIATRIC: Alert and oriented to person place and time, appropriate affect, intact judgment and insight INVASIVE LINES: A/V epicardial pacer wires present, grounded - Allied health notes Allied health notes reviewed: nursing - Labs CBC & Chem 7: 07/21/23 04:07 07/21/23 04:07 Labs: Abnormal Lab Results - Last 24 Hours (Table) 07/20/23 07/20/23 07/20/23 Range/Units 11:22 16:38 19:51 RBC (4.30-5.90) m/uL Hgb (13.0-17.5) gm/dL Hct (39.0-53.0) % Sodium (137-145) mmol/L BUN (9-20) mg/dL Glucose (74-99) mg/dL POC Glucose (mg/dL) 129 H 138 H 170 H (70-110) mg/dL Calcium (8.4-10.2) mg/dL ALT (4-49) U/L Total Protein (6.3-8.2) g/dL Albumin (3.5-5.0) g/dL 07/21/23 07/21/23 07/21/23 Range/Units 04:07 04:07 06:45 RBC 2.15 L (4.30-5.90) m/uL Hgb 6.9 L* (13.0-17.5) gm/dL Hct 21.1 L (39.0-53.0) % Sodium 132 L (137-145) mmol/L BUN 37 H (9-20) mg/dL Glucose 101 H (74-99) mg/dL POC Glucose (mg/dL) 135 H (70-110) mg/dL Calcium 8.2 L (8.4-10.2) mg/dL ALT 56 H (4-49) U/L Total Protein 5.2 L (6.3-8.2) g/dL Albumin 2.8 L (3.5-5.0) g/dL - Imaging and Cardiology Chest x-ray: report reviewed, image reviewed Assessment and Plan Assessment: Multivesselc artery disease, left main disease, status post three-vessel coronary artery bypass grafting Chest pain, shortness of breath secondary to above Hypertension Bradycardia with Mobitz type I heart block History of gout Lifetime nonsmoker, preoperative FEV1 69% of predicted Postoperative acute blood loss anemia, expected Postoperative atrial fibrillation/flutter Generalized weakness, medical debility Plan: Continue to maximize medical therapy with aspirin and statin. Hold beta michoacano per cardiology due to heart block, decision regarding permanent pacemaker to be decided by cardiology Continue low dose calcium channel michoacano for radial artery spasm prophylaxis with hold parameters. Encourage incentive spirometry use 10 times every hour while awake. Bronchodilators per pulmonology Will monitor daily labs and chest x-rays, electrolyte replacement per protocol. Increase activity, ambulate as tolerated. PT/OT/cardiac rehab following. GI/DVT prophylaxis. Insulin management per internal medicine. Preoperative hemoglobin A1c 5.8%. Pain control with current medication regimen. Continue to measure and record strict inaccurate I/O's Continue Flomax 0.4 mg by mouth PC breakfast. Daily weights Keep in the intensive care unit. Anticipate IPR at discharge when ready More recommendations to follow based on patient's clinical course.
--- NOTE | 2023-07-21 10:32 | P.PN ---
Subjective Progress Note Date: 07/21/23 On today's evaluation of 07/20/2023, patient is being seen for a follow-up. The patient is undergone an on pump 3 vessel bypass surgery. The patient is currently postop day #5. Doing well. Extubated without any major difficulties and the patient is currently on room air oxygen. Activations for now is his generalized weakness, and at the same time the patient is having AV block in the form of a Mobitz type I. He is not bradycardic at this point in time. He is off beta blockers. He is not taking amiodarone. He is hemodynamically stable. Urine output is adequate for now. Using the [employer] spirometer and pulling approximately 1500 mL. No issues with pain. Sternum is 17 and intact. Chest tubes are removed. Chest x-ray shows some atelectatic changes in the lung bases especially on the left and the patient does have some cardiomegaly. Otherwise, no fever. He is off the insulin drip and the patient is currently on sliding scale insulin coverage. His blood work from today shows a hemoglobin of 7, white cell count of 8.3, platelet count of 211, BUN is at 40 with a creatinine of 0.9 and a sodium level is at 132 with a potassium level of 4.2. He is emanating with assistance. Epicardial leads are still in place. He remains on aspirin and Plavix. He is on high-dose Lipitor. Is also on oral iron. On today's evaluation of 07/22/2023, the patient is comfortable on room air oxy gen. He still having episodes of first-degree AV block mixed with a Mobitz type I. His postoperative day #6. Hemodynamically stable. Chest x-ray shows pulmonary vessel congestion and atelectatic changes along with small effusion lung base bilaterally. Is using the incentive spirometer. Is free of any fever. Hemodynamically stable.The WBC count is at 8 and a hemoglobin of 6.9 and a cardiothoracic team has not made any decision for transfusion. BUN is at 37 with a creatinine of 1 and a sodium level is at 132. No other significant events overnight. Objective - Vital Signs Vital signs: Vital Signs Temp 98.3 F 07/21/23 04:00 Pulse 87 07/21/23 08:36 Resp 19 07/21/23 07:00 BP 162/81 07/21/23 07:00 Pulse Ox 92 L 07/21/23 07:00 FiO2 40 07/15/23 18:30 Intake & Output 07/20/23 07/21/23 07/21/23 18:59 06:59 18:59 Intake Total 360 0 240 Output Total 475 300 Balance -115 -300 240 Weight 107.3 kg Intake: Oral 360 0 240 Output: Urine 475 300 Other: Voiding Method Urinal Toilet # Voids 1 1 # Bowel Movements 1 1 ABP, PAP, CO, CI - Last Documented Arterial Blood Pressure 154/39 Pulmonary Artery Pressure 23/7 Cardiac Output 5.7 Cardiac Index 2.5 - Exam No acute distress, awake and alert, currently on room air. HEENT examination is grossly unremarkable. Neck supple. Full range of motion. No adenopathy thyromegaly or neck vein distention. Cardiovascular examination reveals regular rhythm rate. S1-S2 normal. No S3 or S4. No discernible murmur noted. Lungs reveal clear breath sounds. Breath sounds are equal bilaterally. No adventitious lung sounds including wheezes rhonchi or crackles. Abdomen soft without bowel sounds. Extremities are intact. No cyanosis clubbing or edema. Skin is without rash or lesion. Neurologic examination is brief but nonfocal. - Labs CBC & Chem 7: 07/21/23 04:07 07/21/23 04:07 Labs: Abnormal Lab Results - Last 24 Hours (Table) 07/20/23 07/20/23 07/20/23 Range/Units 11:22 16:38 19:51 RBC (4.30-5.90) m/uL Hgb (13.0-17.5) gm/dL Hct (39.0-53.0) % Sodium (137-145) mmol/L BUN (9-20) mg/dL Glucose (74-99) mg/dL POC Glucose (mg/dL) 129 H 138 H 170 H (70-110) mg/dL Calcium (8.4-10.2) mg/dL ALT (4-49) U/L Total Protein (6.3-8.2) g/dL Albumin (3.5-5.0) g/dL 07/21/23 07/21/23 07/21/23 Range/Units 04:07 04:07 06:45 RBC 2.15 L (4.30-5.90) m/uL Hgb 6.9 L* (13.0-17.5) gm/dL Hct 21.1 L (39.0-53.0) % Sodium 132 L (137-145) mmol/L BUN 37 H (9-20) mg/dL Glucose 101 H (74-99) mg/dL POC Glucose (mg/dL) 135 H (70-110) mg/dL Calcium 8.2 L (8.4-10.2) mg/dL ALT 56 H (4-49) U/L Total Protein 5.2 L (6.3-8.2) g/dL Albumin 2.8 L (3.5-5.0) g/dL Assessment and Plan Plan: Chest pain, secondary to severe coronary artery disease, including left main disease, and severe disease in the LAD, and right coronary artery. Status post three-vessel bypass grafting, 07/15/2023, postop day #6 Routine postoperative ventilator management. The patient is extubated and the patient is currently on room air oxygen Second-degree AV block and this morning the patient is in a Mobitz type I, the patient still has his epicardial leads in place History of hypertension. History of gout. Lifelong nonsmoker. Postop anemia, expected outcome of surgery, hemoglobin is currently at 6.9, no plans for transfusion Generalized weakness Plan Patient is being considered for a pacemaker insertion Patient is currently on room air oxygen We'll monitor hemoglobin Continue monitoring the second-degree AV block Mobitz type I. No need for pacing at this point in time. The patient is hemodynamically stable. Avoid beta blockers Avoid amiodarone Continue using incentive spirometer Monitor hemoglobin Chest x-ray was reviewed Blood work was reviewed We'll continue recovery. ICU for another 24 hours. Keep the epicardial leads in place
--- NOTE | 2023-07-21 10:38 | P.PN ---
Subjective Progress Note Date: 07/21/23 Mario Cherry, is a 78-year-old male who presented to [facility] for cardiac catheterization with Dr. Hernandez, patient was having episodes of chest pain with exertion, he underwent cardiac catheterization on 07/13/2023 which was positive for severe left main disease, severe LAD disease and severe RCA disease. Patient was admitted to telemetry floor, he was started on IV heparin , cardiovascular surgery consultation was requested. Patient has a known history of hypertension, gastroesophageal reflux disease, history of gout , and history of cholecystitis with recent cholecystectomy. On review of systems patient is alert and oriented 3 in no apparent distress, there is no fever or chills no headache or dizziness no chest pain no shortness of breath no cough no nausea or vomiting no abdominal pain no diarrhea no blood in the stools no burning with urination no frequency or urgency and no hematuria. On 07/14/2023. Patient's history for coronary artery bypass graft surgery patient was evaluated by pulmonary services cleared for surgery. At this time patient denies chest pain or shortness breath. Patient denies nausea vomiting or diarrhea. Patient denies any urinary burning or frequency. Current vital signs temp 90.4, heart rate 52, respiratory rate 16, blood pressure 130/71 with a pulse ox 96% on room air. On 07/15/2023 patient was seen and examined in the ICU, patient underwent coronary artery bypass graft surgery 3 vessels, he is admitted to intensive care unit he is intubated sedated maintained on mechanical ventilation, pulmonary critical care are following, left sided chest tube in place, will follow closely. On 07/16/2023 patient is alert and oriented 3 currently sitting up in chair. Patient was extubated per protocol. Chest tubes remain in place. Patient reports generalized weakness. Patient remains in the intensive care unit 07/17/2023 patient was seen and examined in the ICU, he is alert and oriented 3 in no apparent distress, he is sitting up in a chair, chest tubes remain in place temperature is 97.9 pulse 78 respiration 16 blood pressure 100/37 pulse ox 92% on room air white blood count 9.0 hemoglobin 7.5 platelet count of 110 sodium 135 potassium 4.1 chloride 103 CO2 24 BUN 23 creatinine 1.08. At this time will discontinue insulin drip and place patient on insulin sliding scale. On 07/18/2023 patient remains in the intensive care unit. Patient alert and oriented 3 chest tubes have been removed. Patient denies chest pain some incisional pain. Patient denies shortness of breath. Patient denies nausea vomiting or diarrhea. Current vital signs heart rate 63, respiratory rate 19, blood pressure 113/55 with a pulse ox of 95% on 2 L per nursing staff patient will remain in ICU for monitoring for the next 24 hours On 07/19/2023 patient was seen and examined in the intensive care unit is alert and oriented 3 in no apparent distress he is sitting up in a chair, vital exam reveals a temperature of 98.0 pulse 74 respiration 24 blood pressure 131/55 pulse ox 92% white blood count 8.4 hemoglobin 6.8 platelet count 158 sodium 132 potassium 4.4 chloride 100 CO2 21 BUN 41 creatinine 1.12 On 07/20/2023 patient's alert and oriented 3. Patient remains in the intensive care unit. Atrial and ventricular epicardial pacemaker wires remain in place decision on permanent pacemaker will be decided per cardiology. At this time patient denies chest pain or shortness of breath. Patient denies nausea v omiting diarrhea. Patient denies any urinary burning or frequency. On 07/21/2023 patient was seen and examined in the ICU, he is alert and oriented 3 in no apparent distress, he is sitting up in a chair, he is maintained on room air, he is complaining of generalized weakness otherwise he denies any complaints. Vital exam reveals a temperature of 98.3 pulse 68 respirations 17 blood pressure 129/77 pulse ox 92% on room air white blood count 8.0 hemoglobin 6.9 platelet count 284 sodium 132 potassium 4.3 chloride 101 CO2 22 BUN 37 creatinine 1.01. At this time we are still awaiting decision by cardiology regarding pacemaker placement. Continue with current medications at this time. Objective - Vital Signs Vital signs: Vital Signs Temp 98.3 F 07/21/23 04:00 Pulse 87 07/21/23 08:36 Resp 19 07/21/23 07:00 BP 162/81 07/21/23 07:00 Pulse Ox 92 L 07/21/23 07:00 FiO2 40 07/15/23 18:30 Intake & Output 07/20/23 07/21/23 07/21/23 18:59 06:59 18:59 Intake Total 360 0 240 Output Total 475 300 Balance -115 -300 240 Weight 107.3 kg Intake: Oral 360 0 240 Output: Urine 475 300 Other: Voiding Method Urinal Toilet # Voids 1 1 # Bowel Movements 1 1 ABP, PAP, CO, CI - Last Documented Arterial Blood Pressure 154/39 Pulmonary Artery Pressure 23/7 Cardiac Output 5.7 Cardiac Index 2.5 - Exam In general patient is alert and oriented 3 in no apparent distress HEENT head normocephalic and atraumatic Neck is supple no JVD no goiter no lymphadenopathy no carotid bruit Chest examination is clear to auscultation no crackles no wheezing, chest tube in place Cardiac exam reveals regular heart sounds S1 and S2 no gallops no murmurs Abdomen is soft nontender no organomegaly with normal bowel sounds Extremity exam reveals no edema no cyanosis or clubbing Neurological examination reveals no gross focal deficits - Labs CBC & Chem 7: 07/21/23 04:07 07/21/23 04:07 Labs: Abnormal Lab Results - Last 24 Hours (Table) 07/20/23 07/20/23 07/20/23 Range/Units 11:22 16:38 19:51 RBC (4.30-5.90) m/uL Hgb (13.0-17.5) gm/dL Hct (39.0-53.0) % Sodium (137-145) mmol/L BUN (9-20) mg/dL Glucose (74-99) mg/dL POC Glucose (mg/dL) 129 H 138 H 170 H (70-110) mg/dL Calcium (8.4-10.2) mg/dL ALT (4-49) U/L Total Protein (6.3-8.2) g/dL Albumin (3.5-5.0) g/dL 07/21/23 07/21/23 07/21/23 Range/Units 04:07 04:07 06:45 RBC 2.15 L (4.30-5.90) m/uL Hgb 6.9 L* (13.0-17.5) gm/dL Hct 21.1 L (39.0-53.0) % Sodium 132 L (137-145) mmol/L BUN 37 H (9-20) mg/dL Glucose 101 H (74-99) mg/dL POC Glucose (mg/dL) 135 H (70-110) mg/dL Calcium 8.2 L (8.4-10.2) mg/dL ALT 56 H (4-49) U/L Total Protein 5.2 L (6.3-8.2) g/dL Albumin 2.8 L (3.5-5.0) g/dL Assessment and Plan Plan: Episodes of chest pain with cardiac catheterization positive for severe disease in the left main, LAD, and the right coronary artery, patient underwent coronary artery bypass graft surgery 3 vessels on 07/15/2023 Underlying history of hypertension Underlying history of gout Underlying history of gastroesophageal reflux disease At this time patient was seen and examined Home medications reviewed and reordered He was started on IV heparin Plans for coronary artery bypass graft surgery 07/15/2023 Cardiology pulmonary and cardiovascular surgery in place Will follow during this admission
[2023-07-21 11:20] LABS: Glucose,Whole Blood 135 mg/dL (70-110)
--- NOTE | 2023-07-21 12:42 | CA ---
Transthoracic Echo Report Name: Mario Cherry Age: 78 Gender: M : 1945 Exam Date: 07/21/2023 12:09 Exam Location: [facility] Ht (in): 72 Wt (lb): 236 Ordering Physician: Van Frances MD ([id number]) Attending/Referring Phys: Juan Daniel HUNTER Zinc Plate Grainer Antoine Rushing Procedure CPT: Indications: Assess LV Function Cardiac Hx: Technical Quality: Fair Contrast 1: Definity Total Dose (mL): 2 Contrast 2: Total Dose (mL): MEASUREMENTS (Male / Female) Normal Values FINDINGS Left Ventricle Normal LV size and wall thickness. Left ventricular ejection fraction is estimated at 55 %. Right Ventricle Right Atrium Left Atrium Mitral Valve Aortic Valve Tricuspid Valve Pulmonic Valve Pericardium There appears to be a small to moderate posterior pericardial effusion. No tamponade physiology Aorta CONCLUSIONS Limited 2-D echo Left ventricular ejection fraction 55% Small to moderate pericardial effusion, no tamponade physiology Previewed by: Dr. Abhilash Hutchins DO (Electronically Signed) Final Date: 21 July 2023 12:41
[2023-07-21 16:17] LABS: Glucose,Whole Blood 144 mg/dL (70-110)
[2023-07-21] MEDS: ACETAMINOPHEN TAB 500 MG TAB PO PRN (16:52)
[2023-07-21] MEDS: SODIUM CHLORIDE 0.9% 1,000 ML IV SCH ×2 (17:02)
[2023-07-21 19:45] LABS: Glucose,Whole Blood 118 mg/dL (70-110)
[2023-07-21 20:22] LABS: Glucose,Whole Blood 120 mg/dL (70-110)
--- NOTE | 2023-07-21 20:55 | PN ---
PROGRESS NOTE SUBJECTIVE: This is a 78-year-old gentleman who is admitted to ICU following bypass surgery. The patient had evidence of second-degree AV block, Mobitz type 1 preoperatively and he continues to have the same rhythm postoperatively. He also developed new-onset atrial flutter with controlled ventricular rate. However, given the underlying second-degree heart block, we are not able to give him amiodarone and beta blockers. Hence, I am advising to undergo permanent pacemaker placement. He had normal LV systolic function prior to surgery. I will do a limited 2D echo and reassess the LV function. The patient will undergo permanent pacemaker tomorrow. OBJECTIVE: GENERAL: Comfortable at rest. VITAL SIGNS: Stable. CHEST: Reveals diminished air entry at the bases. HEART: Reveals first and second heart sounds, ejection systolic murmur in the aortic area. ABDOMEN: Soft. EXTREMITIES: Did not reveal any edema. Peripheral pulses are felt. ASSESSMENT AND PLAN: 1. Atrial flutter. 2. CAD, status post CABG. 3. Second-degree heart block, Mobitz type 1. PLAN: The patient will need a permanent pacemaker to optimally treat his underlying CAD and atrial flutter. When okay with surgery and the hemoglobin is stable, we will have to start him on anticoagulant also. MMODL / IJN: [id number] /
[2023-07-22] MEDS: HEPARIN SODIUM,PORCINE 5,000 UNIT/ML 1 ML VIAL SQ SCH ×4 (00:16→23:39)
[2023-07-22] MEDS: ACETAMINOPHEN TAB 500 MG TAB PO PRN ×3 (00:21→15:07)
[2023-07-22 05:27] LABS: Anisocytosis Slight; Basophils % (A) 0 %; Eosinophils # (A) 0.3 k/uL (0-0.7); Eosinophils % (A) 4 %; HCT 21.3 % (39.0-53.0); Hypochromasia Slight; Lymphocytes # (A) 1.1 k/uL (1.0-4.8); Lymphocytes % (A) 15 %; MCH 32.9 pg (25.0-35.0); MCHC 32.9 g/dL (31.0-37.0); MCV 100.1 fL (80.0-100.0); Macrocytosis Slight; Mean Platelet Volume 8.4; Monocytes # (A) 0.6 k/uL (0-1.0); Monocytes % (A) 9 %; Neutrophils # (A) 5.1 k/uL (1.3-7.7); Neutrophils % (A) 69 %; Platelet Count 305 k/uL (150-450); Poikilocytosis Slight; RBC 2.12 m/uL (4.30-5.90); RDW 16.9 % (11.5-15.5); WBC 7.3 k/uL (3.8-10.6)
[2023-07-22 05:58] LABS: ALT 50 U/L (4-49); AST 36 U/L (17-59); African American GFR (CKD) 86 (>60 ml/min/1.73 sqM); Albumin 2.8 g/dL (3.5-5.0); Alkaline Phosphatase 57 U/L (38-126); Anion Gap 9 mmol/L; Blood Urea Nitrogen 30 mg/dL (9-20); Calcium 8.2 mg/dL (8.4-10.2); Carbon Dioxide 22 mmol/L (22-30); Chloride 104 mmol/L (98-107); Glucose 89 mg/dL (74-99); Magnesium 2.2 mg/dL (1.6-2.3); Non-African American GFR(CKD) 74 (>60 ml/min/1.73 sqM); Potassium 4.2 mmol/L (3.5-5.1); Sodium 135 mmol/L (137-145); Total Bilirubin 0.7 mg/dL (0.2-1.3); Total Protein 5.1 g/dL (6.3-8.2)
[2023-07-22] MEDS: SODIUM CHLORIDE 0.9% 1,000 ML IV SCH ×2 (06:18)
[2023-07-22] MEDS: FERROUS SULFATE 325 MG TAB PO SCH ×2 (06:19→19:06)
[2023-07-22] MEDS: INSULIN ASPART (NovoLOG) 100 UNIT/ML VIAL SQ SCH ×4 (06:19→20:17)
[2023-07-22] MEDS: PANTOPRAZOLE 40 MG TABLET PO SCH (06:19)
[2023-07-22 06:20] LABS: Glucose,Whole Blood 135 mg/dL (70-110)
[2023-07-22] MEDS ORDERED: ceFAZolin 1 GM in SODIUM CHLORIDE 0.9% IRRIG BTL 250 ML IRRIGATION PRN (07:00)
--- NOTE | 2023-07-22 08:41 | P.PN ---
Subjective Progress Note Date: 07/22/23 Principal diagnosis: Coronary artery disease, left main disease. History of hypertension, bradycardia with second-degree heart block Multivessel coronary artery disease, with left main disease. Past medical history significant for hypertension, bradycardia with second-degree heart block Mobitz type I, gout and is a lifetime nonsmoker with a preoperative FEV1 69% of predicted value and a base volume of 2.15 L. POD #7 Coronary artery bypass grafting x 3. Left internal thoracic artery (in- situ) to left anterior descending coronary artery. Left radial artery from aorta to obtuse marginal artery #1. Saphenous vein from aorta to posterior descending coronary artery. Left atrial appendage ligation using #35 AtriClip, endoscopic left radial and left greater saphenous vein harvest, graft flow measurements using the Wedge Buster-stim flow meter, and intraoperative transesophageal e chocardiogram performed by anesthesia. Postoperative acute blood loss anemia, expected given hemodilution and cardiopulmonary bypass. Postoperative atrial fibrillation/aflutter, known common occurrence after open heart surgery The patient was seen and examined this morning sitting up in a recliner in the ICU in no acute distress. Denies any chest pain or shortness of breath currently. Currently in sinus rhythm with Mobitz type I, hemodynamically stable. Patient has ambulated in the hallway, showered daily. Was evaluated for IPR at discharge and was accepted. Currently on room air and able to achieve 1500 on incentive spirometry. CXR, labs reviewed. Plan is for permanent pacemaker today, subsequently will discontinue temporary epicardial wires then will start patient on anticoagulation. No other new concerns. Objective - Vital Signs Vital signs: Vital Signs Temp 98 F 07/22/23 04:00 Pulse 71 07/22/23 04:00 Resp 15 07/22/23 04:00 BP 133/63 07/22/23 04:00 Pulse Ox 95 07/22/23 04:00 FiO2 40 07/15/23 18:30 Intake & Output 07/21/23 07/22/23 07/22/23 18:59 06:59 18:59 Intake Total 490 720 Output Total 300 600 Balance 190 120 Weight 109.3 kg Intake: IV 50 600 Sodium Chloride 0.9% 1, 50 600 000 ml @ 50 mls/hr IV . Q20H [facility] Rx#:[id number] Oral 440 120 Output: Urine 300 600 Other: Voiding Method Toilet Toilet # Voids 1 1 # Bowel Movements 1 1 ABP, PAP, CO, CI - Last Documented Arterial Blood Pressure 154/39 Pulmonary Artery Pressure 23/7 Cardiac Output 5.7 Cardiac Index 2.5 - Exam CONSTITUTIONAL: Appears comfortable, cooperative, no acute distress RESPIRATORY: Lungs sounds diminished bilaterally. Respirations even, n onlabored. Currently on room air with oxygen saturation 92%. Able to achieve 1500 mL on incentive spirometry. Strong cough. CARDIOVASCULAR: S1, S2 present. Irregular rate and rhythm, Mobitz type I on telemetry. Palpable peripheral pulses bilaterally. Trace bilateral lower extremity edema present. No calf pain or tenderness noted. GASTROINTESTINAL: Abdomen soft, nontender, nondistended. Active bowel sounds present 4 quadrants. Tolerating diet. Positive bowel movement 07/22 GENITOURINARY: Continues to void INTEGUMENTARY: Skin is warm and dry. Anterior chest incision/left radial artery/left lower extremity EVH site well approximated without redness or drainage NEUROLOGIC: Cranial nerves II through XII intact MUSKULOSKELETAL: Able to move all extremities, strength equal bilaterally, gait normal PSYCHIATRIC: Alert and oriented to person place and time, appropriate affect, intact judgment and insight INVASIVE LINES: A/V epicardial pacer wires present, grounded - Allied health notes Allied health notes reviewed: nursing - Labs CBC & Chem 7: 07/22/23 05:05 07/22/23 05:05 Labs: Abnormal Lab Results - Last 24 Hours (Table) 07/21/23 07/21/23 07/21/23 Range/Units 11:19 16:15 19:43 RBC (4.30-5.90) m/uL Hgb (13.0-17.5) gm/dL Hct (39.0-53.0) % MCV (80.0-100.0) fL RDW (11.5-15.5) % Sodium (137-145) mmol/L BUN (9-20) mg/dL POC Glucose (mg/dL) 135 H 144 H 118 H (70-110) mg/dL Calcium (8.4-10.2) mg/dL ALT (4-49) U/L Total Protein (6.3-8.2) g/dL Albumin (3.5-5.0) g/dL 07/21/23 07/22/23 07/22/23 Range/Units 20:20 05:05 05:05 RBC 2.12 L (4.30-5.90) m/uL Hgb 7.0 L (13.0-17.5) gm/dL Hct 21.3 L (39.0-53.0) % MCV 100.1 H (80.0-100.0) fL RDW 16.9 H (11.5-15.5) % Sodium 135 L (137-145) mmol/L BUN 30 H (9-20) mg/dL POC Glucose (mg/dL) 120 H (70-110) mg/dL Calcium 8.2 L (8.4-10.2) mg/dL ALT 50 H (4-49) U/L Total Protein 5.1 L (6.3-8.2) g/dL Albumin 2.8 L (3.5-5.0) g/dL 07/22/23 Range/Units 06:19 RBC (4.30-5.90) m/uL Hgb (13.0-17.5) gm/dL Hct (39.0-53.0) % MCV (80.0-100.0) fL RDW (11.5-15.5) % Sodium (137-145) mmol/L BUN (9-20) mg/dL POC Glucose (mg/dL) 135 H (70-110) mg/dL Calcium (8.4-10.2) mg/dL ALT (4-49) U/L Total Protein (6.3-8.2) g/dL Albumin (3.5-5.0) g/dL - Imaging and Cardiology Chest x-ray: image reviewed Assessment and Plan Assessment: Multivesselc artery disease, left main disease, status post three-vessel coronary artery bypass grafting Chest pain, shortness of breath secondary to above Hypertension Bradycardia with Mobitz type I heart block History of gout Lifetime nonsmoker, preoperative FEV1 69% of predicted Postoperative acute blood loss anemia, expected Postoperative atrial fibrillation/flutter Generalized weakness, medical debility Plan: Continue to maximize medical therapy with aspirin and statin. Hold beta [place]ano per cardiology due to heart block, will start after permanent pacemaker placement Currently NPO for permanent pacemaker placement today. Will discontinue epicardial pacemaker wires after permanent pacemaker. Subsequently will start anticoagulation Continue low dose calcium channel micho[place]ano for radial artery spasm prophylaxis with hold parameters. Encourage incentive spirometry use 10 times every hour while awake. Bronchodilators per pulmonology Will monitor daily labs and chest x-rays, electrolyte replacement per protocol. Increase activity, ambulate as tolerated. PT/OT/cardiac rehab following. GI/DVT prophylaxis. Insulin management per internal medicine. Preoperative hemoglobin A1c 5.8%. Pain control with current medication regimen. Continue to measure and record strict inaccurate I/O's Continue Flomax Daily weights Keep in the intensive care unit. Anticipate IPR at discharge when ready More recommendations to follow based on patient's clinical course.
[2023-07-22] MEDS: IPRATROPIUM-ALBUTEROL 3 ML NEB INHALATION SCH ×4 (09:07→21:28)
[2023-07-22] MEDS: ASCORBIC ACID 500 MG TAB PO SCH ×2 (09:35→20:17)
[2023-07-22] MEDS: ASPIRIN 325 MG TAB PO SCH (09:35)
[2023-07-22] MEDS: CLOPIDOGREL 75 MG TAB PO SCH (09:36)
[2023-07-22] MEDS: TAMSULOSIN 0.4 MG CAP.ER.24H PO SCH (09:36)
[2023-07-22] MEDS: ATORVASTATIN 40 MG TAB PO SCH (09:36)
[2023-07-22] MEDS: amLODIPine 2.5 MG TAB PO SCH (09:37)
[2023-07-22] MEDS: SERTRALINE 25 MG TAB PO SCH (09:38)
--- NOTE | 2023-07-22 09:38 | XR ---
EXAMINATION TYPE: XR chest 2V DATE OF EXAM: 07/22/2023 COMPARISON: 07/21/2023 HISTORY: 78-year-old male postop cardiac surgery TECHNIQUE: PA and lateral views FINDINGS: Median sternotomy wires are present with post-CABG clips the mediastinum. Heart borderline enlarged. Mild hyperinflation. Diffuse interstitial density persists though show slight improvement. Ongoing sm all left and trace right pleural effusions with prominent patchy retrocardiac density. IMPRESSION: CHF with similar to slightly improving pulmonary vascular congestion. Ongoing small left and trace ri ght pleural effusion with prominent postoperative abscess at the left base.
--- NOTE | 2023-07-22 10:36 | P.PN ---
Subjective Progress Note Date: 07/22/23 On today's evaluation of 07/20/2023, patient is being seen for a follow-up. The patient is undergone an on pump 3 vessel bypass surgery. The patient is currently postop day #5. Doing well. Extubated without any major difficulties and the patient is currently on room air oxygen. Activations for now is his generalized weakness, and at the same time the patient is having AV block in the form of a Mobitz type I. He is not bradycardic at this point in time. He is off beta blockers. He is not taking amiodarone. He is hemodynamically stable. Urine output is adequate for now. Using the senna spirometer and pulling approximately 1500 mL. No issues with pain. Sternum is 17 and intact. Chest tubes are removed. Chest x-ray shows some atelectatic changes in the lung bases especially on the left and the patient does have some cardiomegaly. Otherwise, no fever. He is off the insulin drip and the patient is currently on sliding scale insulin coverage. His blood work from today shows a hemoglobin of 7, white cell count of 8.3, platelet count of 211, BUN is at 40 with a creatinine of 0.9 and a sodium level is at 132 with a potassium level of 4.2. He is emanating with assistance. Epicardial leads are still in place. He remains on aspirin and Plavix. He is on high-dose Lipitor. Is also on oral iron. On today's evaluation of 07/22/2023, the patient is comfortable on room air oxy gen. He still having episodes of first-degree AV block mixed with a Mobitz type I. His postoperative day #6. Hemodynamically stable. Chest x-ray shows pulmonary vessel congestion and atelectatic changes along with small effusion lung base bilaterally. Is using the incentive spirometer. Is free of any fever. Hemodynamically stable.The WBC count is at 8 and a hemoglobin of 6.9 and a cardiothoracic team has not made any decision for transfusion. BUN is at 37 with a creatinine of 1 and a sodium level is at 132. No other significant events overnight. On 07/23/2023, I'm seeing the patient for a follow-up. The patient is postop day #7. This morning, the patient is in a first-degree AV block. However, overnight, he had a episode of a severe bradycardia and he had to be placed. He was in a complete heart block. As such, the plan is to proceed with a pacemaker insertion today. He is on room air oxygen. Chest x-ray showing some small bilateral pleural effusions and mild pulmonary vascular congestion. He is not having any respiratory distress. Sternum stable clean and intact. Using the senna spirometer. The white cell cause of 7.3, hemoglobin is at 7, BUN is at 30 with a creatinine of 0.9 and a sodium level is at 135. He is not on beta blockers at this point in time. He is not using any amiodarone. He is on aspirin. He is also on oral iron regarding his iron deficiency anemia. He remains on statins. Awake and alert moving all 4 extremities without any limitation. Objective - Vital Signs Vital signs: Vital Signs Temp 97.5 F L 07/22/23 09:45 Pulse 74 07/22/23 09:45 Resp 28 H 07/22/23 09:45 BP 117/49 07/22/23 09:45 Pulse Ox 92 L 07/22/23 09:45 FiO2 40 07/15/23 18:30 Intake & Output 07/21/23 07/22/23 07/22/23 18:59 06:59 18:59 Intake Total 490 720 100 Output Total 300 600 250 Balance 190 120 -150 Weight 109.3 kg Intake: IV 50 600 100 Sodium Chloride 0.9% 1, 50 600 100 000 ml @ 50 mls/hr IV . Q20H [facility] Rx#:[id number] Oral 440 120 Output: Urine 300 600 250 Other: Voiding Method Toilet Toilet # Voids 1 1 # Bowel Movements 1 1 ABP, PAP, CO, CI - Last Documented Arterial Blood Pressure 154/39 Pulmonary Artery Pressure 23/7 Cardiac Output 5.7 Cardiac Index 2.5 - Exam No acute distress, awake and alert, currently on room air. HEENT examination is grossly unremarkable. Neck supple. Full range of motion. No adenopathy thyromegaly or neck vein distention. Cardiovascular examination reveals regular rhythm rate. S1-S2 normal. No S3 or S4. No discernible murmur noted. Lungs reveal clear breath sounds. Breath sounds are equal bilaterally. No adventitious lung sounds including wheezes rhonchi or crackles. Abdomen soft without bowel sounds. Extremities are intact. No cyanosis clubbing or edema. Skin is without rash or lesion. Neurologic examination is brief but nonfocal. - Labs CBC & Chem 7: 07/22/23 05:05 07/22/23 05:05 Labs: Abnormal Lab Results - Last 24 Hours (Table) 07/21/23 07/21/23 07/21/23 Range/Units 11:19 16:15 19:43 RBC (4.30-5.90) m/uL Hgb (13.0-17.5) gm/dL Hct (39.0-53.0) % MCV (80.0-100.0) fL RDW (11.5-15.5) % Sodium (137-145) mmol/L BUN (9-20) mg/dL POC Glucose (mg/dL) 135 H 144 H 118 H (70-110) mg/dL Calcium (8.4-10.2) mg/dL ALT (4-49) U/L Total Protein (6.3-8.2) g/dL Albumin (3.5-5.0) g/dL 07/21/23 07/22/23 07/22/23 Range/Units 20:20 05:05 05:05 RBC 2.12 L (4.30-5.90) m/uL Hgb 7.0 L (13.0-17.5) gm/dL Hct 21.3 L (39.0-53.0) % MCV 100.1 H (80.0-100.0) fL RDW 16.9 H (11.5-15.5) % Sodium 135 L (137-145) mmol/L BUN 30 H (9-20) mg/dL POC Glucose (mg/dL) 120 H (70-110) mg/dL Calcium 8.2 L (8.4-10.2) mg/dL ALT 50 H (4-49) U/L Total Protein 5.1 L (6.3-8.2) g/dL Albumin 2.8 L (3.5-5.0) g/dL 07/22/23 Range/Units 06:19 RBC (4.30-5.90) m/uL Hgb (13.0-17.5) gm/dL Hct (39.0-53.0) % MCV (80.0-100.0) fL RDW (11.5-15.5) % Sodium (137-145) mmol/L BUN (9-20) mg/dL POC Glucose (mg/dL) 135 H (70-110) mg/dL Calcium (8.4-10.2) mg/dL ALT (4-49) U/L Total Protein (6.3-8.2) g/dL Albumin (3.5-5.0) g/dL Assessment and Plan Plan: Chest pain, secondary to severe coronary artery disease, including left main disease, and severe disease in the LAD, and right coronary artery. Status post three-vessel bypass grafting, 07/15/2023, postop day #7 Routine postoperative ventilator management. The patient is extubated and the patient is currently on room air oxygen Second-degree AV block and this morning the patient is in a Mobitz type I, alternating with a first-degree AV block and overnight the patient had a episode of severe bradycardia requiring pacing. For now, he is running at his intrinsic rate in the mid 70s with a first-degree AV block the patient still has his epicardial leads in place History of hypertension. History of gout. Lifelong nonsmoker. Postop anemia, expected outcome of surgery, hemoglobin is currently at 7.0, no plans for transfusion Generalized weakness Plan Patient is having pacemaker insertion today Patient is currently on room air oxygen We'll monitor hemoglobin Avoid beta blockers Avoid amiodarone Continue using incentive spirometer Monitor hemoglobin Chest x-ray was reviewed Blood work was reviewed We'll continue recovery. ICU for another 24 hours.
[2023-07-22] MEDS ORDERED: IOPAMIDOL-370 100ML BTL IVP ONE (11:35)
[2023-07-22] MEDS ORDERED: IV FLUID CONTINUATION 1,000 ML IV ONE (11:41)
[2023-07-22] MEDS ORDERED: fentaNYL (PF) 50 MCG/ML 2 ML AMP IVP ONE (11:50)
[2023-07-22] MEDS ORDERED: MIDAZOLAM 2 MG/2 ML VIAL IVP ONE (11:50)
[2023-07-22] MEDS ORDERED: LIDOCAINE 1% INJ 10MG/ML (20 ML MDV) SQ ONE ×2 (11:50→12:01)
[2023-07-22 14:59] LABS: Glucose,Whole Blood 95 mg/dL (70-110)
--- NOTE | 2023-07-22 15:20 | P.PCN ---
Description of Procedure: CARDIOLOGY PROCEDURE NOTE [employer] Manager: Dr. 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 The patient was taken to the cardiac catheterization suite where the left subclavian area was sterily prepped and draped in the usual fashion. One percent lidocaine was used to anesthetize the left subclavian area. Twenty milliliters of Isoview 370 contrast was injected into the left antecubital vein to allow for direct visualization of the left subclavian vein under fluoroscopy. A 1.5 inch incision was made utilizing a #15 blade in the left subclavian site. Hemostasis was made complete. Electrocautery along with digital blunt dissection was utilized to dissect to the level of the pectoralis muscle fascia and create a pocket large enough to accommodate the generator. A thin walled micro puncuture needle was used to cannulate the left subclavian vein. A guide-wire was inserted through the needle into the vascular lumen under fluoroscopic guidance. The needle was removed. Another thin walled micr puncture needle was used to again cannulate the left subclavian vein. A guide-wire was inserted through the needle into the vascular lumen under fluoroscopic guidance. The needle was removed and both guide-wires were attached to the field. A venous sheath and dilator were advanced over the guidewire into the vascular lumen under fluoroscopic guidance. The dilator and guidewire were then removed. A right ventricular bipolar lead was inserted into the sheath and advanced under fluoroscopic guidance into the right ventricle under fluoroscopic guidance. Adequate sensing and pacing thresholds were achieved and the lead was screwed into place in the RV apex. The sheath was then torn away. The lead collar was advanced and anchored into place utilizing #0 silk suture. Next, another venous sheath and dilator were advanced under fluoroscopic guidance into the vascular lumen over the guidewire. After removal of the dilator and guidewire, a right atrial bipolar lead was inserted into this sheath and advanced under fluoroscopic guidance into the right atrium. The lead was positioned into the right atrial appendage. Adequate sensing and pacing thresholds were then achieved with patient being in Aflutter at the time and the lead was screwed into place. The sheath was then torn away. The lead collar was advanced and anchored into place utilizing #0 silk suture. The leads were then inserted into the appropriate position into the generator. They were then secured with the setscrew provided. The leads and generator were inserted into the pocket with the leads posterior. The subcutaneous tissue was approximated utilizing #2.0 and 3.0 vicryl in an interrupted stitch fashion. The dermal layer was approximated utilizing #4.0 vicryl. The area was cleansed with sterile saline and dried. A sterile 4x4 dressing was applied and the patient was transferred to the post catheterization holding area in stable and satisfactory condition. The patient tolerated the procedure well. Generator Data Accounting Intern: [employer] Brand: [id number] [place] XT DR MRI Model #: W1DR01 Serial#: [id number] Right Atrial Bipolar Lead Data: Type: Active fixation lead Accounting Intern: [employer] Model#: 5076-52 Serial Number: [id number] Right Ventricular Bipolar Lead Data: Type: Active fixation lead Accounting Intern: [employer] Model #: 5076-58 Serial #: [id number] Stimulation Thresholds: Right atrial bipolar lead pacing and sensing thresholds Voltage: 1.75 Impedance: 437 ohms P-wave sensin.9 mV Right Ventricular bipolar lead pacing and sensing thresholds Pulse Width: 0.4ms Voltage: 0.5 volts Impedance: 684 ohms R-wave sensin.0 mV Parameter Setting: Pacing mode is DDD Lower rate 60 bpm Upper rate 130 bpm Impressions: 1. Successful implantation of a dual chamber permanent pacemaker in the left pectoral site. Plan: 1. Routine post procedure care will be instituted as well as outpatient follow- up surveillance.
[2023-07-22 16:43] LABS: Glucose,Whole Blood 134 mg/dL (70-110)
--- NOTE | 2023-07-22 19:52 | XR ---
EXAMINATION TYPE: XR chest 1V portable DATE OF EXAM: 07/22/2023 Comparison: 07/22/2023 Clinical History: 78-year-old male Lead placement check Findings: Left anterior chest wall pacemaker generator with right atrial and right ventricular leads. Median st ernotomy wires and post-CABG clips. Retained epicardial pacer leads. Interstitial density. Borderline heart size. Ongoing small left and trace right effusions. Retrocardiac opacity. Old healed right-mary ed rib fracture deformities. Impression: 1. Correlate for ongoing mild CHF with pulmonary vascular congestion. 2. Ongoing small left and trace right pleural effusions. Prominent adjacent atelectasis and/or consol idation at the left base. 3. New left-sided pacemaker generator with right atrial and ventricular leads. Retained epicardial pa cer leads. No appreciable pneumothorax.
[2023-07-22 20:11] LABS: Glucose,Whole Blood 155 mg/dL (70-110)
[2023-07-22] MEDS: ACETAMINOPHEN TAB 325 MG TAB PO PRN (20:16)
--- NOTE | 2023-07-22 21:04 | P.PN ---
Subjective This is a pleasant 78 years old male with multiple medical problems was admitted with severe coronary artery disease developed by railroader and underwent coronary artery bypass grafting on 07/15. Currently he is sitting up in chair looks comfortable. His postop period has been complicated with second-degree AV block and because of tachypnea/bradyarrhythmia railroader decided to insert pacemaker and today is postoperative day #0. Patient tolerated procedure well and repeat chest x-ray showing the new pacemaker let's. Also there is mild degree of pulmonary congestion and mild left pleural effusion with possible underlying consolidation versus atelectasis. Nevertheless patient clinically doing well and his room air with no tachypnea o r dyspnea or chest pain. Hemoglobin stable at 7.0. Creatinine 0.98. Risks of vital stable. Rest of labs stable. Patient remains on aspirin 325 mg and Plavix per surgery primary team. Objective - Vital Signs Vital signs: Vital Signs Temp 97.5 F L 07/22/23 09:45 Pulse 74 07/22/23 09:45 Resp 28 H 07/22/23 09:45 BP 117/49 07/22/23 09:45 Pulse Ox 92 L 07/22/23 09:45 FiO2 40 07/15/23 18:30 Intake & Output 07/21/23 07/22/23 07/22/23 18:59 06:59 18:59 Intake Total 490 720 300 Output Total 300 600 250 Balance 190 120 50 Weight 109.3 kg Intake: IV 50 600 300 Sodium Chloride 0.9% 1, 50 600 150 000 ml @ 50 mls/hr IV . Q20H [facility] Rx#:[id number] Oral 440 120 Output: Urine 300 600 250 Other: Voiding Method Toilet Toilet Toilet # Voids 1 1 # Bowel Movements 1 1 ABP, PAP, CO, CI - Last Documented Arterial Blood Pressure 154/39 Pulmonary Artery Pressure 23/7 Cardiac Output 5.7 Cardiac Index 2.5 - Exam GENERAL: The patient is alert and oriented x3, not in any acute distress. Well developed, well nourished. HEENT: Pupils are round and equally reacting to light. EOMI. No scleral icterus. No conjunctival pallor. Normocephalic, atraumatic. No pharyngeal erythema. No thyromegaly. -CARDIOVASCULAR: S1 and S2 present. No murmurs, rubs, or gallops. Surgical wound with a dressing is in a Place PULMONARY: Chest is clear to auscultation, no wheezing , no crackles. ABDOMEN: Soft, nontender, nondistended, normoactive bowel sounds. No palpable organomegaly. MUSCULOSKELETAL: No joint swelling or deformity. EXTREMITIES: No cyanosis, clubbing, or pedal edema. NEUROLOGICAL: Gross neurological examination did not reveal any focal deficits. SKIN: No rashes. no petechiae. - Labs CBC & Chem 7: 07/22/23 05:05 07/22/23 05:05 Labs: Abnormal Lab Results - Last 24 Hours (Table) 07/21/23 07/21/23 07/21/23 Range/Units 16:15 19:43 20:20 RBC (4.30-5.90) m/uL Hgb (13.0-17.5) gm/dL Hct (39.0-53.0) % MCV (80.0-100.0) fL RDW (11.5-15.5) % Sodium (137-145) mmol/L BUN (9-20) mg/dL POC Glucose (mg/dL) 144 H 118 H 120 H (70-110) mg/dL Calcium (8.4-10.2) mg/dL ALT (4-49) U/L Total Protein (6.3-8.2) g/dL Albumin (3.5-5.0) g/dL 07/22/23 07/22/23 07/22/23 Range/Units 05:05 05:05 06:19 RBC 2.12 L (4.30-5.90) m/uL Hgb 7.0 L (13.0-17.5) gm/dL Hct 21.3 L (39.0-53.0) % MCV 100.1 H (80.0-100.0) fL RDW 16.9 H (11.5-15.5) % Sodium 135 L (137-145) mmol/L BUN 30 H (9-20) mg/dL POC Glucose (mg/dL) 135 H (70-110) mg/dL Calcium 8.2 L (8.4-10.2) mg/dL ALT 50 H (4-49) U/L Total Protein 5.1 L (6.3-8.2) g/dL Albumin 2.8 L (3.5-5.0) g/dL Assessment and Plan Assessment: Episodes of chest pain with cardiac catheterization positive for severe disease in the left main, LAD, and the right coronary artery, patient underwent coronary artery bypass graft surgery 3 vessels on 07/15/2023 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
[2023-07-23 06:18] LABS: Anisocytosis Slight; HCT 23.5 % (39.0-53.0); HGB 7.4 gm/dL (13.0-17.5); Hypochromasia Moderate; MCH 32.2 pg (25.0-35.0); MCHC 31.5 g/dL (31.0-37.0); MCV 102.4 fL (80.0-100.0); Macrocytosis Moderate; Mean Platelet Volume 7.5; Platelet Count 348 k/uL (150-450); Poikilocytosis Slight; RBC 2.29 m/uL (4.30-5.90); RDW 16.8 % (11.5-15.5); WBC 8.4 k/uL (3.8-10.6)
[2023-07-23 06:34] LABS: African American GFR (CKD) >90 (>60 ml/min/1.73 sqM); Anion Gap 10 mmol/L; Blood Urea Nitrogen 26 mg/dL (9-20); Calcium 8.2 mg/dL (8.4-10.2); Carbon Dioxide 21 mmol/L (22-30); Chloride 104 mmol/L (98-107); Glucose 108 mg/dL (74-99); Non-African American GFR(CKD) 82 (>60 ml/min/1.73 sqM); Potassium 4.1 mmol/L (3.5-5.1); Sodium 135 mmol/L (137-145)
[2023-07-23 06:42] LABS: Glucose,Whole Blood 147 mg/dL (70-110)
[2023-07-23] MEDS: INSULIN ASPART (NovoLOG) 100 UNIT/ML VIAL SQ SCH ×2 (06:45→13:15)
[2023-07-23] MEDS: PANTOPRAZOLE 40 MG TABLET PO SCH (06:47)
[2023-07-23] MEDS: FERROUS SULFATE 325 MG TAB PO SCH (06:48)
[2023-07-23 08:42] VITALS: RESP 17
[2023-07-23] MEDS ORDERED: FUROSEMIDE 10 MG/ML 4 ML VIAL IV STA (08:44)
[2023-07-23] MEDS: ASCORBIC ACID 500 MG TAB PO SCH (08:48)
[2023-07-23] MEDS: TAMSULOSIN 0.4 MG CAP.ER.24H PO SCH (08:48)
[2023-07-23] MEDS: amLODIPine 2.5 MG TAB PO SCH (08:48)
[2023-07-23] MEDS: HEPARIN SODIUM,PORCINE 5,000 UNIT/ML 1 ML VIAL SQ SCH (08:48)
[2023-07-23] MEDS: ATORVASTATIN 40 MG TAB PO SCH (08:48)
[2023-07-23] MEDS: ASPIRIN 325 MG TAB PO SCH (08:48)
[2023-07-23] MEDS: CLOPIDOGREL 75 MG TAB PO SCH (08:48)
[2023-07-23] MEDS: ACETAMINOPHEN TAB 325 MG TAB PO PRN (08:48)
[2023-07-23] MEDS: SERTRALINE 25 MG TAB PO SCH (08:48)
[2023-07-23] MEDS ORDERED: METOPROLOL TARTRATE 12.5 MG TAB PO SCH (09:00)
--- NOTE | 2023-07-23 09:01 | P.PN ---
Subjective Progress Note Date: 07/23/23 Principal diagnosis: Coronary artery disease, left main disease. History of hypertension, bradycardia with second-degree heart block Multivessel coronary artery disease, with left main disease. Past medical history significant for hypertension, bradycardia with second-degree heart block Mobitz type I, gout and is a lifetime nonsmoker with a preoperative FEV1 69% of predicted value and a base volume of 2.15 L. POD #8 Coronary artery bypass grafting x 3. Left internal thoracic artery (in- situ) to left anterior descending coronary artery. Left radial artery from aorta to obtuse marginal artery #1. Saphenous vein from aorta to posterior descending coronary artery. Left atrial appendage ligation using #35 AtriClip, endoscopic left radial and left greater saphenous vein harvest, graft flow measurements using the Cignifi-stim flow meter, and intraoperative transesophageal e chocardiogram performed by anesthesia. Postoperative acute blood loss anemia, expected given hemodilution and cardiopulmonary bypass. Postoperative atrial fibrillation/aflutter, known common occurrence after open heart surgery Tachybrady syndrome with inability to give antiarrhythmics, status post insertion of Medtronic dual-chamber permanent pacemaker by Dr. Hutchins 07/22/2023 The patient was seen and examined this morning sitting up in a recliner in the ICU prior to transfer to [address] [place] [address] in no acute distress. Denies any chest pain or shortness of breath currently, although does state he feels weak and like he is a bit beat up after pacemaker insertion. Currently Vpaced, hemodynamically stable. Patient has ambulated in the hallway, showered daily. Had permanent pacemaker placed yesterday, will discontinue epicardial temporary wires today. Was evaluated for IPR at discharge and was accepted. Currently on room air and able to achieve 1500 on incentive spirometry. CXR, labs reviewed. No other new concerns. Objective - Vital Signs Vital signs: Vital Signs Temp 97.5 F L 07/23/23 08:10 Pulse 87 07/23/23 08:10 Resp 17 07/23/23 08:10 BP 146/82 07/23/23 08:10 Pulse Ox 92 L 07/23/23 08:10 FiO2 40 07/15/23 18:30 Intake & Output 07/22/23 07/23/23 07/23/23 18:59 06:59 18:59 Intake Total 950 Output Total 575 600 Balance 375 -600 Weight 109.9 kg Intake: IV 500 Sodium Chloride 0.9% 1, 350 000 ml @ 50 mls/hr IV . Q20H [facility] Rx#:[id number] Oral 450 Output: Urine 575 600 Other: Voiding Method Toilet Toilet # Bowel Movements 1 ABP, PAP, CO, CI - Last Documented Arterial Blood Pressure 154/39 Pulmonary Artery Pressure 23/7 Cardiac Output 5.7 Cardiac Index 2.5 - Exam CONSTITUTIONAL: Appears comfortable, cooperative, no acute distress RESPIRATORY: Lungs sounds diminished bilaterally. Respirations even, nonlabored. Currently on room air with oxygen saturation 92%. Able to achieve 1500 mL on incentive spirometry. Strong cough. CARDIOVASCULAR: S1, S2 present. Regular rate and rhythm, Vpaced on telemetry. Palpable peripheral pulses bilaterally. Trace generalized edema present. No calf pain or tenderness noted. GASTROINTESTINAL: Abdomen soft, nontender, nondistended. Active bowel sounds present 4 quadrants. Tolerating diet. Positive bowel movement 07/23 GENITOURINARY: Continues to void INTEGUMENTARY: Skin is warm and dry. Anterior chest incision/left radial artery/left lower extremity EVH site well approximated without redness or drainage NEUROLOGIC: Cranial nerves II through XII intact MUSKULOSKELETAL: Able to move all extremities, strength equal bilaterally, gait normal PSYCHIATRIC: Alert and oriented to person place and time, appropriate affect, intact judgment and insight INVASIVE LINES: A/V epicardial pacer wires present, grounded - Allied health notes Allied health notes reviewed: nursing - Labs CBC & Chem 7: 07/23/23 05:34 07/23/23 05:34 Labs: Abnormal Lab Results - Last 24 Hours (Table) 07/22/23 07/22/23 07/23/23 Range/Units 16:42 20:10 05:34 RBC 2.29 L (4.30-5.90) m/uL Hgb 7.4 L (13.0-17.5) gm/dL Hct 23.5 L (39.0-53.0) % MCV 102.4 H (80.0-100.0) fL RDW 16.8 H (11.5-15.5) % Sodium (137-145) mmol/L Carbon Dioxide (22-30) mmol/L BUN (9-20) mg/dL Glucose (74-99) mg/dL POC Glucose (mg/dL) 134 H 155 H (70-110) mg/dL Calcium (8.4-10.2) mg/dL 07/23/23 07/23/23 Range/Units 05:34 06:41 RBC (4.30-5.90) m/uL Hgb (13.0-17.5) gm/dL Hct (39.0-53.0) % MCV (80.0-100.0) fL RDW (11.5-15.5) % Sodium 135 L (137-145) mmol/L Carbon Dioxide 21 L (22-30) mmol/L BUN 26 H (9-20) mg/dL Glucose 108 H (74-99) mg/dL POC Glucose (mg/dL) 147 H (70-110) mg/dL Calcium 8.2 L (8.4-10.2) mg/dL - Imaging and Cardiology Chest x-ray: image reviewed Assessment and Plan Assessment: Multivesselc artery disease, left main disease, status post three-vessel coronary artery bypass grafting Chest pain, shortness of breath secondary to above Hypertension Bradycardia with Mobitz type I heart block History of gout Lifetime nonsmoker, preoperative FEV1 69% of predicted Postoperative acute blood loss anemia, expected Postoperative atrial fibrillation/flutter Generalized weakness, medical debility Tachybrady syndrome with inability to give antiarrhythmics, status post insertion of Medtronic dual-chamber permanent pacemaker by Dr. Hutchins 07/22/2023 Plan: Continue to maximize medical therapy with aspirin and statin. Will start low- dose beta michoacano Will discontinue epicardial pacemaker wires, will start anticoagulation Continue low dose calcium channel michoacano for radial artery spasm prophylaxis with hold parameters. Encourage incentive spirometry use 10 times every hour while awake. Bronchodilators per pulmonology Will monitor daily labs and chest x-rays, electrolyte replacement per protocol. Increase activity, ambulate as tolerated. PT/OT/cardiac rehab following. GI/DVT prophylaxis. Insulin management per internal medicine. Preoperative hemoglobin A1c 5.8%. Pain control with current medication regimen. Continue to measure and record strict inaccurate I/O's Continue Flomax Daily weights Anticipate discharge to [facility] this afternoon More recommendations to follow based on patient's clinical course.
--- NOTE | 2023-07-23 09:10 | XR ---
EXAMINATION TYPE: XR chest 2V DATE OF EXAM: 07/23/2023 COMPARISON: 07/22/2023 HISTORY: 78 year-old male post cardiac surgery follow-up TECHNIQUE: PA and lateral views FINDINGS: Left anterior chest wall pacemaker generator with right atrial and right ventricular leads. Median st ernotomy wires and post-CABG clips. Heart borderline enlarged. Interstitial density. Patchy retrocard iac opacity remains. Old right-sided rib fracture deformities. IMPRESSION: Overall similar exam with mild pulmonary vascular congestion. Also, trace left pleural effusion with patchy postoperative retrocardiac atelectasis.
[2023-07-23] MEDS: IPRATROPIUM-ALBUTEROL 3 ML NEB INHALATION SCH ×2 (09:12→12:40)
[2023-07-23 11:20] LABS: Glucose,Whole Blood 129 mg/dL (70-110)
--- NOTE | 2023-07-23 11:57 | P.PN ---
Subjective HISTORY OF PRESENT ILLNESS: Patient examined this morning at the bedside. Patient is laying in bed and appears comfortable. He states he did not sleep much last night and is trying to take a nap this morning. He denies any chest pain or pressure. He does report shortness of breath with minimal exertion. He was given a dose of IV Lasix this morning per CT surgery. He is status post permanent pacemaker implantation yesterday. Device was checked this morning and is functioning properly per device rep. Vital signs are stable. PHYSICAL EXAM: VITAL SIGNS: Reviewed. GENERAL: Well-developed in no acute distress. NECK: Supple. No JVD or thyromegaly LUNGS: Respirations even and unlabored. Lungs essentially clear to auscultation bilaterally. HEART: Regular rate and rhythm. S1 and S2 heard. EXTREMITIES: Normal range of motion. No clubbing or cyanosis. Peripheral pulses intact. No lower extremity edema ASSESSMENT: Coronary artery disease, status post three-vessel CABG Tachybradycardia syndrome, status post dual chamber pacemaker implantation, [employer]onic Hypertension PLAN: Continue current cardiac medications Patient was started on metoprolol today per CT surgery Increase activity as tolerated Encouraged use of incentive spirometer Possible discharge to inpatient rehab today Further recommendations pending patient's course Nurse practitioner note has been reviewed by physician. Signing provider agrees with the documented findings, assessment, and plan of care. Objective - Vital Signs Vital signs: Vital Signs Temp 97.5 F L 07/23/23 08:10 Pulse 80 07/23/23 09:24 Resp 17 07/23/23 08:10 BP 146/82 07/23/23 08:10 Pulse Ox 92 L 07/23/23 08:10 FiO2 40 07/15/23 18:30 Intake & Output 07/22/23 07/23/23 07/23/23 18:59 06:59 18:59 Intake Total 950 Output Total 575 600 Balance 375 -600 Weight 109.9 kg Intake: IV 500 Sodium Chloride 0.9% 1, 350 000 ml @ 50 mls/hr IV . Q20H [facility] Rx#:[id number] Oral 450 Output: Urine 575 600 Other: Voiding Method Toilet Toilet # Voids 1 # Bowel Movements 1 ABP, PAP, CO, CI - Last Documented Arterial Blood Pressure 154/39 Pulmonary Artery Pressure 23/7 Cardiac Output 5.7 Cardiac Index 2.5 - Labs CBC & Chem 7: 07/23/23 05:34 07/23/23 05:34 Labs: Abnormal Lab Results - Last 24 Hours (Table) 07/22/23 07/22/23 07/23/23 Range/Units 16:42 20:10 05:34 RBC 2.29 L (4.30-5.90) m/uL Hgb 7.4 L (13.0-17.5) gm/dL Hct 23.5 L (39.0-53.0) % MCV 102.4 H (80.0-100.0) fL RDW 16.8 H (11.5-15.5) % Sodium (137-145) mmol/L Carbon Dioxide (22-30) mmol/L BUN (9-20) mg/dL Glucose (74-99) mg/dL POC Glucose (mg/dL) 134 H 155 H (70-110) mg/dL Calcium (8.4-10.2) mg/dL 07/23/23 07/23/23 07/23/23 Range/Units 05:34 06:41 11:18 RBC (4.30-5.90) m/uL Hgb (13.0-17.5) gm/dL Hct (39.0-53.0) % MCV (80.0-100.0) fL RDW (11.5-15.5) % Sodium 135 L (137-145) mmol/L Carbon Dioxide 21 L (22-30) mmol/L BUN 26 H (9-20) mg/dL Glucose 108 H (74-99) mg/dL POC Glucose (mg/dL) 147 H 129 H (70-110) mg/dL Calcium 8.2 L (8.4-10.2) mg/dL
--- NOTE | 2023-07-23 12:35 | P.DS ---
Providers Date of admission: 07/14/23 13:05 Expected date of discharge: 07/23/23 Attending physician: Isacc Spain MD Consults: 07/13/23 10:21 Consult Physician Stat Consulting Provider: Dariana Hernandez Consult Reason/Comments: POST [facility] - PRO TO MANAGE MEDICALLY Do you want consulting provider notified?: Already Contacted 07/13/23 10:28 Consult Physician Routine Consulting Provider: Isacc Spain Consult Reason/Comments: cabg Do you want consulting provider notified?: Already Contacted 07/13/23 15:06 Consult Physician Routine Consulting Provider: Marcelino Grider Consult Reason/Comments: preop CABG Do you want consulting provider notified?: Already Contacted 07/14/23 13:17 Consult Physician Routine Consulting Provider: Shireen Cabrera Consult Reason/Comments: med mgmt Do you want consulting provider notified?: Already Contacted Consult to Anesthesia Routine Consulting Provider: Anesthesia,Services Consult Reason/Comments: Cardiac Surgery Pre-Op 07/20/23 10:17 Consult Physician Routine Consulting Provider: Joe Ramos Consult Reason/Comments: Evaluation for inpatient rehab Do you want consulting provider notified?: Yes Primary care physician: [facility] Course: FINAL DIAGNOSIS: Multivessel coronary artery disease, 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, 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 Hypertension Lifetime nonsmoker Gout Postoperative acute blood loss anemia, expected given hemodilution and cardiopulmonary bypass Postoperative atrial fibrillation/aflutter, known common occurrence after open heart surgery PRINCIPAL PROCEDURE: Coronary artery bypass grafting x 3, left internal thoracic artery (in-situ) to left anterior descending coronary artery, left radial artery from aorta to obtuse marginal artery #1, saphenous vein from aorta to posterior descending coronary artery Left atrial appendage ligation using #35 AtriClip Endoscopic left radial and left greater saphenous vein harvest Graft flow measurements using the [employer]-stim flow meter Intraoperative transesophageal echocardiogram performed by anesthesia. Insertion of Medtronic dual-chamber permanent pacemaker 07/22/2023 HISTORY OF PRESENT ILLNESS: This is a 78-year-old gentleman who follows outpatient with Dr. Cabrera for primary care and who recently established with Dr. Hernandez for cardiology. This gentleman had been complaining of chest discomfort and dyspnea on exertion. Initially he thought it was his gallbladder but his symptoms have not improved since he had his gallbladder removed. He stated his chest pain and shortness of breath were only with exertion and resolve with rest. Consequently he had reduced his activity level to avoid having such symptoms. He was seen by Dr. Hernandez who recommended heart catheterization and echocardiogram. Echo was completed at the cardiology office which demonstrated normal left ventricular systolic function with EF 55-60%, moderate eccentric mitral regurgitation, mild aortic and tricuspid regurgitation. He underwent elective heart catheterization and was found to have severely calcified coronary artery disease with mid left main stenosis 95%, mid LAD stenosis 80% with a diagonal branch which also has 80% stenosis and RCA with 80% proximal disease, 70% mid disease and diffuse 90-95% distal disease. Due to these findings consultation was placed to Dr. Spain for surgical revascularization recommendations. He was recommended to undergo coronary artery bypass surgery. The usual perioperative course was discussed in detail with the patient and his family, all risks and benefits were explained, all questions were answered, and consent was obtained to proceed with surgery. He was kept inpatient due to the nature of his disease process. HOSPITAL COURSE: The patient was brought to the preoperative area 07/15/23, prepared in the usual fashion, and subsequently taken to the operating room where Dr. Spain performed three vessel CABG. Upon completion of surgery the patient was transferred to the cardiovascular intensive care unit where he was recovered and monitored hemodynamically. He was extubated, all lines, tubes, and drips were discontinued when appropriate. The patient continued to have tachy/jonathon syndrome and had brief episode atrial fibrillation but was unable to take beta michoacano/amio due to bradycardia, therefore decision was made to place permanent pacemaker. He was transferred to [facility] cardiac stepdown unit for further monitoring and rehabilitation. His oxygen was titrated down, he contin ued to work with physical and occupational therapy, he was tolerating oral diet, his pain was controlled, and he was ready to be discharged to inpatient rehab on postoperative day #8. He received written and verbal instruction regarding his medications, activity restrictions, signs and symptoms requiring physician notification, and follow-up appointments. Patient Condition at Discharge: Stable Plan - Discharge Summary Discharge Rx Participant: No New Discharge Prescriptions: New bisacodyL [Dulcolax] 10 mg RECTAL DAILY PRN suppositor PRN Reason: Constipation Ipratropium-Albuterol Nebulize [Duoneb 0.5 mg-3 mg/3 ml Soln] 3 ml INHALATION RT-QID each Apixaban [Eliquis] 5 mg PO BID tab amLODIPine [Norvasc] 2.5 mg PO DAILY tab INSULIN ASPART (NovoLOG) [NovoLOG (formulary)] 0 unit SQ ACHS each Acetaminophen Tab [Tylenol] 650 mg PO Q6HR PRN tab PRN Reason: Mild Pain (Scale 1 To 3) Ascorbic Acid [Vitamin C] 500 mg PO BID tab Sertraline [Zoloft] 25 mg PO DAILY tab Ipratropium-Albuterol Nebulize [Duoneb 0.5 mg-3 mg/3 ml Soln] 3 ml INHALATION RT-Q2H PRN each PRN Reason: Shortness Of Breath Or Wheezing Tamsulosin [Flomax] 0.4 mg PO PC-BRKFST cap Ferrous Sulfate [Iron (65 MG Elemental)] 325 mg PO BID-W/MEALS tab Atorvastatin [Lipitor] 40 mg PO DAILY tab Metoprolol Tartrate [Lopressor] 12.5 mg PO BID tab Magnesium Hydroxide [Milk of Magnesia] 2,400 mg PO BID PRN ml PRN Reason: Constipation Pantoprazole [Protonix] 40 mg PO AC-BRKFST tab Sennosides-Docusate Sodium [Senokot-S] 2 each PO HS PRN tab PRN Reason: Constipation Continue Aspirin 81 mg PO DAILY allopurinoL 300 mg PO DAILY Multivitamins, Thera [Multivitamin (formulary)] 1 tab PO DAILY Discontinued Indomethacin [Indocin] 1 tab PO BID PRN PRN Reason: SWELLING lisinopriL [Prinivil] 20 mg PO BID Isosorbide Mononitrate ER [Imdur] 30 mg PO DAILY Discharge Medication List Multivitamins, Thera [Multivitamin (formulary)] 1 tab PO DAILY 07/31/22 [History] allopurinoL 300 mg PO DAILY 07/31/22 [History] Aspirin 81 mg PO DAILY 07/09/23 [History] Acetaminophen Tab [Tylenol] 650 mg PO Q6HR PRN tab 07/23/23 [Rx] Apixaban [Eliquis] 5 mg PO BID tab 07/23/23 [Rx] Ascorbic Acid [Vitamin C] 500 mg PO BID tab 07/23/23 [Rx] Atorvastatin [Lipitor] 40 mg PO DAILY tab 07/23/23 [Rx] Ferrous Sulfate [Iron (65 MG Elemental)] 325 mg PO BID-W/MEALS tab 07/23/23 [Rx] INSULIN ASPART (NovoLOG) [NovoLOG (formulary)] 0 unit SQ ACHS each 07/23/23 [Rx] Ipratropium-Albuterol Nebulize [Duoneb 0.5 mg-3 mg/3 ml Soln] 3 ml INHALATION RT-Q2H PRN each 07/23/23 [Rx] Ipratropium-Albuterol Nebulize [Duoneb 0.5 mg-3 mg/3 ml Soln] 3 ml INHALATION RT-QID each 07/23/23 [Rx] Magnesium Hydroxide [Milk of Magnesia] 2,400 mg PO BID PRN ml 07/23/23 [Rx] Metoprolol Tartrate [Lopressor] 12.5 mg PO BID tab 07/23/23 [Rx] Pantoprazole [Protonix] 40 mg PO AC-BRKFST tab 07/23/23 [Rx] Sennosides-Docusate Sodium [Senokot-S] 2 each PO HS PRN tab 07/23/23 [Rx] Sertraline [Zoloft] 25 mg PO DAILY tab 07/23/23 [Rx] Tamsulosin [Flomax] 0.4 mg PO PC-BRKFST cap 07/23/23 [Rx] amLODIPine [Norvasc] 2.5 mg PO DAILY tab 07/23/23 [Rx] bisacodyL [Dulcolax] 10 mg RECTAL DAILY PRN suppositor 07/23/23 [Rx] Follow up Appointment(s)/Referral(s): Dariana Hernandez MD [STAFF PHYSICIAN] - 1 Week (Please make appointment for follow-up upon discharge from [facility]) [facility]Cardiac [NON-STAFF] - 4 Weeks (You will receive a phone call in approximately 4-6 weeks for evaluation for cardiac rehab) [facility] [NON-STAFF] - 1 Week ([facility] will call you to arrange a visit) Marcelino Grider DO [Doctor of Osteopathic Medicine] - 1 Week (Please make appointment for follow-up upon discharge from [facility]) Shireen Cabrera MD [Primary Care Provider] - 1 Week (Please make appointment for follow-up upon discharge from [facility]) Isacc Spain MD [STAFF PHYSICIAN] - 08/13/23 9:00 am Patient Instructions/Handouts: Moderate Sedation (DC), After Radial Heart Catheterization (GEN) Activity/Diet/Wound Care/Special Instructions: CONSULTATIONS AT [facility]: Dr. Hernandez for cardiology Dr. Cabrera for internal medicine DISCHARGE INSTRUCTIONS: 1. No driving for 4 weeks, or until physician gives their ok. 2. The patient should sleep in their own bed, no medical bed needed. 3. Stairs are not an issue. If the bedroom is upstairs, it is advised that the patient go up at night and down in the morning for the first week. Go slowly, using handrail and take 1 step at a time. 4. PAVITHRA hose are to be worn for 30 days post surgery or until physician discontinues. 5. Heart hugger is to be worn 100% of the time until physician discontinues.(except when showering) 6. No lifting, pushing, or pulling more than 10 pounds for 12 weeks. The physician will advise of any restriction changes. 7. The patient is expected to continue the prescribed walking program. 8. Continue pain control per as needed orders. 9. Continue with incentive spirometry and splinting/heart hugger until otherwise directed by the physician. 10. Must shower daily using liquid antibacterial soap 11. Routine sternal incision care. No powders, lotions, ointments on incisions. No dressings are necessary on incisions unless they are draining. Dermabond tape is to remain on sternal incision until surgeon follow-up. 12. Please call surgeon/DOCUMENTATION DESIGNER for temp greater than 101 F or purulent drainage from incisions. 13. You should weigh yourself daily, record and bring log with you to follow up appointments. 14. All prescriptions given by surgeon for 30 days. Refills need to be filled through multi site leasing consultant/primary care physician. 15. A Red armband has been placed on the patient. It should be worn for 30 days post discharge from surgery and will be removed by the cardiac surgeons. If an ER visit is necessary, please make sure the number on the Red armband is called before going to ER. 16. You have been referred to and are expected to begin Cardiac Rehab in approximately 4-6 weeks HOME HEALTH SERVICES UPON DC FROM [facility] TO PROVIDE: RN SKILLED HOME CARE SERVICES FOR POST-OP SURGICAL PATIENTS WITH THE FOLLOWING: Coronary Artery Bypass Surgery (CABG), Mitral Valve Replacement/Repair ( MVR), Aortic Valve Replacement/Repair (AVR) RN TO CONTINUE EDUCATION FROM ``ROAD TO A HEALTH HEART PATIENT EDUCATION MANUAL (GIVEN TO PATIENT IN THE HOSPITAL) MEDICATION RECONCILIATION WITH EDUCATION NEEDED ON FIRST HOME VISIT EMPHASIZE IMPORTANCE OF WEARING BREAST SUPPORT/HEART HUGGER ENCOURAGE USE OF INCENTIVE SPIROMETER 10 X EVERY HOUR WHILE AWAKE ENCOURAGE UTILIZATION OF LOWER EXTREMITY COMPRESSION STOCKINGS/PAVITHRA HOSE and ELEVATE LEGS ABOVE LEVEL OF HEART WHILE AT REST. ENCOURAGE AMBULATION 3-5x/day INCREASING TOLERATES, WHILE AVOIDING EXTREMES IN TEMPERATURE FREQUENCY: RN TO OPEN THE PATIENT WITHIN 24 HOURS OF DISCHARGE FROM [facility] WITH TELEHEALTH INSTALLED AT [facility], RN TO VISIT 2-3 X A WEEK FOR 4 WEEKS ESTABLISHED BY PATIENT NEEDS. LABORATORY: CBC, CMP TO BE DRAWN ON THE THIRD DAY HOME, (RAN STAT) FAX RESULTS TO [phone]. TELEHEALTH PARAMETERS: WEIGHT: NOTIFY MD OF WEIGHT GAIN OF 2 LBS IN 24 HOURS OR 5 LBS IN ONE WEEK HR: NOTIFY MD OF HR <55 BPM OR HR>100 BPM BP: NOTIFY MD IF BP <90/55 OR BP>140/100 O2 SAT: NOTIFY MD IF PO2<93% ON ROOM AIR SEND TELEHEALTH REPORT TO [facility] TREATMENT ENGINEER AND CARDIOVASCULAR SURGEON THE FIRST WEEK OF CARE AND THEN BI-WEEKLY. PLEASE ADDITIONALLY COMMUNICATE ANY ABNORMALS AND NEW FINDINGS TO THE SURGEONS OFFICE. PATIENT EDUCATION MATERIAL Instructions following a heart rhythm device implant. 1. Keep dressing DRY for 5 DAYS. You may cover the area with Saran or Cling Wrap, prior to a shower. 2. The dressing will be removed in the Device Clinic at [facility]. Absorbable sutures were used to close the wound. 3. Avoid raising the left arm above the shoulder level. 4 week restriction 4. Avoid arm movements, like backscratching, rubbing the head, or pulling on a cord. 4 weeks restriction 5. Gentle range of motion movements of the shoulder, closest to the incision should be performed to avoid a frozen shoulder. (Pendulum exercises of the shoulder) 6. The opposite arm may be used freely. 7. Avoid driving for 7 days. 8. Avoid activities such as golfing, swimming, weed whacking, lifting more than 10 pounds weight, bowling, gymnastics and weight training/lifting. (6 weeks restriction) 9. Activities such as wood chopping with an axe, pull-ups in the gymnasium, power lifting, arc-welding, being close to home induction cooktops will always be a problem. 10. Arm sling is only a reminder not to raise the arm above the head. You do not need to keep the arm completely immobilized. Your free to move the arm and use it and for normal activities. In case of any problems, please call [facility], @ [phone], Attention: Device Clinic Discharge Disposition: DC/TRNS INTERMEDIATE CARE FAC
[2023-07-23 13:35] VITALS: BP 162/83; PULSE 94; TEMP 97.8
--- NOTE | 2023-07-23 16:12 | P.PN ---
Subjective Progress Note Date: 07/23/23 On today's evaluation of 07/20/2023, patient is being seen for a follow-up. The patient is undergone an on pump 3 vessel bypass surgery. The patient is currently postop day #5. Doing well. Extubated without any major difficulties and the patient is currently on room air oxygen. Activations for now is his generalized weakness, and at the same time the patient is having AV block in the form of a Mobitz type I. He is not bradycardic at this point in time. He is off beta blockers. He is not taking amiodarone. He is hemodynamically stable. Urine output is adequate for now. Using the senna spirometer and pulling approximately 1500 mL. No issues with pain. Sternum is 17 and intact. Chest tubes are removed. Chest x-ray shows some atelectatic changes in the lung bases especially on the left and the patient does have some cardiomegaly. Otherwise, no fever. He is off the insulin drip and the patient is currently on sliding scale insulin coverage. His blood work from today shows a hemoglobin of 7, white cell count of 8.3, platelet count of 211, BUN is at 40 with a creatinine of 0.9 and a sodium level is at 132 with a potassium level of 4.2. He is emanating with assistance. Epicardial leads are still in place. He remains on aspirin and Plavix. He is on high-dose Lipitor. Is also on oral iron. On today's evaluation of 07/22/2023, the patient is comfortable on room air oxy gen. He still having episodes of first-degree AV block mixed with a Mobitz type I. His postoperative day #6. Hemodynamically stable. Chest x-ray shows pulmonary vessel congestion and atelectatic changes along with small effusion lung base bilaterally. Is using the incentive spirometer. Is free of any fever. Hemodynamically stable.The WBC count is at 8 and a hemoglobin of 6.9 and a cardiothoracic team has not made any decision for transfusion. BUN is at 37 with a creatinine of 1 and a sodium level is at 132. No other significant events overnight. On 07/23/2023, I'm seeing the patient for a follow-up. The patient is postop day #7. This morning, the patient is in a first-degree AV block. However, overnight, he had a episode of a severe bradycardia and he had to be placed. He was in a complete heart block. As such, the plan is to proceed with a pacemaker insertion today. He is on room air oxygen. Chest x-ray showing some small bilateral pleural effusions and mild pulmonary vascular congestion. He is not having any respiratory distress. Sternum stable clean and intact. Using the senna spirometer. The white cell cause of 7.3, hemoglobin is at 7, BUN is at 30 with a creatinine of 0.9 and a sodium level is at 135. He is not on beta blockers at this point in time. He is not using any amiodarone. He is on aspirin. He is also on oral iron regarding his iron deficiency anemia. He remains on statins. Awake and alert moving all 4 extremities without any limitation. On today's evaluation of 07/23/2023, the patient is post pacemaker insertion. The patient underwent the procedure without any complications. No pneumothorax on postop chest x-ray. He is on room air oxygen. He has small bilateral pleural effusions and mild pulmonary vascular congestion and chest x-ray findings. He remains anemic and hemoglobin however is stable at 7.4. Urine is a 26 with a creatinine of 0.8. Sodium levels of 135. The patient denies having any specific complaints. Currently is the case and is also hemodynamically stable. The patient will likely get discharged to rehabilitation today. Objective - Vital Signs Vital signs: Vital Signs Temp 97.5 F L 07/23/23 08:10 Pulse 80 07/23/23 09:24 Resp 17 07/23/23 08:10 BP 146/82 07/23/23 08:10 Pulse Ox 92 L 07/23/23 08:10 FiO2 40 07/15/23 18:30 Intake & Output 07/22/23 07/23/23 07/23/23 18:59 06:59 18:59 Intake Total 950 Output Total 575 600 Balance 375 -600 Weight 109.9 kg Intake: IV 500 Sodium Chloride 0.9% 1, 350 000 ml @ 50 mls/hr IV . Q20H ARTURO Rx#:[id number] Oral 450 Output: Urine 575 600 Other: Voiding Method Toilet Toilet # Voids 1 # Bowel Movements 1 ABP, PAP, CO, CI - Last Documented Arterial Blood Pressure 154/39 Pulmonary Artery Pressure 23/7 Cardiac Output 5.7 Cardiac Index 2.5 - Exam No acute distress, awake and alert, currently on room air. HEENT examination is grossly unremarkable. Neck supple. Full range of motion. No adenopathy thyromegaly or neck vein distention. Cardiovascular examination reveals regular rhythm rate. S1-S2 normal. No S3 or S4. No discernible murmur noted. Lungs reveal clear breath sounds. Breath sounds are equal bilaterally. No adventitious lung sounds including wheezes rhonchi or crackles. Abdomen soft without bowel sounds. Extremities are intact. No cyanosis clubbing or edema. Skin is without rash or lesion. Neurologic examination is brief but nonfocal. - Labs CBC & Chem 7: 07/23/23 05:34 07/23/23 05:34 Labs: Abnormal Lab Results - Last 24 Hours (Table) 07/22/23 07/22/23 07/23/23 Range/Units 16:42 20:10 05:34 RBC 2.29 L (4.30-5.90) m/uL Hgb 7.4 L (13.0-17.5) gm/dL Hct 23.5 L (39.0-53.0) % MCV 102.4 H (80.0-100.0) fL RDW 16.8 H (11.5-15.5) % Sodium (137-145) mmol/L Carbon Dioxide (22-30) mmol/L BUN (9-20) mg/dL Glucose (74-99) mg/dL POC Glucose (mg/dL) 134 H 155 H (70-110) mg/dL Calcium (8.4-10.2) mg/dL 07/23/23 07/23/23 07/23/23 Range/Units 05:34 06:41 11:18 RBC (4.30-5.90) m/uL Hgb (13.0-17.5) gm/dL Hct (39.0-53.0) % MCV (80.0-100.0) fL RDW (11.5-15.5) % Sodium 135 L (137-145) mmol/L Carbon Dioxide 21 L (22-30) mmol/L BUN 26 H (9-20) mg/dL Glucose 108 H (74-99) mg/dL POC Glucose (mg/dL) 147 H 129 H (70-110) mg/dL Calcium 8.2 L (8.4-10.2) mg/dL Assessment and Plan Plan: Chest pain, secondary to severe coronary artery disease, including left main disease, and severe disease in the LAD, and right coronary artery. Status post three-vessel bypass grafting, 07/15/2023, postop day # 8 Routine postoperative ventilator management. The patient is extubated and the patient is currently on room air oxygen Second-degree AV block and this morning the patient is in a Mobitz type I, alternating with a first-degree AV block and overnight the patient had a episode of severe bradycardia requiring pacing. The patient is post pacemaker insertion,And the patient underwent a dual-chamber pacemaker insertion without any complications. History of hypertension. History of gout. Lifelong nonsmoker. Postop anemia, expected outcome of surgery, hemoglobin is currently at 7.0, no plans for transfusion Generalized weakness Plan Patient has a dual-chamber pacemaker insertion without any complications Patient is currently on room air oxygen We'll monitor hemoglobin Continue using incentive spirometer Monitor hemoglobin Chest x-ray was reviewed Blood work was reviewed The patient will be discharged to rehabilitation
--- NOTE | 2023-07-23 19:50 | P.PN ---
Subjective This is a pleasant 78 years old male with multiple medical problems was admitted with severe coronary artery disease developed by hardware assembler and underwent coronary artery bypass grafting on 07/15. Currently he is sitting up in chair looks comfortable. His postop period has been complicated with second-degree AV block and because of tachypnea/bradyarrhythmia hardware assembler decided to insert pacemaker and today is postoperative day #0. Patient tolerated procedure well and repeat chest x-ray showing the new pacemaker let's. Also there is mild degree of pulmonary congestion and mild left pleural effusion with possible underlying consolidation versus atelectasis. Nevertheless patient clinically doing well and his room air with no tachypnea o r dyspnea or chest pain. Hemoglobin stable at 7.0. Creatinine 0.98. Risks of vital stable. Rest of labs stable. Patient remains on aspirin 325 mg and Plavix per surgery primary team. 07/23/2023 Patient is awake alert looks comfortable No chest pain or dyspnea. No other new complaint.. Labs stable, hemoglobin stable 7.4 Patient placed on aspirin and Eliquis upon discharge. Patient most likely going to be discharged today Patient is medically stable Objective - Vital Signs Vital signs: Vital Signs Temp 97.8 F 07/23/23 12:00 Pulse 94 07/23/23 13:58 Resp 17 07/23/23 13:58 BP 162/83 07/23/23 12:00 Pulse Ox 92 L 07/23/23 12:00 FiO2 40 07/15/23 18:30 Intake & Output 07/22/23 07/23/23 07/23/23 18:59 06:59 18:59 Intake Total 950 Output Total 575 600 Balance 375 -600 Weight 109.9 kg Intake: IV 500 Sodium Chloride 0.9% 1, 350 000 ml @ 50 mls/hr IV . Q20H [facility] Rx#:[id number] Oral 450 Output: Urine 575 600 Other: Voiding Method Toilet Toilet Toilet # Voids 4 # Bowel Movements 1 ABP, PAP, CO, CI - Last Documented Arterial Blood Pressure 154/39 Pulmonary Artery Pressure 23/7 Cardiac Output 5.7 Cardiac Index 2.5 - Exam GENERAL: The patient is alert and oriented x3, not in any acute distress. Well developed, well nourished. HEENT: Pupils are round and equally reacting to light. EOMI. No scleral icterus. No conjunctival pallor. Normocephalic, atraumatic. No pharyngeal erythema. No thyromegaly. -CARDIOVASCULAR: S1 and S2 present. No murmurs, rubs, or gallops. Surgical wound with a dressing is in a Place PULMONARY: Chest is clear to auscultation, no wheezing , no crackles. ABDOMEN: Soft, nontender, nondistended, normoactive bowel sounds. No palpable organomegaly. MUSCULOSKELETAL: No joint swelling or deformity. EXTREMITIES: No cyanosis, clubbing, or pedal edema. NEUROLOGICAL: Gross neurological examination did not reveal any focal deficits. SKIN: No rashes. no petechiae. - Labs CBC & Chem 7: 07/23/23 05:34 07/23/23 05:34 Labs: Abnormal Lab Results - Last 24 Hours (Table) 07/22/23 07/23/23 07/23/23 Range/Units 20:10 05:34 05:34 RBC 2.29 L (4.30-5.90) m/uL Hgb 7.4 L (13.0-17.5) gm/dL Hct 23.5 L (39.0-53.0) % MCV 102.4 H (80.0-100.0) fL RDW 16.8 H (11.5-15.5) % Sodium 135 L (137-145) mmol/L Carbon Dioxide 21 L (22-30) mmol/L BUN 26 H (9-20) mg/dL Glucose 108 H (74-99) mg/dL POC Glucose (mg/dL) 155 H (70-110) mg/dL Calcium 8.2 L (8.4-10.2) mg/dL 07/23/23 07/23/23 Range/Units 06:41 11:18 RBC (4.30-5.90) m/uL Hgb (13.0-17.5) gm/dL Hct (39.0-53.0) % MCV (80.0-100.0) fL RDW (11.5-15.5) % Sodium (137-145) mmol/L Carbon Dioxide (22-30) mmol/L BUN (9-20) mg/dL Glucose (74-99) mg/dL POC Glucose (mg/dL) 147 H 129 H (70-110) mg/dL Calcium (8.4-10.2) mg/dL Assessment and Plan Assessment: Episodes of chest pain with cardiac catheterization positive for severe disease in the left main, LAD, and the right coronary artery, patient underwent coronary artery bypass graft surgery 3 vessels on 07/15/2023 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
[2023-07-23] MEDS ORDERED: APIXABAN 5 MG TAB PO SCH (21:00)
[2023-07-24] MEDS ORDERED: ASPIRIN 81 MG PO SCH (09:00)
== END 2023-07-23 13:59 | DRG 234 ==
LOC: CATHCVL 07:28 → 3SCARD 10:07 → CATHCVL 07-14 13:05 → 2SICU 07-15 06:11 → 3SCARD 07-23 08:05
PROVIDERS: ADMIT Thoracic Surgery (Cardiothoracic Vascular Surgery); ATTEND Thoracic Surgery (Cardiothoracic Vascular Surgery)
PROC: B2111ZZ Fluoroscopy of Multiple Coronary Arteries using Low Osmolar Contrast (ICD-10-PCS; 2023-07-13)
PROC: 4A023N7 Measurement of Cardiac Sampling and Pressure, Left Heart, Percutaneous Approach (ICD-10-PCS; 2023-07-13)
PROC: 02L70CK Occlusion of Left Atrial Appendage with Extraluminal Device, Open Approach (ICD-10-PCS; principal; 2023-07-15 08:00)
PROC: 02110AW Bypass Coronary Artery, Two Arteries from Aorta with Autologous Arterial Tissue, Open Approach (ICD-10-PCS; principal; 2023-07-15 08:00)
PROC: B24BZZ4 Ultrasonography of Heart with Aorta, Transesophageal (ICD-10-PCS; principal; 2023-07-15 08:00)
PROC: 5A1221Z Performance of Cardiac Output, Continuous (ICD-10-PCS; principal; 2023-07-15 08:00)
PROC: 05BA4ZZ Excision of Left Brachial Vein, Percutaneous Endoscopic Approach (ICD-10-PCS; principal; 2023-07-15 08:00)
PROC: 06BQ4ZZ Excision of Left Saphenous Vein, Percutaneous Endoscopic Approach (ICD-10-PCS; principal; 2023-07-15 08:00)
PROC: 02100A9 Bypass Coronary Artery, One Artery from Left Internal Mammary with Autologous Arterial Tissue, Open Approach (ICD-10-PCS; principal; 2023-07-15 08:00)
PROC: 021009W Bypass Coronary Artery, One Artery from Aorta with Autologous Venous Tissue, Open Approach (ICD-10-PCS; principal; 2023-07-15 08:00)
PROC: 0JH606Z Insertion of Pacemaker, Dual Chamber into Chest Subcutaneous Tissue and Fascia, Open Approach (ICD-10-PCS; 2023-07-22)
PROC: 02HK3JZ Insertion of Pacemaker Lead into Right Ventricle, Percutaneous Approach (ICD-10-PCS; 2023-07-22)
PROC: 02H63JZ Insertion of Pacemaker Lead into Right Atrium, Percutaneous Approach (ICD-10-PCS; 2023-07-22)
DX: I25.10 Atherosclerotic heart disease of native coronary artery without angina pectoris (principal); D62 Acute posthemorrhagic anemia; I44.2 Atrioventricular block, complete; J98.11 Atelectasis; J90 Pleural effusion, not elsewhere classified; I48.92 Unspecified atrial flutter; I47.19 Other supraventricular tachycardia; I44.1 Atrioventricular block, second degree; I48.91 Unspecified atrial fibrillation; R53.1 Weakness; R53.81 Other malaise; I10 Essential (primary) hypertension; M10.9 Gout, unspecified; K44.9 Diaphragmatic hernia without obstruction or gangrene; G62.9 Polyneuropathy, unspecified; K21.9 Gastro-esophageal reflux disease without esophagitis; I49.5 Sick sinus syndrome; D50.9 Iron deficiency anemia, unspecified; E78.5 Hyperlipidemia, unspecified; E87.70 Fluid overload, unspecified; I34.0 Nonrheumatic mitral (valve) insufficiency; Z79.899 Other long term (current) drug therapy; Z79.82 Long term (current) use of aspirin; Z87.891 Personal history of nicotine dependence
CPT/HCPCS: 33208; 71045; 71046; 71250; 80048; 80053; 80061; 80074; 81003; 82330; 82805; 83036; 83735; 84443; 85025; 85027; 85610; 85730; 86850; 86891; 86900; 86901; 86920; 87070; 93306; 93308; 93458; 93880; 93922; 93970; 94002; 94150; 94640

== ENCOUNTER 2024-10-31 06:17 | Day surgery (SDC) | payer MEDICARE, BC ==
[2024-10-27 10:53] VITALS: BMI 32.1
[2024-10-31] MEDS ORDERED: LACTATED RINGERS 1,000 ML IV SCH (06:38)
[2024-10-31] MEDS: LACTATED RINGERS 1,000 ML IV ONE (06:58)
[2024-10-31 06:59] VITALS: RESP 16; TEMP 96.2
[2024-10-31] MEDS ORDERED: PROPOFOL 10 MG/ML 20 ML VIAL IV ONE (07:26)
[2024-10-31] MEDS ORDERED: LIDOCAINE 2% (PF) 20 MG/ML 5 ML VIAL ONE (07:26)
--- NOTE | 2024-10-31 07:48 | P.PCN ---
Date of Procedure: 10/31/24 Procedure(s) Performed: Brief history: Patient is a pleasant 79-year-old white male scheduled for an elective upper endoscopy as well as colonoscopy as a part of evaluation of GERD and screening for colon cancer Procedure performed: Esophagogastroduodenoscopy with biopsy Colonoscopy with biopsy Preoperative diagnosis: Longstanding history of GERD Screening for colon cancer Anesthesia: MAC Procedure: After informed consent was obtained from the patient was brought into the endoscopy unit and IV sedation was administered by anesthesia under continuous monitoring. Initially upper endoscopy was done. The Olympus GF 160 video endoscope was inserted inserted into the mouth and esophagus intubated without any difficulty and was gradually advanced into the stomach and duodenum and carefully examined. The bulb and second part of the duodenum appeared normal. The scope was then withdrawn into the stomach adequately insufflated with air and upon careful examination the antrum had mild gastritis and biopsies were done from this area body, cardia and fundus appeared normal. The scope was then withdrawn into the esophagus. Small hiatal hernia. The GE junction was located at 40 cm to the incisors. It appeared regular with no erythema erosions or ulcerations. Rest of the esophagus appeared normal. Patient tolerated the procedure well. At this time the patient continued to remain sedation. Initial digital rectal examination was normal. Olympus CF 160 video colonoscope was then inserted into the rectum and gradually advanced to the cecum without any difficulty. Careful examination was performed as the scope was gradually being withdrawn. The prep was excellent. There is a 4 mm polyp noted on the cecal valve that was removed by cold biopsy. The cecum, ascending colon, transverse colon, descending colon, sigmoid colon and rectum appeared normal. Retroflexion was performed in the rectum and no lesions were noted. Scattered sigmoid diverticulosis. Patient tolerated the procedure well. Impression: 1. Upper endoscopy revealed mild antral gastritis and small hiatal hernia 2. Colonoscopy revealed 4 mm polyp in the cecal valve status post cold biopsy and scattered diverticulosis Recommendations: Findings of this examination were discussed with the patient as well as his family. He was advised to follow with the biopsy results. Continue with current medications and follow antireflux measures. Resume Eliquis today.
[2024-10-31 08:06] VITALS: BP 162/77; PULSE 72
== END 2024-10-31 08:41 | disposition home or self-care (01) ==
LOC: ORWHC2ENDO 06:17
PROVIDERS: ATTEND Internal Medicine Gastroenterology
DX: Z12.11 Encounter for screening for malignant neoplasm of colon (principal); K29.50 Unspecified chronic gastritis without bleeding; K31.A11 Gastric intestinal metaplasia without dysplasia, involving the antrum; D12.0 Benign neoplasm of cecum; K44.9 Diaphragmatic hernia without obstruction or gangrene; K57.30 Diverticulosis of large intestine without perforation or abscess without bleeding
CPT/HCPCS: 45380; 43239; J2704; J2003; 88305